=== PATIENT | male | born 1935 | race Caucasian/White ===

== ENCOUNTER → 2018-02-10 11:42 | Outpatient (CLI) | payer OTHER, SELFPAY ==
--- NOTE | 2018-02-10 11:47 | RAD_ITS ---
STUDY: X-RAY CHEST REASON FOR EXAM: Male, 82 years old. 2 week history of cough. TECHNIQUE: PA and lateral views of the chest. COMPARISON: None. FINDINGS: Hyperinflation. Increased interstitial markings bilaterally worse in the right hemithorax suggestive of pulmonary scarring. There is evidence of pleural thickening along the right lateral pleural surface. Normal size heart. Normal mediastinum and gasper. Normal visualized pulmonary arteries. Normal visualized aortic arch and descending thoracic aorta. There are diffuse degenerative changes of the visualized thoracic spine. Normal visualized ribs, clavicles, and shoulders. There is no demonstrated abnormality of the visualized soft tissue structures of the upper abdomen. RAD/Chest PA and Lateral IMPRESSION: Hyperinflation. Bilateral pulmonary scarring. Pleural thickening in the right hemithorax. Electronically Signed: Esa Hall MD at 12:47 EDT Tel [phone], Service support ,
== END ==
PROVIDERS: Family Provider Family Medicine; PCP Family Medicine; Visit Provider Physician Assistant
DX: J98.4 Other disorders of lung (principal); J92.9 Pleural plaque without asbestos
CPT/HCPCS: 71046

== ENCOUNTER → 2018-03-04 08:00 | Outpatient (CLI) | payer OTHER, SELFPAY ==
[2018-03-04 12:20] LABS: Absolute Neutrophil Count 5.4 X10^3/uL (2.0-7.7); Basophil# 0.05 X10^3/uL; Basophil% 0.5 % (0-1); Eosinophil# 0.35 X10^3/uL; Eosinophils% 3.8 % (0-5); Hematocrit 38.1 % (40-54); Lymphocyte % 24.2 % (19-41); Mean Corp Hgb Conc 31.5 g/gl (32-36); Mean Corpuscular Hgb 30.2 pg (27.0-32.0); Mean Platelet Vol. 12.2 fl (6.2-12.0); Monocyte# 1.05 X10^3/uL; Monocyte% 11.5 % (0-10); Neutrophil # 5.42 X10^3/uL (2.7-7.7); Neutrophil % 59.7 % (47-70); Platelet Count 201 K/mm3 (150-450); RBC Distribution Width SD 50.7 fl (35.1-43.9); Red Blood Count 3.97 M/mm3 (4.6-6.2); White Blood Count 9.1 K/mm3 (4.4-11.0)
[2018-03-04 12:31] LABS: POSITIVE COUNT NO; POSITIVE DIFFERENTIAL NO; POSITIVE MORPHOLOGY NO
[2018-03-04 12:36] LABS: BUN 11 mg/dL (7-18); Creatinine, Serum 0.92 mg/dL (0.70-1.30); Glucose 93 mg/dL (74-106)
[2018-03-04 12:37] LABS: ALB/GLOB Ratio 0.8 RATIO (0.9-2.4); AST(SGOT) 18 U/L (15-37); Alanine Aminotransfer ALT/SGPT 19 U/L (16-61); Alkaline Phosphatase 93 U/L (45-117); Anion Gap 6 (5-15); BUN/Creat Ratio 11.9 RATIO (10-20); Calcium,Total 8.8 mg/dL (8.5-10.1); Chloride 103 mmol/L (98-107); Cholesterol 107 mg/dL (200); EST Glomerular Filtration Rate 83 mL/min (>60); Est Glom Filt Rate - Afr Amer 101 mL/min (>60); Globulin 3.8 g/dL (2.2-4.2); High Density Lipoprotein 70 mg/dL; Potassium 4.3 mmol/L (3.5-5.1); Protein, Total 6.8 g/dL (6.4-8.2); Sodium Level 138 mmol/L (136-145); Triglycerides 53 mg/dL; Very Low Density Lipoprotein 11 mg/dL (5-40)
== END ==
PROVIDERS: Family Provider Family Medicine; PCP Family Medicine; Visit Provider Family Medicine
DX: I50.9 Heart failure, unspecified (principal); I25.10 Atherosclerotic heart disease of native coronary artery without angina pectoris; N40.1 Benign prostatic hyperplasia with lower urinary tract symptoms
CPT/HCPCS: 36415; 80053; 80061; 85025

== ENCOUNTER 2018-08-08 08:55 | Emergency (ER) | payer MEDICARE, SELFPAY ==
[2018-08-08 08:56] VITALS: BP 121/46; PULSE 95; RESP 28; TEMP 36.2; O2SAT 95; BMI 26.1
--- NOTE | 2018-08-08 09:11 | EKG12_ITS ---
Test Reason : SOB Blood Pressure : / mmHG Vent. Rate : 076 BPM Atrial Rate : 076 BPM P-R Int : 166 ms QRS Dur : 100 ms QT Int : 394 ms P-R-T Axes : 098 -15 -01 degrees QTc Int : 443 ms Normal sinus rhythm Inferior infarct , age undetermined Abnormal ECG Confirmed by YOSSI VALLEJO, [facility] ([id number]), editor news COOKIE TORRES ([id number]) on 08/10/2018 2:45:11 PM Referred By: CHELA Confirmed By:UMU SY MD
--- NOTE | 2018-08-08 09:13 | ED.VISSUMM ---
- ER Visit Summary Date of Service: 08/08/18 Chief Complaint: Shortness of breath History of Present Illness: The patient is a 82 M past medical history of prior stroke and CHF. States the last 10 falls around this time a year he has episodes of shortness of breath. He says often is diagnosed as a bronchitis or respiratory infection. He denies any chest pain. He denies any hemoptysis. He is never had a DVT or PE. He denies any prior HI. He denies any recent travel, surgery, mobilization. He denies any leg swelling. States the shortness of breath is worse laying down at night or with walking. But he denies any chest pain whatsoever. Physical Examination: Well-appearing older male. Vital signs are stable afebrile. Pulse ox 95% on room air no signs of hypoxia. HEENT exam unremarkable. Neck nontender no JVD no lymphadenopathy. Lungs few scattered expiratory wheezes. No rales or rhonchi. Equal and symmetrical. Good air movement. Heart regular rhythm no murmur. Rate in the 90s. Abdomen soft nontender. He is moving all 4 extremities. They are neurovascularly intact. Calves are nontender without edema or cords. Neurologically is awake and alert with no focal motor deficits. Test Results: EKG shows sinus rhythm rate of 76 with possibly an old inferior HI. Chest x-ray shows a lot of chronic changes with pulmonary scarring bibasilar which is seen on a prior chest x-ray. No acute process. No failure. No pneumonia. Emergency Department Course and Treatment: Patient has expiratory wheezing. Treated with p.o. steroids and aerosol treatments. With this recurring annually for the last 10 or so years around this time this could be secondary to seasonal allergies. On repeat exam at 09 56 patient is doing better. He is received aerosol treatments and prednisone. I feel this patient has underlying lung disease from his prior smoking and has COPD flares this time a year with the change of the weather and seasonal allergens. Treatment Plan: Continue on his current inhalers and these are using at home 1 of which is Combivent. Will be placed on prednisone 40 mg a day for the next week. Will be instructed to follow-up with a local processor grain. Disposition: Discharge Impression: Acute dyspnea secondary to acute exacerbation of COPD Seasonal allergies This note was generated with [employer] software. It may contain incorrect words, spelling, and punctuation that were not noted in review of the chart prior to signing ED Disposition - Plan for ED Patient: Chief Complaint: Shortness of Breath Referrals: Ha Davis DO [Primary Care Provider] -
--- NOTE | 2018-08-08 09:17 | ED.DCSUM_ITS ---
- ER Visit Summary Date of Service: 08/08/18 Chief Complaint: Shortness of breath History of Present Illness: The patient is a 82 M past medical history of prior stroke and CHF. States the last 10 falls around this time a year he has episodes of shortness of breath. He says often is diagnosed as a bronchitis or respiratory infection. He denies any chest pain. He denies any hemoptysis. He is never had a DVT or PE. He denies any prior MO. He denies any recent travel, surgery, mobilization. He denies any leg swelling. States the shortness of breath is worse laying down at night or with walking. But he denies any chest pain whatsoever. Physical Examination: Well-appearing older male. Vital signs are stable afebrile. Pulse ox 95% on room air no signs of hypoxia. HEENT exam unremarkable. Neck nontender no JVD no lymphadenopathy. Lungs few scattered expiratory wheezes. No rales or rhonchi. Equal and symmetrical. Good air movement. Heart regular rhythm no murmur. Rate in the 90s. Abdomen soft nontender. He is moving all 4 extremities. They are neurovascularly intact. Calves are nontender without edema or cords. Neurologically is awake and alert with no focal motor deficits. Test Results: EKG shows sinus rhythm rate of 76 with possibly an old inferior MO. Chest x-ray shows a lot of chronic changes with pulmonary scarring bibasilar which is seen on a prior chest x-ray. No acute process. No failure. No pneumonia. Emergency Department Course and Treatment: Patient has expiratory wheezing. Treated with p.o. steroids and aerosol treatments. With this recurring annually for the last 10 or so years around this time this could be secondary to seasonal allergies. On repeat exam at 09 56 patient is doing better. He is received aerosol treatments and prednisone. I feel this patient has underlying lung disease from his prior smoking and has COPD flares this time a year with the change of the weather and seasonal allergens. Treatment Plan: Continue on his current inhalers and these are using at home 1 of which is Combivent. Will be placed on prednisone 40 mg a day for the next week. Will be instructed to follow-up with a local trailer body assembler. Disposition: Discharge Impression: Acute dyspnea secondary to acute exacerbation of COPD Seasonal allergies This note was generated with [employer] software. It may contain incorrect words, spelling, and punctuation that were not noted in review of the chart prior to signing ED Disposition - Plan for ED Patient: Chief Complaint: Shortness of Breath Referrals: Ha Davis DO [Primary Care Provider] -
--- NOTE | 2018-08-08 09:20 | RAD_ITS ---
STUDY: X-RAY CHEST REASON FOR EXAM: Male, 82 years old. Dyspnea. Shortness of breath. TECHNIQUE: PA and lateral views. COMPARISON: 02/10/2018. FINDINGS: Pulmonary hyperinflation with flattening of the hemidiaphragms. Calcified granuloma in the right upper lobe. No suspicious pulmonary nodules or infiltrates. The interstitial lung markings are prominent. Pleural thickening along the right hemithorax is unchanged. No pleural fluid. Normal size heart. Normal mediastinum and gasper. Normal visualized pulmonary arteries. Normal visualized aortic arch and descending thoracic aorta. Bridging of ossified anterior posterior ligaments at multiple levels of the thoracic spine is diffuse idiopathic skeletal hyperostosis. Normal visualized ribs, clavicles, and shoulders. There is no demonstrated abnormality of the visualized soft tissue structures of the upper abdomen. RAD/Chest PA and Lateral IMPRESSION: 1. No acute cardiopulmonary pathology. 2. COPD with chronic interstitial lung disease. 3. No significant interval change when compared to 02/10/2018. COMMENT: Baseline High resolution CT chest will be more helpful for further evaluation of chronic interstitial lung disease and shortness of breath if desired. Electronically Signed: Eddy Enciso MD at 9:35 EDT , Service support ,
[2018-08-08] MEDS: predniSONE 20 MG Tablet 60 MG PO (09:29)
[2018-08-08] MEDS: Ipratropium/Albuterol Sulfate 3 ML AMPUL.NEB INHALATION (09:39)
[2018-08-08] MEDS: Albuterol 2.5 MG/3 ML VIAL.NEB. INHALATION (09:39)
[2018-08-08 09:41] VITALS: PULSE 96; RESP 18
--- NOTE | 2018-08-08 09:59 | ED.DEP ---
ED Disposition - Plan for ED Patient: Disposition: Home or Assisted Living Chief Complaint: Shortness of Breath Instructions: ED COPD Flare Prescriptions: Prednisone [Deltasone] 40 mg PO DAILY 7 Days tab Referrals: Ha Davis DO [Primary Care Provider] - As Needed Bola Becerril DO [STAFF PHYSICIAN] - As soon as possible Additional Instructions: Inhalers as needed. Prednisone 40 mg a day for the next 7 days starting tomorrow. We gave you your first dose in the ER today. Call and follow-up with a local vehicle and equipment cleaner.
[2018-08-08 10:16] VITALS: PULSE 100; RESP 18; O2SAT 93
--- NOTE | 2018-08-09 14:04 | CM.ED ---
ED CALLBACK: Follow-up call placed to patient. Patient states he is feeling better. He states he is taking his prescription and has scheduled a follow-up appointment with his PCP for this Thursday. Patient denies having made an appt with Bola blount. He denies any needs or questions at this time.
== END 2018-08-08 10:16 | disposition home or self-care (01) ==
PROVIDERS: Emergency Provider Emergency Medicine; Family Provider Family Medicine; PCP Family Medicine
DX: J44.1 Chronic obstructive pulmonary disease with (acute) exacerbation (principal); J30.2 Other seasonal allergic rhinitis; I50.9 Heart failure, unspecified; Z79.899 Other long term (current) drug therapy; Z87.891 Personal history of nicotine dependence; Z86.73 Personal history of transient ischemic attack (TIA), and cerebral infarction without residual deficits
CPT/HCPCS: 71046; 93005; 94640; 99283

== ENCOUNTER → 2018-09-03 06:46 | Outpatient (CLI) | payer MEDICARE, SELFPAY ==
--- NOTE | 2018-09-05 06:39 | PFT ---
INTRODUCTION: The patient is an 82-year-old male that presents for pulmonary function testing secondary to a diagnosis of dyspnea. Respiratory therapy reports good patient effort. Bronchodilators were used during testing. INTERPRETATION: Forced expiration spirometry demonstrates the presence of a very severe large airways obstructive ventilatory defect. There was a significant response to aerosolized bronchodilators noted. Spirograms are of good quality and do not plateau indicating slow emptying of the lungs. The respiratory flow volume loop reveals decreased expiratory flow rates at all lung volumes consistent with airways obstruction. Body plethysmography was performed and reveals an elevated RV to 173% of predicted, indicative of underlying air trapping. Diffusing capacity by single breath CO is moderately reduced at 53% of predicted. 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 There are no previous pulmonary function studies available for comparison.
== END ==
PROVIDERS: Family Provider Family Medicine; PCP Family Medicine; Referring Provider Internal Medicine Critical Care Medicine; Visit Provider Internal Medicine Critical Care Medicine
DX: R06.00 Dyspnea, unspecified (principal)
CPT/HCPCS: 94060; 94726; 94729

== ENCOUNTER → 2018-09-07 12:19 | Outpatient (CLI) | payer MEDICARE, SELFPAY ==
[2018-09-07 13:32] VITALS: PULSE 103; PULSE 105; PULSE 106; PULSE 78; PULSE 93; PULSE 98; O2SAT 87; O2SAT 89; O2SAT 90; O2SAT 93; O2SAT 94; O2SAT 96
--- NOTE | 2018-09-07 14:16 | WT_ITS ---
PSN 6 Minute Walk Test - 6 Minute Walk Test 6 Minute Walk Test: 6 Minute Walk Test PSN:6-Minute Walk Test Start: 09/07/18 13:32 Freq: Status: Active Protocol: RESP.6MINW Document 09/07/18 13:32 [facility] (Rec: 09/07/18 13:37 [facility] [id number]) 6 Minute Walk Test Date Performed 09/07/18 Time Performed 12:30 Height 5 ft 10 in Weight: 82.554 kg Weight in Pounds 182.[address]: Emerson Cabello Assistive device used: None Pre-test Oxygen Delivery Method Room Air Pulse Ox (%) 94 Pulse Rate (60-100 beats/min) 98 Dyspnea Brenda Scale (0-10) 0 Exertion Brenda Scale (6-20) 6 1st minute Oxygen Delivery Method Room Air Pulse Ox (%) 89 Pulse Rate (60-100 beats/min) 106 H 2nd minute Oxygen Delivery Method Room Air Pulse Ox (%) 90 Pulse Rate (60-100 beats/min) 103 H 3rd minute Oxygen Delivery Method Room Air Pulse Ox (%) 87 Pulse Rate (60-100 beats/min) 105 H Dyspnea Brenda Scale (0-10) 3 Exertion Brenda Scale (6-20) 11 4th minute Oxygen Flow Rate (L/min) (L/min) 2 Oxygen Delivery Method Nasal Cannula Pulse Ox (%) 96 Pulse Rate (60-100 beats/min) 103 H 5th minute Oxygen Flow Rate (L/min) (L/min) 2 Oxygen Delivery Method Nasal Cannula Pulse Ox (%) 94 Pulse Rate (60-100 beats/min) 103 H 6th minute Oxygen Flow Rate (L/min) (L/min) 2 Oxygen Delivery Method Nasal Cannula Pulse Ox (%) 93 Pulse Rate (60-100 beats/min) 93 Dyspnea Brenda Scale (0-10) 3 Exertion Brenda Scale (6-20) 11 Post-test Oxygen Flow Rate (L/min) (L/min) 2 Oxygen Delivery Method Nasal Cannula Pulse Ox (%) 96 Pulse Rate (60-100 beats/min) 78 Full Laps Walked 14 Partial Lap, Number of Tiles Walked 0 Total Distance Walked (ft) 826 - Interpretation Interpretation: The patient was noted to be 94% on room air. The patient was unable to ambulate for 3 minutes until desaturated to 87%. The patient was placed on 2 L nasal cannula and saturations were controlled. In total, patient travel 826 feet over the course of 6 minutes with the assistance of a wheelchair for stabilization. There is no significant tachycardia noted during testing. These findings are consistent with a respiratory limitation exercise tolerance. - Recommendations Recommendations: No supplemental oxygen is indicated at rest. However, patient should be using 2 L nasal cannula with any exertion.
== END ==
PROVIDERS: Family Provider Family Medicine; PCP Family Medicine; Referring Provider Internal Medicine Critical Care Medicine; Visit Provider Internal Medicine Critical Care Medicine
DX: R06.00 Dyspnea, unspecified (principal)
CPT/HCPCS: 94618

== ENCOUNTER → 2018-10-05 12:48 | Outpatient (CLI) | payer MEDICARE, SELFPAY ==
[2018-09-15 10:45] VITALS: BMI 26.5
--- NOTE | 2018-10-05 12:49 | ECHOD_ITS ---
Reason For Study: Dyspnea/SOB Procedure This was a 2D Doppler, Color Flow transthoracic echocardiogram. The study was technically difficult. Exam performed in department. Left Ventricle Normal LV size. Sigmoid septum. Mild segmental systolic dysfunction (see wall motion). The estimated ejection fraction is 40 %. Diastolic function is indeterminate. Posterior-Basal: Akinetic. Infero- Basal: Akinetic. Basal inferoseptal: Hypokinetic. Mid-Posterior: Hypokinetic. Mid-Inferior: Akinetic. Mid-inferoseptal : Hypokinetic. Inferior [place] : Hypokinetic. Right Ventricle Normal RV size. Normal systolic function. Atria Normal left atrium. Normal right atrium. No doppler evidence for ASD. Mitral Valve There is no mitral annular calcification. Normal mitral valve. Trivial mitral valve insufficiency. Tricuspid Valve Normal tricuspid valve. Trivial tricuspid valve insufficiency. Unable to estimate RV systolic pressure/pulmonary artery pressure due to technically difficult study. Aortic Valve Trisinus/trileaflet aortic valve. Mild diffuse aortic valve thickening. Moderate focal aortic valve calcification. Mild aortic stenosis. Pulmonic Valve The pulmonic valve is not well visualized. Great Vessels The aortic root is not well visualized. Pericardium/Pleural No pericardial effusion. MMode/2D Measurements & Calculations LVIDd: 4.9 cm IVSd: 1.8 cm LVOT diam: 2.3 cm LVIDs: 4.6 cm LVPWd: 0.78 cm LVOT area: 4.2 cm2 RVDd: 4.3 cm FS: 6.6 % LA dimension: 4.9 cm LAV(MOD-bp): 60.0 ml Aortic Valve Planimetry: 1.3 cm2 LAV(MOD-bp) Indexed: 29.7 ml/m2 LAV(MOD-sp2): 64.0 ml LAV(MOD-sp4): 53.2 ml LA A4 area: 19.2 cm2 RA A4 area: 19.4 cm2 Time Measurements MV dec time: 0.29 sec Doppler Measurements & Calculations MV E max josé miguel: 36.2 cm/sec Lat Peak E' José Miguel: 4.5 cm/sec Med Peak E' José Miguel: 3.2 cm/sec MV A max josé miguel: 95.9 cm/sec E/E' lat: 8.1 E/E' med: 11.2 MV E/A: 0.38 MV V2 max: 106.8 cm/sec MV P1/2t max josé miguel: 47.5 cm/sec Ao V2 max: 222.9 cm/sec MV max P.6 mmHg MV P1/2t: 105.3 msec Ao max P.9 mmHg MV V2 mean: 44.0 cm/sec MV dec slope: 132.0 cm/sec2 Ao V2 mean: 148.7 cm/sec MV mean P.99 mmHg Ao mean P.3 mmHg MV V2 VTI: 24.4 cm MVA(P1/2t): 2.1 cm2 Ao V2 VTI: 44.9 cm MVA(VTI): 2.9 cm2 BILL(I,D): 1.6 cm2 BILL(V,D): 1.5 cm2 LV V1 max: 80.5 cm/sec SV(LVOT): 70.7 ml PA V2 max: 76.1 cm/sec LV V1 max P.6 mmHg LV V1 mean P.1 mmHg LV V1 mean: 47.6 cm/sec LV V1 VTI: 16.7 cm Interpretation Summary The study was technically difficult. Mild segmental systolic dysfunction (see wall motion). The estimated ejection fraction is 40 %. Sigmoid septum. Trivial mitral valve insufficiency. Trivial tricuspid valve insufficiency. Mild aortic stenosis. Unable to estimate RV systolic pressure/pulmonary artery pressure due to technically difficult study. Diastolic function is indeterminate. Ordering Physician: Bethany Stearns Referring Physician: Bethany Stearns Performed By: Stephon Martinez RCS
--- OUTSIDE RECORDS SUMMARY | 2018-11-17 06:00 | XMS RPT_ITS ---
:1935 Author Organization OHIP Support Name Relationship Address Phone PINO MONDRAGON Unavailable [address] + [place] [address] R Unavailable Unavailable Unavailable ALANNA, PINO Unavailable [address] + [place] [address] R Unavailable Unavailable Unavailable ALANNA, PINO Unavailable [address] + [place] [address] R Unavailable Unavailable Unavailable ALANNA, PINO Unavailable [address] + [place] [address] R Unavailable Unavailable Unavailable ALANNA, PINO Unavailable [address] + [place] [address] R Unavailable Unavailable Unavailable ALANNA, PINO Unavailable [address] + [place] [address] R Unavailable Unavailable Unavailable ALANNA, PINO Unavailable [address] + [place] [address] R Unavailable Unavailable Unavailable ALANNA, PINO Unavailable [address] + [place] [address] R Unavailable Unavailable Unavailable ALANNA, PINO Unavailable [address] + [place] [address] R Unavailable Unavailable Unavailable ALANNA, PINO Unavailable [address] + [place] [address] R Unavailable Unavailable Unavailable ALANNA, PINO Unavailable [address] + [place] [address] R Unavailable Unavailable Unavailable ALANNA, BABARA Unavailable [address] + [place] [address] U Unavailable Unavailable Unavailable ALANNA, BABARA Unavailable [address] + [place] [address] U Unavailable Unavailable Unavailable U Unavailable Unavailable Unavailable Care Team Providers Name Role Phone Oral Song Attending Unavailable Stearns, Bethany Referring Unavailable Wes Munson Attending Unavailable Jeimy, Wes Attending Unavailable PatricialesWes Referring Unavailable Susan, Ha Primary Care Unavailable Susan, Ha Attending Unavailable Susan, Ha Primary Care Unavailable Susan, Ha Primary Care Unavailable Dannie Mortensen Attending Unavailable Irineo, Emerson Attending Unavailable Susan, Ha Referring Unavailable Irineo, Emerson Attending Unavailable Irineo, Emerson Referring Unavailable Susan, Ha Primary Care Unavailable Irineo, Emerson Attending Unavailable Irineo, Emerson Referring Unavailable Susan, Ha Primary Care Unavailable Stearns, Bethany Attending Unavailable Susan, Ha Referring Unavailable Bola Becerril D.O. Attending Unavailable Irineo, Emerson Referring Unavailable Irineo, Emerson Attending Unavailable Irineo, Emerson Referring Unavailable Stearns, Bethany Attending Unavailable Stearns, Bethany Referring Unavailable Susan, Ha Primary Care Unavailable Stearns, Bethany Attending Unavailable Susan, Ha Referring Unavailable Stearns, Bethany Attending Unavailable Stearns, Bethany Referring Unavailable Susan, Ha Primary Care Unavailable PROBLEMS PROBLEMS DATE TYPE CONDITION / CODE ATTENDING STATUS SOURCE 10/13/2018 Unknown R06.00 - Dyspnea, Stearns, Active [place] unspecified / [facility] Community R06.00(ICD-10) Hospital Repository 10/25/2018 Unknown R06.09 - Other forms Oral Song Active [place] of dyspnea / Community R06.09(ICD-10) Hospital Repository 03/04/2018 Unknown I50.9 - Heart SusanHa kaur Active [place] failure, unspecified Community / I50.9(ICD-10) Hospital Repository 03/04/2018 Unknown 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 [place] [address] [place] [address] OFFICE VISIT Date of Service: 10/13/18 MR#: [id number] Acct: [id number] Name: HAILEY MONDRAGON Rep #: [id number] : 1935 Provider: Bethany Stearns Age/Sex: 82/M [place] [facility] [place] Status: Signed Assessment AND Plan 1. Chronic respiratory failure with hypoxia J96.11 Plan The patient is using and benefiting from oxygen. Continue to utilize to maintain a saturation of 89-92%. Follow-up as previously scheduled. 2. 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 No need for prednisone or antibiotic. Continue current maintenance medication. No additional testing at this time. Contact the office for any new or worsening symptoms. An acute visit and typically be arranged within 1-2 days. Follow-up as previously scheduled. 3. Dyspnea on exertion R06.09 Plan Still suspicious of pulmonary hypertension despite confirmation on echocardiogram. Patient reports that he always has a significant improvement in his oxygen saturations and his respiratory effort with prednisone. Autoimmune blood work to be done today. Follow-up with Dr. Cabello on October 23, at which time they can discuss test results. May benefit from allergic asthma workup as well, unable to obtain at this time given that he is currently on a prednisone taper. Plan Detail Other Orders Orders: Other Medications New: budesonide-formoterol 160-4.5 mcg/actuation (Symbicort) 2 puffs Inhalation BID 1 ea 3RF administer with spacer, rinse mouth after each use HPI Echo Results: Chief Complaint: Shortness of breath HPI Comments Details: This patient presents to the office today to follow- up after recently completing a test, and to follow-up on his shortness of breath. He is ambulatory, currently on room air and accompanied by his . He reports that since last office visit he was started on Symbicort, which he found to be helpful in relieving some of his shortness of breath. He also admits that he has a standing order for a prednisone taper and refilled it. He is currently on the taper. He states that his shortness of breath significantly improved with the use of the prednisone taper. His shortness of breath is now only present on exertion. He denies any cough, sputum production or hemoptysis. He denies any wheezing, chest tightness, chest pain or palpitations. He denies any lower extremity edema. He has not had any fever, chills or body aches. He is compliant with the Symbicort 2 puffs twice daily. Does report rinsing his mouth out after he chews. Denies any medication side effects such as sore throat or thrush. He has not needed to use his Combivent Respimat rescue inhaler recently. Echocardiogram completed on October 05, 2018 shows an EF of 40%, diastolic dysfunction is indeterminate and unable to estimate RVSP. Intake Vital Signs10/13/18 Height 5 ft 10 in Intake Visit Reasons: Echo Results Chief Complaint: Shortness of breath Is patient in pain?: No Allergies amoxicillin Adverse Reaction (Verified 10/13/18 08:43) Nausea/Vom/Diarrhea Medications atorvastatin 10 mg tablet 1 tab PO DAILY 90 Days #90 02/10/18 [History Confirmed 10/13/18] finasteride 5 mg tablet 1 tab PO DAILY 90 Days #90 02/10/18 [History Confirmed 10/13/18] lisinopril 5 mg tablet 1 tab PO DAILY 90 Days #90 02/10/18 [History Confirmed 10/13/18] potassium chloride ER 10 mEq tablet,extended release 1 tab PO DAILY 90 Days #180 02/10/18 [History Confirmed 10/13/18] ipratropium 20 mcg-albuterol 100 mcg/actuation mist for inhalation 1 puff INHALATION Q6H 09/02/18 [History Confirmed 10/13/18] budesonide-formoterol HFA 160 mcg-4.5 mcg/actuation aerosol inhaler 2 puff INHALATION BID #1 ea 10/13/18 [Rx Confirmed 10/13/18] [facility] Medical History Heart disease (Acute) SOB (shortness of breath) (Acute) Stroke (Acute) HTN (hypertension) (Chronic) Surgical History History of knee replacement (Acute) Social History Smoking Status: Former smoker quit date: 11/09/12 alcohol intake: current Review of Systems Const CONSTITUTIONAL: Negative anorexia, body ache, chills, daytime sleepiness, fever(s), night sweats, oral thrush, stops breathing during sleep, weight loss, sleeping in chair, fatigue, weight loss, weight gain, frequent colds, seasonal allergies, other, headache(s) or orthopnea EETM Ear Nose Throat Mouth: Positive post nasal drip; negative hard of hearing, hearing normal, hoarseness, dry mouth in morning, change in vision, itchy eyes, eye pain, swallowing Difficulty, ear pain, nose bleed, headache(s), mouth pain, nasal congestion, nasal discharge, sinus pain, sinus pressure, sore throat or other Cardio Cardiovascular: Positive murmur; negative chest pain, chest pain at rest, chest pain with activity, irregular heart rhythm, edema, shortness of breath when lying down, palpitations or other Resp Respiratory: Positive shortness of breath shortness of breath: Positive with activity; negative as per HPI, pain with cough, wheezing, chest congestion, cough, chest tightness, pain on inspiration, inhalers, increase use of rescue inhalers, snoring, apnea or other Gastro Gastrointestional: Negative bloody stools, change in appetite, difficulty swallowing, reflux, hematemesis, melena stool, loose stool, constipation or other Genitourinary: Negative blood in urine, nocturia, pain with urination or other Musc Musculoskeletal: Negative body pain, back pain, neck pain or other Skin/Breast Skin/Breast: Negative dry skin, itching, rash, unusual bruising, breast lump or other Neuro Neurological: Negative restless legs, confusion, weakness or other Psych Psychocological: Negative abnormal sleep pattern, anxiety, thoughts of hurting self/others, hopelessness or other Lymph Lymphatic: Negative easy bleeding, easy bruising, swollen lymph nodes or other Exam Const Constitutional: Positive conversant, cooperative, in no acute respiratory distress, well developed, well nourished and good hygiene Head Head: Positive normocephalic and atraumatic; negative cyanosis of lips/distal nose Eyes Eye: Positive clear conjunctiva; negative nystagmus or scleral abnormality Ears Ear: Positive external ears normal; negative hard of hearing or hearing normal Nose Nose: Positive external nose normal and no nasal discharge; negative epistaxis Mouth Mouth: Positive post nasal drip, oral mucosae normal, no lesions and posterior oropharynx is adequate; negative malodorous breath or oral thrush present Mallampati Score: I: Mallampati Score Neck Neck: Positive normal visual inspection, full ROM and trachea midline; negative lymphadenopathy, JVD or tender Chest Wall Chest: Positive normal inspection of the chest and symmetric chest movement; negative increased A/P diameter Resp lung sounds: Positive clear to auscultation, diminished, prolonged expiratory time, normal chronic state of increased work of breathing and increased work of breathing; negative wheezes, rhonchi, rales, dullness to percussion, wheeze present on forced exhalation or use of accessory muscles Cardio Cardiac: Positive murmur murmur: Positive systolic and RUSB, regular rate, regular rhythm, S1 normal and S2 normal GI GI: Positive normal to inspection; negative distended Genitourinary: Positive deferred Musc Musculoskeletal: Positive steady gait and ROM normal; negative kyphosis or scoliosis Skin Pulmonary Skin Exam: Positive intact and dermal atrophy; negative rash, lesion, ulcers or erythema Pulses Pulse: Yes pulses normal x4 extremities Extremities Extremities: Yes capillary refill normal, No clubbing, No cyanosis, No edema Neuro Neurologic: Yes conversant, Yes no focal neuro deficits, Yes normal concentration, Yes understands questions, Yes cooperative, Yes normal cognition, Yes normal coordination, No tremor Lymph Lymphatic: No lymphadenopathy, No tenderness, No cervical adenopathy Psych Appearance: Positive grossly normal, eye contact and well kempt Mental Status: Positive mental status grossly normal Mood: Positive congruent mood Affect: Positive normal affect Coding Level of Care Code Off vis,est,level 4 Diagnoses Chronic respiratory failure with hypoxia J96.11 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 Dyspnea on exertion R06.09 Dyspnea type: dyspnea on exertion 10/13/18 1006 <Electronically signed by Bethany PAYNE> Date Bethany PAYNE Cosigner Signature: Date (if applicable) CC: Ha Susan DO RHEUMATOID FACTOR Collected: 10/13/2018 Status: F Source: [place] 9:17 AM [facility] REPOSITORY TYPE CODE TESTS RESULT OUT OF RANGE REFERENCE UNITS LAB L505.7010 <15 IU/mL Normal RHEUMATOID FAC < 10.0 Performed By: #### L505.7010 #### [facility] [place], [address] ANCA Collected: 10/13/2018 Status: F Source: [place] 9:17 AM [facility] REPOSITORY TYPE CODE TESTS RESULT OUT OF RANGE REFERENCE UNITS LAB L3300.1225 Neg:<1:20 titer CYTOPLASMIC Normal Ab <1:20 LAB L3300.1250 Neg:<1:20 titer PERINUCLEAR Normal Ab <1:20 Result Comment: The presence of positive fluorescence exhibiting P-ANCA or C-ANCA patterns alone is not specific for the diagnosis of Bart's Granulomatosis (WG) or microscopic polyangiitis. Decisions about treatment should not be based solely on ANCA IFA results. The International ANCA Group Consensus recommends follow up testing of positive sera with both WI- 3 and MPO-ANCA enzyme immunoassays. As many as 5% serum samples are positive only by EIA. Ref. AM J Clin Pathol 1999;111:507-513. LAB L3300.1285 Neg:<1:20 titer Normal Atypical pANCA <1:20 Result Comment: The atypical pANCA pattern has been observed in a significant percentage of patients with ulcerative colitis, primary sclerosing cholangitis and autoimmune hepatitis. Performed By: #### L3300.1200, L4600.0100 #### [facility] (refer to report for specific site) refer to report for address and phone number CCP IGG ANTIBODIES Collected: 10/13/2018 Status: F Source: [place] 9:17 AM [facility] REPOSITORY TYPE CODE TESTS RESULT OUT OF RANGE REFERENCE UNITS LAB L4600.0100 0-19 units Normal ANTI-CCP 7 [id number] Result Comment: Negative <20 Weak positive 20 - 39 Moderate positive 40 - 59 Strong positive >59 Performed at: [facility] [id number] [employer] Machine Operator: Liang Lunsford PhD, Phone: [phone] Performed at: - [facility] [id number] [employer] Operator: Nisha Phillips MD, Phone: [phone] Performed By: #### L3300.1200, L4600.0100 #### [facility] (refer to report for specific site) refer to report for address and phone number SABA W/ REFLEX MULT Collected: 10/13/2018 Status: F Source: [place] 9:17 AM [facility] REPOSITORY TYPE CODE TESTS RESULT OUT OF RANGE REFERENCE UNITS LAB L3100.5475 Negative Normal Negative SABA-DIRECT Result Comment: Performed at: - [facility] [id number] [employer] Machine Operator: Liang Lunsford PhD, Phone: [phone] Performed By: #### L3100.5450 #### [facility] (refer to report for specific site) refer to report for address and phone number ECHOCARDIOGRAM COMPLETE Observed: 10/05/2018 Status: F Source: [place] 3:56 PM [facility] REPOSITORY [facility] Cardiovascular Services [address] [place] [id number] Echo Complete 10/05/18 1301 MR#: [id number] Acct: [id number] Name: HAILEY MONDRAGON Rep #: [id number] : 1935 82 From: Oral Song MD Attending Dr: Bethany Stearns MORTGAGE LOAN PROCESSING CLERK Status: [facility] Ordering Dr: Bethany Stearns MORTGAGE LOAN PROCESSING CLERK-C Date: 10/05/18 Location: [facility] Sex: M C Admitted: Reason For Study: Dyspnea/SOB Procedure This was a 2D Doppler, Color Flow transthoracic echocardiogram. The study was technically difficult. Exam performed in department. Left Ventricle Normal LV size. Sigmoid septum. Mild segmental systolic dysfunction (see wall motion). The estimated ejection fraction is 40 %. Diastolic function is indeterminate. Posterior-Basal: Akinetic. Infero- Basal: Akinetic. Basal inferoseptal: Hypokinetic. Mid-Posterior: Hypokinetic. Mid-Inferior: Akinetic. Mid-inferoseptal : Hypokinetic. Inferior Arden : Hypokinetic. Right Ventricle Normal RV size. Normal systolic function. Atria Normal left atrium. Normal right atrium. No doppler evidence for ASD. Mitral Valve There is no mitral annular calcification. Normal mitral valve. Trivial mitral valve insufficiency. Tricuspid Valve Normal tricuspid valve. Trivial tricuspid valve insufficiency. Unable to estimate RV systolic pressure/pulmonary artery pressure due to technically difficult study. Aortic Valve Trisinus/trileaflet aortic valve. Mild diffuse aortic valve thickening. Moderate focal aortic valve calcification. Mild aortic stenosis. Pulmonic Valve The pulmonic valve is not well visualized. Great Vessels The aortic root is not well visualized. Pericardium/Pleural No pericardial effusion. MMode/2D Measurements AND Calculations LVIDd: 4.9 cm IVSd: 1.8 cm LVOT diam: 2.3 cm LVIDs: 4.6 cm LVPWd: 0.78 cm LVOT area: 4.2 cm2 RVDd: 4.3 cm FS: 6.6 % LA dimension: 4.9 cm LAV(MOD-bp): 60.0 ml Aortic Valve Planimetry: 1.3 cm2 LAV(MOD-bp) Indexed: 29.7 ml/m2 LAV(MOD-sp2): 64.0 ml LAV(MOD-sp4): 53.2 ml LA A4 area: 19.2 cm2 RA A4 area: 19.4 cm2 Time Measurements MV dec time: 0.29 sec Doppler Measurements AND Calculations MV E max josé miguel: 36.2 cm/sec Lat Peak E' José Miguel: 4.5 cm/sec Med Peak E' José Miguel: 3.2 cm/sec MV A max josé miguel: 95.9 cm/sec E/E' lat: 8.1 E/E' med: 11.2 MV E/A: 0.38 MV V2 max: 106.8 cm/sec MV P1/2t max josé miguel: 47.5 cm/sec Ao V2 max: 222.9 cm/sec MV max P.6 mmHg MV P1/2t: 105.3 msec Ao max P.9 mmHg MV V2 mean: 44.0 cm/sec MV dec slope: 132.0 cm/sec2 Ao V2 mean: 148.7 cm/sec MV mean P.99 mmHg Ao mean P.3 mmHg MV V2 VTI: 24.4 cm MVA(P1/2t): 2.1 cm2 Ao V2 VTI: 44.9 cm MVA(VTI): 2.9 cm2 BILL(I,D): 1.6 cm2 BILL(V,D): 1.5 cm2 LV V1 max: 80.5 cm/sec SV(LVOT): 70.7 ml PA V2 max: 76.1 cm/sec LV V1 max P.6 mmHg LV V1 mean P.1 mmHg LV V1 mean: 47.6 cm/sec LV V1 VTI: 16.7 cm Interpretation Summary The study was technically difficult. Mild segmental systolic dysfunction (see wall motion). The estimated ejection fraction is 40 %. Sigmoid septum. Trivial mitral valve insufficiency. Trivial tricuspid valve insufficiency. Mild aortic stenosis. Unable to estimate RV systolic pressure/pulmonary artery pressure due to technically difficult study. Diastolic function is indeterminate. Ordering Physician: Bethany Stearns Referring Physician: Bethany Stearns Performed By: Stephon Martinez RCS 10/05/18 1555 Date Oral Song MD CC: Bethany Stearns; Ha Davis DO Date Dictated: 10/05/18 1301 Date Transcribed: 10/05/18 2419 Unemployment Examiner: Signed PULMONARY VISIT REPORT Observed: 09/16/2018 Status: F Source: [place] 3:52 PM [facility] REPOSITORY Pulmonary Medicine of [address] [place] [address] OFFICE VISIT Date of Service: 09/15/18 MR#: [id number] Acct: [id number] Name: HAILEY MONDRAGON Rep #: [id number] : 1935 Provider: Bethany Stearns Age/Sex: 82/M [place] [facility] [place] Status: Signed Assessment AND Plan 1. Chronic respiratory failure with hypoxia J96.11 Plan New. Patient was educated on the deleterious effects of hypoxia, including premature . He conveys understanding and is now willing to wear supplemental oxygen with exertion. He has been encouraged to wear 4 L on exertion, follow-up in the office next week. 2. 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 He was able to take the first dose in the office today follow-up next week to see how he is responded to this new medication. Orders Orders: 3. Dyspnea on exertion R06.09 Plan Echocardiogram to evaluate for essential sources of shortness of breath on exertion, such as pulmonary hypertension. Follow-up in 1 week to discuss test results. Plan Detail Other Orders Orders: Follow Up 1 Week ([facility]) HPI Oxygen discussion: Chief Complaint: Shortness of breath HPI Comments Details: This patient presents the office today to discuss recent test results. He is ambulatory and currently on room air. He is accompanied today by his . The patient admits that recently had a pulmonary stress test which indicated that he should be wearing supplemental oxygen, however he declined set up because he states that when he was hospitalized his supplemental oxygen did not reduce his shortness of breath and it did not change the number, referring to the saturation. He experiences shortness of breath on exertion. He also reports he feels more short of breath when lying on his side. He has occasional wheezing when lying down. He denies any chest pain or palpitations. He denies any cough, sputum production or hemoptysis. He has not experienced any fever, chills or body aches. He is an active person and states that he has recently been able to spend 22 minutes on recumbent bike and did not desaturate. He does report that he has a portable pulse oximeter at home and occasionally notices that his oxygen numbers dropped to the 77% range. With rest his oxygen saturation return to a safe level of around 90%. He does have Combivent, but states that he has not needed the medication in several days. He is not currently on any maintenance inhalers. Walking oximetry completed on September 07, 2018 shows that the patient requires 2 L of nasal cannula oxygen with exertion. He was able to ambulate 826 feet over the course of 6 minutes. Pulmonary function test completed on September 03, 2018 interpreted as showing partially reversible very severe large airway obstructive Plaza defect with air trapping and a reduction in diffusing capacity. FVC 66% of predicted, FEV1 43% of predicted, FEV1/FVC 86% of predicted, TLC 117% predicted, RV 173% predicted and DLCO 53% of predicted. `1 Intake Vital Signs09/15/18 Height 5 ft 10 in 09/15/18 Weight: 185 lb Intake Visit Reasons: Oxygen discussion Fire Support Specialist Required: No Accompanied by: Is patient in pain?: No Allergies amoxicillin Adverse Reaction (Verified 09/15/18 06:49) Nausea/Vom/Diarrhea Medications atorvastatin 10 mg tablet 1 tab PO DAILY 90 Days #90 02/10/18 [History Confirmed 09/15/18] finasteride 5 mg tablet 1 tab PO DAILY 90 Days #90 02/10/18 [History Confirmed 09/15/18] lisinopril 5 mg tablet 1 tab PO DAILY 90 Days #90 02/10/18 [History Confirmed 09/15/18] potassium chloride ER 10 mEq tablet,extended release 1 tab PO DAILY 90 Days #180 02/10/18 [History Confirmed 09/15/18] ipratropium 20 mcg-albuterol 100 mcg/actuation mist for inhalation 1 puff INHALATION Q6H 09/02/18 [History Confirmed 09/15/18] [facility] Medical History Heart disease (Acute) SOB (shortness of breath) (Acute) Stroke (Acute) HTN (hypertension) (Chronic) Surgical History History of knee replacement (Acute) Social History Smoking Status: Former smoker quit date: 11/09/12 alcohol intake: current Review of Systems Const CONSTITUTIONAL: Negative anorexia, body ache, chills, daytime sleepiness, fever(s), night sweats, oral thrush, stops breathing during sleep, weight loss, sleeping in chair, fatigue, weight loss, weight gain, frequent colds, seasonal allergies, other, headache(s) or orthopnea EETM Ear Nose Throat Mouth: Positive hearing normal; negative hard of hearing, hoarseness, dry mouth in morning, change in vision, itchy eyes, eye pain, swallowing Difficulty, ear pain, nose bleed, headache(s), mouth pain, nasal congestion, nasal discharge, post nasal drip, sinus pain, sinus pressure, sore throat or other Cardio Cardiovascular: Positive murmur; negative chest pain, chest pain at rest, chest pain with activity, irregular heart rhythm, edema, shortness of breath when lying down, palpitations or other Resp Respiratory: Positive as per HPI, shortness of breath shortness of breath: Positive with activity and wheezing; negative pain with cough, chest congestion, cough, chest tightness, pain on inspiration, inhalers, increase use of rescue inhalers, snoring, apnea or other Gastro Gastrointestional: Negative bloody stools, change in appetite, difficulty swallowing, reflux, hematemesis, melena stool, loose stool, constipation or other Genitourinary: Negative blood in urine, nocturia, pain with urination or other Musc Musculoskeletal: Negative body pain, back pain, neck pain or other Skin/Breast Skin/Breast: Negative dry skin, itching, rash, unusual bruising, breast lump or other Neuro Neurological: Negative restless legs, confusion, weakness or other Psych Psychocological: Negative abnormal sleep pattern, anxiety, thoughts of hurting self/others, hopelessness or other Lymph Lymphatic: Negative easy bleeding, easy bruising, swollen lymph nodes or other Exam Const Constitutional: Positive conversant, cooperative, in no acute respiratory distress, well developed, well nourished, good hygiene and frail appearing Head Head: Positive normocephalic and atraumatic; negative cyanosis of lips/distal nose Eyes Eye: Positive clear conjunctiva; negative nystagmus or scleral abnormality Ears Ear: Positive hearing normal and external ears normal; negative hard of hearing Nose Nose: Positive external nose normal and no nasal discharge; negative epistaxis Mouth Mouth: Positive oral mucosae normal, no lesions and posterior oropharynx is adequate; negative post nasal drip, malodorous breath or oral thrush present Mallampati Score: II: Mallampati Score Neck Neck: Positive normal visual inspection, full ROM and trachea midline; negative lymphadenopathy, JVD or tender Chest Wall Chest: Positive symmetric chest movement and increased A/P diameter Resp lung sounds: Positive clear to auscultation, diminished, wheezes, normal expiratory time and normal chronic state of increased work of breathing; negative rhonchi, rales or dullness to percussion Cardio Cardiac: Positive murmur murmur: Positive systolic, RUSB and LUSB, regular rate, regular rhythm, S1 normal and S2 normal GI GI: Positive normal to inspection; negative distended Genitourinary: Positive deferred Musc Musculoskeletal: Positive steady gait and ROM normal; negative kyphosis or scoliosis Skin Pulmonary Skin Exam: Positive intact; negative rash Pulses Pulse: No pulses normal x4 extremities Extremities Extremities: Yes capillary refill normal, Yes clubbing, No cyanosis, No edema Neuro Neurologic: Yes conversant, Yes no focal neuro deficits, Yes normal concentration, Yes understands questions, Yes cooperative, Yes normal cognition, Yes normal coordination Lymph Lymphatic: No lymphadenopathy, No tenderness, No cervical adenopathy Psych Appearance: Positive grossly normal, eye contact and well kempt Mental Status: Positive mental status grossly normal Mood: Positive congruent mood and anxious mood Affect: Positive anxious affect Office Procedures Inhaler Training Inhaler Training Procedure performed by: Bethany Stearns Inhaler Training: Yes personally trained on inhaler use, sample provided, first dose given in the office, expresses understanding and continue to monitor Coding Level of Care Code Off vis,est,level 4 Diagnoses Chronic respiratory failure with hypoxia J96.11 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 Pulmonary Services/Neurology [address] [place], [place] [id number] MR#: [id number] Acct: [id number] Name: HAILEY MONDRAGON Rep #: [id number] : 1935 82 From: Emerson Cabello MD Referring Dr: Emerson Cabello MD Date: Ordering Dr: Sex: M C Location: PSN PSN 6 Minute Walk Test - 6 Minute Walk Test 6 Minute Walk Test: 6 Minute Walk Test PSN:6-Minute Walk Test Start: 09/07/18 13:32 Freq: Status: Active Protocol: RESP.6MINW Document 09/07/18 13:32 [facility] (Rec: 09/07/18 13:37 AM[facility] [id number]) 6 Minute Walk Test Date Performed 09/07/18 Time Performed 12:30 Height 5 ft 10 in Weight: 82.554 kg Weight in Pounds 182.[address]: Emerson Cabello Assistive device used: None Pre-test Oxygen Delivery Method Room Air Pulse Ox (%) 94 Pulse Rate (60-100 beats/min) 98 Dyspnea Brenda Scale (0-10) 0 Exertion Brenda Scale (6-20) 6 1st minute Oxygen Delivery Method Room Air Pulse Ox (%) 89 Pulse Rate (60-100 beats/min) 106 H 2nd minute Oxygen Delivery Method Room Air Pulse Ox (%) 90 Pulse Rate (60-100 beats/min) 103 H 3rd minute Oxygen Delivery Method Room Air Pulse Ox (%) 87 Pulse Rate (60-100 beats/min) 105 H Dyspnea Brenda Scale (0-10) 3 Exertion Brenda Scale (6-20) 11 4th minute Oxygen Flow Rate (L/min) (L/min) 2 Oxygen Delivery Method Nasal Cannula Pulse Ox (%) 96 Pulse Rate (60-100 beats/min) 103 H 5th minute Oxygen Flow Rate (L/min) (L/min) 2 Oxygen Delivery Method Nasal Cannula Pulse Ox (%) 94 Pulse Rate (60-100 beats/min) 103 H 6th minute Oxygen Flow Rate (L/min) (L/min) 2 Oxygen Delivery Method Nasal Cannula Pulse Ox (%) 93 Pulse Rate (60-100 beats/min) 93 Dyspnea Brenda Scale (0-10) 3 Exertion Brenda Scale (6-20) 11 Post-test Oxygen Flow Rate (L/min) (L/min) 2 Oxygen Delivery Method Nasal Cannula Pulse Ox (%) 96 Pulse Rate (60-100 beats/min) 78 Full Laps Walked 14 Partial Lap, Number of Tiles Walked 0 Total Distance Walked (ft) 826 - Interpretation Interpretation: The patient was noted to be 94% on room air. The patient was unable to ambulate for 3 minutes until desaturated to 87%. The patient was placed on 2 L nasal cannula and saturations were controlled. In total, patient travel 826 feet over the course of 6 minutes with the assistance of a wheelchair for stabilization. There is no significant tachycardia noted during testing. These findings are consistent with a respiratory limitation exercise tolerance. - Recommendations Recommendations: No supplemental oxygen is indicated at rest. However, patient should be using 2 L nasal cannula with any exertion. 09/07/18 1505 <Electronically signed by Emerson Cabello MD> Date Emerson Cabello MD CC: Date Dictated: 09/07/18 1415 Date Transcribed: 09/07/181414 Unemployment Examiner: Emerson Cabello Signed PULMONARY FUNCTION Observed: 09/05/2018 Status: F Source: [facility] TEST 6:41 AM [facility] REPOSITORY [facility] Pulmonary Services/Neurology [address] [place] [address] MR#: [id number] Acct: [id number] Name: HAILEY MONDRAGON Rep #: [id number] : 1935 82 From: Bola Becerril DO Referring Dr: Emerson Cabello MD Status: REG CLI Ordering Dr: Date: Location: PS Sex: M C INTRODUCTION: The patient is an 82-year-old male that presents for pulmonary function testing secondary to a diagnosis of dyspnea. Respiratory therapy reports good patient effort. Bronchodilators were used during testing. INTERPRETATION: Forced expiration spirometry demonstrates the presence of a very severe large airways obstructive ventilatory defect. There was a significant response to aerosolized bronchodilators noted. Spirograms are of good quality and do not plateau indicating slow emptying of the lungs. The respiratory flow volume loop reveals decreased expiratory flow rates at all lung volumes consistent with airways obstruction. Body plethysmography was performed and reveals an elevated RV to 173% of predicted, indicative of underlying air trapping. Diffusing capacity by single breath CO is moderately reduced at 53% of predicted. 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 There are no previous pulmonary function studies available for comparison. 09/05/18640 <Electronically signed by Bola Becerril DO> Date Bola Becerril DO CC: Emerson Cabello MD; Ha Davis DO Date Dictated: 09/05/18638 Date Transcribed: 09/05/18638 Unemployment Examiner: [place] Signed PULMONARY VISIT REPORT Observed: 09/02/2018 Status: F Source: [facility] 4:01 PM [facility] REPOSITORY [facility] [place] [address] [place] [address] OFFICE VISIT Date of Service: 09/02/18 MR#: [id number] Acct: [id number] Name: HAILEY MONDRAGON Alexander Rep #: [id number] : 1935 Provider: Emerson Cabello MD Age/Sex: 82/M [place] [facility] Status: Signed Assessment AND Plan 1. Dyspnea R06.00 Plan Patient does have a history of just of heart failure in the past, but does not have much information. Will attempt to obtain old records from [place]. Patient does have an extensive smoking history, so we will also obtain a complete PFT for quantification and clarification of lung function. Patient is using Combivent frequently and likely needs to be placed on a maintenance medication. Exercise oximetry will be obtained for evaluation of exertional hypoxemia. If patient desaturates, CT scan of the chest may be needed to evaluate for pulmonary fibrosis. Will hold off on echocardiogram for now until further information from [place] can be obtained. Obtain complete pulmonary function test and walking oximetry. No change in medications for now, but anticipate this will be needed. Orders Orders: Plan Detail Other Medications New: HPI Chronic obstructive pulmonary disease: Chief Complaint: Shortness of breath on exertion Details: Patient is an 82-year-old male, currently under the care of Dr. Davis, who presents for evaluation secondary to shortness of breath on exertion. Patient reports the onset of shortness of breath approximately 5-6 years ago. Patient was diagnosed with congestive heart failure at that time while in [place], but patient is unclear on whether this was systolic or diastolic. Patient does have a [id number] smoking history, but quit in the past. Patient states he had a PFT completed at the [facility] in [place] approximately 3 years ago. Patient subjectively feels worse compared to that time. Patient does report coughing up nickel size guillen sputum intermittently with subjective improvement in overall condition. Patient has been attempting to use Combivent therapy to control shortness of breath. Patient estimates that he has been using a 5-6 times per day. Patient has had multiple ER visits where he is treated with bronchodilators, steroids and antibiotics with some improvement. Patient states as soon as the steroids are discontinued he starts to have worsening shortness of breath. Patient has noted lower blood pressures over the last year or so. Patient is on lisinopril therapy, but is unaware of what his ejection fraction is. Patient is not established with a retort forker in [place] at this time. 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 Patient denies any exposure to asbestos or TB. Patient does not have a history of asthma but he is aware of. Documentation reviewed 24 pages of documentation were reviewed from the ER and patient's primary care physician. Patient is currently on Dulera therapy and uses Combivent as needed. Patient also has a history of congestive heart failure and has been taking Lasix as needed. Patient is also on lisinopril patient has reported to his primary care physician that his breathing has worsened since coming back from [place]. Patient has had a chest x- ray completed on 08/08/2018 while at the ER showing possible chronic interstitial lung disease. At that time, patient was placed on prednisone therapy HPI Comments Details: Intake Vital Signs09/02/18 Height 5 ft 10 in 09/02/18 Weight: 83.461 kg Intake Visit Reasons: COPD Fire Support Specialist Required: No Accompanied by: Is patient in pain?: No Allergies amoxicillin Adverse Reaction (Verified 09/02/18 06:56) Nausea/Vom/Diarrhea Medications atorvastatin 10 mg tablet 1 tab PO DAILY 90 Days #90 02/10/18 [History Confirmed 09/02/18] finasteride 5 mg tablet 1 tab PO DAILY 90 Days #90 02/10/18 [History Confirmed 09/02/18] lisinopril 5 mg tablet 1 tab PO DAILY 90 Days #90 02/10/18 [History Confirmed 09/02/18] potassium chloride ER 10 mEq tablet,extended release 1 tab PO DAILY 90 Days #180 02/10/18 [History Confirmed 09/02/18] ipratropium 20 mcg-albuterol 100 mcg/actuation mist for inhalation 1 puff INHALATION Q6H 09/02/18 [History Confirmed 09/02/18] PFSH Medical History Heart disease (Acute) SOB (shortness of breath) (Acute) Stroke (Acute) HTN (hypertension) (Chronic) Surgical History History of knee replacement (Acute) Social History Smoking Status: Former smoker quit date: 11/09/12 alcohol intake: current Review of Systems Const CONSTITUTIONAL: Negative anorexia, body ache, chills, daytime sleepiness, fever(s), night sweats, oral thrush, stops breathing during sleep, weight loss, sleeping in chair, fatigue, weight loss, weight gain, frequent colds, seasonal allergies, other, headache(s) or orthopnea EETM Ear Nose Throat Mouth: Positive nasal discharge and hearing normal; negative hoarseness, dry mouth in morning, change in vision, itchy eyes, eye pain, swallowing Difficulty, ear pain, headache(s), mouth pain, nasal congestion, sinus pain, sinus pressure, sore throat, other, hard of hearing, nose bleed or post nasal drip Cardio Cardiovascular: Negative chest pain, chest pain at rest, chest pain with activity, irregular heart rhythm, edema, shortness of breath when lying down, palpitations, other or murmur Resp Respiratory: Positive as per HPI, shortness of breath shortness of breath: Positive with activity and cough cough: Positive productive color: Positive other (hunter); negative pain with cough, wheezing, chest congestion, chest tightness, pain on inspiration, inhalers, increase use of rescue inhalers, snoring, apnea or other Gastro Gastrointestional: Negative bloody stools, change in appetite, difficulty swallowing, reflux, hematemesis, melena stool, loose stool, constipation or other Genitourinary: Negative blood in urine, nocturia, pain with urination or other Musc Musculoskeletal: Negative body pain, back pain, neck pain or other Skin/Breast Skin/Breast: Negative dry skin, itching, unusual bruising, breast lump, other or rash Neuro Neurological: Negative restless legs, confusion, weakness or other Psych Psychocological: Negative abnormal sleep pattern, anxiety, thoughts of hurting self/others, hopelessness or other Lymph Lymphatic: Negative easy bleeding, easy bruising, other or swollen lymph nodes Exam Const Constitutional: Positive conversant, cooperative, in no acute respiratory distress, healthy appearing, well developed, well nourished and good hygiene; negative wearing supplemental oxygen or ill appearing Head Head: Positive normocephalic and atraumatic; negative cyanosis of lips/distal nose, frontal sinus tenderness or maxillary sinus tenderness Eyes Eye: Positive clear conjunctiva; negative nystagmus, scleral abnormality or cataract present Ears Ear: Positive hearing normal and external ears normal; negative hard of hearing Nose Nose: Positive external nose normal, septum normal and no nasal discharge; negative epistaxis or nasal polyp Mouth Mouth: Positive oral mucosae normal, no lesions and posterior oropharynx is adequate; negative post nasal drip, malodorous breath or oral thrush present Mallampati Score: II: Mallampati Score Neck Neck: Positive normal visual inspection, full ROM and trachea midline; negative lymphadenopathy or JVD Chest Wall Chest: Positive symmetric chest movement and increased A/P diameter; negative crepitus or tenderness Resp lung sounds: Positive diminished and prolonged expiratory time; negative wheezes, rhonchi, rales, use of accessory muscles, wheeze present on forced exhalation or dullness to percussion Cardio Cardiac: Positive regular rate, regular rhythm, S1 normal and S2 normal; negative murmur, rub or gallop GI GI: Positive normal to inspection and normal bowel sounds; negative distended, ascites or epigastric tenderness Genitourinary: Positive deferred Musc Musculoskeletal: Positive steady gait; negative using an assistive device for ambulation, kyphosis or scoliosis Skin Pulmonary Skin Exam: Positive intact; negative rash, lesion, ulcers, erythema or dermal atrophy Pulses Pulse: Yes radial pulses present Extremities Extremities: Yes capillary refill normal, No clubbing, No cyanosis, No edema, No stasis dermatitis Neuro Neurologic: Yes conversant, Yes no focal neuro deficits, Yes normal coordination, Yes normal concentration, Yes cooperative, Yes normal cognition Lymph Lymphatic: No lymphadenopathy Psych Appearance: Positive grossly normal Mental Status: Positive mental status grossly normal Mood: Positive congruent mood Affect: Positive normal affect Coding Level of Care Code Off vis,new,level 4 Diagnoses Dyspnea R06.00 09/02/18 1601 <Electronically signed by Emerson Cabello MD> Date Emerson Cabello MD Cosigner Signature: Date (if applicable) CC: Ha Davis DO 12 LEAD ELECTROCARDIOGRAM Observed: 08/10/2018 Status: F Source: [facility] 2:45 PM [facility] REPOSITORY [facility] Cardiovascular Services [address] [place] [address] 12 Lead EKG 08/08/18 0935 MR#: [id number] Acct: [id number] Name: HAILEY MONDRAGON Rep #: [id number] : 1935 82 From: Bernard Rodgers MD Attending Dr: Status: DEP ER Ordering Dr: Dannie Mortensen MD Date: 08/08/18 Location: ED Sex: M C Admitted: Test Reason : SOB Blood Pressure : / mmHG Vent. Rate : 076 BPM Atrial Rate : 076 BPM P-R Int : 166 ms QRS Dur : 100 ms QT Int : 394 ms P-R-T Axes : 098 -15 -01 degrees QTc Int : 443 ms Normal sinus rhythm Inferior infarct , age undetermined Abnormal ECG Confirmed by BERNARD RODGERS MD ([id number]), brands editor COOKIE TORRES ([id number]) on 08/10/2018 2:45:11 PM Referred By: CHELA Confirmed By:BERNARD RODGERS MD 08/10/18 1445 Date Bernard Rodgers MD CC: Dannie Mortensen MD; Ha Davis DO Signed EMERGENCY DEPARTMENT Observed: 08/08/2018 Status: F Source: [place] SUMMARY 4:23 PM [facility] REPOSITORY [facility] Medical Records Department [address] [place] [address] Emergency Department Summary 08/08/18 09 MR#: [id number] Acct: [id number] Name: HAILEY MONDRAGON Rep #: [id number] : 1935 82 From: Dannie Mortensen MD PCP: Ha Davis DO Status: DEP ER - ER Visit Summary Date of Service: 08/08/18 Chief Complaint: Shortness of breath History of Present Illness: The patient is a 82 M past medical history of prior stroke and CHF. States the last 10 falls around this time a year he has episodes of shortness of breath. He says often is diagnosed as a bronchitis or respiratory infection. He denies any chest pain. He denies any hemoptysis. He is never had a DVT or PE. He denies any prior [place]. He denies any recent travel, surgery, mobilization. He denies any leg swelling. States the shortness of breath is worse laying down at night or with walking. But he denies any chest pain whatsoever. Physical Examination: Well-appearing older male. Vital signs are stable afebrile. Pulse ox 95% on room air no signs of hypoxia. HEENT exam unremarkable. Neck nontender no JVD no lymphadenopathy. Lungs few scattered expiratory wheezes. No rales or rhonchi. Equal and symmetrical. Good air movement. Heart regular rhythm no murmur. Rate in the 90s. Abdomen soft nontender. He is moving all 4 extremities. They are neurovascularly intact. Calves are nontender without edema or cords. Neurologically is awake and alert with no focal motor deficits. Test Results: EKG shows sinus rhythm rate of 76 with possibly an old inferior [place]. Chest x-ray shows a lot of chronic changes with pulmonary scarring bibasilar which is seen on a prior chest x-ray. No acute process. No failure. No pneumonia. Emergency Department Course and Treatment: Patient has expiratory wheezing. Treated with p.o. steroids and aerosol treatments. With this recurring annually for the last 10 or so years around this time this could be secondary to seasonal allergies. On repeat exam at 09 56 patient is doing better. He is received aerosol treatments and prednisone. I feel this patient has underlying lung disease from his prior smoking and has COPD flares this time a year with the change of the weather and seasonal allergens. Treatment Plan: Continue on his current inhalers and these are using at home 1 of which is Combivent. Will be placed on prednisone 40 mg a day for the next week. Will be instructed to follow-up with a local slate cutter operator. Disposition: Discharge Impression: Acute dyspnea secondary to acute exacerbation of COPD Seasonal allergies This note was generated with Kiio dictation software. It may contain incorrect words, spelling, and punctuation that were not noted in review of the chart prior to signing ED Disposition - Plan for ED Patient: Chief Complaint: Shortness of Breath Referrals: Ha Davis, DO [Primary Care Provider] - What to do if you have Problems For any increased pain, shortness of breath, bleeding, nausea or vomiting, chest pain, or any unexpected problems, contact your Primary Care Provider. Call [facility] ([phone]) or report to the closest Emergency Room. Call 911 if necessary. 08/08/18 1695 <Electronically signed by Dannie Mortensen MD> Date Dannie Mortensen MD Cosigner Signature (If Indicated): Date CC: Ha Davis DO DISCHARGE INSTRUCTION Observed: 08/08/2018 Status: F Source: [facility] 4:23 PM [facility] REPOSITORY [facility] Medical Records Department [address] [place] [address] Discharge Instruction 08/08/18 0959 MR#: [id number] Acct: [id number] Name: HAILEY MONDRAGON Rep #: [id number] : 1935 82 From: Dannie Mortensen MD PCP: Ha Davis DO Status: DEP ER ED Disposition - Plan for ED Patient: Disposition: Home or Assisted Living Chief Complaint: Shortness of Breath Instructions: ED COPD Flare Prescriptions: Prednisone [Deltasone] 40 mg PO DAILY 7 Days tab Referrals: Ha Davis DO [Primary Care Provider] - As Needed Bola Becerril DO [STAFF PHYSICIAN] - As soon as possible Additional Instructions: Inhalers as needed. Prednisone 40 mg a day for the next 7 days starting tomorrow. We gave you your first dose in the ER today. Call and follow-up with a local slate cutter operator. What to do if you have Problems For any increased pain, shortness of breath, bleeding, nausea or vomiting, chest pain, or any unexpected problems, contact your Primary Care Provider. Call [facility] ([phone]) or report to the closest Emergency Room. Call 911 if necessary. 08/08/18 5762 <Electronically signed by Dannie Mortensen MD> Date Dannie Mortensen MD Cosigner Signature (If Indicated): Date CC: Ha Davis CHEST PA AND LATERAL Observed: 08/08/2018 Status: F Source: [facility] 9:13 AM [facility] REPOSITORY [facility] Imaging Services [address] [address] Chest PA and Lateral MR#: [id number] Acct: [id number] Name: HAILEY MONDRAGON Rep #: [id number] : 1935 M 82 From: Eddy Enciso MD PCP: Ha Davis DO Status: PRE ER Study: Chest PA and Lateral Date of Exam: 08/08/18 Exam# [id number] Ordering Dr: Dannie Mortensen MD STUDY: X-RAY CHEST REASON FOR EXAM: Male, 82 years old. Dyspnea. Shortness of breath. TECHNIQUE: PA and lateral views. COMPARISON: 02/10/2018. FINDINGS: Pulmonary hyperinflation with flattening of the hemidiaphragms. Calcified granuloma in the right upper lobe. No suspicious pulmonary nodules or infiltrates. The interstitial lung markings are prominent. Pleural thickening along the right hemithorax is unchanged. No pleural fluid. Normal size heart. Normal mediastinum and gasper. Normal visualized pulmonary arteries. Normal visualized aortic arch and descending thoracic aorta. Bridging of ossified anterior posterior ligaments at multiple levels of the thoracic spine is diffuse idiopathic skeletal hyperostosis. Normal visualized ribs, clavicles, and shoulders. There is no demonstrated abnormality of the visualized soft tissue structures of the upper abdomen. RAD/Chest PA and Lateral IMPRESSION: 1. No acute cardiopulmonary pathology. 2. COPD with chronic interstitial lung disease. 3. No significant interval change when compared to 02/10/2018. COMMENT: Baseline High resolution CT chest will be more helpful for further evaluation of chronic interstitial lung disease and shortness of breath if desired. Electronically Signed: Eddy Enciso MD at 9:35 EDT , Service support , CC: Dannie Mortensen MD; Ha Davis DO Unemployment Examiner: Signed CBC W/DIFF, AUTOMATED Collected: 03/04/2018 Status: F Source: [facility]AIS 8:01 AM [facility] REPOSITORY TYPE CODE TESTS RESULT OUT OF RANGE REFERENCE UNITS LAB L100.1000 4.4-11.0 K/mm3 Normal WBC 9.1 LAB L100.1200 4.6-6.2 M/mm3 Low RBC 3.97 LAB L100.1300 13.0-16.5 g/dl Low HGB 12.0 LAB L100.1400 40-54 % Low HCT 38.1 LAB L100.1500 80-94 fL High MCV 96.0 LAB L100.1600 27.0-32.0 pg Normal MCH 30.2 LAB L100.1700 32-36 g/gl Low MCHC 31.5 LAB L100.1810 11.6-14.6 % High RDW CV 15.0 LAB L100.1820 35.1-43.9 fl High RDW SD 50.7 LAB L100.1900 150-450 K/mm3 Normal PLT 201 LAB L100.2000 6.2-12.0 fl High MPV 12.2 LAB L100.2100 47-70 % Normal NEUT% 59.7 LAB L100.2200 19-41 % Normal LY% 24.2 LAB L100.2300 0-10 % High MONO% 11.5 LAB L100.2400 0-5 % Normal EO% 3.8 LAB L100.2500 0-1 % Normal BASO% 0.5 LAB L100.2550 0.0-0.9 % Normal IM GRAN % 0.300 Result Comment: IG% - Immature Granulocytes (promyelocytes, myelocytes and metamyelocytes) > 1% indicates that a LEFT SHIFT is Present. LAB L100.2620 2.0-7.7 X10 3/uL Normal Absolute Neut 5.4 LAB L100.2720 0.83-4.51 X10 3/ul Normal Absolute Lymph 2.20 Performed By: #### L100.0100 #### [facility]ants[facility] Khal[facility] [place], [place], [id number] COMPREHENSIVE METABOLIC Collected: 03/04/2018 Status: F Source: [facility] 8:01 AM [facility] REPOSITORY TYPE CODE TESTS RESULT OUT OF RANGE REFERENCE UNITS LAB L501.0100 74-106 mg/dL Normal GLU 93 Result Comment: Please note revised GLUCOSE reference range effective 2017. LAB L501.1000 7-18 mg/dL Normal BUN 11 LAB L501.1100 0.70-1.30 mg/dL Normal CREAT,SERUM 0.92 Result Comment: The validity of the calculated GFR AND GFRAA in patients over 70 years has not been determined. Clinical correlation is essential. LAB L501.1110 >60 mL/min Normal EST GFR 83 Result Comment: Non- GFR Calc LAB L501.1115 >60 mL/min Normal EST GFR - AA 101 Result Comment: GFR Calc LAB L501.1300 10-20 RATIO Normal BUN/CRE 11.9 LAB L501.1500 6.4-8.2 g/dL T Normal PROT 6.8 LAB L501.1800 3.2-5.0 g/dL Low ALB 3.0 LAB L501.1950 2.2-4.2 g/dL Normal GLOB 3.8 LAB L501.2000 0.9-2.4 RATIO Low A/G 0.8 LAB L501.2200 8.5-10.1 mg/dL CA Normal 8.8 LAB L501.4100 15-37 U/L Normal AST 18 LAB L501.4305 45-117 U/L Normal ALK P 93 LAB L501.4405 16-61 U/L Normal ALT 19 LAB L501.4600 0.20-1.00 mg/dL T Normal BILI 0.50 LAB L501.5300 136-145 mmol/L NA Normal 138 LAB L501.5600 3.5-5.1 mmol/L K Normal 4.3 LAB L501.5900 98-107 mmol/L CL Normal 103 LAB L501.6100 21.0-32.0 mmol/L Normal CO2 29.0 LAB L501.6200 5-15 Normal GAP 6 Performed By: #### L500.4050, L500.4100 #### [facility] [address] [place], [place], [address] LIPID PROFILE Collected: 03/04/2018 Status: F Source: [facility] 8:01 AM [facility] REPOSITORY TYPE CODE TESTS RESULT OUT OF RANGE REFERENCE UNITS LAB L501.4900 200 mg/dL Normal CHOL 107 Result Comment: <200 mg/dL Desirable 200-240 mg/dL Borderline >240 mg/dL High Risk LAB L501.5000 mg/dL Normal TRIG 53 Result Comment: The drugs N-Acetylcysteine and Metamizole may falsely depress this assay. Serum Triglycerides Reference Interval Normal <150 mg/dL Borderline high 150 - 199 mg/dL High 200 - 499 mg/dL Very High > or = 500 mg/dL LAB L501.6400 mg/dL Normal HDL 70 Result Comment: The drugs N-Acetylcysteine and Metamizole may falsely depress this assay. Reference Range HDL <40 mg/dL Low HDL Cholesterol HDL >or= 60 mg/dL High HDL Cholesterol LAB L501.6500 0-130 mg/dL Normal LDL 26 LAB L501.6600 5-40 mg/dL Normal VLDL 11 Performed By: #### L500.4050, L500.4100 #### [facility] [address] [place], [place], [address] URGENT CARE VISIT Observed: 02/10/2018 Status: F Source: [facility] REPORT 2:15 PM [facility] REPOSITORY [facility] [address] [place] [address] OFFICE VISIT Date of Service: 02/10/18 MR#: [id number] Acct: [id number] Name: HAILEY MONDRAGON Rep #: [id number] : 1935 Provider: Wes RUSSELL Age/Sex: 82/M Location: [facility] Status: Signed Intake Vital Signs02/10/18 Height 5 ft 10 in Intake Visit Reasons: FLU Chief Complaint: Cough, fatigue Is patient in pain?: No Allergies No Known Allergies Allergy (Unverified 02/10/18 11:40) Medications atorvastatin 10 mg tablet PO 90 Days #90 02/10/18 [History Confirmed 02/10/18] azithromycin 250 mg tablet 250 mg PO QDAY #6 tab 02/10/18 [Rx Confirmed 02/10/18] finasteride 5 mg tablet PO 90 Days #90 02/10/18 [History Confirmed 02/10/18] furosemide 20 mg tablet PO 90 Days #90 02/10/18 [History Confirmed 02/10/18] lisinopril 5 mg tablet PO 90 Days #90 02/10/18 [History Confirmed 02/10/18] metoprolol tartrate 50 mg tablet PO 90 Days #180 02/10/18 [History Confirmed 02/10/18] potassium chloride ER 10 mEq tablet,extended release PO 90 Days #180 02/10/18 [History Confirmed 02/10/18] PFSH Medical History Heart disease (Acute) SOB (shortness of breath) (Acute) Stroke (Acute) HTN (hypertension) (Chronic) Surgical History History of knee replacement (Acute) Social History Smoking Status: Former smoker alcohol intake: current HPI HPI Chief Complaint: Cough, fatigue Details: HAILEY MONDRAGON, is a 82 M who presents to the office today for initial evaluation 1 week history of progressively worsening cough and fatigue, with symptoms beginning while he was in [place]. He notes coughing throughout the day and night with fatigue progressively worsened particularly over the last 24-48 hours. Cough is nonproductive. No complaints of fever, chills, sweats, chest pain/shortness of breath. He is a non- smoker. He notes his with similar symptoms. No other associated symptoms, and no alleviating or aggravating factors. ROS Const Constitutional: Positive for fatigue; no excessive sweating, abnormal sleep pattern, chills, fever(s), night sweats or body ache Eyes Eyes: No change in vision ENT ENT: No abnormal hearing, ear pain, ear discharge, ear pressure, hearing loss, post nasal drip or sinus pressure Resp Respiratory: Positive for cough Cough: Yes non-productive; no chest congestion Cardio Cardiology: No excessive sweating, chest pain at rest, chest pain with exertion, shortness of breath, dyspnea on exertion, irregular heart rhythm, generalized swelling or leg pain with exertion Gastro GI: No abdominal pain, change in stool character or change in bowel habits Musc Musculoskeletal: No joint pain, back pain or limited range of motion Skin Skin: No rash Neuro Neurology: No abnormal hearing, abnormal speech or abnormal movements Psych Psychiatric: No abnormal sleep pattern Endo Endocrine: Positive for fatigue; no excessive sweating, change in body appearance, cold intolerance or heat intolerance Aller/Imm Allergy/Immunologic: No food intolerance Garrett/Lymp Hematologic/Lymphatic: No easy bruising Exam Const General: cooperative, no acute distress, ill appearing, comfortable Nutritional Appearance: average body habitus Orientation: alert, awake, oriented x3 HENNJ Head: normal to inspection Ears: hearing grossly normal bilaterally, external ears normal, TM's normal bilaterally, EAC's normal Nose: external nose normal, nares normal, septum normal, no nasal discharge Face and sinus: normal facial exam, sinuses nontender, face symmetric Mouth: lip normal, oropharynx normal, tongue normal, oral mucosae normal Teeth and gingiva: dentition normal, gingiva normal Throat: tonsils normal, posterior oropharynx normal, uvula midline Eyes General: appearance normal, both eyes and all related structures Neck Neck: normal visual inspection, full ROM, no lymphadenopathy, no meningeal signs, supple Neck mass: No Thyroid: thyroid normal Lymphatic: no lymphadenopathy noted Chest Chest palpation AND inspection: normal inspection of the chest Resp Effort AND Inspection: normal respiratory effort, able to speak in complete sentences, symmetric chest movement, cough (Nonproductive) Quality of cough: wet Auscultation: Bilateral: Rales (diffuse throughout, partially clearing w/ cough) Cardio Palpation: normal PMI Rate: regular rate Rhythm: regular rhythm Heart Sounds: S1 normal, S2 normal, no gallops, no murmurs, no rubs Pulses: radial pulses present GI Inspection: normal to inspection Palpation: soft Skin General: no rashes or lesions noted Neuro General: alert, awake, oriented x3, gait normal Cognition: normal cognition Speech: speech normal Gait: normal gait Motor: muscle tone normal throughout Sensory Exam: no sensory deficits noted Extrem General: normal to inspection Psych Appearance: grossly normal Mental Status: mental status grossly normal Mood: congruent mood Affect: normal affect Speech and Movement: speech and movement normal Attitude: cooperative Thought Process: normal Thought Content: normal Judgment: judgment good Assessment AND Plan Problems 1. Bronchitis J40 Plan -Consider chronic COPD/reactive airway Reviewed today's radiographs with patient in office revealing bilateral pulmonary scarring and thickening in the right hemithorax per radiologist. Azithromycin as prescribed today. Clear fluids, rest, Tylenol, avoid tobacco smoke exposure. Follow-up with PCP in the next 3-7 days for further evaluation, ED sooner should symptoms worsen or any other concerns develop. Patient and spouse state acknowledging understanding all the above. This note was generated with [employer] software. It may contain incorrect words, spelling, and punctuation that were not noted in checking the note before signing. Orders Orders: Medications New: Coding Level of Care Code Off vis,new,level 4 Diagnoses Bronchitis J40 02/10/18 1415 <Electronically signed by Wes RUSSELL> Date Wes RUSSELL Cosigner Signature: Date (if applicable) CC: CHEST PA AND LATERAL Observed: 02/10/2018 Status: F Source: [facility] 11:47 AM [facility] REPOSITORY [facility] Imaging Services [address] [place] [address] Chest PA and Lateral MR#: [id number] Acct: [id number] Name: HAILEY MONDRAGON Rep #: [id number] : 1935 M 82 From: Esa Hall MD PCP: Ha Davis DO Status: REG CLI Study: Chest PA and Lateral Date of Exam: 02/10/18 Exam# [id number] Ordering Dr: Wes Munson STUDY: X-RAY CHEST REASON FOR EXAM: Male, 82 years old. 2 week history of cough. TECHNIQUE: PA and lateral views of the chest. COMPARISON: None. FINDINGS: Hyperinflation. Increased interstitial markings bilaterally worse in the right hemithorax suggestive of pulmonary scarring. There is evidence of pleural thickening along the right lateral pleural surface. Normal size heart. Normal mediastinum and gasper. Normal visualized pulmonary arteries. Normal visualized aortic arch and descending thoracic aorta. There are diffuse degenerative changes of the visualized thoracic spine. Normal visualized ribs, clavicles, and shoulders. There is no demonstrated abnormality of the visualized soft tissue structures of the upper abdomen. RAD/Chest PA and Lateral IMPRESSION: Hyperinflation. Bilateral pulmonary scarring. Pleural thickening in the right hemithorax. Electronically Signed: Esa Hall MD at 12:47 EDT Tel [phone], Service support , CC: Ha Davis DO; Wes RUSSELL Unemployment Examiner: Signed ALLERGIES ALLERGIES DATE TYPE / CODE NAME / CODE REACTION SEVERITY SOURCE 10/13/2018 Drug amoxicillin/F Nausea/Vom/Diarr Unknown [facility] All[facility]/4160 243208580(RXN [facility] 08408(SNOMED ORM) Repository CT) 02/10/2018 Drug No Known Unknown [place] [facility] Allergy/4160 Allergies/F00 Hospital 83300(SNOMED 1355652(RXNOR Repository CT) M) ENCOUNTERS ENCOUNTERS ADMIT/DISCHARGE ACCOUNT ADMITTING ENCOUNTER LOCATION SOURCE NUMBER CLASS 10/13/2018 [id number] Ambulatory [place] 3 [facility] ing:PAVLAB Repository 10/13/2018/ [id number] Ambulatory BMSBuilding:B [place] 8 0 [facility] Repository 10/05/2018 [id number] Ambulatory BMSBuilding:W [place] 3 [facility] Repository 10/05/2018 [id number] Ambulatory [place] [facility] ing:[facility] Repository 09/15/2018/ [id number] Ambulatory BMSBuilding:B [place] 8 3 [facility] Repository 09/07/2018 [id number] Ambulatory [place] 5 [facility] ing:PSN Repository 09/07/2018 [id number] Ambulatory BMSBuilding:W [place] 8 [facility] Repository 09/05/2018 [id number] Ambulatory BMSBuilding:W [place] 8 [facility] Repository 09/03/2018 [id number] Ambulatory [place] 1 [facility] ing:PSN Repository 09/02/2018/ [id number] Ambulatory BMSBuilding:B [place] 8 3 [facility] Repository 08/08/2018/ [id number] Emergency [place] 8 3 [facility] ing:ED Repository 03/04/2018 [id number] Ambulatory [place] [facility] ing:LAB.FUTUR Repository E 02/10/2018 [id number] Ambulatory [place] 5 [facility] ing:HPRAD Repository 02/10/2018/ [id number] Ambulatory BMSBuilding:B [place] 8 7 [facility] Repository PAYERS PAYERS ENCOUNTER GUARANTOR PAYER SUBSCRIBER SOURCE 10/13/2018 HAILEY Munoz Primary HAILEY Plascencia [id number] [place] [facility] [id number] [place] Repository [address]Sgi: (330) Number: [phone] () [id number] Date: [place], [place] [address]RH: 10/13/2018 Secondary NOT GIVENUNK [place] Insurance:SELF PAY [facility] Number: Effective Repository Date:2018-10-13 10/13/2018 HAILEY Munoz Primary HAILEY Munoz [place] [id number] Insurance[place]: [facility] [id number] [facility] [place] Repository [address]Vaa: (330) Number: [phone] () [id number] Date: [place], [place] [address]RQ: 10/13/2018 Secondary NOT GIVENUNK [place] Insurance:SELF PAY [facility] Number: Effective Repository Date:2018-10-06 10/05/2018 HAILEY Munoz Primary HAILEY Plascencia [id number] Insurance[place]: [facility] [id number] [facility] [place] Repository 226[address]Mpn: (330) Number: [phone] () [id number] Date: [place], [place] [address]UE: 10/05/2018 Secondary NOT GIVENUNK [place] Insurance:SELF PAY [facility] Number: Effective Repository Date:2018-10-05 10/05/2018 HAILEY Munoz Primary HAILEY Plascencia [id number] Insurance:[place]: [facility] [id number] [facility] [place] Repository [address]Abm: (330) Number: [phone] () [id number] Date: [place], [place] [address]SW: 10/05/2018 Secondary NOT GIVENUNK [place] Insurance:SELF PAY [facility] Hospital Number: Effective Repository Date:2018-09-22 09/15/2018 HAILEY Munoz Primary HAILEY Plascencia [id number] Insurance:[place]: [facility] [id number] [facility] [place] Repository [address]Gnr: (330) Number: [phone] () [id number] Date: [place], [place] [address]DM: 09/15/2018 Secondary NOT GIVENUNK [place] Insurance:SELF PAY [facility] Hospital Number: Effective Repository Date:2018-09-14 09/07/2018 HAILEY Munoz Primary HAILEY Plascencia [id number] Insurance:[place]: [facility] [id number] [facility] [place] Repository [address]Vyx: 330) Number: [phone] () [id number] Date: [place], [place] [address]PW: 09/07/2018 Secondary NOT GIVENUNK [place] Insurance:SELF PAY [facility] Hospital Number: Effective Repository Date:2018-09-02 09/07/2018 HAILEY Munoz Primary HAILEY Plascencia [id number] Insurance:[place]: [facility] [id number] Repository [address]Iww: (330) Number: [phone] () [id number] Date: [place], [place] [address]YX: 09/07/2018 Secondary NOT GIVENUNK [place] Insurance:SELF PAY [facility] Hospital Number: Effective Repository Date:2018-09-07 09/05/2018 HAILEY R Primary HAILEY Plascencia [id number] Insurance:[place]: [facility] [id number] [facility] [place] [facility] Repository [address]Wfo: (330) Number: [phone] () [id number] Date: [place], [place] [address]JZ: 09/05/2018 Secondary NOT GIVENUNK [place] Insurance:SELF PAY [facility] Hospital Number: Effective Repository Date:2018-09-05 09/03/2018 HAILEY Munoz Primary HAILEY Plascencia [id number] Insurance:[place]: [facility] [id number] [facility] [place] Repository [address]Ewp: (330) Number: [phone] () [id number] Date: [place], [place] [address]GT: 09/03/2018 Secondary NOT GIVENUNK [place] Insurance:SELF PAY [facility] Hospital Number: Effective Repository Date:2018-09-02 09/02/2018 HAILEY Munoz Primary HAILEY Munoz [place] [id number] Insurance:[place]: [facility] [id number] [facility] [place] Repository [address]Esu: (330) Number: [phone] () [id number] Date: [place], [place] [address]DX: 09/02/2018 Secondary NOT GIVENUNK [place] Insurance:SELF PAY [facility] Hospital Number: Effective Repository Date:2018-08-30 08/08/2018 HAILEY R Primary HAILEY Plascencia [id number] Insurance:[place]: [facility] [id number] [facility] [place] Repository [address]Dkx: 330) Number: [phone] () [id number] Date: [place], [place] [address]EH: 08/08/2018 Secondary NOT GIVENUNK [place] Insurance:SELF PAY [facility] Hospital Number: Effective Repository Date:2018-08-08 03/04/2018 HAILEY R Primary HAILEY Plascencia [id number] Insurance:HEALTH PLAN [place]OH[place]OB: [address]12[facility] Number: Repository [address]Hja: 828 [id number] [phone] () Date: [place], [place] [address]IX: 03/04/2018 Secondary NOT GIVENUNK [place] Insurance:SELF PAY [facility] Hospital Number: Effective Repository Date:2018-02-26 02/10/2018 HAILEY R Primary HAILEY Plascencia [id number] Insurance:HEALTH PLAN [place]OB: [address] Number: Repository [address]Elg: 828 [id number] [phone] () Date: [place], [place] [address]UI: 02/10/2018 Secondary NOT GIVENUNK [place] Insurance:SELF PAY [facility] Hospital Number: Effective Repository Date:2018-02-10 02/10/2018 HAILEY Primary HAILEY Plascencia [id number] Insurance:HEALTH PLAN [place]OH[place]OB: [address] Number: Repository [id number]: 829) [id number] [phone] () Date: [facility] [address]WG: 02/10/2018 Secondary NOT GIVENUNK [place] Insurance:SELF PAY [facility]: Effective Repository Date:2018-02-10
== END ==
PROVIDERS: Family Provider Family Medicine; PCP Family Medicine; Referring Provider Nurse Practitioner Acute Care; Visit Provider Nurse Practitioner Acute Care
DX: R06.02 Shortness of breath (principal)
CPT/HCPCS: 93306

== ENCOUNTER → 2018-10-13 09:12 | Outpatient (CLI) | payer MEDICARE, SELFPAY ==
[2018-10-13 08:40] VITALS: BMI 26.9
[2018-10-13 09:54] LABS: Rheumatoid Factor < 10.0 IU/mL (<15)
[2018-10-15 03:05] LABS: Cytoplasmic Ab (C-ANCA) <1:20 titer (Neg:<1:20)
[2018-10-15 11:46] LABS: CCP IgG Antibodies 7 units (0-19); Perinuclear Ab (P-ANCA) <1:20 titer (Neg:<1:20)
[2018-10-15 11:57] LABS: ANTINUCLEAR ANTIBODIES DIRECT Negative (Negative)
== END ==
PROVIDERS: Family Provider Family Medicine; PCP Family Medicine; Referring Provider Nurse Practitioner Acute Care; Visit Provider Nurse Practitioner Acute Care
DX: R06.00 Dyspnea, unspecified (principal)
CPT/HCPCS: 36415; 86038; 86200; 86225; 86235; 86256; 86431

== ENCOUNTER → 2018-12-14 09:52 | Outpatient (CLI) | payer MEDICARE, SELFPAY ==
[2018-10-27 07:25] VITALS: BMI 26.9
[2018-12-14 12:17] LABS: Absolute Lymphocyte Count 2.23 X10^3/ul (0.83-4.51); Absolute Neutrophil Count 8.7 X10^3/uL (2.0-7.7); Basophil# 0.05 X10^3/uL; Basophil% 0.4 % (0-1); Differential Indicated SCAN CRITERIA MET; Eosinophils% 4.6 % (0-5); Hematocrit 44.4 % (40-54); Hemoglobin 13.9 g/dl (13.0-16.5); Lymphocyte # 2.23 X10^3/ul (4.0); Lymphocyte % 16.9 % (19-41); Mean Corp Hgb Conc 31.3 g/gl (32-36); Mean Corpuscular Hgb 29.4 pg (27.0-32.0); Mean Corpuscular Volume 93.9 fL (80-94); Mean Platelet Vol. 11.6 fl (6.2-12.0); Monocyte# 1.53 X10^3/uL; Monocyte% 11.6 % (0-10); Neutrophil # 8.67 X10^3/uL (2.7-7.7); Neutrophil % 65.9 % (47-70); POSITIVE COUNT NO; POSITIVE DIFFERENTIAL YES; POSITIVE MORPHOLOGY NO; Platelet Count 215 K/mm3 (150-450); RBC Distribution Width CV 13.8 % (11.6-14.6); RBC Distribution Width SD 47.2 fl (35.1-43.9); Red Blood Count 4.73 M/mm3 (4.6-6.2); White Blood Count 13.2 K/mm3 (4.4-11.0)
[2018-12-14 12:32] LABS: Differential Comment SCANNED
[2018-12-14 13:13] LABS: ALB/GLOB Ratio 0.8 RATIO (0.9-2.4); AST(SGOT) 13 U/L (15-37); Alanine Aminotransfer ALT/SGPT 22 U/L (16-61); Albumin, Serum 3.4 g/dL (3.2-5.0); Alkaline Phosphatase 115 U/L (45-117); Anion Gap 8 (5-15); BUN 22 mg/dL (7-18); BUN/Creat Ratio 21.8 RATIO (10-20); Calcium,Total 9.6 mg/dL (8.5-10.1); Chloride 101 mmol/L (98-107); Cholesterol 129 mg/dL (200); Creatinine, Serum 1.01 mg/dL (0.70-1.30); EST Glomerular Filtration Rate 75 mL/min (>60); Est Glom Filt Rate - Afr Amer 91 mL/min (>60); Globulin 4.2 g/dL (2.2-4.2); Glucose 67 mg/dL (74-106); High Density Lipoprotein 82 mg/dL; Potassium 4.2 mmol/L (3.5-5.1); Protein, Total 7.6 g/dL (6.4-8.2); Sodium Level 138 mmol/L (136-145); Triglycerides 61 mg/dL; Very Low Density Lipoprotein 12 mg/dL (5-40)
[2018-12-14 13:55] LABS: BNP,B-Type NATRIURETIC PEPTIDE 73.9 pg/mL (0-100)
== END ==
PROVIDERS: Family Provider Family Medicine; PCP Family Medicine; Visit Provider Family Medicine
DX: J44.9 Chronic obstructive pulmonary disease, unspecified (principal); I25.10 Atherosclerotic heart disease of native coronary artery without angina pectoris; I50.9 Heart failure, unspecified; N40.1 Benign prostatic hyperplasia with lower urinary tract symptoms; R09.02 Hypoxemia
CPT/HCPCS: 36415; 80053; 80061; 83880; 85025

== ENCOUNTER → 2018-12-20 11:01 | Outpatient (CLI) | payer MEDICARE, SELFPAY ==
[2018-10-27 07:25] VITALS: BMI 26.9
[2018-12-20 13:03] LABS: Absolute Lymphocyte Count 2.01 X10^3/ul (0.83-4.51); Absolute Neutrophil Count 8.9 X10^3/uL (2.0-7.7); Basophil# 0.04 X10^3/uL; Basophil% 0.3 % (0-1); Eosinophils% 3.8 % (0-5); Hematocrit 44.2 % (40-54); Hemoglobin 13.8 g/dl (13.0-16.5); Lymphocyte # 2.01 X10^3/ul (4.0); Lymphocyte % 15.5 % (19-41); Mean Corp Hgb Conc 31.2 g/gl (32-36); Mean Corpuscular Hgb 29.4 pg (27.0-32.0); Mean Platelet Vol. 11.4 fl (6.2-12.0); Monocyte# 1.42 X10^3/uL; Monocyte% 10.9 % (0-10); Neutrophil # 8.94 X10^3/uL (2.7-7.7); Neutrophil % 68.9 % (47-70); Platelet Count 222 K/mm3 (150-450); RBC Distribution Width CV 13.8 % (11.6-14.6); RBC Distribution Width SD 46.9 fl (35.1-43.9)
[2018-12-20 13:09] LABS: POSITIVE COUNT NO; POSITIVE DIFFERENTIAL NO; POSITIVE MORPHOLOGY NO
[2018-12-20 13:12] LABS: Erythrocyte Sedimentation Rate 10 mm/hr (0-20)
== END ==
PROVIDERS: Family Provider Family Medicine; PCP Family Medicine; Visit Provider Family Medicine
DX: J44.9 Chronic obstructive pulmonary disease, unspecified (principal); I50.9 Heart failure, unspecified; I25.10 Atherosclerotic heart disease of native coronary artery without angina pectoris; D72.829 Elevated white blood cell count, unspecified
CPT/HCPCS: 36415; 85025; 85652; 86140

== ENCOUNTER → 2019-01-11 12:36 | Outpatient (CLI) | payer MEDICARE, SELFPAY ==
[2018-10-27 07:25] VITALS: BMI 26.9
--- NOTE | 2019-01-11 12:39 | CT_ITS ---
STUDY: CT CHEST WITH CONTRAST REASON FOR EXAM: Male, 83 years old. Dyspnea. Leukocytosis. Hypertension. RADIATION DOSAGE (If Supplied By Facility): CTDIvol = ( 15.09 ) mGy, DLP = ( 584.04 ) mGycm TECHNIQUE: Transaxial imaging was performed following intravenous administration of Isovue 300 100 IV. Multiplanar coronal and sagittal images were reformatted. Individualized dose optimization techniques were used for this CT. COMPARISON: None. FINDINGS: Hyperinflation. Diffuse emphysematous changes. There is evidence of a scarring in the anterior aspect of both upper lobes with subpleural blebs worse on the left side. Calcified granuloma in the lateral aspect of the right lung apices. There is also evidence of a formation in the anterior aspect of the right middle lobe. This appearance of the scarring at the lung bases with subpleural blebs. There is a 4.9 cm x 3.6 cm spiculated mass in the posterior medial segment of the left lower lobe. Adjacent to this and more posteriorly, there is a 5.3 cm x 2.1 cm mass. A neoplastic process should be ruled out. There are calcifications of the coronary arteries. There are multiple small lymph nodes within the mediastinum, which are normal in size and morphology most compatible with reactive lymph hyperplasia. Normal hilar regions. Normal enhanced pulmonary arteries. There is atherosclerotic calcification of the aortic arch with tortuosity and elongation of the aortic arch and descending thoracic aorta. There are multi-level degenerative changes of the thoracic spine. There is no demonstrated abnormality of the visualized upper abdomen. CT/Chest WITH Contrast IMPRESSION: Diffuse emphysematous changes and scarring as described. There are 2 spiculated masses in the left lower lobe as described. A neoplastic process should be ruled out. Electronically Signed: Esa Hall, at 13:03 EST , Service support ,
== END ==
PROVIDERS: Family Provider Family Medicine; PCP Family Medicine; Referring Provider Family Medicine; Visit Provider Family Medicine
DX: R06.00 Dyspnea, unspecified (principal); D72.829 Elevated white blood cell count, unspecified; R79.82 Elevated C-reactive protein (CRP)
CPT/HCPCS: 71260; Q9967

== ENCOUNTER → 2019-01-18 15:18 | Outpatient (CLI) | payer MEDICARE, SELFPAY ==
[2019-01-18 13:59] VITALS: BMI 26.8
[2019-01-18 15:50] LABS: Absolute Lymphocyte Count 2.34 X10^3/ul (0.83-4.51); Absolute Neutrophil Count 9.5 X10^3/uL (2.0-7.7); Basophil# 0.05 X10^3/uL; Basophil% 0.4 % (0-1); Eosinophil# 0.75 X10^3/uL; Eosinophils% 5.3 % (0-5); Hematocrit 43.6 % (40-54); Hemoglobin 13.5 g/dl (13.0-16.5); Lymphocyte # 2.34 X10^3/ul (4.0); Lymphocyte % 16.5 % (19-41); Mean Corpuscular Volume 93.8 fL (80-94); Mean Platelet Vol. 10.6 fl (6.2-12.0); Monocyte# 1.42 X10^3/uL; Neutrophil # 9.53 X10^3/uL (2.7-7.7); Neutrophil % 67.2 % (47-70); Platelet Count 284 K/mm3 (150-450); RBC Distribution Width CV 13.9 % (11.6-14.6); RBC Distribution Width SD 47.4 fl (35.1-43.9); Red Blood Count 4.65 M/mm3 (4.6-6.2); White Blood Count 14.2 K/mm3 (4.4-11.0)
[2019-01-18 15:58] LABS: Prothrombin Time (Protime)PT. 13.1 SECONDS (11.7-14.9)
[2019-01-18 15:59] LABS: Partial Thromboplast Time 29.8 Seconds (24.1-36.2)
[2019-01-18 16:10] LABS: POSITIVE COUNT NO; POSITIVE DIFFERENTIAL NO; POSITIVE MORPHOLOGY NO
== END ==
PROVIDERS: Family Provider Family Medicine; PCP Family Medicine; Visit Provider Internal Medicine Critical Care Medicine
DX: R91.8 Other nonspecific abnormal finding of lung field (principal); J44.9 Chronic obstructive pulmonary disease, unspecified
CPT/HCPCS: 36415; 85025; 85610; 85730

== ENCOUNTER → 2019-01-26 08:49 | Outpatient (CLI) | payer MEDICARE, SELFPAY ==
[2019-01-18 13:59] VITALS: BMI 26.8
[2019-01-26] VITALS (10 sets, daily range): BP systolic 127–170; BP diastolic 49–88; PULSE 62–86; RESP 12–20; O2SAT 94–99; BMI 25.8
--- NOTE | 2019-01-26 | IMM_PTH ---
PATIENT: HAILEY MONDRAGON LOC: CT U#:[id number] AGE/SX: 89/M ROOM: RE01/26/[address]: Dr. Emerson Cabello MD : 1935 BED: DIS: SPEC #: [id number] RECD: 01/27/19 12:21 STATUS: ADOLFO REQ #: [id number] KULWINDER: 01/26/19 00:[address]: Emerson Cabello DEPT: IMMUNOHISTOCHEMISTRY RECD BY: Pallavi Tubbs ENTERED: 01/27/19 12:25 SP TYPE: IMMUNO OTHR DR: Dr. Ha Davis, DO Tissues: Lung, NOS Procedures: NAPSIN A (add) Shayne Ret (add) CEA (add) CK14 (add) CK20 (add) CK5-6 (add) CK7 (add) CK8 (add) P53 (add) TTF1 (add) Vimentin (add) Pankeratin (initial) P40 (add) PSAP (add) S-100 (add) PHYSICIAN & [address] [address] SPECIMEN INFORMATION: Tissue Source: Left lower lung mass, CT-guided biopsy Clinical Info: Left-sided lung lesion Specimen Number: [id number] CPT code: 00370, 48823 x14 METHODOLOGY: Deparaffinized sections of prefer/formalin-fixed tissue or PAP/DQ stained slides are incubated with monoclonal/polyclonal antibodies/oligonucleotide probes. Localization is made via biotin free immunoperoxidase method. Appropriate controls are performed and reacted as expected. Results on target cell population are indicated in the following table: RESULTS: ANTIBODY / CLONE RESULT AE1-3 (AE1/AE3/PCK26) positive CK7 (OV-TL12/30) positive CK8 (28zeqpH03) positive CK20 (KS20.8) negative Vimentin (V9) positive S-100 (4C4.9) negative TTF-1 (8G7G3/1) negative Napsin A (Rabbit Polyclonal) negative PSAP (PASE/4LJ) negative CALRET (polyclonal) positive, focal CK5-6 (D5 & 1684) positive CK14 (LL002) positive CEA (11-7/TF-3HB-1) negative P53 (DO-7) negative P40 (BC28) positive These tests were developed and their performance characteristics determined by [facility]. They may not have been cleared or approved by the U.S. Food and Drug Administration. The FDA has determined that such clearance or approval is not necessary. INTERPRETATION: Left lower lung mass, CT-guided biopsy: Invasive squamous cell carcinoma. AM:halima 02/01/19
--- NOTE | 2019-01-26 08:51 | CT_ITS ---
PROCEDURE: CT-guided core biopsy of lung mass Individualized dose optimization techniques were used for this CT. INDICATION: Male, 83 years old. Left lung lower lobe mass CT guidance CONSENT: The risks, benefits and alternatives to the procedure were explained to the patient, and the patient agreed to the procedure and signed the consent. SEDATION: Intermittent the intravenous and demonstration of Versed and fentanyl by nursing staff under continuous cardiopulmonary monitoring. Sedation less than approximately 30 minutes STERILE BARRIER TECHNIQUE: The following sterile barrier precautions were used during the procedure: hand hygiene; use of 2% chlorhexidine aseptic; use of a cap, mask, sterile gown, sterile gloves, sterile full body drape, and a large sterile sheet. PROCEDURE/TECHNIQUE: The risks, benefits, and alternatives to the procedure were explained to patient, and the patient agreed to the procedure and signed a consent form for the procedure. A timeout was performed to confirm the patient's identity, the type of procedure, to be performed and the site of entry. Patient was positioned supine on the CT scan table. Under CT guidance using sterile technique and after infiltration of the skin and subcutaneous soft tissues with 40 mL of lidocaine 1% an 18-gauge core biopsy was introduced in the left lung lower lobe mass previously described.Multiple core samples were obtained and were placed with in formalin solution and sent to the lab for evaluation. Touch prep slides were examined by the pathologist at the procedure. FINDINGS: Successful CT-guided core biopsy of left lung lower lobe mass. CT/Biopsy/Inj or Needle Placement IMPRESSION: Successful CT-guided core biopsy of left lung lower lobe mass. Electronically Signed: Kyle Cervantes, at 14:08 EDT Tel , Service support ,
[2019-01-26] MEDS: fentaNYL 100 MCG/2 ML Ampul IV (10:17)
[2019-01-26] MEDS: Midazolam 2 MG/2 ML Syringe IV (10:17)
--- NOTE | 2019-01-26 10:25 | ASPIGT_PTH ---
PATIENT: HAILEY MONDRAGON LOC: CT U#:[id number] AGE/SX: 89/M ROOM: RE01/26/[address]: Dr. Emerson Cabello MD : [id number] BED: DIS: SPEC #: [id number] RECD: 01/26/19 13:38 STATUS: ADOLFO PAVEL #: [id number] KULWINDER: 01/26/19 10:[address]: Emerson Cabello DEPT: SURGICAL PATHOLOGY RECD BY: Yeison Mosquera ENTERED: 01/26/19 13:38 SP TYPE: ASP RAD OTHR DR: Dr. Ha aDvis, DO Tissues: Left lung, NOS Procedures: FNA Specimen Adequacy Special Stain Group II Surgery Specimen Level IV Imprint (control) HEADER OPERATION: CT-guided left lung biopsy PRE-OP DIAGNOSIS: Left-sided lung lesion TISSUE SUBMITTED: Left lower lung mass 20 gauge core x9 MICROSCOPIC DIAGNOSIS Left lower lobe of lung mass, CT-guided needle core biopsy: Consistent with squamous cell carcinoma. AM:halima 01/27/19 COMMENT The specimen is evaluated at the time of biopsy by Dr. Jean. Immediate Evaluation = Malignant cells present derived from non-small cell carcinoma. Immunohistochemistry ([id number]) supports the above diagnosis. Case has been reviewed in consultation with Dr. Jean who concurs with the above diagnosis. IDC:SJ MICROSCOPIC DESCRIPTION Slides are reviewed. GROSS DESCRIPTION Received in fixative is one container labeled with the patient's name and designated left lung. The specimen consists of multiple irregular and elongated fragments of light arias soft tissue that in aggregate measure 1.7 x 0.5 x <0.1 cm. The specimen is totally submitted in one cassette. / AM:halima 01/26/19 TC:0 CPT: 83621
--- NOTE | 2019-01-26 11:40 | RAD_ITS ---
STUDY: X-RAY CHEST REASON FOR EXAM: Male, 83 years old. 1 HOUR POST LUNG BIOPSY TECHNIQUE: Two view, inspiration expiration. COMPARISON: 03/13/2019 FINDINGS: Hyperinflation. Diffuse emphysematous changes. There is evidence of a scarring in the anterior aspect of both upper lobes with subpleural blebs worse on the left side. Calcified granuloma in the lateral aspect of the right lung apices. There is also evidence of a formation in the anterior aspect of the right middle lobe. This appearance of the scarring at the lung bases with subpleural blebs. There is a 4.9 cm x 3.6 cm spiculated mass in the posterior medial segment of the left lower lobe. There is no demonstrated pleural abnormality. Normal size heart. Normal mediastinum and gasper. Normal visualized pulmonary arteries. Normal visualized aortic arch and descending thoracic aorta. Normal visualized thoracic spine. There is degenerative osteoarthritis of the bilateral shoulders. There is no demonstrated abnormality of the visualized soft tissue structures of the upper abdomen. RAD/Chest Insp/Exp 2 View IMPRESSION: There is no evidence of pneumothorax. Electronically Signed: Kyle Cervantes, at 13:42 EDT Tel , Service support ,
== END ==
PROVIDERS: Family Provider Family Medicine; PCP Family Medicine; Referring Provider Internal Medicine Critical Care Medicine; Visit Provider Internal Medicine Critical Care Medicine
DX: C34.32 Malignant neoplasm of lower lobe, left bronchus or lung (principal); J44.9 Chronic obstructive pulmonary disease, unspecified; I11.9 Hypertensive heart disease without heart failure; Z86.73 Personal history of transient ischemic attack (TIA), and cerebral infarction without residual deficits; Z79.899 Other long term (current) drug therapy; Z87.891 Personal history of nicotine dependence
CPT/HCPCS: 32405; 71046; 77012; 88172; 88305; 88313; 88341; 88342; 99156; 99157; J7040

== ENCOUNTER → 2019-02-16 16:05 | Outpatient (CLI) | payer MEDICARE, SELFPAY ==
[2019-02-10 12:55] VITALS: BMI 26.6
[2019-02-14 10:11] VITALS: BMI 26.7
--- NOTE | 2019-02-16 16:10 | MRI_ITS ---
STUDY: MRI BRAIN WITHOUT CONTRAST REASON FOR EXAM: Male, 83 years old. Lung cancer TECHNIQUE: Standardized multiplanar fat and water weighted pulse sequences were obtained. COMPARISON: None. FINDINGS: Moderate atrophy and periventricular white matter ischemic changes without mass effect or restricted diffusion.. Focal lesions within the right cerebellar hemisphere without mass effect most likely representing old ischemic changes Normal bilateral basal ganglia. Normal thalami. There is no extra-axial fluid accumulation. Normal flow voids within the major intracranial circulation suggesting patency by spin echo criteria. Normal sella turcica, pituitary gland, infundibular stalk, optic chiasm and hypothalamus. Normal tectal plate and pineal gland. Normal midbrain, darci and medulla. . Normal basal cisterns. Normal bilateral temporal bones. Normal bilateral internal auditory canals. Postsurgical changes of the right orbit.. Mild mucosal thickening of the ethmoid air cells.. Normal calvarium and skull base. Normal visualized soft tissue structures. Normal visualized upper cervical spine. 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 No definitive evidence for metastatic disease however study is limited without contrast enhancement. Electronically Signed: Dannie Gaffney MD at 17:43 EDT , Service support ,
== END ==
PROVIDERS: Family Provider Family Medicine; PCP Family Medicine; Referring Provider Internal Medicine Hematology & Oncology; Visit Provider Internal Medicine Hematology & Oncology
DX: C34.32 Malignant neoplasm of lower lobe, left bronchus or lung (principal)
CPT/HCPCS: 70551

== ENCOUNTER 2019-02-24 08:18 | Day surgery (SDC) | payer MEDICARE, SELFPAY ==
[2019-02-14 09:15] VITALS: BMI 26.6
--- NOTE | 2019-02-14 09:45 | HP_ITS ---
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 Is patient in pain?: No Allergies Gadolinium-MRI Contrast Medium [DYE] Allergy (Verified 02/14/19 09:14) Nausea/Vom/Diarrhea amoxicillin Adverse Reaction (Severe, Verified 02/14/19 09:14) Nausea/Vom/Diarrhea Medications atorvastatin 10 mg tablet 10 mg PO DAILY 90 Days #90 02/10/18 [History Confirmed 02/14/19] finasteride 5 mg tablet 1 tab PO DAILY 90 Days #90 02/10/18 [History Confirmed 02/14/19] lisinopril 5 mg tablet 10 mg PO DAILY 90 Days #90 02/10/18 [History Confirmed 02/14/19] potassium chloride ER 10 mEq tablet,extended release 10 meq PO DAILY 90 Days #180 02/10/18 [History Confirmed 02/14/19] budesonide-formoterol HFA 160 mcg-4.5 mcg/actuation aerosol inhaler 2 puff INHALATION BID #1 ea 12/06/18 [Rx Confirmed 02/14/19] Aspirin [Lo-Dose Aspirin EC] 81 mg PO DAILY 02/10/19 [History Confirmed 02/14/19] Furosemide [Lasix] 20 mg PO DAILY 02/10/19 [History Confirmed 02/14/19] Prednisone 20 mg PO UD 02/10/19 [History Confirmed 02/14/19] PFSH Medical History HTN (hypertension) (Chronic) SOB (shortness of breath) (Acute) Heart disease (Acute) Stroke (Acute) Emphysema/COPD (Acute) Primary cancer of left lower lobe of lung (Acute) Regional lymph node metastasis present (Acute) Bronchitis (Acute) COPD with asthma (Acute) Dyspnea (Acute) Chronic respiratory failure with hypoxia (Chronic) Stage 4 very severe COPD by GOLD classification (Chronic) Surgical History History of esophagogastroduodenoscopy (EGD) (Acute) Hx of colonoscopy (Acute) History of tonsillectomy and adenoidectomy (Acute) Hx of heart artery stent (Acute) History of knee replacement (Acute) Family History Other No pertinent family history Social History Smoking Status: Former smoker quit date: 11/09/12 second hand exposure: No alcohol intake: current alcohol intake frequency: 0-2 drinks per day substance use type: does not use caffeine: Yes frequency: 3-4 times per week HPI HPI HPI: HAILEY MONDRAGON, is a 83 M who presents to the office today for HPI HPI Surgical H&P: Yes HPI: HAILEY MONDRAGON, is a 83 M who presents to the office today for port placement due to clinically stage IIIb non-small cell, 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 Patient states they are planning to start chemo the week of the . Patient does have severe COPD and is on oxygen but only with exertion. ROS General General: No weight change or fatigue Resp Respiratory: Yes shortness of breath, No sleep apnea, No cough, Yes COPD, Yes asthma, Yes emphysema Gastro Gastrointestinal: No abdominal pain, No nausea or vomiting, No diarrhea, No constipation, No blood in stool, No acid reflux, No hemorrhoids, No ulcers, No gallbladder problem, No black,tarry stools Exam Const General: cooperative, comfortable Neck Neck: supple Chest Chest palpation & inspection: normal inspection of the chest, normal palpation of entire chest wall (upper chest bilaterally) GI Inspection: non-distended Palpation: soft, no guarding, nontender Assessment & Plan Problems 1. Encounter for adjustment or management of vascular access device Z45.2 2. Primary cancer of left lower lobe of lung C34.32 3. Regional lymph node metastasis present C77.9 4. Hypotension due to drugs I95.2 Plan Patient is currently being treated for hypertension however patient admits he is been having lower blood pressures and oncology states the systolic was in the 90s today is also in the 90s. Will contact the primary care office to find out if patient may need to be on less medication. Patient is on Lasix 20 mg p.o. daily as well as lisinopril 10 mg p.o. daily, which he did take this morning. We will also have patient monitor his blood pressure at home. I have discussed above with the patient- Port-a-Cath placement. Right IJ possible left Patient has been counseled as to the risks/benefits of the procedure. I have explained the risks of the surgery, including but not limited to: infection, bleeding, injury to any blood vessels/nerves, injury to lungs (such as pneumothorax or hemothorax and need for chest tube), not having any access, nonfunctioning of port due to thrombosis, infection of port, etc. the patient understands and agrees to proceed. I have answered all the patient's questions to the patient?s satisfaction and the patient has no further questions. Pita Bearden M.D. Pager: [phone] [facility] [address] [place] [address], [address] [place] [address] Office: [phone] Plan Detail Follow Up will schedule port placement for next week Coding Level of Care Code Off vis,new,level 3 Diagnoses Encounter for adjustment or management of vascular access device Z45.2 Primary cancer of left lower lobe of lung C34.32 Regional lymph node metastasis present C77.9 Hypotension due to drugs I95.2 ??Hypotension type: hypotension due to drug ADDENDUM: 02/24/2019 9:25AM Pt seen and examined. No changes noted.
[2019-02-14 10:11] VITALS: BMI 26.7
[2019-02-22 09:20] VITALS: BMI 26.5
[2019-02-24] VITALS (9 sets, daily range): BP systolic 105–142; BP diastolic 54–78; PULSE 72–81; RESP 16; TEMP 36.2–36.6; O2SAT 90–93; BMI 26.3
[2019-02-24] MEDS: Bupivacaine Mpf 0.5% 30 ML VIAL (09:57)
--- NOTE | 2019-02-24 10:22 | PCM.OPRPT ---
Report of Operation Date of Procedure: 02/24/19 Pre-Operative Diagnosis: z45.2, left lung cancer Post-Operative Diagnosis: Same Surgery/Procedure Performed:: 1. Placement of right IJ Port-A-Cath. 2. Use of fluoroscopy. 3. Use of ultrasound Type of Anesthesia:: MAC/Supplemental/Local Anesthesiologist: Flynn Hirsch Special Medications: Clindamycin 900 mg IV x1 Specimen's removed: None Estimated Blood Loss (mL): <5cc Fluids Replaced: 500 cc Description of Procedure: After informed consent was given, the patient was brought to the operating room and placed in the supine position. Appropriate time out protocol was followed. He was then given IV conscious sedation for anesthesia. The patient's bilateral upper chest and neck were then prepped with a surgical skin preparation and sterile surgical drapes were placed. After proper landmarks were ascertained, the skin at the upper right chest area was then infiltrated with 1:1 mixture of 1% lidocaine with epinephrine and 0.5% maricaine. A needle trocar was then inserted into the right internal jugular vein with ultrasound guidance-multiple vessels were viewed with u/s and the right IJ was chosen-- and there was good aspiration of venous blood. A wire was then threaded into the needle trocar and this was visualized under fluoroscopy to ensure that the wire was in the superior vena cava. Once this was done, then the needle trocar was removed. A small skin teofilo was made with an 11 blade knife at the wire entrance site. The dilator with the introducer sheath attached was then placed over the wire into the right internal jugular vein via the Seldinger technique and this was visualized under fluoroscopy. The dilator and sheath were in proper position as visualized by fluoroscopy. A subcutaneous pocket was then created caudad to the catheter insertion site. A transverse skin incision was made after the skin and subcutaneous tissues were infiltrated with local anesthetic. Blunt dissection was then used to create a space large enough for placement of the subcutaneous port. The catheter was then tunneled into the subcutaneous pocket. The wire and dilator were then removed. The catheter was then threaded into the introducer sheath and was positioned with its tip at the junction of the superior vena cava and the right atrium as visualized under fluoroscopy. The excess catheter was transected. The catheter was then attached to the subcutaneous port using manufacturers guidelines. The catheter was flushed with a heparin saline mixture prior to placement. Hemostasis was carefully controlled with electrocautery. The port was sutured to the subcutaneous fascia using 3-0 PDS suture at two sites. The port was then placed in the subcutaneous pocket and the sutures were ligated. The incision were reapproximated with interrupted subdermal 3-0 vicryl sutures. The skin was reapproximated with 3-0 nylon suture in a interrupted fashion. Steristrips were used for reinforcement of the skin closure at IJ insertion site and a sterile opsite dressings were applied. The patient tolerated the procedure well. Implants Used: Bard PowerPort isp M.R.I. 6Fr Lot [id number] Grafts/Implants Used: [employer] PowerPort isp M.R.I. 6Fr Lot [id number] - Admit VTE Documentation VTE Present on Admission: Yes VTE Mechan Device Prophylaxis: SCD's
--- NOTE | 2019-02-24 10:28 | DCINST_ITS ---
Discharge Diet: No Restrictions May shower in (days): 1 - Keep port site clean and dry for 5 days, okay to take a lower shower and sponge about the top or tape off the port site with a Ziploc bag. Okay for the neck incision to get wet after 1 day Lifting Restrictions: No lifting greater than 20 pounds with the right arm times 1 week Call your doctor if your incision/area has: Continuous Slow Oozing, Sudden Increased Bleeding, Increased Pain/ Swelling, Increased Redness, Foul Smelling Discharge, Swelling at the incision site Call your doctor if you observe: Fever of 101 or Higher Remove Dressing in (days):: 3 - Okay to remove the neck OpSite after 1 day Steri-Strips down to the fall off Allergies/Adverse Reactions: Allergies Gadolinium-MRI Contrast Medium [DYE] Allergy (Verified 02/22/19 09:18) Nausea/Vom/Diarrhea amoxicillin Adverse Reaction (Severe, Verified 02/22/19 09:18) Nausea/Vom/Diarrhea Medications to take at Discharge atorvastatin 10 mg tablet 10 mg PO DAILY 90 Days #90 02/10/18 finasteride 5 mg tablet 1 tab PO DAILY 90 Days #90 02/10/18 lisinopril 5 mg tablet 10 mg PO DAILY 90 Days #90 02/10/18 potassium chloride ER 10 mEq tablet,extended release 10 meq PO DAILY 90 Days #180 02/10/18 budesonide-formoterol HFA 160 mcg-4.5 mcg/actuation aerosol inhaler 2 puff INHALATION BID #1 ea 12/06/18 Aspirin [Lo-Dose Aspirin EC] 81 mg PO DAILY 02/10/19 Furosemide [Lasix] 20 mg PO DAILY PRN 02/10/19 Ondansetron [Ondansetron Odt] 8 mg PO Q8H PRN PRN 30 Days #30 tab.rapdis 02/14/19 Ipratropium/Albuterol Respimat [Combivent Respimat Inhal [place]] 1 puff INHALATION PRN PRN 02/17/19 Primary Care Physician: Ha Davis DO [Primary Care Provider] - Test Results: Test results from this visit will be discussed in further detail at your follow- up appointment, if applicable. Please Follow Up With: Pita Bearden MD - Any issues at 5:00/we can call [phone] with any concerns. When: Call the office for a follow-up appointment in 10 days for suture removal. Proposed Discharge Date: 02/24/19
--- NOTE | 2019-02-24 10:45 | RAD_ITS ---
STUDY: X-RAY CHEST REASON FOR EXAM: Male, 83 years old. Port placement. TECHNIQUE: Single AP portable view of the chest. COMPARISON: Comparison is made with prior study dated January 26, 2019. FINDINGS: A right-sided portacatheter has been placed. The tip is at the junction of the superior vena cava and right atrium. Hyperinflation. There is evidence of a 5.3 cm x 5.4 cm mass in the left lower lobe. Stable increased markings within the lungs suggestive of scarring. Normal size heart. Normal mediastinum and gasper. Normal visualized pulmonary arteries. There is atherosclerotic calcification of the aortic arch with tortuosity. Normal visualized thoracic spine. Normal visualized ribs, clavicles, and shoulders. There is no demonstrated abnormality of the visualized soft tissue structures of the upper abdomen. RAD/CXR for Line Placement IMPRESSION: The tip of the right Port-A-Cath is at the junction of the superior vena cava and right atrium. The remainder of the examination is unchanged. Electronically Signed: Esa Hall, at 11:30 EDT , Service support ,
== END 2019-02-24 11:45 | disposition home or self-care (01) ==
LOC: SDC 08:19 → AC 08:20
PROVIDERS: Family Provider Family Medicine; PCP Family Medicine; Referring Provider Surgery; Visit Provider Surgery
PROC: (CPT 36561; principal; 2019-02-24 09:15)
DX: Z45.2 Encounter for adjustment and management of vascular access device (principal); C34.32 Malignant neoplasm of lower lobe, left bronchus or lung; C77.9 Secondary and unspecified malignant neoplasm of lymph node, unspecified; I95.2 Hypotension due to drugs; J43.9 Emphysema, unspecified; J96.11 Chronic respiratory failure with hypoxia; E78.00 Pure hypercholesterolemia, unspecified; I25.10 Atherosclerotic heart disease of native coronary artery without angina pectoris; I10 Essential (primary) hypertension; I25.2 Old myocardial infarction; I69.398 Other sequelae of cerebral infarction; R26.81 Unsteadiness on feet; Z95.5 Presence of coronary angioplasty implant and graft; Z79.82 Long term (current) use of aspirin; Z79.899 Other long term (current) drug therapy; Z87.891 Personal history of nicotine dependence
CPT/HCPCS: 36561; 71045; 77001; J7120; J2405

== ENCOUNTER 2019-08-22 07:32 | Inpatient (IN) | payer MEDICARE, SELFPAY ==
[2019-05-17 10:20] VITALS: BMI 24.0
[2019-08-15 09:19] VITALS: BMI 23.5
[2019-08-22] VITALS (14 sets, daily range): BP systolic 111–164; BP diastolic 53–92; PULSE 70–95; RESP 18–24; TEMP 36.1–36.8; O2SAT 83–97; BMI 23.3; BMI 23.2
--- NOTE | 2019-08-22 07:37 | RAD_ITS ---
STUDY: X-RAY CHEST REASON FOR EXAM: Male, 83 years old. Worsening shortness of breath. COPD. Left lung cancer. Patient is on chemotherapy. TECHNIQUE: PA and lateral views of the chest. COMPARISON: Comparison is made with prior examination dated February 24, 2019. FINDINGS: A right-sided portacatheter is seen with the tip in the midportion of the superior vena cava. EKG electrodes are seen. Hyperinflation. Stable increased interstitial markings in both lungs suggestive of a scarring. The previously seen mass in the left lower lobe has decreased in size. It is ill-defined at this time and measures approximately 3.8 cm x 4 cm. Calcified granuloma in the right upper lobe. Normal size heart. Normal mediastinum and gasper. Normal visualized pulmonary arteries. There is atherosclerotic calcification of the aortic arch with tortuosity. There are diffuse degenerative changes of the visualized thoracic spine. Normal visualized ribs, clavicles, and shoulders. There is no demonstrated abnormality of the visualized soft tissue structures of the upper abdomen. RAD/Chest PA and Lateral IMPRESSION: Hyperinflation. Chronic scarring. Interval decrease in size of the left lower lobe nodule. Electronically Signed: Esa Hall, at 8:43 EDT , Service support ,
--- NOTE | 2019-08-22 07:37 | EKG12_ITS ---
Test Reason : SOB Blood Pressure : / mmHG Vent. Rate : 080 BPM Atrial Rate : 080 BPM P-R Int : 158 ms QRS Dur : 094 ms QT Int : 406 ms P-R-T Axes : 077 -15 038 degrees QTc Int : 468 ms Normal sinus rhythm Voltage criteria for left ventricular hypertrophy Inferior infarct , age undetermined Abnormal ECG Confirmed by DELMAR LOCKHART ([id number]), editorial intern COOKIE TORRES ([id number]) on 08/24/2019 8:31:02 AM Referred By: FERNANDA Confirmed By:DELMAR LOCKHART
--- NOTE | 2019-08-22 07:39 | ED.DCSUM_ITS ---
- ER Visit Summary Date of Service: 08/22/19 Chief Complaint: Shortness of breath History of Present Illness: The patient is a 83 M who presents with shortness of breath. He states that this is been ongoing for 2 weeks. He states is getting worse. Is worse with exertion. Better with rest. He has had a cough productive of yellow sputum. He has no fever or chest pain. He currently does have lung cancer and is currently on immunotherapy's for this. He started chemotherapy in February and at that time he had similar symptoms but he was put on prednisone which resolve the symptoms. When the symptoms started 2 weeks ago he restarted his prednisone thinking that this would help but it did not. He saw his PCP on Thursday for the symptoms who considered a stress test but he did not place him on any new medications. He has oxygen at home but he does not wear it Physical Examination: Vital signs are reviewed. He is 83% on room air. He is 95% on 3 L currently. HEENT exam unremarkable. Heart is regular rate and rhythm without murmurs. Lungs have some slight rhonchorous breath sounds in the right base. Otherwise are clear. Abdomen soft nontender. Extremities have no edema. Neurologic exam is normal. Skin exam has no rashes. Test Results: EKG is normal sinus rhythm with a rate of 80. Nonspecific ST and T wave changes. Hemoglobin 10.8, BUN 25. Troponin normal BNP slightly elevated. Chest x-ray reveals chronic changes with no infiltrates. Emergency Department Course and Treatment: Patient was placed on supplemental oxygen and given albuterol. He developed more crackles after the albuterol t reatment. He was given Solu-Medrol as well. I feel he is likely having a COPD exacerbation with hypoxia. No signs of pneumonia or CHF. Patient was discussed with the hospitalist for admission. Treatment Plan: [] Disposition: Admit Impression: COPD exacerbation, hypoxia This note was generated with [employer] dictation software. It may contain incorrect words, spelling, and punctuation that were not noted in review of the chart prior to signing ED Disposition - Plan for ED Patient: Referrals: Ha Davis DO [Primary Care Provider] -
[2019-08-22 08:00] LABS: Absolute Lymphocyte Count 0.92 X10^3/uL (0.83-4.51); Absolute Neutrophil Count 6.1 X10^3/uL (2.0-7.7); Basophil# 0.04 X10^3/uL; Basophil% 0.5 % (0-1); Eosinophil# 0.42 X10^3/uL; Hematocrit 34.6 % (40-54); Hemoglobin 10.8 g/dL (13.0-16.5); Lymphocyte # 0.92 X10^3/ul (4.0); Lymphocyte % 10.8 % (19-41); Mean Corp Hgb Conc 31.2 g/dL (32-36); Mean Corpuscular Hgb 28.5 pg (27.0-32.0); Mean Corpuscular Volume 91.3 fL (80-94); Mean Platelet Vol. 9.9 fl (6.2-12.0); Monocyte# 0.97 X10^3/uL; Monocyte% 11.4 % (0-10); NRBC Flagged by Analyzer 0 % (0-5); Neutrophil # 6.08 X10^3/uL (2.7-7.7); Neutrophil % 71.7 % (47-70); Platelet Count 135 K/mm3 (150-450); RBC Distribution Width SD 60.5 fl (35.1-43.9); Red Blood Count 3.79 M/mm3 (4.6-6.2); White Blood Count 8.5 K/mm3 (4.4-11.0)
[2019-08-22] MEDS: Albuterol 2.5 MG/3 ML VIAL.NEB. INHALATION (08:01)
[2019-08-22 08:18] LABS: Anion Gap 5 (5-15); BUN 25 mg/dL (7-18); BUN/Creat Ratio 28.6 RATIO (10-20); Calcium,Total 8.9 mg/dL (8.5-10.1); Chloride 105 mmol/L (98-107); Creatinine, Serum 0.87 mg/dL (0.70-1.30); EST Glomerular Filtration Rate 88 mL/min (>60); Est Glom Filt Rate - Afr Amer 107 mL/min (>60); Estimated Creatinine Clearance 66.43 ml/min; Glucose 99 mg/dL (74-106); Potassium 3.8 mmol/L (3.5-5.1); Sodium Level 138 mmol/L (136-145)
[2019-08-22 08:32] LABS: BNP,B-Type NATRIURETIC PEPTIDE 103.9 pg/mL (0-100)
[2019-08-22] MEDS: MethylPREDNISolone 125 MG/2 ML Vial IV (09:10)
--- NOTE | 2019-08-22 09:19 | NURSING ---
MED SURG COPD EXAC, HYPOXIA ASHELFAH
--- NOTE | 2019-08-22 11:02 | PCM.HP.STD ---
Problem List (1) Chemotherapy-induced thrombocytopenia Status: Chronic (2) Anemia Status: Chronic Qualifiers: (3) Primary cancer of left lower lobe of lung Status: Chronic (4) Regional lymph node metastasis present Status: Chronic (5) Chronic respiratory failure with hypoxia Status: Chronic (6) Stage 4 very severe COPD by GOLD classification Status: Chronic Comment: FEV1 41% of predicted History of Present Illness Date of Admission: 08/22/19 Chief Complaint: Shortness of breath. The patient is a 83 year old M with a history as mentioned above presented to the emergency room because of shortness of breath. His symptoms started around 2 weeks ago with slowly progressive shortness of breath, mainly exertional with minimal activity, exaggerated by any type of activity including walking for a few steps, relieved by rest, associated with productive cough with moderate amount of yellow sputum and also associated with wheezing. He denies fever or chills. He denies chest pain, palpitation, dizziness or lightheadedness. He has been using his inhalers at home but his symptoms did not improve. He does have oxygen concentrator at home but he is not using oxygen because he does not need it. In the emergency department, patient was afebrile, dyspneic and tachypneic, blood pressure and heart rate were stable. According to ER physician, pulse ox was 83% on room air which improved to 95% on 3 L. Routine blood work was remarkable for chronic anemia and chronic thrombocytopenia, otherwise normal. EKG revealed normal sinus rhythm without evidence of acute ischemic changes. Troponin was negative. Chest x-ray revealed hyperinflation, chronic COPD changes, no acute infiltrate or consolidation. He is being admitted for acute COPD exacerbation with acute hypoxic respiratory failure. Past Medical History Past Medical History (Chronic Problems): Chronic Problems (Last Updated 08/22/19 @ 10:33 by Debbie Cobos MD) Chemotherapy-induced thrombocytopenia (Chronic) Anemia (Chronic) Immunotherapy (Chronic) Hx of heart artery stent (Chronic) 2013 HTN (hypertension) (Chronic) Stroke (Chronic) Primary cancer of left lower lobe of lung (Chronic) Regional lymph node metastasis present (Chronic) Chronic respiratory failure with hypoxia (Chronic) Stage 4 very severe COPD by GOLD classification (Chronic) FEV1 41% of predicted Medical History: Medical History (Last Updated 08/22/19 @ 10:33 by Debbie Cobos MD) HTN (hypertension) (Chronic) I10 Stroke (Chronic) I63.9 Primary cancer of left lower lobe of lung (Chronic) C34.32 Regional lymph node metastasis present (Chronic) C77.9 Chronic respiratory failure with hypoxia (Chronic) J96.11 Stage 4 very severe COPD by GOLD classification (Chronic) J44.9 FEV1 41% of predicted Allergies amoxicillin Adverse Reaction (Severe, Verified 08/22/19 07:38) Nausea/Vom/Diarrhea Gadolinium-MRI Contrast Medium [DYE] Adverse Reaction (Severe, Verified 08/22/19 07:38) Nausea/Vom/Diarrhea rice Adverse Reaction (Severe, Verified 08/22/19 07:38) Vomiting Home Medications: Ambulatory Orders Medication Instructions Recorded atorvastatin 10 mg tablet 10 mg PO DAILY 90 Days #90 02/10/18 finasteride 5 mg tablet 1 tab PO DAILY 90 Days #90 02/10/18 budesonide-formoterol HFA 160 2 puff INHALATION BID #1 ea 12/06/18 mcg-4.5 mcg/actuation aerosol inhaler Ipratropium/Albuterol Respimat 1 puff INHALATION PRN PRN 02/17/19 [Combivent Respimat Inhal [place]] Furosemide [Lasix] 20 mg PO DAILY 08/22/19 Surgical History: Surgical History (Last Updated 08/22/19 @ 10:33 by Debbie Cobos MD) Hx of heart artery stent (Chronic) Z95.5 2014 Surgical History: tonsillectomy, - - Cardiac stents. Psychiatric History: No pertinent psych hx Lives: Spouse/ Significant Other Smoking Status: Former smoker Alcohol: None Drugs: None - *Family History Maternal Family History: Family History (Last Reviewed 08/15/19 @ 09:17 by Randi Aguayo) Other No pertinent family history History Items: No pertinent history Paternal Family History: Family History (Last Reviewed 08/15/19 @ 09:17 by Randi Aguayo) Other No pertinent family history History Items: No pertinent history Review of Systems Constitutional: Denies: Anorexia, Chills, Fever, Weakness Eyes: Denies: Blurred vision, Double vision, Drainage, Redness HEENT: Denies: Difficulty Hearing, Ear Pain, Eye Pain, Nasal Congestion, Sore Throat Cardiovascular: Denies: Chest Pain, Chest Pressure, Chest Tightness, Heaviness, Light Headedness, Palpitations, Syncope Respiratory: Reports: Cough, Shortness of Breath, Shortness of breath upon exertion, Sputum production, Wheezing. Denies: Hemoptysis, Pleuritic Pain Gastrointestinal: Denies: Abdominal Pain, Constipation, Diarrhea, Nausea, Vomiting Genitourinary: Denies: Dysuria, Frequency, Hematuria Musculoskeletal: Denies: Arm Pain, Back Pain, Foot Pain Skin: Denies: Dryness, Rash Neurological: Denies: Balance problems, Double vision, Change in Speech, Slurred speech, Confusion, Headaches, Incoordination, Numbness Psychiatric: Denies: Anxiety, Depression Endocrine: Denies: Change in Body Habitus, Polydipsia, Polyuria VTE Information - Inpt Only VTE Present on Admission: No VTE Mechan Device Prophylaxis: None VTE Pharm Prophylaxis ordered?: Yes - Physical Exam General: Alert, Oriented x3, Cooperative, - - Dyspneic, tachypneic. HEENT: Atraumatic, PERRLA, EOMI, Normocephalic Oral: Moist Mucosa, No Gingival or Mucosal Lesions/ Ulcerations Neck: Supple, No JVD, Negative Carotid Bruits, Trachea Midline, Thyroid Normal Size and Texture Lungs: No rales, Diminished, Rhonchi, Short of Breath, Wheezes, - - Decreased breath sounds bilateral, bilateral expiratory wheezes, bilateral rhonchi. Cardiovascular: Regular rate, Regular Rhythm, Normal S1, Normal S2, PMI Normal Abdomen: Bowel Sounds Present, Soft, Non Tender, Non-Distended, No Hepato-splenomegaly Extremities: No clubbing, No cyanosis, No edema Skin: No rashes, No breakdown Lymphatic: No Cervical, Supraclavicular, or Inguinal Adenopathy Neurological: Cranial nerves II-XII grossly intact, Motor Exam 5/5 strength throughout Psych/Mental Status: Normal Affect, Appropriate, Alert and oriented to time, place, person, mood and affect Vital Signs Temp Pulse Resp BP Pulse Ox 97.5 F L 84 20 H 140/82 H 97 08/22/19 10:56 08/22/19 10:56 08/22/19 10:56 08/22/19 10:56 08/22/19 10:56 Oxygen Flow Rate (L/min) 3 Oxygen Delivery Method Nasal Cannula Weight: 162 lb 4.163 oz Body Mass Index (BMI) 23.2 Laboratory Tests Past 24 Hrs 08/22/19 08/22/19 08/22/19 07:50 07:50 07:50 WBC 8.5 RBC 3.79 L Hgb 10.8 L Hct 34.6 L MCV 91.3 MCH 28.5 MCHC 31.2 L RDW Std Deviation 60.5 H RDW Coeff of Zamzam 18.0 H Plt Count 135 L MPV 9.9 Immature Gran % (Auto) 0.600 Neut % (Auto) 71.7 H Lymph % (Auto) 10.8 L [place] % (Auto) 11.4 H Eos % (Auto) 5.0 Baso % (Auto) 0.5 Absolute Neuts (auto) 6.1 Absolute Lymphs (auto) 0.92 Nucleated RBC % 0 Sodium 138 Potassium 3.8 Chloride 105 Carbon Dioxide 28.0 Anion Gap 5 BUN 25 H Creatinine 0.87 Estim Creat Clear Calc 66.43 Est GFR (MDRD) Af Amer 107 Est GFR (MDRD) Non-Af 88 BUN/Creatinine Ratio 28.6 H Glucose 99 Calcium 8.9 Troponin I < 0.015 B-Natriuretic Peptide 103.9 H Clinical Impression(s) from Imaging Studies Chest X-Ray 08/22/19 07:37 IMPRESSION: Hyperinflation. Chronic scarring. Interval decrease in size of the left lower lobe nodule. Electronically Signed: Esa Hall, at 8:43 EDT , Service support , Assessment/Plan This is an 83 years old male patient presented to the emergency room because of 2 weeks history of exertional shortness of breath with productive cough and wheezing, found to have acute COPD exacerbation with acute hypoxic respiratory failure and he is being admitted for treatment. #1 acute COPD exacerbation: Chest x-ray reviewed, no acute findings. EKG revealed normal sinus rhythm without evidence of acute ischemic changes. Plan: Admit to MedSurg, start IV steroids, IV Levaquin, sputum culture, DuoNeb every 4 hours, albuterol as needed, chest physiotherapy, incentive spirometer, repeat CBC and BMP tomorrow morning PT OT evaluation and treatment. #2 acute hypoxic respiratory failure: Pulse ox was 82% on room air in the ED. Patient mentioned that he does have a home oxygen concentrator but he has not been using it. He has been stable since February,. Plan as above, IV steroids, IV antibiotics, bronchodilators. #3 CAD status post stents: Stable, no chest pain, no EKG changes, troponin is negative. Continue statins. He is not on any other treatment for CAD. #4 hypertension: Blood pressure stable, he is on Lasix, continue. #5 stage IV severe COPD: Plan as above. #6 non-small cell lung cancer: Status post chemotherapy and radiation, completed back on June,. He is on maintenance durvalumab. Stable at this time, he follows up with Dr. Irving. #7 chronic anemia/chronic thrombocytopenia: Secondary to chemotherapy. Admission hemoglobin is 10.8 g/dL, platelet count is 135,000, stable at baseline. #8 DVT prophylaxis: Subcu Lovenox. This note was generated with [employer] dictation software. It may contain incorrect words, spelling, and punctuation that were not noted in checking the note before signing. Code Visit Inpatient E&M: 97724 Init Hosp L3
[2019-08-22] MEDS: Ipratropium/Albuterol Sulfate 3 ML AMPUL.NEB INHALATION ×3 (11:46→19:14)
[2019-08-22] MEDS: Furosemide 20 MG Tablet PO (13:18)
[2019-08-22] MEDS: Finasteride 5 MG Tablet PO (13:18)
[2019-08-22] MEDS: levoFLOXacin IV 500 MG/100 ML BAG 100 MG IV (13:18)
[2019-08-22] MEDS: 0.9% NaCl IVPB Med Flush (250 mL) 15 ML IV (13:19)
[2019-08-22] MEDS: Atorvastatin Calcium 10 MG Tablet PO (21:05)
[2019-08-22] MEDS: 0.9% NaCl Peripheral Flush Adult/Peds IV (21:07)
[2019-08-23] VITALS (18 sets, daily range): BP systolic 107–149; BP diastolic 57–82; PULSE 72–102; RESP 16–20; TEMP 36.3–36.9; O2SAT 84–99
--- NOTE | 2019-08-23 05:36 | NURSING ---
Port was just a little hesitant to draw so flushed with an extra 10 cc and then it adriana fine.
[2019-08-23 06:19] LABS: Absolute Lymphocyte Count 0.45 X10^3/uL (0.83-4.51); Absolute Neutrophil Count 8.2 X10^3/uL (2.0-7.7); Basophil# 0.01 X10^3/uL; Basophil% 0.1 % (0-1); Hematocrit 33.4 % (40-54); Hemoglobin 10.3 g/dL (13.0-16.5); Lymphocyte # 0.45 X10^3/ul (4.0); Mean Corp Hgb Conc 30.8 g/dL (32-36); Mean Corpuscular Hgb 28.1 pg (27.0-32.0); Mean Corpuscular Volume 91.3 fL (80-94); Mean Platelet Vol. 10.4 fl (6.2-12.0); Monocyte# 0.23 X10^3/uL; Monocyte% 2.6 % (0-10); NRBC Flagged by Analyzer 0 % (0-5); Neutrophil # 8.24 X10^3/uL (2.7-7.7); Neutrophil % 91.9 % (47-70); POSITIVE DIFFERENTIAL YES; Platelet Count 151 K/mm3 (150-450); RBC Distribution Width CV 17.7 % (11.6-14.6); RBC Distribution Width SD 59.5 fl (35.1-43.9); Red Blood Count 3.66 M/mm3 (4.6-6.2)
[2019-08-23 06:24] LABS: Differential Indicated SCAN CRITERIA MET
[2019-08-23] MEDS: Enoxaparin 30 MG/0.3 ML Syringe SC (06:24)
[2019-08-23] MEDS: 0.9% NaCl VAD Flush IV ×2 (06:24→12:48)
[2019-08-23 06:42] LABS: Anion Gap 5 (5-15); BUN 22 mg/dL (7-18); BUN/Creat Ratio 24.1 RATIO (10-20); Calcium,Total 8.8 mg/dL (8.5-10.1); Chloride 106 mmol/L (98-107); Creatinine, Serum 0.91 mg/dL (0.70-1.30); EST Glomerular Filtration Rate 84 mL/min (>60); Est Glom Filt Rate - Afr Amer 102 mL/min (>60); Estimated Creatinine Clearance 63.51 ml/min; Glucose 139 mg/dL (74-106); Magnesium 1.9 mg/dL (1.6-2.6); Sodium Level 138 mmol/L (136-145)
[2019-08-23 07:00] LABS: Differential Comment SCANNED
[2019-08-23] MEDS: Ipratropium/Albuterol Sulfate 3 ML AMPUL.NEB INHALATION ×4 (07:31→19:36)
--- NOTE | 2019-08-23 08:53 | PCM.PROGNOTE ---
Subjective: Chief complaint: Follow-up after admission for acute COPD exacerbation with acute hypoxic respiratory failure. Patient seen and examined. No acute events overnight. He mentioned that his breathing is getting better, still gets short of breath with activity better compared to yesterday. Still having cough with minimal sputum. Denies fever chills. His vital signs are stable, afebrile, pulse ox is 92% on 1 L of oxygen. - Physical Exam General: Alert, Oriented x3, Cooperative, - - Minimally short of breath. HEENT: Atraumatic, PERRLA, EOMI, Normocephalic Oral: Moist Mucosa, No Gingival or Mucosal Lesions/ Ulcerations Neck: Supple, No JVD, Negative Carotid Bruits, Trachea Midline, Thyroid Normal Size and Texture Lungs: No rales, Diminished, Rhonchi, Wheezes, - - Decreased breath sounds bilateral, end expiratory wheezes, scattered rhonchi. Cardiovascular: Regular rate, Regular Rhythm, Normal S1, Normal S2, PMI Normal Abdomen: Bowel Sounds Present, Soft, Non Tender, Non-Distended, No Hepato-splenomegaly Extremities: No clubbing, No cyanosis, No edema Skin: No rashes, No breakdown Lymphatic: No Cervical, Supraclavicular, or Inguinal Adenopathy Neurological: Cranial nerves II-XII grossly intact, Neuro grossly intact Psych/Mental Status: Normal Affect, Appropriate, Alert and oriented to time, place, person, mood and affect Vital Signs Temp Pulse Resp BP Pulse Ox 97.7 F L 86 18 127/77 H 92 08/23/19 06:15 08/23/19 07:43 08/23/19 06:15 08/23/19 06:15 08/23/19 06:15 Oxygen Flow Rate (L/min) 1 Oxygen Delivery Method Nasal Cannula Weight: 162 lb 4.163 oz Body Mass Index (BMI) 23.2 Intake and Output for Last 24 Hours 08/21/19 08/22/19 08/23/19 23:59 23:59 23:59 Intake Total 100 / 100 825.25 / 825.25 Output Total 475 / 475 Balance 100 / 100 350.25 / 350.25 Laboratory Tests Past 24 Hrs 08/23/19 08/23/19 05:36 05:36 WBC 9.0 RBC 3.66 L Hgb 10.3 L Hct 33.4 L MCV 91.3 MCH 28.1 MCHC 30.8 L RDW Std Deviation 59.5 H RDW Coeff of Zamzam 17.7 H Plt Count 151 MPV 10.4 Immature Gran % (Auto) 0.400 Neut % (Auto) 91.9 H Lymph % (Auto) 5.0 L [place] % (Auto) 2.6 Eos % (Auto) 0.0 Baso % (Auto) 0.1 Absolute Neuts (auto) 8.2 H Absolute Lymphs (auto) 0.45 L Nucleated RBC % 0 Differential Comment SCANNED Sodium 138 Potassium 4.0 Chloride 106 Carbon Dioxide 27.0 Anion Gap 5 BUN 22 H Creatinine 0.91 Estim Creat Clear Calc 63.51 Est GFR (MDRD) Af Amer 102 Est GFR (MDRD) Non-Af 84 BUN/Creatinine Ratio 24.1 H Glucose 139 H Calcium 8.8 Magnesium 1.9 Medical Necessity - Tobacco Use Smoking Status: Former smoker Assessment/Plan This is an 83 years old male patient presented to the emergency room because of 2 weeks history of exertional shortness of breath with productive cough and wheezing, found to have acute COPD exacerbation with acute hypoxic respiratory failure and he is being admitted for treatment. #1 acute COPD exacerbation: He is on IV Solu-Medrol, IV Levaquin and bronchodilators. Chest x-ray showed no acute infiltrate or consolidation. He has been afebrile, no leukocytosis. Sputum specimen was not collected. Patient reported mild improvement of his symptoms, still requiring some oxygen. Pulse ox is maintained at 92% on 1 L of oxygen, other vital signs are stable. Plan to continue same treatment, ambulatory pulse oximeter tomorrow morning, anticipate discharge home tomorrow. #2 acute hypoxic respiratory failure: Pulse ox was 82% on room air in the ED and patient was dyspneic and tachypneic. Today, he feels better, oxygen requirement has been decreasing. Plan as above. #3 CAD status post stents: Stable, no chest pain, no EKG changes, troponin is negative. Continue statins. He is not on any other treatment for CAD. #4 hypertension: Blood pressure stable, continue Lasix. #5 stage IV severe COPD: Plan as above. #6 non-small cell lung cancer: Status post chemotherapy and radiation, completed back on June,. He is on maintenance durvalumab. Stable at this time, he follows up with Dr. Irving. #7 chronic anemia/chronic thrombocytopenia: Secondary to chemotherapy. Hemoglobin and platelet count are stable on repeat CBC today. #8 DVT prophylaxis: Subcu Lovenox. This note was generated with [employer] dictation software. It may contain incorrect words, spelling, and punctuation that were not noted in checking the note before signing. Code Visit Inpatient E&M: 79629 Subs Hosp L2
[2019-08-23] MEDS: levoFLOXacin IV 500 MG/100 ML BAG 100 MG IV (10:17)
[2019-08-23] MEDS: Furosemide 20 MG Tablet PO (10:17)
[2019-08-23] MEDS: Finasteride 5 MG Tablet PO (10:18)
[2019-08-23] MEDS: 0.9% NaCl Peripheral Flush Adult/Peds IV ×3 (10:33→22:28)
--- NOTE | 2019-08-23 15:10 | CASEMGMT ---
RN CM Face to Face with patient for initial transition planning/care coordination assessment. RN CM introduced self and role at [facility]. Patient lying in bed, alert and oriented, at bedside. Patient willing to participate in assessment and is able to answer all questions appropriately. Care providers, pharmacy, and demographics verified. Patient wishes to discharge home, denies need for home health at this time. Patient states he has no further needs or concerns at this time. CM to follow for discharge planning needs that may arise. PCP: Susan Specialists: [facility] Preferred Pharmacy: [facility] Insurance: [employer] Prescription Benefit: yes Living Will/HPOA: yes, Asha Bee LNOK: Living Arrangements: Patient lives with in condo with 2 steps and railing to enter the home. Patient is independent at home. Transportation: Self/ DME/HHC: Patient states he has cane, walker, nebulizer, and concentrator at home through [employer] and patient prefers [employer] if he would need portable oxygen. Disposition Plan: Patient to discharge home with family support and follow-up plans in place. Nohelia CROW, RN, CM
[2019-08-24] VITALS (10 sets, daily range): BP systolic 106–144; BP diastolic 55–80; PULSE 72–89; RESP 18–20; TEMP 36.4–36.8; O2SAT 83–99
[2019-08-24] MEDS: Enoxaparin 30 MG/0.3 ML Syringe SC (05:43)
[2019-08-24] MEDS: 0.9% NaCl Peripheral Flush Adult/Peds IV (05:52)
[2019-08-24] MEDS: Ipratropium/Albuterol Sulfate 3 ML AMPUL.NEB INHALATION ×2 (07:05→11:09)
--- NOTE | 2019-08-24 08:29 | NURSING ---
SpO2- 95% on 2lNC SPO2- 94% on rest prior to ambulating SpO2- 83% on room air ambulating SpO2- 87-88% 3l ambulating SpO2- 98% on 3l about 5 minutes rest after ambulating
--- NOTE | 2019-08-24 09:22 | RAD_ITS ---
STUDY: X-RAY CHEST REASON FOR EXAM: Male, 83 years old. Shortness of breath/dyspnea. TECHNIQUE: PA and lateral views of the chest. COMPARISON: Comparison is made with prior study August 22, 2019. FINDINGS: A right sided amy catheter is seen with the tip in the midportion of superior vena cava. EKG electrodes are seen. Hyperinflation. Stable increased markings at the lung bases as well as in the right midlung suggestive of scarring. Stable density in the left lower lobe. Normal size heart. Normal mediastinum and gasper. Normal visualized pulmonary arteries. There is atherosclerotic calcification of the aortic arch with tortuosity. There are diffuse degenerative changes of the visualized thoracic spine. Normal visualized ribs, clavicles, and shoulders. There is no demonstrated abnormality of the visualized soft tissue structures of the upper abdomen. RAD/Chest PA and Lateral IMPRESSION: Hyperinflation. Stable scarring. Electronically Signed: Esa Hall, at 13:34 EDT , Service support ,
--- NOTE | 2019-08-24 09:58 | CASEMGMT ---
JONO HEATON updated that patient qualifies for home portable oxygen. Script received and referral sent to [facility] who patient is established with and prefers. JONO HEATON arranged tank to be delivered prior to patient's discharge to room. JONO HEATON updated the patient regarding portable oxygen setup.
--- NOTE | 2019-08-24 10:57 | PCM.DC ---
You will use the following diet at home:: Regular Your food should be the consistency of: Regular Discharge Activity: Return to Normal Activity Weight Bearing Status: Weight bearing as tolerated Call your doctor if you observe: Fever of 101 or Higher, Shortness of breath, Dizziness, Fainting spells, Chest pain, Increased palpitations (irregular heartbeat), Uncontrolled pain Instructions: COPD: Using Inhalers, Care for COPD, Using Oxygen Safely Allergies/Adverse Reactions: Allergies amoxicillin Adverse Reaction (Severe, Verified 08/22/19 07:38) Nausea/Vom/Diarrhea Gadolinium-MRI Contrast Medium [DYE] Adverse Reaction (Severe, Verified 08/22/19 07:38) Nausea/Vom/Diarrhea rice Adverse Reaction (Severe, Verified 08/22/19 07:38) Vomiting Medications to take at Discharge finasteride 5 mg tablet 1 tab PO DAILY 90 Days #90 02/10/18 budesonide-formoterol HFA 160 mcg-4.5 mcg/actuation aerosol inhaler 2 puff INHALATION BID #1 ea 12/06/18 Ipratropium/Albuterol Respimat [Combivent Respimat Inhal [place]] 1 puff INHALATION PRN PRN 02/17/19 Furosemide [Lasix] 20 mg PO DAILY 08/22/19 Albuterol Inhaler [Ventolin Hfa] 2 puff INHALATION Q6H PRN PRN #2 inhaler 08/24/19 Oxygen, Home [Home Oxygen] 2 lpm NASAL CONT #1 unit 08/24/19 Prednisone 10 mg PO DAILY #30 tab 08/24/19 levoFLOXacin tablet [Levaquin tablet] 500 mg PO DAILY #5 tab 08/24/19 The following prescriptions were given: Oxygen, Home [Home Oxygen] 2 lpm NASAL CONT #1 unit Prescription Printed levoFLOXacin tablet [Levaquin tablet] 500 mg PO DAILY #5 tab Transmission Status: Received by [facility] Prednisone 10 mg PO DAILY #30 tab Transmission Status: Received by [facility] Albuterol Inhaler [Ventolin Hfa] 2 puff INHALATION Q6H PRN PRN #2 inhaler PRN Reason: Shortness of breath, wheezing Transmission Status: Received by [facility] Primary Care Physician: Ha Davis DO [Primary Care Provider] - Please follow up with your Primary Care Physician in: 1-2 weeks. Test Results: Test results from this visit will be discussed in further detail at your follow-up appointment, if applicable.
[2019-08-24] MEDS: Furosemide 20 MG Tablet PO (11:00)
[2019-08-24] MEDS: Finasteride 5 MG Tablet PO (11:00)
[2019-08-24] MEDS: levoFLOXacin IV 500 MG/100 ML BAG 100 MG IV (11:00)
[2019-08-24] MEDS: 0.9% NaCl IVPB Med Flush (250 mL) IV (11:00)
[2019-08-24] MEDS: 0.9% NaCl VAD Flush IV (11:01)
--- NOTE | 2019-08-24 11:42 | DS.PCM_ITS ---
Discharge Date and Diagnosis Date of Admission: 08/22/19 Date of Discharge: 08/24/19 - Primary Discharge Diagnosis #1 acute COPD exacerbation. #2 acute hypoxic respiratory failure. #3 non-small cell lung cancer. - Secondary Discharge Diagnosis Chronic Problems (Last Updated 08/22/19 @ 10:33 by Debbie Cobos MD) Chemotherapy-induced thrombocytopenia (Chronic) Anemia (Chronic) Immunotherapy (Chronic) Hx of heart artery stent (Chronic) 2013 HTN (hypertension) (Chronic) Stroke (Chronic) Primary cancer of left lower lobe of lung (Chronic) Regional lymph node metastasis present (Chronic) Chronic respiratory failure with hypoxia (Chronic) Stage 4 very severe COPD by GOLD classification (Chronic) FEV1 41% of predicted Hospital Course and Treatment Imaging Results: 08/24/19 09:22 CXR [Chest PA and Lateral] [RAD] Urgent Clinical Impression(s) from Imaging Studies Chest X-Ray 08/22/19 07:37 IMPRESSION: Hyperinflation. Chronic scarring. Interval decrease in size of the left lower lobe nodule. Electronically Signed: Esa Hall, at 8:43 EDT , Service support , Operations: None Procedures: None Summary of Care Provided: Patient seen and examined on the day of discharge and appeared to be stable to be discharged home. At rest, his breathing has been fine but when he was taken for walking pulse oximeter this morning, his pulse ox dropped down to 83% on room air with ambulation and he qualified for oxygen. His other vital signs were stable. The patient is a 83 year old M presented to the emergency room because of 2 weeks history of exertional shortness of breath with productive cough and wheezing and he was found to have acute COPD exacerbation which was complicated by acute hypoxic respiratory failure. His chest x-ray revealed extensive scarring and hyperinflation consistent with chronic COPD but there was no acute infiltrate or consolidation. Patient was treated with IV steroids, IV Levaquin and bronchodilators. His routine blood work was unremarkable except for chronic anemia. His EKG revealed normal sinus rhythm without evidence of acute ischemic changes. Troponin was negative. With above-mentioned treatment, patient symptoms improved at rest. Ambulatory walking pulse oximeter was performed and his pulse ox dropped down to 83% on room air with ambulation. He required up to 3 L afterwards to recover. After recovery, he remained on oxygen at 2 L. Patient did have a history of respiratory failure in the past and he was on oxygen until February,. Since February, he has not been on oxygen. This admission, patient did qualify for home oxygen as he is ambulatory at home doing his daily activities and he required oxygen to be able to ambulate around and do his daily activities. Patient discharged home in a stable medical condition, discharged on home oxygen at 2 to 3 L, started on Levaquin for 5 days, prednisone taper as well as Ventolin inhaler as needed, continued on budesonide inhaler as well as Combivent, recommended follow-up with PCP in 1-2 weeks. - Physical Exam General: Alert, Oriented x3, Cooperative, No apparent distress HEENT: Atraumatic, PERRLA, EOMI, Normocephalic Oral: Moist Mucosa, No Gingival or Mucosal Lesions/ Ulcerations Neck: Supple, No JVD, Negative Carotid Bruits, Trachea Midline, Thyroid Normal Size and Texture Lungs: No wheeze, No rales, Diminished, - - Diminished breath sounds bilateral, occasional rhonchi. Cardiovascular: Regular rate, Regular Rhythm, Normal S1, Normal S2, PMI Normal Abdomen: Bowel Sounds Present, Soft, Non Tender, Non-Distended, No Hepato- splenomegaly Extremities: No clubbing, No cyanosis, No edema Skin: No rashes, No breakdown Lymphatic: No Cervical, Supraclavicular, or Inguinal Adenopathy Neurological: Cranial nerves II-XII grossly intact, Neuro grossly intact Psych/Mental Status: Normal Affect, Appropriate, Alert and oriented to time, place, person, mood and affect Vital Signs Temp Pulse Resp BP Pulse Ox 97.8 F 82 18 109/58 L 99 08/24/19 08:23 08/24/19 11:24 08/24/19 11:24 08/24/19 08:23 08/24/19 08:23 Oxygen Flow Rate (L/min) 3 Oxygen Delivery Method Nasal Cannula Weight: 162 lb 4.163 oz Body Mass Index (BMI) 23.2 Intake and Output for Last 24 Hours 08/22/19 08/23/19 08/24/19 23:59 23:59 23:59 Intake Total 100 / 100 1925.25 / 2225.25 400.02 / 400.02 Output Total 900 / 900 Balance 100 / 100 1025.25 / 1325.25 400.02 / 400.02 Discharge Activity: Return to Normal Activity Weight Bearing Status: Weight bearing as tolerated Call your doctor if you observe: Fever of 101 or Higher, Shortness of breath, Dizziness, Fainting spells, Chest pain, Increased palpitations (irregular heartbeat), Uncontrolled pain Home Medications: Medications to take at Discharge finasteride 5 mg tablet 1 tab PO DAILY 90 Days #90 02/10/18 budesonide-formoterol HFA 160 mcg-4.5 mcg/actuation aerosol inhaler 2 puff INHALATION BID #1 ea 12/06/18 Ipratropium/Albuterol Respimat [Combivent Respimat Inhal [place]] 1 puff INHALATION PRN PRN 02/17/19 Furosemide [Lasix] 20 mg PO DAILY 08/22/19 Albuterol Inhaler [Ventolin Hfa] 2 puff INHALATION Q6H PRN PRN #2 inhaler 08/24/19 Oxygen, Home [Home Oxygen] 2 lpm NASAL CONT #1 unit 08/24/19 Prednisone 10 mg PO DAILY #30 tab 08/24/19 levoFLOXacin tablet [Levaquin tablet] 500 mg PO DAILY #5 tab 08/24/19 Following Prescrptions Were Given to Patient: Oxygen, Home [Home Oxygen] 2 lpm NASAL CONT #1 unit Prescription Printed levoFLOXacin tablet [Levaquin tablet] 500 mg PO DAILY #5 tab Transmission Status: Received by [facility] Prednisone 10 mg PO DAILY #30 tab Transmission Status: Received by [facility] Albuterol Inhaler [Ventolin Hfa] 2 puff INHALATION Q6H PRN PRN #2 inhaler PRN Reason: Shortness of breath, wheezing Transmission Status: Received by [facility] Primary Care Physician: Ha Davis DO [Primary Care Provider] - Please follow up with your Primary Care Physician in: 1-2 weeks. Please Follow Up With: Ha Davis DO When: 1-2 weeks Patient Instructions: Using Oxygen Safely, Care for COPD, COPD: Using Inhalers Disposition: Home Minutes spent on discharge:: 28 Patient Condition:: Stable Medical Necessity - Tobacco Use Smoking Status: Former smoker Meaningful Use Info Meaningful Use Diagnoses (Choose all that apply): None applicable Code Visit Inpatient E&M: 33464 Disch Hosp
--- NOTE | 2019-08-26 11:31 | CASEMGMT ---
JONO CM Discharge Follow-up Phone Call: OZ: Pamella Strata: 3 Call Date: 08/26/19 Discharge Date: 08/24/19 Time of Call: 1130 Duration: 3 ? Admitting Diagnosis: COPD exac, Acute hypoxic resp failure, Lung CA. Discharge follow-up call placed to pt. Voicemail received and nonspecific message left requesting a return call. Pt promptly returned the call. Pt states he is still a little more short of breath and states his oxygen levels have been running 89-90% on 3l/min O2. States he can feel the oxygen flowing from the tubing. States he is much more short of breath with activity. Instructed pt to call his PCP Dr. Davis to inform him of his lower PO, which pt was agreeable to do. Pt relayed awareness that his PO was 95-99% on 3l/min prior to discharge. Pt states he did receive his medications and denied any questions regarding them or his discharge instructions. Pt states he is aware of his follow-up appointment with Dr. Davis and denied any transportation issues. No further questions or concerns voiced. Logan Sheldon RN
== END 2019-08-24 14:50 | disposition home or self-care (01) | DRG 190 ==
LOC: ED 07:59 → MS3 10:06
PROVIDERS: Admitting Provider Hospitalist; Emergency Provider Emergency Medicine; Family Provider Family Medicine; PCP Family Medicine; Visit Provider Hospitalist
DX: J44.1 Chronic obstructive pulmonary disease with (acute) exacerbation (principal); J96.21 Acute and chronic respiratory failure with hypoxia; C34.32 Malignant neoplasm of lower lobe, left bronchus or lung; C77.9 Secondary and unspecified malignant neoplasm of lymph node, unspecified; D69.59 Other secondary thrombocytopenia; T45.1X5A Adverse effect of antineoplastic and immunosuppressive drugs, initial encounter; D64.81 Anemia due to antineoplastic chemotherapy; I25.10 Atherosclerotic heart disease of native coronary artery without angina pectoris; I10 Essential (primary) hypertension; Z95.5 Presence of coronary angioplasty implant and graft; Z99.81 Dependence on supplemental oxygen; Z79.899 Other long term (current) drug therapy; Z87.891 Personal history of nicotine dependence; Z86.73 Personal history of transient ischemic attack (TIA), and cerebral infarction without residual deficits
CPT/HCPCS: 71046; 80048; 83735; 83880; 84484; 85025; 93005; 94640; 94667; 94668; 97110; 97162; 97166; 99284; J7050; A4216

== ENCOUNTER 2019-09-10 23:55 | Inpatient (IN) | payer MEDICARE, SELFPAY ==
[2019-05-17 10:20] VITALS: BMI 24.0
[2019-09-06 08:22] VITALS: BMI 23.7
[2019-09-10 23:56] VITALS: BP 125/66; PULSE 136; RESP 24; TEMP 37.2; TEMP 39.6; O2SAT 89; BMI 24.2
[2019-09-11] VITALS (90 sets, daily range): BP systolic 61–133; BP diastolic 38–88; PULSE 66–166; RESP 10–26; TEMP 36.6–39.6; O2SAT 83–98; BMI 24.2
--- NOTE | 2019-09-11 00:10 | EKG12_ITS ---
Test Reason : SOB Blood Pressure : / mmHG Vent. Rate : 136 BPM Atrial Rate : 136 BPM P-R Int : 140 ms QRS Dur : 086 ms QT Int : 284 ms P-R-T Axes : 072 -05 064 degrees QTc Int : 427 ms Sinus tachycardia with Premature atrial complexes Possible Left atrial enlargement Nonspecific ST/T Wave Abnormality Abnormal ECG Inferior leads Confirmed by DALTON VALLEJO, WEN ([id number]), managing editor LOLIS AZEVEDO ([id number]) on 09/12/2019 9:57:52 AM Referred By: Norbert Hernandez Confirmed By:WEN HOFFMAN MD
--- NOTE | 2019-09-11 00:10 | RAD_ITS ---
STUDY: X-RAY CHEST REASON FOR EXAM: Male, 83 years old. Shortness of breath TECHNIQUE: Single AP portable view of the chest. COMPARISON: 08/24/2019 FINDINGS: Stable right internal jugular approach port with looping over the neck soft tissue. There are superimposed monitor leads. There is hyperinflation of the lungs , chronic interstitial lung disease, calcified nodule in the right upper lung, pulmonary fibrosis in the left greater than right base.There is no demonstrated pleural abnormality. Normal size heart. Normal mediastinum and gasper. Normal visualized pulmonary arteries. There is atherosclerotic calcification of the aortic arch with tortuosity. There are diffuse degenerative changes of the visualized thoracic spine. Normal visualized external There is demineralization of osseous structures. Ribs, clavicles, and shoulders. There is no demonstrated abnormality of the visualized soft tissue structures of the upper abdomen. RAD/Chest 1 View (Portable) IMPRESSION: COPD, chronic interstitial lung disease, pulmonary fibrosis in the bases. No pulmonary edema, congestive heart failure or confluent pneumonia. Other nonacute findings as outlined above. Electronically Signed: Shayna Tidwell MD at 0:45 EDT , Service support ,
--- NOTE | 2019-09-11 00:13 | ED.DCSUM_ITS ---
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 He saw his doctor and was put on prednisone several days ago, he was on 40 mg for several days and today started on 30 mg. This evening, he started getting a lot worse. This was about 6 hours ago that he noticed. He is been coughing more but unable to get anything up. He felt hot. No leg swelling or orthopnea, but any movement or exertion wipes me out. He is on IV immunotherapy chemo for lung cancer that is in remission according to the patient. No history of congestive heart failure he does have a stent that was placed remotely. He is currently not on any antibiotics. - Past Medical History (1) Coronary artery disease Status: Chronic (2) Chemotherapy-induced thrombocytopenia Status: Suspected (3) Chronic respiratory failure with hypoxia Status: Chronic (4) HTN (hypertension) Status: Chronic (5) Hx of heart artery stent Status: Chronic Comment: 2013 (6) Immunotherapy Status: Chronic (7) Primary cancer of left lower lobe of lung Status: Chronic (8) Stage 4 very severe COPD by GOLD classification Status: Chronic Comment: FEV1 41% of predicted (9) Stroke Status: Chronic Past Medical History - Allergies and Home Meds Allergies/Adverse Reactions: Allergies amoxicillin Adverse Reaction (Severe, Verified 09/06/19 08:11) Nausea/Vom/Diarrhea Gadolinium-MRI Contrast Medium [DYE] Adverse Reaction (Severe, Verified 09/06/19 08:11) Nausea/Vom/Diarrhea rice Adverse Reaction (Severe, Verified 09/06/19 08:11) Vomiting Primary Care Physician: Ha Davis DO [Primary Care Provider] - Surgical History: tonsillectomy, - - Cardiac stents. Lives: Spouse/ Significant Other Smoking Status: Former smoker - Family History Maternal Family History: Family History (Last Reviewed 09/06/19 @ 08:26 by KERRY Valero) Other No pertinent family history Family History: Reports: No pertinent history Paternal Family History: Family History (Last Reviewed 09/06/19 @ 08:26 by KERRY Valero) Other No pertinent family history Family History: Reports: No pertinent history Review of Systems General: Reports: Chills, Fever, Malaise, Subjective. Denies: Sweats Eyes: Denies: Visual changes - bilaterally, Diplopia ENT: Denies: Rhinorrhea, Sore throat Cardiovascular: Denies: Chest pain, Palpitations Respiratory: Reports: Dyspnea, Cough, Dyspnea on exertion. Denies: Sputum, Orthopnea Gastrointestinal: Denies: Abdominal pain, Nausea, Vomiting, Diarrhea, Melena, Hematochezia Genitourinary: Denies: Dysuria, Hematuria, Frequency Musculoskeletal: Denies: Neck pain, Back pain, Swelling, Extremity Pain Skin: Denies: Rash, Wounds Neurological: Denies: Headache, Weakness, Numbness Physical Exam Vital Signs/Narrative: Vital Signs Temp Pulse Resp BP Pulse Ox 09/11/19 00:07 103.2 F H 136 H 24 H 125/66 H 89 09/10/19 23:56 103.2 F H 136 H 24 H 125/66 H 89 Inital Vital Signs reviewed: Yes General: Well nourished, Well developed, Acute Distress - Mild respiratory; conversive in 7-10 word sentences Head: Normocephalic, Atraumatic Eyes: Perrl, EOMI ENT: Moist mucous membranes, No rhinorrhea Neck: Supple, Nontender, No lymphadenopathy, No JVD Cardiovascular: Regular rate, Regular rhythm, No murmurs, Tachycardia Respiratory: Chest nontender, Rales - Bibasilar, worse on right, Wheezing Abdomen: Soft, Nontender, Nondistended, Normal bowel sounds Back: Nontender, Normal Inspection Extremities: Nontender, No edema. Negative for: Calf Tenderness Skin: Normal color, No rash, No Trauma Neurological: Alert, Oriented x3, Cranial nerves II-XII grossly intact, Normal Strength, Normal Sensation Psychological: Normal affect, Normal Mood Diagnostic/Tx/Re-eval - Rhythm Strip Rhythm Strip: Sinus Tach Rate: 125 Ectopy: None - EKG Initial EKG Interpretation: No Acute Injury Pattern, Sinus Tachycardia, Non-Specific ST Changes Treatment - Dyspnea: Oxygen, Albuterol, Atrovent Repeat Evaluation: No change With Ambulation: Desaturation, Tachypnea - Medical Decision Making BiPAP applied. This is really helping his breathing. However, he started getting anxious even with breathing was improving so we offered him some Ativan which he accepted. His EKG shows no acute injury pattern. There is some artifact in the EKG that is triggering the computer to see acute MS, however clinically that does not fit with the patient and it does not fit with the majority of what I am seeing on the EKG either. There are no consistent ST segment deviations. His chest x-ray did not show any obvious pathology, however he has prerenal azotemia and I suspect after hydration, it may show pneumonia which I am treating him empirically for. He has a leukocytosis but has been on steroids for several days and that could be related to that, blood cultures were obtained prior to starting antibiotics, and the plan is to admit him to the ICU on BiPAP. ABG pending. Lactate 2.7 but patient does not have radiographic evidence of infection. Blood pressure was trending low or so bolusing with fluids, work-up argues against acute congestive heart failure. Rocephin and Zithromax given. No specific risk for MRSA. Critical care time (excluding procedures): 30-74 minutes - 35 minutes, including time spent discussing with patient, family, consultants, arranging admission, and performing direct patient care at the bedside ED Disposition - Plan for ED Patient: Disposition: Acute Care Hospital [facility] Diagnosis: Acute on chronic respiratory failure with hypoxia, COPD exacerbation, SIRS (systemic inflammatory response syndrome) Referrals: Ha Davis DO [Primary Care Provider] -
[2019-09-11] MEDS: Albuterol 2.5 MG/3 ML VIAL.NEB. INHALATION ×2 (00:24)
[2019-09-11] MEDS: Ipratropium/Albuterol Sulfate 3 ML AMPUL.NEB INHALATION ×4 (00:24→19:29)
[2019-09-11 00:27] LABS: Absolute Lymphocyte Count 1.07 X10^3/uL (0.83-4.51); Absolute Neutrophil Count 12.3 X10^3/uL (2.0-7.7); Basophil# 0.02 X10^3/uL; Basophil% 0.1 % (0-1); Eosinophil# 0.01 X10^3/uL; Eosinophils% 0.1 % (0-5); Hematocrit 40.5 % (40-54); Hemoglobin 12.4 g/dL (13.0-16.5); Lymphocyte # 1.07 X10^3/ul (4.0); Lymphocyte % 7.5 % (19-41); Mean Corp Hgb Conc 30.6 g/dL (32-36); Mean Corpuscular Hgb 27.9 pg (27.0-32.0); Monocyte% 4.9 % (0-10); NRBC Flagged by Analyzer 0 % (0-5); Neutrophil # 12.32 X10^3/uL (2.7-7.7); Neutrophil % 86.8 % (47-70); Platelet Count 186 K/mm3 (150-450); RBC Distribution Width CV 18.3 % (11.6-14.6); RBC Distribution Width SD 60.3 fl (35.1-43.9); Red Blood Count 4.45 M/mm3 (4.6-6.2); White Blood Count 14.2 K/mm3 (4.4-11.0)
[2019-09-11] MEDS: Acetaminophen 500 MG Tablet 1000 MG PO (00:30)
[2019-09-11] MEDS: 0.9% Normal Saline 1,000 ML 150 ML IV (00:30)
[2019-09-11 00:52] LABS: ALB/GLOB Ratio 0.8 RATIO (0.9-2.4); AST(SGOT) 23 U/L (15-37); Alanine Aminotransfer ALT/SGPT 47 U/L (16-61); Albumin, Serum 3.2 g/dL (3.2-5.0); Alkaline Phosphatase 88 U/L (45-117); Anion Gap 7 (5-15); BUN 42 mg/dL (7-18); BUN/Creat Ratio 36.2 RATIO (10-20); Calcium,Total 9.1 mg/dL (8.5-10.1); Chloride 101 mmol/L (98-107); Creatinine, Serum 1.16 mg/dL (0.70-1.30); EST Glomerular Filtration Rate 64 mL/min (>60); Est Glom Filt Rate - Afr Amer 77 mL/min (>60); Estimated Creatinine Clearance 51.39 ml/min; Glucose 125 mg/dL (74-106); Potassium 4.1 mmol/L (3.5-5.1); Protein, Total 7.2 g/dL (6.4-8.2); Sodium Level 140 mmol/L (136-145)
[2019-09-11 00:55] LABS: Partial Thromboplast Time 23.2 Seconds (24.1-36.2); Prothrombin Time (Protime)PT. 12.6 SECONDS (11.7-14.9)
[2019-09-11] MEDS: Ondansetron 4 MG/2 ML Vial IV (01:00)
[2019-09-11] MEDS: 0.9% Normal Saline 1,000 ML 999 ML IV (01:01)
--- NOTE | 2019-09-11 01:01 | ED.RN ---
PER DR. DAVILA, INITIATE PT ANTIBIOTICS NOW EVEN THOUGH PT IS UNABLE TO GIVE URINE SPECIMEN AT THIS TIME. PER DR DAVILA, PT IS NOT TO BE STRAIGHT CATHED FOR A URINE SPECIMEN. PT ATTEMPTED URINE SAMPLE AND WAS UNABLE TO PEE AT THIS TIME.
[2019-09-11] MEDS: Ceftriaxone 1 GM/50 ML BAG IV (01:07)
--- NOTE | 2019-09-11 01:09 | CPS ---
BIPAP SETTINGS CHANGED TO 10/5 AND 45% PER DR DAVILA
[2019-09-11 01:23] LABS: BNP,B-Type NATRIURETIC PEPTIDE 178.7 pg/mL (0-100)
--- NOTE | 2019-09-11 01:33 | HP.PCM_ITS ---
Problem List (1) Septic shock Status: Acute (2) COPD exacerbation Status: Acute (3) Coronary artery disease Status: Chronic (4) Acute on chronic respiratory failure with hypoxia Status: Chronic (5) SIRS (systemic inflammatory response syndrome) Status: Acute (6) Chemotherapy-induced thrombocytopenia Status: Inactive (7) Anemia Status: Chronic Qualifiers: (8) Immunotherapy Status: Chronic (9) Hx of heart artery stent Status: Chronic Comment: 2013 (10) HTN (hypertension) Status: Chronic (11) Stroke Status: Chronic (12) Primary cancer of left lower lobe of lung Status: Chronic (13) Regional lymph node metastasis present Status: Chronic (14) Chronic respiratory failure with hypoxia Status: Chronic (15) Stage 4 very severe COPD by GOLD classification Status: Chronic Comment: FEV1 41% of predicted History of Present Illness Date of Admission: 09/11/19 Chief Complaint: shortness of breath The patient is a 83 year old M with a significant history of stage IV COPD with kzzczk-vem-udlws oxygen use of 2 L; lung cancer and hypertension who presented to emergency department with sudden onset of shortness of breath that started few hours before presentation. Associated with symptoms is weakness; rigors and chills. Per family patient was so weak and could npt even walk so his made him sit on the toilet sit. Further he has a dry cough. He was on a steroid taper at home. At the emergency department her systolic blood pressure was below 90; and her white count was 14.2. He had tachycardia and tachypnea. His lactic acid was 2.7. He had a maximum temperature of 103.2.F. Patient was transitioned form non rebreather mask to bipap. Because patient was on a BiPAP and had uncleared speech majority of history was taken from his . Past Medical History Past Medical History (Chronic Problems): Chronic Problems (Last Reviewed 09/11/19 @ 04:59 by Norbert Hernandez MD) Coronary artery disease (Chronic) Acute on chronic respiratory failure with hypoxia (Chronic) Anemia (Chronic) Immunotherapy (Chronic) Hx of heart artery stent (Chronic) 2013 HTN (hypertension) (Chronic) Stroke (Chronic) Primary cancer of left lower lobe of lung (Chronic) Regional lymph node metastasis present (Chronic) Chronic respiratory failure with hypoxia (Chronic) Stage 4 very severe COPD by GOLD classification (Chronic) FEV1 41% of predicted Medical History: Medical History (Last Reviewed 09/11/19 @ 04:59 by Norbert Hernandez MD) COPD exacerbation (Acute) J44.1 Chemotherapy-induced thrombocytopenia (Suspected) D69.59, T45.1X5A Anemia (Chronic) D64.9 Immunotherapy (Chronic) HTN (hypertension) (Chronic) I10 Stroke (Chronic) I63.9 Primary cancer of left lower lobe of lung (Chronic) C34.32 Regional lymph node metastasis present (Chronic) C77.9 Chronic respiratory failure with hypoxia (Chronic) J96.11 Stage 4 very severe COPD by GOLD classification (Chronic) J44.9 FEV1 41% of predicted Allergies amoxicillin Adverse Reaction (Severe, Verified 09/06/19 08:11) Nausea/Vom/Diarrhea Gadolinium-MRI Contrast Medium [DYE] Adverse Reaction (Severe, Verified 09/06/19 08:11) Nausea/Vom/Diarrhea rice Adverse Reaction (Severe, Verified 09/06/19 08:11) Vomiting Home Medications: Ambulatory Orders Medication Instructions Recorded finasteride 5 mg tablet 1 tab PO DAILY 90 Days #90 02/10/18 budesonide-formoterol HFA 160 2 puff INHALATION BID #1 ea 12/06/18 mcg-4.5 mcg/actuation aerosol inhaler Ipratropium/Albuterol Respimat 1 puff INHALATION PRN PRN 02/17/19 [Combivent Respimat Inhal [place]] Furosemide [Lasix] 20 mg PO DAILY 08/22/19 Albuterol Inhaler [Ventolin Hfa] 2 puff INHALATION Q6H PRN PRN #2 08/24/19 inhaler Oxygen, Home [Home Oxygen] 2 lpm NASAL CONT #1 unit 08/24/19 prednisone 10 mg tablet 10 mg PO QDAY #30 tab 09/06/19 tiotropium bromide 2.5 2 puff INHALATION QDAY #1 ea 09/06/19 mcg/actuation mist for inhalation Surgical History: Surgical History (Last Reviewed 09/11/19 @ 04:59 by Norbert Hernandez MD) Hx of heart artery stent (Chronic) Z95.5 2014 Surgical History: tonsillectomy, - - Cardiac stents. Psychiatric History: No pertinent psych hx Lives: Spouse/ Significant Other Smoking Status: Former smoker - *Family History Maternal Family History: Family History (Last Reviewed 09/11/19 @ 04:59 by Norbert Hernandez MD) Other No pertinent family history History Items: - - His mother young so patient does not know his maternal medical history. Paternal Family History: Family History (Last Reviewed 09/11/19 @ 04:59 by Norbert Hernandez MD) Other No pertinent family history History Items: - - His father when patient was young so patient does not know his maternal medical history. Review of Systems Constitutional: Reports: Chills, Malaise, Weakness, Fatigue. Denies: Weight Change HEENT: Denies: Head Aches, Sinus Congestion, Sinus Drainage Cardiovascular: Denies: Chest Pain, Palpitations Respiratory: Reports: Cough, Shortness of breath at rest. Denies: Sputum production Gastrointestinal: Denies: Abdominal Pain, Nausea, Vomiting Genitourinary: Denies: Dysuria Musculoskeletal: Denies: Joint Pain, Joint Tenderness Skin: Denies: Rash, Wounds Neurological: Denies: Numbness, Tingling, Focal weakness Psychiatric: Reports: Anxiety. Denies: Depression, Homicidal Ideations, Suicidal Ideations Hematologic/ Lymphatic: Denies: Easy Bruising, Easy Bleeding VTE Information - Inpt Only VTE Present on Admission: No VTE Mechan Device Prophylaxis: None VTE Pharm Prophylaxis ordered?: Yes Patient Problems: Active and Suspected Problems (Last Reviewed 09/11/19 @ 04:59 by Norbert Hernandez MD) SIRS (systemic inflammatory response syndrome) (Acute) Septic shock (Acute) COPD exacerbation (Acute) - Physical Exam Vitals/I&O's: Vital Signs Temp Pulse Resp BP Pulse Ox 98.3 F 131 H 25 H 90/70 91 09/11/19 01:05 EDT 09/11/19 01:05 EDT 09/11/19 01:05 EDT 09/11/19 01:05 EDT 09/11/19 01:05 EDT Oxygen Flow Rate (L/min) 5 Oxygen Delivery Method Bi-pap Weight: 78.8 kg Body Mass Index (BMI) 24.2 General: Alert, Oriented x3, Cooperative HEENT: Atraumatic, PERRLA, EOMI, Normocephalic Neck: Supple, No Nuchal Rigidity, Trachea Midline Lungs: No rhonchi, No wheeze, Rales - Right base, Tachypneic, - - On BiPAP at the time of examination Cardiovascular: Normal S1, Normal S2, No murmurs, Tachycardic Abdomen: Bowel Sounds Present, Soft, Non Tender Extremities: No edema, Capillary Refill Less than 3 Seconds Skin: No rashes, No breakdown Musculoskeletal: No Tenderness to Palpation of Joints or Extremities Neurological: Cranial nerves II-XII grossly intact Psych/Mental Status: Normal Affect, Appropriate Microbiology Past 72 Hours 09/11/19 00:15 Mucosa - Nasopharyngeal Influenza Types A,B Direct FA (OMAR) - Final Laboratory Results 09/11/19 00:05: Sodium 140, Potassium 4.1, Chloride 101, Carbon Dioxide 32.0, Anion Gap 7, BUN 42 H, Creatinine 1.16, Estim Creat Clear Calc 51.39, Est GFR (MDRD) Af Amer 77, Est GFR (MDRD) Non-Af 64, BUN/Creatinine Ratio 36.2 H, Glucose 125 H, Calcium 9.1, Total Bilirubin 0.60, AST 23, ALT 47, Alkaline Phosphatase 88, Troponin I 0.043, Total Protein 7.2, Albumin 3.2, Globulin 4.0, Albumin/Globulin Ratio 0.8 L 09/11/19 00:05: WBC 14.2 H, RBC 4.45 L, Hgb 12.4 L, Hct 40.5, MCV 91.0, MCH 27.9, MCHC 30.6 L, RDW Std Deviation 60.3 H, RDW Coeff of Zamzam 18.3 H, Plt Count 186, MPV 11.0, Immature Gran % (Auto) 0.600, Neut % (Auto) 86.8 H, Lymph % (Auto) 7.5 L, [place] % (Auto) 4.9, Eos % (Auto) 0.1, Baso % (Auto) 0.1, Absolute Neuts (auto) 12.3 H, Absolute Lymphs (auto) 1.07, Nucleated RBC % 0 09/11/19 00:05: PT 12.6, INR 1.0, APTT 23.2 L 09/11/19 00:05: Lactic Acid Cancelled 09/11/19 00:05: B-Natriuretic Peptide 178.7 H 09/11/19 01:10 EST: Lactic Acid Pending Current Medications Sodium Chloride () 1,000 mls @ 150 mls/hr IV .Q6H40M RACHEAL Last Admin: 09/11/19 00:30 Dose: 150 mls/hr Documented by: Azithromycin 500 mg/ Dextrose 255 mls @ 250 mls/hr IV X1 ONE Stop: 09/11/19 01:55 EST Last Admin: 09/11/19 01:03 EDT Dose: 250 mls/hr Documented by: Sodium Chloride () 1,000 mls @ 999 mls/hr IV .Q1H1M ONE Stop: 09/11/19 02:24 Assessment/Plan All Active Problems (Last Reviewed 09/11/19 @ 04:59 by Norbert Hernandez MD) SIRS (systemic inflammatory response syndrome) (Acute) Septic shock (Acute) COPD exacerbation (Acute) The patient is a 83 year old M with a significant history of stage IV COPD with gryfbi-xht-vcmyw oxygen use of 2 L; lung cancer and hypertension who presented to emergency department with sudden onset of shortness of breath; weakness; rigors; chills; found to have tachycardia; tachypnea; fever of 103.2; leukocytosis; and systolic blood pressure less than 90 even after sepsis protocol IV fluid bolus concerning for septic shock. Probable Septic shock Etiology is unclear. Chest x-ray did not show any opacity. However it could be because patient was dry. We will repeat chest x-ray as patient has received IV fluid boluses. Started on ceftriaxone and azithromycin in the emergency department. No reported history of prior MRSA infection. We will get nasal swab to check MRSA. Meanwhile will escalate antibiotics to vancomycin and Zosyn. Lactic acid:2.7; trend RR as high as 26 on admission Pulse rate as high as 140 on admission Oxygen saturation of 83% on 5 L; 89% on nonrebreather mask and placed on BiPAP. Blood culture ?2 is pending; follow. Urine culture and urinalysis ordered from the ED; follow Chest x-ray: No acute cardiopulmonary process. It showed COPD; chronic interstitial lung disease; and pulmonary fibrosis in the bases. Chest x-ray was independently reviewed. I agree with the interpretation. Rapid influenza screen was unremarkable. Will check respiratory pathogen panel. Respiratory Gram stain and culture ordered IV hydration: Received IV normal saline per septic shock protocol but his systolic blood pressure remained below 90 and his map below 65. Started on Levophed. Legionella antigen screen and Strep antigen ordered. Mucinex ordered. Since patient has a history of COPD and was recently on steroid taper will start patient on Solu-Medrol. Hold home prednisone. Hold home Lasix. On home ICS?LABA and LAMA. Continue ICS. Placed on [id number] DuoNeb. Albuterol as needed Acute on chronic respiratory failure. On presentation patient required BiPAP. Continue BiPAP for now. His ABG showed only mild elevation of CO2. Breathing treatment and steroids as above. Check phosphorus Probable COPD exacerbation Steroids; schedule breathing treatment. Breathing treatment as above. BiPAP as above. N.p.o. except meds on BiPAP. Wean BiPAP as necessary and placed on supplemental oxygen as necessary. When off BiPAP consider incentive spirometer and chest physiotherapy. Elevated BUN On presentation was 42. This is above his baseline. BUN over creatinine was 36.2. His creatinine is within his baseline. Different diagnoses include prerenal azotemia and steroid use. Patient has received IV fluids. Trend BMP. BPH Finasteride continued Lung cancer Reportedly patient is in remission. He gets immunotherapy every other Thursday.. His next immunotherapy is due on 09/12/2019. He follows up with Dr. Irving. Consider notifying Dr. Irving' office Unsustained V. tach Noted on the monitor Trend electrolytes. Check magnesium. DVT Prophylaxis Subcutaneous Lovenox. Code Visit Inpatient E&M: 40830 Init Hosp L3
[2019-09-11] MEDS: LORazepam 2 MG/ML Syringe 0.5 MG IV (01:35)
--- NOTE | 2019-09-11 01:40 | ED.RN ---
BAG 2 OF 2500 TOTAL IV FLUID BOLUS HANGING PRIOR TO GOING TO ICU. REPORT CALLED TO ICU.
[2019-09-11 01:51] LABS: Lactic Acid 2.7 mmol/L (0.4-2.0)
--- NOTE | 2019-09-11 01:58 | ED.RN ---
DR. DAVILA UPDATED ON PTS BLOOD PRESSURE THROUGHOUT STAY. MD DOESN'T WANT TO FLOOD PT WITH FLUIDS D/T HIS CHF/COPD STATUS. 1L WIDE OPEN ORDERED, PLACED ON PRESSURE BAG. BEDSIDE REPORT TO ANNALISE HAYES.
[2019-09-11 02:01] LABS: Base Excess 5 mmol/L (-2 to +2); Bicarbonate 29.6 mmol/L (22-26); Blood Gas Specimen Type ART; EPAP 6; FI02 50; IPAP 12; PO2 93 mmHG (75-100); RR 12; SITE L Radial; SO2 97 % (95-99); Total Carbon Dioxide 31 mmol/L; pCO2 47.4 mmHg (35-45)
[2019-09-11] MEDS: MethylPREDNISolone 125 MG/2 ML Vial IV (02:48)
[2019-09-11] MEDS: 0.9% Saline Lock 10 ML Syringe IV ×3 (02:49→21:13)
[2019-09-11 04:22] LABS: Absolute Neutrophil Count 13.5 X10^3/uL (2.0-7.7); Basophil# 0.03 X10^3/uL; Basophil% 0.2 % (0-1); Eosinophil# 0.15 X10^3/uL; Hematocrit 33.2 % (40-54); Lymphocyte % 3.2 % (19-41); Mean Corp Hgb Conc 30.1 g/dL (32-36); Mean Corpuscular Hgb 28.2 pg (27.0-32.0); Mean Corpuscular Volume 93.8 fL (80-94); Mean Platelet Vol. 10.9 fl (6.2-12.0); Monocyte# 1.49 X10^3/uL; Monocyte% 9.5 % (0-10); NRBC Flagged by Analyzer 0 % (0-5); Neutrophil # 13.51 X10^3/uL (2.7-7.7); Neutrophil % 85.7 % (47-70); POSITIVE DIFFERENTIAL YES; POSITIVE MORPHOLOGY YES; Platelet Count 139 K/mm3 (150-450); RBC Distribution Width CV 18.5 % (11.6-14.6); RBC Distribution Width SD 63.7 fl (35.1-43.9); Red Blood Count 3.54 M/mm3 (4.6-6.2); White Blood Count 15.8 K/mm3 (4.4-11.0)
--- NOTE | 2019-09-11 04:29 | SEPSISNOTE ---
Sepsis Note - Physical Exam/Vitals Subjective: Patient is on BiPAP. He reported he is doing okay. Objective: Chest X-Ray 09/11/19 00:10 IMPRESSION: COPD, chronic interstitial lung disease, pulmonary fibrosis in the bases. No pulmonary edema, congestive heart failure or confluent pneumonia. Other nonacute findings as outlined above. Electronically Signed: Shayna Tidwell MD at 0:45 EDT , Service support , Temp Pulse Resp BP Pulse Ox 98.1 F 98 18 88/55 L 97 09/11/19 02:13 09/11/19 04:15 09/11/19 04:00 09/11/19 04:15 09/11/19 04:00 09/11/19 09/11/19 09/11/19 04:00 04:00 02:45 WBC Pending RBC Pending Hgb Pending Hct Pending MCV Pending MCH Pending MCHC Pending RDW Std Deviation Pending RDW Coeff of Zamzam Pending Plt Count Pending MPV Immature Gran % (Auto) Neut % (Auto) Pending Lymph % (Auto) [place] % (Auto) Eos % (Auto) Baso % (Auto) Absolute Neuts (auto) Pending Absolute Lymphs (auto) Nucleated RBC % PT INR APTT Specimen Type Sample Site pH Bicarbonate Actual POC Total CO2 Base Excess O2 Saturation O2 % ABG pCO2 ABG pO2 Dimitrios Test Respiration Rate O2 Delivery Device EPAP IPAP Blood Gas Notified Whom Sodium Pending Potassium Pending Chloride Pending Carbon Dioxide Pending Anion Gap Pending BUN Pending Creatinine Pending Estim Creat Clear Calc Est GFR (MDRD) Af Amer Pending Est GFR (MDRD) Non-Af Pending BUN/Creatinine Ratio Pending Glucose Pending Lactic Acid Calcium Pending Total Bilirubin AST ALT Alkaline Phosphatase Troponin I B-Natriuretic Peptide Total Protein Albumin Globulin Albumin/Globulin Ratio MRSA (PCR) Pending 09/11/19 09/11/19 09/11/19 02:04 01:10 EST 00:05 WBC RBC Hgb Hct MCV MCH MCHC RDW Std Deviation RDW Coeff of Zamzam Plt Count MPV Immature Gran % (Auto) Neut % (Auto) Lymph % (Auto) [place] % (Auto) Eos % (Auto) Baso % (Auto) Absolute Neuts (auto) Absolute Lymphs (auto) Nucleated RBC % PT INR APTT Specimen Type ART Sample Site L Radial pH 7.40 Bicarbonate Actual 29.6 H POC Total CO2 31 Base Excess 5 H O2 Saturation 97 O2 % 50 ABG pCO2 47.4 H ABG pO2 93 Dimitrios Test NA Respiration Rate 12 O2 Delivery Device Bi / C PAP EPAP 6 IPAP 12 Blood Gas Notified Whom ED MD Sodium Potassium Chloride Carbon Dioxide Anion Gap BUN Creatinine Estim Creat Clear Calc Est GFR (MDRD) Af Amer Est GFR (MDRD) Non-Af BUN/Creatinine Ratio Glucose Lactic Acid 2.7 H Calcium Total Bilirubin AST ALT Alkaline Phosphatase Troponin I B-Natriuretic Peptide 178.7 H Total Protein Albumin Globulin Albumin/Globulin Ratio MRSA (PCR) 09/11/19 09/11/19 09/11/19 00:05 00:05 00:05 WBC 14.2 H RBC 4.45 L Hgb 12.4 L Hct 40.5 MCV 91.0 MCH 27.9 MCHC 30.6 L RDW Std Deviation 60.3 H RDW Coeff of Zamzam 18.3 H Plt Count 186 MPV 11.0 Immature Gran % (Auto) 0.600 Neut % (Auto) 86.8 H Lymph % (Auto) 7.5 L [place] % (Auto) 4.9 Eos % (Auto) 0.1 Baso % (Auto) 0.1 Absolute Neuts (auto) 12.3 H Absolute Lymphs (auto) 1.07 Nucleated RBC % 0 PT 12.6 INR 1.0 APTT 23.2 L Specimen Type Sample Site pH Bicarbonate Actual POC Total CO2 Base Excess O2 Saturation O2 % ABG pCO2 ABG pO2 Dimitrios Test Respiration Rate O2 Delivery Device EPAP IPAP Blood Gas Notified Whom Sodium Potassium Chloride Carbon Dioxide Anion Gap BUN Creatinine Estim Creat Clear Calc Est GFR (MDRD) Af Amer Est GFR (MDRD) Non-Af BUN/Creatinine Ratio Glucose Lactic Acid Cancelled Calcium Total Bilirubin AST ALT Alkaline Phosphatase Troponin I B-Natriuretic Peptide Total Protein Albumin Globulin Albumin/Globulin Ratio MRSA (PCR) 09/11/19 00:05 WBC RBC Hgb Hct MCV MCH MCHC RDW Std Deviation RDW Coeff of Zamzam Plt Count MPV Immature Gran % (Auto) Neut % (Auto) Lymph % (Auto) [place] % (Auto) Eos % (Auto) Baso % (Auto) Absolute Neuts (auto) Absolute Lymphs (auto) Nucleated RBC % PT INR APTT Specimen Type Sample Site pH Bicarbonate Actual POC Total CO2 Base Excess O2 Saturation O2 % ABG pCO2 ABG pO2 Dimitrios Test Respiration Rate O2 Delivery Device EPAP IPAP Blood Gas Notified Whom Sodium 140 Potassium 4.1 Chloride 101 Carbon Dioxide 32.0 Anion Gap 7 BUN 42 H Creatinine 1.16 Estim Creat Clear Calc 51.39 Est GFR (MDRD) Af Amer 77 Est GFR (MDRD) Non-Af 64 BUN/Creatinine Ratio 36.2 H Glucose 125 H Lactic Acid Calcium 9.1 Total Bilirubin 0.60 AST 23 ALT 47 Alkaline Phosphatase 88 Troponin I 0.043 B-Natriuretic Peptide Total Protein 7.2 Albumin 3.2 Globulin 4.0 Albumin/Globulin Ratio 0.8 L MRSA (PCR) General: Alert, Oriented x3, Cooperative Lungs: Clear to auscultation, Normal air movement Cardiovascular: Regular rate, Regular Rhythm, No murmurs Capillary Refill: <3 seconds Peripheral Pulses: Normal Skin Color: [place] - Assessment/Plan Septic shock with unclear etiology. Possible committee acquired pneumonia. Has received normal saline 30 mm's per kilogram bolus. Currently on pressors. Blood cultures were obtained at the emergency department. Patient received ceftriaxone and azithromycin at the emergency department and has been started on vancomycin and Zosyn. Trend lactic acid.
[2019-09-11 04:42] LABS: Differential Indicated SCAN CRITERIA MET
[2019-09-11 04:56] LABS: Magnesium 1.6 mg/dL (1.6-2.6); Phosphorus 2.4 mg/dL (2.5-4.9)
[2019-09-11 05:01] LABS: Anion Gap 7 (5-15); BUN 45 mg/dL (7-18); BUN/Creat Ratio 38.1 RATIO (10-20); Calcium,Total 7.3 mg/dL (8.5-10.1); Chloride 107 mmol/L (98-107); Creatinine, Serum 1.18 mg/dL (0.70-1.30); EST Glomerular Filtration Rate 63 mL/min (>60); Est Glom Filt Rate - Afr Amer 76 mL/min (>60); Estimated Creatinine Clearance 48.98 ml/min; Glucose 98 mg/dL (74-106); Potassium 3.4 mmol/L (3.5-5.1); Sodium Level 143 mmol/L (136-145)
--- NOTE | 2019-09-11 05:09 | NURSING ---
straight cathed at this time for urine specimen. patient tolerated well.
[2019-09-11 05:13] LABS: Reflex Lactate? Y
[2019-09-11 05:16] LABS: Bacteria 0 SEEN /hpf (None Seen); Mucous, Urine 0 SEEN /hpf (<or=2+); Squamous Epithelial Cells - UA 0 SEEN /hpf (0-5)
[2019-09-11 05:18] LABS: Color, Urine Yellow (Yellow); Glucose, Dipstick Normal (Normal); Ketone-Dipstick Negative (Negative); Leukocyte Esterase-Dipstick 25 /ul (Negative); Nitrite-Dipstick Positive (Negative); Occult Blood-Urine 10 /ul (Negative); Protein-Dipstick 15 mg/dl (Negative); Specific Gravity, Urine 1.015 (1.002-1.030); Urine Bilirubin Dipstick Negative (Negative); Urine Clarity Sl. Cloudy (Clear); Urine Urobilinogen Normal (Normal)
--- NOTE | 2019-09-11 05:22 | PCM.RX.CS ---
Consult Pharmacy has been consulted to manage selected antiobiotic: Vancomycin Type of Consult: New start Suspected Infection: Sepsis Prior Doses of Antibiotics Received/Current Regimen: Medications Vancomycin HCl 750 mg/ Sodium (Chloride) 265 mls @ 250 mls/hr IV Q12H RACHEAL Vancomycin HCl 2,000 mg/ (Sodium Chloride) 540 mls @ 250 mls/hr IV X1 ONE Stop: 09/11/19 06:18 Last Admin: 09/11/19 04:45 Dose: 250 mls/hr Labs: Sodium 143 mmol/L (136-145) 09/11/19 04:00 Potassium 3.4 mmol/L (3.5-5.1) L 09/11/19 04:00 Chloride 107 mmol/L (98-107) 09/11/19 04:00 Carbon Dioxide 29.0 mmol/L (21.0-32.0) 09/11/19 04:00 Anion Gap 7 (5-15) 09/11/19 04:00 BUN 45 mg/dL (7-18) H 09/11/19 04:00 Creatinine 1.18 mg/dL (0.70-1.30) 09/11/19 04:00 Est GFR (MDRD) Af Amer 76 mL/min (>60) 09/11/19 04:00 Est GFR (MDRD) Non-Af 63 mL/min (>60) 09/11/19 04:00 BUN/Creatinine Ratio 38.1 RATIO (10-20) H 09/11/19 04:00 Glucose 98 mg/dL (74-106) 09/11/19 04:00 Microbiology: Microbiology 09/11/19 00:15 Mucosa - Nasopharyngeal Influenza Types A,B Direct FA (OMAR) - Final Weight used for dosin.6 kg Estimated Creatinine Clearance: 51 Goal Trough: 15-20 mcg/mL Pharmacy Plan for Drug Dosing: Pharmacy Service will continue to monitor and adjust dosing as required. Follow-Up Labs: Trough Vancomycin Labs to be done on [date and time ordered]: 09/12/19 @1632
[2019-09-11 05:35] LABS: Amorphous Sediment 1+; Red Blood Cells-Urine 0-5 SEEN /hpf (0-5); White Blood Cells 0-5 SEEN /hpf (0-5)
[2019-09-11 06:13] LABS: M R Staph aureus DNA By PCR Negative (Negative); Probe Check PASS; Specimen Processing Control PASS
--- NOTE | 2019-09-11 06:31 | EKG12_ITS ---
Test Reason : CONVERTED TO SR Blood Pressure : / mmHG Vent. Rate : 100 BPM Atrial Rate : 100 BPM P-R Int : 146 ms QRS Dur : 096 ms QT Int : 352 ms P-R-T Axes : 053 -08 075 degrees QTc Int : 454 ms Normal sinus rhythm Inferior infarct , age undetermined Abnormal ECG When compared with ECG of 11-SEP-2019 07:22, MANUAL COMPARISON REQUIRED, DATA IS UNCONFIRMED Confirmed by MOOKIE VALLEJO, LIZ ([id number]), non linear editor COOKIE TORRES ([id number]) on 09/27/2019 1:25:33 PM Referred By: Norbert Hernandez Confirmed By:GAIL DAMICO MD
[2019-09-11 06:50] LABS: Anisocytosis 1+; Crenated RBC RARE; Ovalocyte 1+
[2019-09-11 06:51] LABS: Macrocytosis RARE; Polychromasia RARE; Schistocytes RARE
--- NOTE | 2019-09-11 07:43 | US_ITS ---
STUDY: RENAL ULTRASOUND - COMPLETE REASON FOR EXAM: Male, 83 years old. Abnormal renal function. TECHNIQUE: Ultrasound evaluation of the kidneys was performed with real-time and static hunter-scale imaging. COMPARISON: None. FINDINGS: RIGHT KIDNEY: Normal location of the right kidney, which is normal in size. The right kidney measures 11.1 cm x 6 cm x 4.5 cm. There is a normal cortex of the right kidney. The renal cortex measures 1.5 cm. There is no right renal mass or cyst. There are no right renal calculi. There is no right hydronephrosis. DISTAL RIGHT URETER: There is non-visualization of the distal right ureter. There is no demonstrated right ureterovesical junction calculus. There is a visualized right ureteral jet. LEFT KIDNEY: Normal location of the left kidney, which is normal in size. The left kidney measures 11.2 cm x 5 signed by 4.5 cm. There is a normal cortex of the left kidney. The renal cortex measures 1.5 cm. There is a 3 cm x 2.3 cm x 2.7 cm cyst. There are no left renal calculi. There is no left hydronephrosis. DISTAL LEFT URETER: There is non-visualization of the distal left ureter. There is no demonstrated left ureterovesical junction calculus. There is a visualized left ureteral jet. BLADDER: The distended urinary bladder has a volume of 484 ml. There is a normal wall thickness of the distended urinary bladder. There is no demonstrated mass within the urinary bladder. There are no demonstrated bladder calculi. The prostate measures 5.6 cm x 7.3 cm x 6.8 cm. This causes indentation at the bladder base. Incidental note was made of gallstones. US/Kidney and Bladder IMPRESSION: Left renal cyst. Prostatic enlargement. Multiple gallstones. Electronically Signed: Esa Hall, at 12:37 EST , Service support ,
--- NOTE | 2019-09-11 07:44 | CON.PCM_ITS ---
Problem List (1) Coronary artery disease Status: Chronic Qualifiers: Coronary Disease-Associated Artery/Lesion type: [place] artery [place] vs. transplanted heart: [place] heart Associated angina: without angina Qualified Code(s): I25.10 - Atherosclerotic heart disease of [place] coronary artery without angina pectoris (2) Acute on chronic respiratory failure with hypoxia Status: Chronic (3) Septic shock Status: Acute (4) Chemotherapy-induced thrombocytopenia Status: Inactive (5) Anemia Status: Chronic Qualifiers: (6) Immunotherapy Status: Chronic (7) Hx of heart artery stent Status: Chronic Comment: 2014 (8) HTN (hypertension) Status: Chronic (9) Stroke Status: Chronic (10) Primary cancer of left lower lobe of lung Status: Chronic (11) Regional lymph node metastasis present Status: Chronic (12) Chronic respiratory failure with hypoxia Status: Chronic (13) Stage 4 very severe COPD by GOLD classification Status: Chronic Comment: FEV1 41% of predicted Reason for Consult Date of Consultation: 09/11/19 Reason for Consultation: Septic shock History of Present Illness: The patient is a 83 year old M, with past medical history listed below and well- known to our office, who presented to [facility] on 09/11/2019 secondary to worsening shortness of breath over the previous 24 hours. Patient reportedly had had increased symptoms over the last 2 weeks. Patient was seen in our office by nurse practitioner and was placed on prednisone therapy for possible COPD exacerbation. Patient states that he was doing okay for the first 3 days, but I decreased to 30 mg, patient started to feel worse. Patient states that he felt subjectively warm, but had not had any leg swelling or diaphoresis. Patient reports he has been coughing more, but none of this has been productive. Patient is on immunotherapy for lung cancer at baseline. Patient does have a history of cardiac stent, but does not carry a diagnosis of congesti ve heart failure. Patient was not placed on antibiotics in our office. In the ER, patient was noted to be hypoxic and tachypneic. Patient was placed on BiPAP therapy with subjective improvement in overall condition. Chest x-ray was relatively unremarkable. Patient was noted to have a prerenal azotemia and a leukocytosis. Patient was noted to have a lactate elevated at 2.7. Blood cultures were obtained. Patient was admitted to the intensive care unit for further evaluation. Since being in the intensive care unit, patient has remained on BiPAP therapy. Patient reports subjective improvement in overall condition. Patient did require a straight cath to obtain urine studies. Patient has had some hypotension and required initiation of pressor therapy. At approximately 630 this morning, patient was noted to be an a flutter with variable response and heart rates in the 150s. Patient did not have a significant change in blood pressure, but was initiated on amiodarone therapy. Review of systems otherwise negative from a constitutional, HEENT, respiratory, cardiovascular, GI, genitourinary, musculoskeletal, skin, neurologic, psychiatric and hematologic system unless stated above. Past Medical History Past Medical History (Chronic Problems): Chronic Problems (Last Reviewed 09/11/19 @ 04:59 by Norbert Hernandez MD) Coronary artery disease (Chronic) Acute on chronic respiratory failure with hypoxia (Chronic) Anemia (Chronic) Immunotherapy (Chronic) Hx of heart artery stent (Chronic) 2013 HTN (hypertension) (Chronic) Stroke (Chronic) Primary cancer of left lower lobe of lung (Chronic) Regional lymph node metastasis present (Chronic) Chronic respiratory failure with hypoxia (Chronic) Stage 4 very severe COPD by GOLD classification (Chronic) FEV1 41% of predicted Medical History: Medical History (Last Reviewed 09/11/19 @ 04:59 by Norbert Hernandez MD) COPD exacerbation (Acute) J44.1 Chemotherapy-induced thrombocytopenia (Inactive) D69.59, T45.1X5A Anemia (Chronic) D64.9 Immunotherapy (Chronic) HTN (hypertension) (Chronic) I10 Stroke (Chronic) I63.9 Primary cancer of left lower lobe of lung (Chronic) C34.32 Regional lymph node metastasis present (Chronic) C77.9 Chronic respiratory failure with hypoxia (Chronic) J96.11 Stage 4 very severe COPD by GOLD classification (Chronic) J44.9 FEV1 41% of predicted Allergies amoxicillin Adverse Reaction (Severe, Verified 09/06/19 08:11) Nausea/Vom/Diarrhea Gadolinium-MRI Contrast Medium [DYE] Adverse Reaction (Severe, Verified 09/06/19 08:11) Nausea/Vom/Diarrhea rice Adverse Reaction (Severe, Verified 09/06/19 08:11) Vomiting Home Medications: Ambulatory Orders Medication Instructions Recorded finasteride 5 mg tablet 1 tab PO DAILY 90 Days #90 02/10/18 budesonide-formoterol HFA 160 2 puff INHALATION BID #1 ea 12/06/18 mcg-4.5 mcg/actuation aerosol inhaler Ipratropium/Albuterol Respimat 1 puff INHALATION PRN PRN 02/17/19 [Combivent Respimat Inhal [place]] Furosemide [Lasix] 20 mg PO DAILY 08/22/19 Albuterol Inhaler [Ventolin Hfa] 2 puff INHALATION Q6H PRN PRN #2 08/24/19 inhaler Oxygen, Home [Home Oxygen] 2 lpm NASAL CONT #1 unit 08/24/19 prednisone 10 mg tablet 10 mg PO QDAY #30 tab 09/06/19 tiotropium bromide 2.5 2 puff INHALATION QDAY #1 ea 09/06/19 mcg/actuation mist for inhalation Surgical History: Surgical History (Last Reviewed 09/11/19 @ 04:59 by Norbert Hernandez MD) Hx of heart artery stent (Chronic) Z95.5 2014 Surgical History: tonsillectomy, - - Cardiac stents. Psychiatric History: No pertinent psych hx Lives: Spouse/ Significant Other Smoking Status: Former smoker - *Family History Maternal Family History: Family History (Last Reviewed 09/11/19 @ 04:59 by Norbert Hernandez MD) Other No pertinent family history History Items: - - His mother young so patient does not know his maternal medical history. Paternal Family History: Family History (Last Reviewed 09/11/19 @ 04:59 by Norbert Hernandez MD) Other No pertinent family history History Items: - - His father when patient was young so patient does not know his maternal medical history. Review of Systems Comment: See HPI Patient Problems: Active and Suspected Problems (Last Reviewed 09/11/19 @ 04:59 by Norbert Hernandez MD) SIRS (systemic inflammatory response syndrome) (Acute) Septic shock (Acute) COPD exacerbation (Acute) Objective: Echocardiogram (10/05/2018): Sigmoid septum with an EF of 40%. No evidence of ASD. Diffuse aortic valve thickening with moderate focal aortic valve calcification. Complete PFT (09/03/2018): Partially reversible very severe large airways obstructive ventilatory defect resulting in air trapping with hyperinflation (FVC 66%, FEV1 43%, TLC 117%, RV 173%, DLCO 53%) Chest x-ray completed was relatively unremarkable - Physical Exam Vitals/I&O's: Vital Signs Temp Pulse Resp BP Pulse Ox 36.7 C 164 H 20 H 133/62 H 94 09/11/19 02:13 09/11/19 07:11 09/11/19 05:30 09/11/19 06:30 09/11/19 05:30 Oxygen Flow Rate (L/min) 6 Oxygen Delivery Method Bi-pap Weight: 76.6 kg Body Mass Index (BMI) 24.2 Intake and Output for Last 24 Hours 09/09/19 09/10/19 09/11/19 23:59 23:59 22:59 Intake Total 4478.55 / 4478.55 Output Total 700 / 700 Balance 3778.55 / 3778.55 General: Alert, Oriented x3, Cooperative, - - Mild conversational dyspnea. Good BiPAP synchrony. HEENT: Atraumatic, PERRLA, EOMI, Normocephalic, - - No scleral icterus or injection noted. Oral: Moist Mucosa, No Gingival or Mucosal Lesions/ Ulcerations Neck: Supple, No JVD, No Nodes, Trachea Midline Lungs: No rhonchi, No wheeze, No rales, Diminished Cardiovascular: Normal S1, Normal S2, No murmurs, No rub noted, No Gallop, Tachycardic Abdomen: Bowel Sounds Present, Soft, Non Tender, Non-Distended Extremities: No cyanosis, No edema, Clubbing, Diminished Peripheral Pulses Skin: No rashes, No breakdown Musculoskeletal: No Tenderness to Palpation of Joints or Extremities Lymphatic: No Cervical, Supraclavicular, or Inguinal Adenopathy Neurological: Cranial nerves II-XII grossly intact, Neuro grossly intact, Motor Exam 5/5 strength throughout Psych/Mental Status: Alert and oriented to time, place, person, mood and affect Microbiology Past 72 Hours 09/11/19 00:15 Mucosa - Nasopharyngeal Influenza Types A,B Direct FA (OM[facility]) - Final Laboratory Results 09/11/19 00:05: Sodium 140, Potassium 4.1, Chloride 101, Carbon Dioxide 32.0, Anion Gap 7, BUN 42 H, Creatinine 1.16, Estim Creat Clear Calc 51.39, Est GFR (MDRD) Af Amer 77, Est GFR (MDRD) Non-Af 64, BUN/Creatinine Ratio 36.2 H, Glucose 125 H, Calcium 9.1, Total Bilirubin 0.60, AST 23, ALT 47, Alkaline Phosphatase 88, Troponin I 0.043, Total Protein 7.2, Albumin 3.2, Globulin 4.0, Albumin/Globulin Ratio 0.8 L 09/11/19 00:05: WBC 14.2 H, RBC 4.45 L, Hgb 12.4 L, Hct 40.5, MCV 91.0, MCH 27.9, MCHC 30.6 L, RDW Std Deviation 60.3 H, RDW Coeff of Zamzam 18.3 H, Plt Count 186, MPV 11.0, Immature Gran % (Auto) 0.600, Neut % (Auto) 86.8 H, Lymph % (Auto) 7.5 L, [place] % (Auto) 4.9, Eos % (Auto) 0.1, Baso % (Auto) 0.1, Absolute Neuts (auto) 12.3 H, Absolute Lymphs (auto) 1.07, Nucleated RBC % 0 09/11/19 00:05: PT 12.6, INR 1.0, APTT 23.2 L 09/11/19 00:05: Lactic Acid Cancelled 09/11/19 00:05: B-Natriuretic Peptide 178.7 H 09/11/19 01:10 EST: Lactic Acid 2.7 H 09/11/19 02:04: Specimen Type ART, Sample Site L Radial, pH 7.40, Bicarbonate Actual 29.6 H, POC Total CO2 31, Base Excess 5 H, O2 Saturation 97, O2 % 50, ABG pCO2 47.4 H, ABG pO2 93, Dimitrios Test NA, Respiration Rate 12, O2 Delivery Device Bi / C PAP, EPAP 6, IPAP 12, Blood Gas Notified Whom ED 09/11/19 02:45: MRSA (PCR) Negative 09/11/19 04:00: Sodium 143, Potassium 3.4 L, Chloride 107, Carbon Dioxide 29.0, Anion Gap 7, BUN 45 H, Creatinine 1.18, Estim Creat Clear Calc 48.98, Est GFR (MDRD) Af Amer 76, Est GFR (MDRD) Non-Af 63, BUN/Creatinine Ratio 38.1 H, Glucose 98, Calcium 7.3 L 09/11/19 04:00: WBC 15.8 H, RBC 3.54 L, Hgb 10.0 L, Hct 33.2 L, MCV 93.8, MCH 28.2, MCHC 30.1 L, RDW Std Deviation 63.7 H, RDW Coeff of Zamzam 18.5 H, Plt Count 139 L, MPV 10.9, Immature Gran % (Auto) 0.400, Neut % (Auto) 85.7 H, Lymph % (Auto) 3.2 L, [place] % (Auto) 9.5, Eos % (Auto) 1.0, Baso % (Auto) 0.2, Absolute Neuts (auto) 13.5 H, Absolute Lymphs (auto) 0.50 L, Nucleated RBC % 0, Polyc hromasia RARE, Anisocytosis 1+, Macrocytosis RARE, Ovalocytes 1+, Crenated Cell RARE, Schistocytes RARE 09/11/19 04:00: Phosphorus 2.4 L, Magnesium 1.6 09/11/19 05:00: Urine Color Yellow, Urine Clarity Sl. Cloudy, Urine pH 6.0, Ur Specific [place] 1.015, Urine Protein 15 H, Urine Glucose (UA) Normal, Urine Ketones Negative, Urine Occult Blood 10 H, Urine Nitrite Positive H, Urine Bilirubin Negative, Urine Urobilinogen Normal, Ur Leukocyte Esterase 25 H, Urine RBC 0-5 SEEN, Urine WBC 0-5 SEEN, Ur Squamous Epith Cells 0 SEEN, Amorphous Sediment 1+, Urine Bacteria 0 SEEN, Urine Mucus 0 SEEN 09/11/19 05:20: Lactic Acid 2.0 Clinical Impression(s) from Imaging Studies Chest X-Ray 09/11/19 00:10 IMPRESSION: COPD, chronic interstitial lung disease, pulmonary fibrosis in the bases. No pulmonary edema, congestive heart failure or confluent pneumonia. Other nonacute findings as outlined above. Electronically Signed: Shayna Tidwell MD at 0:45 EDT , Service support , Current Medications Acetaminophen (Tylenol) 650 mg PO Q6H PRN PRN PRN Reason: Pain Score 1-3/Temp > 100.7 F Albuterol Sulfate (Ventolin Aerosols) 2.5 mg INHALATION Q2H PRN PRN PRN Reason: SOB/Wheezing Albuterol/Ipratropium (Duoneb) 3 ml INHALATION Q4HWA.RT [facility] Last Admin: 09/11/19 02:49 Dose: 3 ml Documented by: Dextrose (D50w Syringe) 0 gm IV X1 PRN; Protocol PRN Reason: Hypoglycemia Enoxaparin Sodium (Lovenox) 40 mg SC DAILY@1000 [facility] Finasteride (Proscar) 5 mg PO DAILY [facility] Glucagon () 1 mg IM .X1 PRN PRN Reason: Hypoglycemia Guaifenesin (Mucinex) 1,200 mg PO BID [facility] Heparin Sodium (Beef Lung) () 50 units IV UD PRN PRN Reason: Port-a-Cath (VAD)Heparin Flush Sodium Chloride () 250 mls @ 15 mls/hr IV .[id number] PRN PRN Reason: Saline Flush Last Infusion: 09/11/19 05:24 Dose: 0 mls/hr Documented by: Norepinephrine Bitartrate 8 mg (/ Sodium Chloride) 250 mls @ 9.375 mls/hr CONT INF .[id number] [facility]; Protocol Last Titration: 09/11/19 06:30 Dose: 10 mcg/min, 18.8 mls/hr Documented by: Piperacillin Sod/Tazobactam (Sod 3.375 gm/ Sodium Chloride) 50 mls @ 12.5 mls/hr IV Q8 [facility] Vancomycin IV Pharmacy to Dose (1,250 ea/ Sodium Chloride) 500 mls @ 250 mls/hr IV PRN PRN; Protocol Vancomycin HCl 750 mg/ Sodium (Chloride) 265 mls @ 250 mls/hr IV Q12H [facility] Amiodarone HCl 360 mg/ (Dextrose) 200 mls @ 33.333 mls/hr CONT INF .Q6H [facility] Stop: 09/11/19 12:59 Last Admin: 09/11/19 07:11 Dose: 1 mg/min, 33.3 mls/hr Documented by: Amiodarone HCl 360 mg/ (Dextrose) 200 mls @ 16.667 mls/hr CONT INF .Q12H [facility] Stop: 09/12/19 06:58 Melatonin (Melatonin) 3 mg PO QHS PRN PRN PRN Reason: INSOMNIA Methylprednisolone (Solu-Medrol) 40 mg IV Q8 [facility] Ondansetron HCl (Zofran) 4 mg IV Q8H PRN PRN PRN Reason: NAUSEA/VOMITING Sodium Chloride () 10 - 40 ml IV UD PRN PRN Reason: Port-a-Cath (VAD) Flush Last Admin: 09/11/19 02:49 Dose: 20 ml Documented by: Sodium Chloride (0.9% Nacl (Sterile) Posiflush) 10 - 40 ml IV UD PRN PRN Reason: Port access or dressing change Sodium Chloride () 10 - 40 ml IV UD PRN PRN Reason: SALINE FLUSH Assessment/Plan Active and Suspected Problems (Last Reviewed 09/11/19 @ 04:59 by Norbert Hernandez MD) SIRS (systemic inflammatory response syndrome) (Acute) Septic shock (Acute) COPD exacerbation (Acute) RECOMMENDATIONS: 1. Continue empiric healthcare associated antibiotics 2. BiPAP breaks as tolerated 3. Wean Levophed as tolerated 4. Continue with amiodarone drip for now 5. Agree with IV steroids, bronchodilators and mucolytic. IMPRESSIONS: 1. Septic shock secondary to probable UTI Patient would be at increased risk for drug-resistant organisms. Agree with vancomycin and Zosyn for now. Nasal MRSA swab has been ordered. Initial lactate is slightly elevated, but is improving. Cultures are currently pending. Continue with IV hydration. Patient may require stress dose steroids if pressor requirement increases. Patient does carry a diagnosis of BPH and had to be straight cathed in order to get urine study. May benefit from post void residual trial following acute condition. 2. Acute on chronic combined respiratory failure Chest x-ray is relatively benign. Clinical suspicion patient is in respiratory failure secondary to a failure to compensate for #1. Patient can be continued on IV steroids, antibiotics and bronchodilators. Mucolytic's may be able to be discontinued in the near future if respiratory status improves with stabilization of hemodynamics. Patient can take BiPAP breaks as tolerated. 3. A flutter with rapid ventricular response/CAD with previous stent Patient appears to be tolerating well at this time. Patient will be initiated on amiodarone therapy. Patient is unaware of any previous history of a flutter. Continue to improve hemodynamics and monitor. Patient has had some nonsustained V. tach, but electrolytes are unremarkable. Hold on Lasix therapy given acute condition. 4. History of lung cancer on immunotherapy/advanced age/BPH Complicates care, management, recovery and prognosis. May require Nguyen catheter. We will continue to monitor. TIME: 45 minutes of critical care time spent addressing patient's septic shock, respiratory failure, a flutter with rapid ventricular response, review of all data and collaboration with care team (6 AM to 8 AM) Code Visit 9xxxx: [id number] Critical care first hour
[2019-09-11] MEDS: Magnesium Sulfate 4gm/100mL 4 GM/100 ML IV.SOLN. IV (09:37)
--- NOTE | 2019-09-11 09:37 | PN_ITS ---
Patient Problems: Active and Suspected Problems (Last Reviewed 09/11/19 @ 04:59 by Norbert Hernandez MD) SIRS (systemic inflammatory response syndrome) (Acute) Septic shock (Acute) COPD exacerbation (Acute) Subjective: Tachycardic this morning and went into fib/flutter, otherwise feels much better. On levofed for BP support, can wean for a MAP of 65 Vitals/I&O's: Vital Signs Temp Pulse Resp BP Pulse Ox 98.1 F 164 H 20 H 133/62 H 94 09/11/19 02:13 09/11/19 07:11 09/11/19 05:30 09/11/19 06:30 09/11/19 05:30 Oxygen Flow Rate (L/min) 6 Oxygen Delivery Method Bi-pap Weight: 168 lb 13.985 oz Body Mass Index (BMI) 24.2 Intake and Output for Last 24 Hours 09/09/19 09/10/19 09/11/19 23:59 23:59 22:59 Intake Total 4478.55 / 4478.55 Output Total 700 / 700 Balance 3778.55 / 3778.55 General: Alert, Oriented x3, Cooperative, No apparent distress HEENT: Atraumatic, PERRLA, EOMI, Normocephalic Oral: Moist Mucosa Neck: Supple, No JVD Lungs: Clear to auscultation, Normal air movement, No rhonchi, No wheeze, No rales, Diminished Cardiovascular: Normal S1, Normal S2, No murmurs, Tachycardic, - - irregular rhythm Abdomen: Soft, Non Tender, Non-Distended, No Hepato-splenomegaly Extremities: No edema, Capillary Refill Less than 3 Seconds Skin: No rashes, No breakdown Neurological: Neuro grossly intact, Sensory exam intact to light touch and pain Psych/Mental Status: Normal Affect, Appropriate Microbiology Past 72 Hours 09/11/19 00:15 Mucosa - Nasopharyngeal Influenza Types A,B Direct FA ([facility]) - Final Laboratory Results 09/11/19 00:05: Sodium 140, Potassium 4.1, Chloride 101, Carbon Dioxide 32.0, Anion Gap 7, BUN 42 H, Creatinine 1.16, Estim Creat Clear Calc 51.39, Est GFR (MDRD) Af Amer 77, Est GFR (MDRD) Non-Af 64, BUN/Creatinine Ratio 36.2 H, Glucose 125 H, Calcium 9.1, Total Bilirubin 0.60, AST 23, ALT 47, Alkaline Phosphatase 88, Troponin I 0.043, Total Protein 7.2, Albumin 3.2, Globulin 4.0, Albumin/Globulin Ratio 0.8 L 09/11/19 00:05: WBC 14.2 H, RBC 4.45 L, Hgb 12.4 L, Hct 40.5, MCV 91.0, MCH 27.9, MCHC 30.6 L, RDW Std Deviation 60.3 H, RDW Coeff of Zamzam 18.3 H, Plt Count 186, MPV 11.0, Immature Gran % (Auto) 0.600, Neut % (Auto) 86.8 H, Lymph % (Auto) 7.5 L, [place] % (Auto) 4.9, Eos % (Auto) 0.1, Baso % (Auto) 0.1, Absolute Neuts (auto) 12.3 H, Absolute Lymphs (auto) 1.07, Nucleated RBC % 0 09/11/19 00:05: PT 12.6, INR 1.0, APTT 23.2 L 09/11/19 00:05: Lactic Acid Cancelled 09/11/19 00:05: B-Natriuretic Peptide 178.7 H 09/11/19 01:10 EST: Lactic Acid 2.7 H 09/11/19 02:04: Specimen Type ART, Sample Site L Radial, pH 7.40, Bicarbonate Actual 29.6 H, POC Total CO2 31, Base Excess 5 H, O2 Saturation 97, O2 % 50, ABG pCO2 47.4 H, ABG pO2 93, Dimitrios Test NA, Respiration Rate 12, O2 Delivery Device Bi / C PAP, EPAP 6, IPAP 12, Blood Gas Notified Whom ED 09/11/19 02:45: MRSA (PCR) Negative 09/11/19 04:00: Sodium 143, Potassium 3.4 L, Chloride 107, Carbon Dioxide 29.0, Anion Gap 7, BUN 45 H, Creatinine 1.18, Estim Creat Clear Calc 48.98, Est GFR (MDRD) Af Amer 76, Est GFR (MDRD) Non-Af 63, BUN/Creatinine Ratio 38.1 H, Glucose 98, Calcium 7.3 L 09/11/19 04:00: WBC 15.8 H, RBC 3.54 L, Hgb 10.0 L, Hct 33.2 L, MCV 93.8, MCH 28.2, MCHC 30.1 L, RDW Std Deviation 63.7 H, RDW Coeff of Zamzam 18.5 H, Plt Count 139 L, MPV 10.9, Immature Gran % (Auto) 0.400, Neut % (Auto) 85.7 H, Lymph % (Auto) 3.2 L, [place] % (Auto) 9.5, Eos % (Auto) 1.0, Baso % (Auto) 0.2, Absolute Neuts (auto) 13.5 H, Absolute Lymphs (auto) 0.50 L, Nucleated RBC % 0, Polychromasia RARE, Anisocytosis 1+, Macrocytosis RARE, Ovalocytes 1+, Crenated Cell RARE, Schistocytes RARE 09/11/19 04:00: Phosphorus 2.4 L, Magnesium 1.6 09/11/19 05:00: Urine Color Yellow, Urine Clarity Sl. Cloudy, Urine pH 6.0, Ur Specific [place] 1.015, Urine Protein 15 H, Urine Glucose (UA) Normal, Urine Ketones Negative, Urine Occult Blood 10 H, Urine Nitrite Positive H, Urine Bilirubin Negative, Urine Urobilinogen Normal, Ur Leukocyte Esterase 25 H, Urine RBC 0-5 SEEN, Urine WBC 0-5 SEEN, Ur Squamous Epith Cells 0 SEEN, Amorphous Sediment 1+, Urine Bacteria 0 SEEN, Urine Mucus 0 SEEN 09/11/19 05:20: Lactic Acid 2.0 Current Medications Acetaminophen (Tylenol) 650 mg PO Q6H PRN PRN PRN Reason: Pain Score 1-3/Temp > 100.7 F Albuterol Sulfate (Ventolin Aerosols) 2.5 mg INHALATION Q2H PRN PRN PRN Reason: SOB/Wheezing Albuterol/Ipratropium (Duoneb) 3 ml INHALATION Q4HWA.RT [facility] Last Admin: 09/11/19 02:49 Dose: 3 ml Documented by: Dextrose (D50w Syringe) 0 gm IV X1 PRN; Protocol PRN Reason: Hypoglycemia Enoxaparin Sodium (Lovenox) 40 mg SC DAILY@1000 [facility] Finasteride (Proscar) 5 mg PO DAILY [facility] Glucagon () 1 mg IM .X1 PRN PRN Reason: Hypoglycemia Guaifenesin (Mucinex) 1,200 mg PO BID [facility] Heparin Sodium (Beef Lung) () 50 units IV UD PRN PRN Reason: Port-a-Cath (VAD)Heparin Flush Sodium Chloride () 250 mls @ 15 mls/hr IV .[id number] PRN PRN Reason: Saline Flush Last Infusion: 09/11/19 05:24 Dose: 0 mls/hr Documented by: Norepinephrine Bitartrate 8 mg (/ Sodium Chloride) 250 mls @ 9.375 mls/hr CONT INF .[id number] [facility]; Protocol Last Titration: 09/11/19 06:30 Dose: 10 mcg/min, 18.8 mls/hr Documented by: Piperacillin Sod/Tazobactam (Sod 3.375 gm/ Sodium Chloride) 50 mls @ 12.5 mls/hr IV Q8 [facility] Vancomycin IV Pharmacy to Dose (1,250 ea/ Sodium Chloride) 500 mls @ 250 mls/hr IV PRN PRN; Protocol Vancomycin HCl 750 mg/ Sodium (Chloride) 265 mls @ 250 mls/hr IV Q12H [facility] Amiodarone HCl 360 mg/ (Dextrose) 200 mls @ 33.333 mls/hr CONT INF .Q6H [facility] Stop: 09/11/19 12:59 Last Admin: 09/11/19 07:11 Dose: 1 mg/min, 33.3 mls/hr Documented by: Amiodarone HCl 360 mg/ (Dextrose) 200 mls @ 16.667 mls/hr CONT INF .Q12H [facility] Stop: 09/12/19 06:58 Potassium Phosphate 15 mm/ (Sodium Chloride) 255 mls @ 125 mls/hr IV X1 [facility] Stop: 09/11/19 11:02 Magnesium Sulfate () 4 gm in 100 mls @ 25 mls/hr IV X1 [facility] Stop: 09/11/19 12:59 Melatonin (Melatonin) 3 mg PO QHS PRN PRN PRN Reason: INSOMNIA Methylprednisolone (Solu-Medrol) 40 mg IV Q8 [facility] Ondansetron HCl (Zofran) 4 mg IV Q8H PRN PRN PRN Reason: NAUSEA/VOMITING Sodium Chloride () 10 - 40 ml IV UD PRN PRN Reason: Port-a-Cath (VAD) Flush Last Admin: 09/11/19 02:49 Dose: 20 ml Documented by: Sodium Chloride (0.9% Nacl (Sterile) Posiflush) 10 - 40 ml IV UD PRN PRN Reason: Port access or dressing change Sodium Chloride () 10 - 40 ml IV UD PRN PRN Reason: SALINE FLUSH STROKE Vital Signs/Narrative: Vital Signs Pulse BP 09/11/19 07:11 164 H 09/11/19 06:30 152 H 133/62 H 09/11/19 06:21 157 H 09/11/19 06:00 96 102/44 L 09/11/19 05:45 91 102/46 L Medical Necessity - Tobacco Use Smoking Status: Former smoker Assessment/Plan All Active Problems (Last Reviewed 09/11/19 @ 04:59 by Norbert Hernandez MD) SIRS (systemic inflammatory response syndrome) (Acute) Septic shock (Acute) COPD exacerbation (Acute) 1. Septic shock from probable pneumonia/Acute on chronic resp failure secondary to COPD - c/w vanc/zosyn - UA with no bacteria or WBC, cultures pending - Wean levofed as able - c/w solumedrol - C/w inhalers 2. CAD s/p stent/New onset aflutter - c/w amiodarone, pressures are too soft to tolerate BB - continue to monitor 3. BPH - stable - c/w finasteride DVT: Lovenox
--- NOTE | 2019-09-11 09:51 | EKG12_ITS ---
Test Reason : RHYTHM CHANGE Blood Pressure : / mmHG Vent. Rate : 172 BPM Atrial Rate : 344 BPM P-R Int : 000 ms QRS Dur : 090 ms QT Int : 292 ms P-R-T Axes : 000 -33 236 degrees QTc Int : 493 ms Atrial flutter with variable A-V block Left axis deviation Inferior infarct , age undetermined ST & T wave abnormality, consider lateral ischemia Abnormal ECG When compared with ECG of 10-SEP-2019 23:59, MANUAL COMPARISON REQUIRED, DATA IS UNCONFIRMED Confirmed by MOOKIE VALLEJO, LIZ ([id number]), school photograph editor COOKIE TORRES ([id number]) on 09/27/2019 1:25:44 PM Referred By: Norbert Hernandez Confirmed By:GAIL DAMICO MD
--- NOTE | 2019-09-11 10:55 | RAD_ITS ---
STUDY: X-RAY CHEST REASON FOR EXAM: Male, 83 years old. Shortness of breath TECHNIQUE: AP COMPARISON: Earlier today FINDINGS: Right chest port is stable with redundant catheter the base of the neck. Tip of the catheter terminates in the upper SVC. Reticular opacities predominantly in the lung bases are similar since the prior study with asymmetric consolidation in the retrocardiac left lower lobe, more conspicuous since the prior study. No sizable effusion. There is mild cardiac enlargement. Normal mediastinum and gasper. Normal visualized pulmonary arteries. There is atherosclerotic calcification of the aortic arch with tortuosity. No acute bony process. There is no demonstrated abnormality of the visualized soft tissue structures of the upper abdomen. RAD/Chest 1 View (Portable) IMPRESSION: 1. Worsening consolidation in the retrocardiac left lower lobe may represent atelectasis versus pneumonia. 2. Underlying pulmonary fibrosis. 3. Stable appearance of right chest port. Electronically Signed: Jesus Kapoor MD ([place]) at 14:33 EST , Service support ,
[2019-09-11] MEDS: guaiFENesin 1,200 MG Tablet 1200 MG PO ×2 (13:45→21:13)
[2019-09-11] MEDS: Finasteride 5 MG Tablet PO (13:45)
[2019-09-11] MEDS: Enoxaparin 40 MG/0.4 ML Syringe SC (13:45)
--- NOTE | 2019-09-11 22:10 | CPS ---
switched face mask from medium to large size
[2019-09-12] VITALS (35 sets, daily range): BP systolic 96–125; BP diastolic 47–95; PULSE 64–136; RESP 10–23; TEMP 36.4–37; O2SAT 88–99
[2019-09-12] MEDS: Amiodarone 200 MG Tablet PO ×2 (01:35→09:52)
[2019-09-12] MEDS: 0.9% Saline Lock 10 ML Syringe IV ×2 (05:25→14:32)
[2019-09-12] MEDS: Ipratropium/Albuterol Sulfate 3 ML AMPUL.NEB INHALATION ×4 (07:15→18:53)
--- NOTE | 2019-09-12 07:29 | PN_ITS ---
Subjective: The patient was seen and examined at the bedside this morning. Events from the last 24 hours have been reviewed. The patient is currently afebrile, hemodynamically stable and maintaining appropriate oxygen saturations on BiPAP. The patient's Levophed has been off now for approximately 12 hours. He did have a run of atrial flutter which converted yesterday after receiving amiodarone. Objective: The patient's most recent lab work, culture data and imaging studies have all been personally reviewed. Strep and urine Legionella antigens were both negative. Respiratory viral panel was negative. Blood and urine cultures are pending. General: Alert, Oriented x3, Cooperative, No apparent distress HEENT: Atraumatic, PERRLA, Normocephalic Oral: No Gingival or Mucosal Lesions/ Ulcerations Neck: Supple, No Nodes, Trachea Midline Lungs: No rhonchi, No wheeze, No rales, Diminished Cardiovascular: Regular rate, Regular Rhythm, Normal S1, Normal S2, Murmur Abdomen: Bowel Sounds Present, Soft, Non Tender Extremities: No clubbing, No cyanosis, No edema Skin: No breakdown Musculoskeletal: No Tenderness to Palpation of Joints or Extremities Lymphatic: No Cervical, Supraclavicular, or Inguinal Adenopathy Neurological: Cranial nerves II-XII grossly intact, Neuro grossly intact Psych/Mental Status: Alert and oriented to time, place, person, mood and affect Vital Signs Temp Pulse Resp BP Pulse Ox 98.1 F 66 10 L 117/56 L 95 09/12/19 05:00 09/12/19 07:00 09/12/19 07:00 09/12/19 07:00 09/12/19 07:00 Oxygen Flow Rate (L/min) 2 Oxygen Delivery Method Bi-pap Weight: 174 lb 9.698 oz Body Mass Index (BMI) 24.2 Intake and Output for Last 24 Hours 09/11/19 09/11/19 09/12/19 00:59 23:59 23:59 Intake Total 462.68 / 462.68 Output Total 650 / 650 Balance -187.32 / -187.32 Labs (Last 48 Hours) 09/11/19 09/11/19 09/11/19 00:05 00:05 00:05 WBC 14.2 H RBC 4.45 L Hgb 12.4 L Hct 40.5 MCV 91.0 MCH 27.9 MCHC 30.6 L RDW Std Deviation 60.3 H RDW Coeff of Zamzam 18.3 H Plt Count 186 MPV 11.0 Immature Gran % (Auto) 0.600 Neut % (Auto) 86.8 H Lymph % (Auto) 7.5 L [place] % (Auto) 4.9 Eos % (Auto) 0.1 Baso % (Auto) 0.1 Absolute Neuts (auto) 12.3 H Absolute Lymphs (auto) 1.07 Nucleated RBC % 0 Polychromasia Anisocytosis Macrocytosis Ovalocytes Crenated Cell Schistocytes PT 12.6 INR 1.0 APTT 23.2 L Specimen Type Sample Site pH Bicarbonate Actual POC Total CO2 Base Excess O2 Saturation O2 % ABG pCO2 ABG pO2 Dimitrios Test Respiration Rate O2 Delivery Device EPAP IPAP Blood Gas Notified Whom Sodium 140 Potassium 4.1 Chloride 101 Carbon Dioxide 32.0 Anion Gap 7 BUN 42 H Creatinine 1.16 Estim Creat Clear Calc 51.39 Est GFR (MDRD) Af Amer 77 Est GFR (MDRD) Non-Af 64 BUN/Creatinine Ratio 36.2 H Glucose 125 H Lactic Acid Calcium 9.1 Phosphorus Magnesium Total Bilirubin 0.60 AST 23 ALT 47 Alkaline Phosphatase 88 Troponin I 0.043 B-Natriuretic Peptide Total Protein 7.2 Albumin 3.2 Globulin 4.0 Albumin/Globulin Ratio 0.8 L Urine Color Urine Clarity Urine pH Ur Specific [place] Urine Protein Urine Glucose (UA) Urine Ketones Urine Occult Blood Urine Nitrite Urine Bilirubin Urine Urobilinogen Ur Leukocyte Esterase Urine RBC Urine WBC Ur Squamous Epith Cells Amorphous Sediment Urine Bacteria Urine Mucus MRSA (PCR) 09/11/19 09/11/19 09/11/19 00:05 00:05 01:10 EST WBC RBC Hgb Hct MCV MCH MCHC RDW Std Deviation RDW Coeff of Zamzam Plt Count MPV Immature Gran % (Auto) Neut % (Auto) Lymph % (Auto) [place] % (Auto) Eos % (Auto) Baso % (Auto) Absolute Neuts (auto) Absolute Lymphs (auto) Nucleated RBC % Polychromasia Anisocytosis Macrocytosis Ovalocytes Crenated Cell Schistocytes PT INR APTT Specimen Type Sample Site pH Bicarbonate Actual POC Total CO2 Base Excess O2 Saturation O2 % ABG pCO2 ABG pO2 Dimitrios Test Respiration Rate O2 Delivery Device EPAP IPAP Blood Gas Notified Whom Sodium Potassium Chloride Carbon Dioxide Anion Gap BUN Creatinine Estim Creat Clear Calc Est GFR (MDRD) Af Amer Est GFR (MDRD) Non-Af BUN/Creatinine Ratio Glucose Lactic Acid Cancelled 2.7 H Calcium Phosphorus Magnesium Total Bilirubin AST ALT Alkaline Phosphatase Troponin I B-Natriuretic Peptide 178.7 H Total Protein Albumin Globulin Albumin/Globulin Ratio Urine Color Urine Clarity Urine pH Ur Specific [place] Urine Protein Urine Glucose (UA) Urine Ketones Urine Occult Blood Urine Nitrite Urine Bilirubin Urine Urobilinogen Ur Leukocyte Esterase Urine RBC Urine WBC Ur Squamous Epith Cells Amorphous Sediment Urine Bacteria Urine Mucus MRSA (PCR) 09/11/19 09/11/19 09/11/19 02:04 02:45 04:00 WBC RBC Hgb Hct MCV MCH MCHC RDW Std Deviation RDW Coeff of Zamzam Plt Count MPV Immature Gran % (Auto) Neut % (Auto) Lymph % (Auto) [place] % (Auto) Eos % (Auto) Baso % (Auto) Absolute Neuts (auto) Absolute Lymphs (auto) Nucleated RBC % Polychromasia Anisocytosis Macrocytosis Ovalocytes Crenated Cell Schistocytes PT INR APTT Specimen Type ART Sample Site L Radial pH 7.40 Bicarbonate Actual 29.6 H POC Total CO2 31 Base Excess 5 H O2 Saturation 97 O2 % 50 ABG pCO2 47.4 H ABG pO2 93 Dimitrios Test NA Respiration Rate 12 O2 Delivery Device Bi / C PAP EPAP 6 IPAP 12 Blood Gas Notified Whom ED Sodium 143 Potassium 3.4 L Chloride 107 Carbon Dioxide 29.0 Anion Gap 7 BUN 45 H Creatinine 1.18 Estim Creat Clear Calc 48.98 Est GFR (MDRD) Af Amer 76 Est GFR (MDRD) Non-Af 63 BUN/Creatinine Ratio 38.1 H Glucose 98 Lactic Acid Calcium 7.3 L Phosphorus Magnesium Total Bilirubin AST ALT Alkaline Phosphatase Troponin I B-Natriuretic Peptide Total Protein Albumin Globulin Albumin/Globulin Ratio Urine Color Urine Clarity Urine pH Ur Specific [place] Urine Protein Urine Glucose (UA) Urine Ketones Urine Occult Blood Urine Nitrite Urine Bilirubin Urine Urobilinogen Ur Leukocyte Esterase Urine RBC Urine WBC Ur Squamous Epith Cells Amorphous Sediment Urine Bacteria Urine Mucus MRSA (PCR) Negative 09/11/19 09/11/19 09/11/19 04:00 04:00 05:00 WBC 15.8 H RBC 3.54 L Hgb 10.0 L Hct 33.2 L MCV 93.8 MCH 28.2 MCHC 30.1 L RDW Std Deviation 63.7 H RDW Coeff of Zamzam 18.5 H Plt Count 139 L MPV 10.9 Immature Gran % (Auto) 0.400 Neut % (Auto) 85.7 H Lymph % (Auto) 3.2 L [place] % (Auto) 9.5 Eos % (Auto) 1.0 Baso % (Auto) 0.2 Absolute Neuts (auto) 13.5 H Absolute Lymphs (auto) 0.50 L Nucleated RBC % 0 Polychromasia RARE Anisocytosis 1+ Macrocytosis RARE Ovalocytes 1+ Crenated Cell RARE Schistocytes RARE PT INR APTT Specimen Type Sample Site pH Bicarbonate Actual POC Total CO2 Base Excess O2 Saturation O2 % ABG pCO2 ABG pO2 Dimitrios Test Respiration Rate O2 Delivery Device EPAP IPAP Blood Gas Notified Whom Sodium Potassium Chloride Carbon Dioxide Anion Gap BUN Creatinine Estim Creat Clear Calc Est GFR (MDRD) Af Amer Est GFR (MDRD) Non-Af BUN/Creatinine Ratio Glucose Lactic Acid Calcium Phosphorus 2.4 L Magnesium 1.6 Total Bilirubin AST ALT Alkaline Phosphatase Troponin I B-Natriuretic Peptide Total Protein Albumin Globulin Albumin/Globulin Ratio Urine Color Yellow Urine Clarity Sl. Cloudy Urine pH 6.0 Ur Specific [place] 1.015 Urine Protein 15 H Urine Glucose (UA) Normal Urine Ketones Negative Urine Occult Blood 10 H Urine Nitrite Positive H Urine Bilirubin Negative Urine Urobilinogen Normal Ur Leukocyte Esterase 25 H Urine RBC 0-5 SEEN Urine WBC 0-5 SEEN Ur Squamous Epith Cells 0 SEEN Amorphous Sediment 1+ Urine Bacteria 0 SEEN Urine Mucus 0 SEEN MRSA (PCR) 09/11/19 05:20 WBC RBC Hgb Hct MCV MCH MCHC RDW Std Deviation RDW Coeff of Zamzam Plt Count MPV Immature Gran % (Auto) Neut % (Auto) Lymph % (Auto) [place] % (Auto) Eos % (Auto) Baso % (Auto) Absolute Neuts (auto) Absolute Lymphs (auto) Nucleated RBC % Polychromasia Anisocytosis Macrocytosis Ovalocytes Crenated Cell Schistocytes PT INR APTT Specimen Type Sample Site pH Bicarbonate Actual POC Total CO2 Base Excess O2 Saturation O2 % ABG pCO2 ABG pO2 Dimitrios Test Respiration Rate O2 Delivery Device EPAP IPAP Blood Gas Notified Whom Sodium Potassium Chloride Carbon Dioxide Anion Gap BUN Creatinine Estim Creat Clear Calc Est GFR (MDRD) Af Amer Est GFR (MDRD) Non-Af BUN/Creatinine Ratio Glucose Lactic Acid 2.0 Calcium Phosphorus Magnesium Total Bilirubin AST ALT Alkaline Phosphatase Troponin I B-Natriuretic Peptide Total Protein Albumin Globulin Albumin/Globulin Ratio Urine Color Urine Clarity Urine pH Ur Specific [place] Urine Protein Urine Glucose (UA) Urine Ketones Urine Occult Blood Urine Nitrite Urine Bilirubin Urine Urobilinogen Ur Leukocyte Esterase Urine RBC Urine WBC Ur Squamous Epith Cells Amorphous Sediment Urine Bacteria Urine Mucus MRSA (PCR) Microbiology 09/11/19 05:00 Urine Catheter - Catheter Streptococcus pneumoniae Antigen (M - Final 09/11/19 05:00 Urine Catheter - Catheter Legionella Antigen - Final 09/11/19 02:45 Mucosa - Nose Respiratory Panel (PCR) - Final 09/11/19 00:15 Mucosa - Nasopharyngeal Influenza Types A,B Direct FA (OMAR) - Final Clinical Impression(s) from Imaging Studies Chest X-Ray 09/11/19 00:10 IMPRESSION: COPD, chronic interstitial lung disease, pulmonary fibrosis in the bases. No pulmonary edema, congestive heart failure or confluent pneumonia. Other nonacute findings as outlined above. Electronically Signed: Shayna Tidwell MD at 0:45 EDT , Service support , Chest X-Ray 09/11/19 10:55 IMPRESSION: 1. Worsening consolidation in the retrocardiac left lower lobe may represent atelectasis versus pneumonia. 2. Underlying pulmonary fibrosis. 3. Stable appearance of right chest port. Electronically Signed: Jesus Kapoor MD ([place]) at 14:33 EST , Service support , Medical Necessity - Tobacco Use Smoking Status: Former smoker Assessment/Plan All Active Problems (Last Reviewed 09/11/19 @ 04:59 by Norbert Hernandez MD) SIRS (systemic inflammatory response syndrome) (Acute) Septic shock (Acute) COPD exacerbation (Acute) RECOMMENDATIONS: 1. Continue Zosyn, pending finalized infectious work-up. 2. Continue to wean supplemental oxygen as tolerated. Continue nocturnal BiPAP therapy. 3. Continue scheduled bronchodilators and IV steroids. 4. Continue amiodarone and await echocardiogram results. IMPRESSIONS: 1. Septic shock secondary to probable pneumonia versus cystitis Clinical considerations include pulmonary infectious process versus urinary tract source of infection. The patient has responded favorably to the use of Zosyn, which will be continued pending finalized cultures. The patient remains hemodynamically stable off of vasopressor support. 2. Acute on chronic combined respiratory failure Likely secondary to exacerbation of underlying obstructive lung disease in the setting of #1. The patient has improved clinically with treatment of the above, along with scheduled bronchodilators and IV steroids, which will be continued without change. The patient does have a baseline 2 L/min supplemental oxygen requirement. We will plan to continue to wean supplemental oxygen as tolerated. Continue BiPAP therapy with sleep. 3. A flutter with rapid ventricular response/CAD with previous stent The patient converted to normal sinus rhythm yesterday, in the setting of amiodarone administration. We will continue to monitor for now. Echocardiogram is currently pending. Recheck chemistry profile to ensure adequacy of electrolyte repletion. 4. History of lung cancer on immunotherapy/advanced age/BPH Complicates care, management, recovery and prognosis. Physical therapy to evaluate patient today. This note was generated with [employer] dictation software. It may contain incorrect words, spelling, and punctuation that were not noted in checking the note before signing. Code Visit Inpatient E&M: 42799 Subs Hosp L3
--- NOTE | 2019-09-12 07:51 | ECHOD_ITS ---
Reason For Study: A. fib/flutter Procedure This was a 2D Doppler, Color Flow transthoracic echocardiogram. Exam performed portable in ICU/CCU. Left Ventricle Normal LV size. Moderate eccentric left ventricular hypertrophy. The estimated ejection fraction is 40 %. Stage 2 diastolic dysfunction. Mid-Inferior: Akinetic. Infero-Basal: Akinetic. Basal inferoseptal: Hypokinetic. Mid-Posterior: Hypokinetic. The rest of the wall segments are normal. Right Ventricle Normal RV size. Normal systolic function. Atria The left atrium is moderately enlarged. The right atrium is mildly enlarged. Mitral Valve Mild focal mitral valve calcification of the anterior leaflet. Mild (1+) eccentric mitral valve insufficiency. Tricuspid Valve Normal tricuspid valve. Mild (1+) tricuspid valve insufficiency. Pulmonary artery systolic pressure is 37 mmHg. Aortic Valve Trisinus/trileaflet aortic valve. Moderate focal aortic valve calcification. Pulmonic Valve Normal pulmonic valve. Great Vessels Normal aortic root. The pulmonary artery is normal size. Normal inferior vena cava. Pericardium/Pleural No pericardial effusion. MMode/2D Measurements & Calculations LVIDd: 5.3 cm IVSd: 1.5 cm LVOT diam: 2.3 cm LVIDs: 4.5 cm LVPWd: 0.49 cm LVOT area: 4.1 cm2 RVDd: 3.7 cm FS: 14.3 % Ao root diam: 3.8 cm LAV(MOD-bp): 116.5 ml LA A4 area: 31.5 cm2 LAV(MOD-bp) Indexed: 59.2 ml/m2 LAV(MOD-sp2): 109.4 ml LAV(MOD-sp4): 113.2 ml LA dimension(2D): 4.9 cm RA A4 area: 22.4 cm2 Doppler Measurements & Calculations MV E max josé miguel: 89.8 cm/sec Lat Peak E' José Miguel: 7.7 cm/sec Med Peak E' José Miguel: 4.5 cm/sec MV A max josé miguel: 100.2 cm/sec E/E' lat: 11.7 E/E' med: 20.1 MV E/A: 0.90 Ao V2 max: 268.4 cm/sec LV V1 max: 99.1 cm/sec SV(LVOT): 93.5 ml Ao max P.8 mmHg LV V1 max P.9 mmHg Ao V2 mean: 190.5 cm/sec LV V1 mean P.0 mmHg Ao mean P.2 mmHg LV V1 mean: 66.1 cm/sec Ao V2 VTI: 64.7 cm LV V1 VTI: 22.5 cm BILL(I,D): 1.4 cm2 BILL(V,D): 1.5 cm2 PA V2 max: 121.1 cm/sec TR max josé miguel: 286.5 cm/sec TR max P.9 mmHg Interpretation Summary Normal LV size. Moderate eccentric left ventricular hypertrophy. The estimated ejection fraction is 40 %. Stage 2 diastolic dysfunction. The left atrium is moderately enlarged. The right atrium is mildly enlarged. Mild (1+) eccentric mitral valve insufficiency. Pulmonary artery systolic pressure is 37 mmHg. Compared to previous study, the left ventricular systolic function is the same.. The global longitudinal strain = -15.2% (abnormal). Ordering Physician: Bola Becerril Referring Physician: Ha Davis Performed By: Fara Goins RDCS
--- NOTE | 2019-09-12 09:13 | PN_ITS ---
Patient Problems: Active and Suspected Problems (Last Reviewed 09/11/19 @ 04:59 by Norbert Hernandez MD) SIRS (systemic inflammatory response syndrome) (Acute) Septic shock (Acute) COPD exacerbation (Acute) Subjective: Feeling better today, his heart rate converted to normal sinus rhythm. He denies any significant shortness of breath or abdominal pain. Vitals/I&O's: Vital Signs Temp Pulse Resp BP Pulse Ox 97.6 F L 77 12 105/57 L 90 09/12/19 08:00 09/12/19 08:00 09/12/19 08:00 09/12/19 08:00 09/12/19 08:00 Oxygen Flow Rate (L/min) 3 Oxygen Delivery Method Nasal Cannula Weight: 174 lb 9.698 oz Body Mass Index (BMI) 24.2 Intake and Output for Last 24 Hours 09/11/19 09/11/19 09/12/19 00:59 23:59 23:59 Intake Total 462.68 / 462.68 Output Total 650 / 650 Balance -187.32 / -187.32 General: Alert, Oriented x3, Cooperative, No apparent distress HEENT: Atraumatic, PERRLA, EOMI, Normocephalic Oral: Moist Mucosa Neck: Supple, No JVD Lungs: Clear to auscultation, Normal air movement, No rhonchi, No wheeze, No rales, Diminished Cardiovascular: Regular rate, regular rhythm, normal S1, Normal S2, 2/6 BRITTNEY, Abdomen: Soft, Non Tender, Non-Distended, No Hepato-splenomegaly Extremities: No edema, Capillary Refill Less than 3 Seconds Skin: No rashes, No breakdown Neurological: Neuro grossly intact, Sensory exam intact to light touch and pain Psych/Mental Status: Normal Affect, Appropriate Microbiology Past 72 Hours 09/11/19 05:00 Urine Catheter - Catheter Streptococcus pneumoniae Antigen (M - Final 09/11/19 05:00 Urine Catheter - Catheter Legionella Antigen - Final 09/11/19 02:45 Mucosa - Nose Respiratory Panel (PCR) - Final 09/11/19 00:15 Mucosa - Nasopharyngeal Influenza Types A,B Direct FA (OMAR) - Final Current Medications Acetaminophen (Tylenol) 650 mg PO Q6H PRN PRN PRN Reason: Pain Score 1-3/Temp > 100.7 F Albuterol Sulfate (Ventolin Aerosols) 2.5 mg INHALATION Q2H PRN PRN PRN Reason: SOB/Wheezing Albuterol/Ipratropium (Duoneb) 3 ml INHALATION Q4HWA.RT [facility] Last Admin: 09/12/19 07:15 Dose: 3 ml Documented by: Amiodarone HCl (Cordarone) 200 mg PO BID [facility] Last Admin: 09/12/19 01:35 Dose: 200 mg Documented by: Dextrose (D50w Syringe) 0 gm IV X1 PRN; Protocol PRN Reason: Hypoglycemia Enoxaparin Sodium (Lovenox) 40 mg SC DAILY@1000 [facility] Last Admin: 09/11/19 13:45 Dose: 40 mg Documented by: Finasteride (Proscar) 5 mg PO DAILY [facility] Last Admin: 09/11/19 13:45 Dose: 5 mg Documented by: Glucagon () 1 mg IM .X1 PRN PRN Reason: Hypoglycemia Guaifenesin (Mucinex) 1,200 mg PO BID [facility] Last Admin: 09/11/19 21:13 Dose: 1,200 mg Documented by: Heparin Sodium (Beef Lung) () 50 units IV UD PRN PRN Reason: Port-a-Cath (VAD)Heparin Flush Sodium Chloride () 250 mls @ 15 mls/hr IV .[id number] PRN PRN Reason: Saline Flush Last Infusion: 09/12/19 01:44 Dose: 0 mls/hr Documented by: Norepinephrine Bitartrate 8 mg (/ Sodium Chloride) 250 mls @ 9.375 mls/hr CONT INF .[id number] [facility]; Protocol Last Admin: 09/12/19 05:13 Dose: Not Given Documented by: Piperacillin Sod/Tazobactam (Sod 3.375 gm/ Sodium Chloride) 50 mls @ 12.5 mls/hr IV Q8 [facility] Last Admin: 09/12/19 05:25 Dose: 12.5 mls/hr Documented by: Vancomycin IV Pharmacy to Dose (1,250 ea/ Sodium Chloride) 500 mls @ 250 mls/hr IV PRN PRN; Protocol Vancomycin HCl 750 mg/ Sodium (Chloride) 265 mls @ 250 mls/hr IV Q12H [facility] Last Infusion: 09/12/19 06:28 Dose: Infused Documented by: Melatonin (Melatonin) 3 mg PO QHS PRN PRN PRN Reason: INSOMNIA Methylprednisolone (Solu-Medrol) 40 mg IV Q8 [facility] Last Admin: 09/12/19 05:25 Dose: 40 mg Documented by: Ondansetron HCl (Zofran) 4 mg IV Q8H PRN PRN PRN Reason: NAUSEA/VOMITING Sodium Chloride () 10 - 40 ml IV UD PRN PRN Reason: Port-a-Cath (VAD) Flush Last Admin: 09/12/19 05:25 Dose: 20 ml Documented by: Sodium Chloride (0.9% Nacl (Sterile) Posiflush) 10 - 40 ml IV UD PRN PRN Reason: Port access or dressing change Sodium Chloride () 10 - 40 ml IV UD PRN PRN Reason: SALINE FLUSH STROKE Vital Signs/Narrative: Vital Signs Temp Pulse Resp BP Pulse Ox 09/12/19 08:00 97.6 F L 77 12 105/57 L 90 09/12/19 07:15 77 16 92 09/12/19 07:00 66 10 L 117/56 L 95 09/12/19 06:00 64 16 109/64 99 Medical Necessity - Tobacco Use Smoking Status: Former smoker Assessment/Plan All Active Problems (Last Reviewed 09/11/19 @ 04:59 by Norbert Hernandez MD) SIRS (systemic inflammatory response syndrome) (Acute) Septic shock (Acute) COPD exacerbation (Acute) 1. Septic shock from probable pneumonia/Acute on chronic resp failure secondary to COPD - c/w zosyn, can DC vancomycin as MRSA PCR was negative - UA with no bacteria or WBC, cultures pending, chest x-ray yesterday with worsening consolidation in left lower lobe -Levo fed is off - c/w solumedrol - C/w inhalers 2. CAD s/p stent/New onset aflutter - c/w amiodarone will make p.o., since he is converted to normal sinus rhythm - continue to monitor -We will obtain an echo for his murmur as well as his new onset a flutter 3. BPH - stable - c/w finasteride DVT: Lovenox Code Visit Inpatient E&M: 60039 Subs Hosp L2
[2019-09-12] MEDS: Enoxaparin 40 MG/0.4 ML Syringe SC (09:51)
[2019-09-12] MEDS: guaiFENesin 1,200 MG Tablet 1200 MG PO ×2 (09:52→22:36)
[2019-09-12] MEDS: Finasteride 5 MG Tablet PO (09:52)
--- NOTE | 2019-09-12 10:10 | CASEMGMT ---
JONO CM Readmission Note Previous Admission: COPD Exacerbation Diagnosis: 08/22-08/24 DC Disposition: Home. Home oxygen was set up with [facility] on discharge. F/U appointment was made. Per pt and , they did go to f/u. Current Admission Presentation: Septic Shock. Hypotension, tachycardia, Lactic acid 2.7 Intro role of CM to patient and his . Discussed previous admission. Pt states he was doing very well at home. Independent in ADL's. No concerns until Thursday when he began to have symptoms and came to ER. No concerns re: dc noted. PCP: Dr. Ha Davis DC PLAN: Home [place] CROW RN ACM
[2019-09-12 10:45] LABS: Absolute Neutrophil Count 14.9 X10^3/uL (2.0-7.7); Basophil# 0.02 X10^3/uL; Basophil% 0.1 % (0-1); Hematocrit 32.6 % (40-54); Hemoglobin 9.7 g/dL (13.0-16.5); Lymphocyte % 1.3 % (19-41); Mean Corp Hgb Conc 29.8 g/dL (32-36); Mean Corpuscular Hgb 27.7 pg (27.0-32.0); Mean Corpuscular Volume 93.1 fL (80-94); Mean Platelet Vol. 10.5 fl (6.2-12.0); Monocyte# 0.49 X10^3/uL; Monocyte% 3.1 % (0-10); NRBC Flagged by Analyzer 0 % (0-5); Neutrophil # 14.86 X10^3/uL (2.7-7.7); Neutrophil % 94.4 % (47-70); POSITIVE DIFFERENTIAL YES; POSITIVE MORPHOLOGY YES; Platelet Count 129 K/mm3 (150-450); RBC Distribution Width CV 18.8 % (11.6-14.6); RBC Distribution Width SD 63.9 fl (35.1-43.9); White Blood Count 15.8 K/mm3 (4.4-11.0)
[2019-09-12 10:49] LABS: Differential Indicated SCAN CRITERIA MET
[2019-09-12 10:51] LABS: Anion Gap 6 (5-15); BUN 26 mg/dL (7-18); BUN/Creat Ratio 26.6 RATIO (10-20); Calcium,Total 8.5 mg/dL (8.5-10.1); Chloride 104 mmol/L (98-107); Creatinine, Serum 0.98 mg/dL (0.70-1.30); EST Glomerular Filtration Rate 78 mL/min (>60); Est Glom Filt Rate - Afr Amer 94 mL/min (>60); Estimated Creatinine Clearance 58.97 ml/min; Glucose 154 mg/dL (74-106); Magnesium 2.2 mg/dL (1.6-2.6); Potassium 4.4 mmol/L (3.5-5.1); Sodium Level 138 mmol/L (136-145)
--- NOTE | 2019-09-12 15:36 | NURSING ---
Documentation of SN Laurent reviewed
[2019-09-13] VITALS (35 sets, daily range): BP systolic 94–154; BP diastolic 59–97; PULSE 75–133; RESP 11–20; TEMP 36.3–36.6; O2SAT 91–99
[2019-09-13] MEDS: Albuterol 2.5 MG/3 ML VIAL.NEB. INHALATION (05:25)
[2019-09-13 05:37] LABS: Vancomycin, Trough Level 11.5 ug/mL (5.0-15.0)
--- NOTE | 2019-09-13 06:22 | PCM.PN.INT ---
Subjective: The patient was seen and examined at the bedside this morning. Events from the last 24 hours have been reviewed. The patient is currently afebrile, hemodynamically stable and maintaining appropriate oxygen saturations on 3 L/min via nasal cannula. Last evening, the patient was noted to be back in atrial fibrillation/flutter, for which a continuous IV amiodarone infusion was initiated. The patient tolerated BiPAP utilization overnight. He is currently documented to be overall net +6.1 L for the admission. Objective: The patient's most recent lab work, culture data and imaging studies have all been personally reviewed. Surface echocardiogram revealed moderate concentric LVH with an ejection fraction of 40% and stage II diastolic dysfunction. Pulmonary artery systolic pressure was estimated to be 37 mmHg. Strep and urine Legionella antigens were both negative. Respiratory viral panel was negative. Blood and urine cultures are pending. General: Alert, Cooperative, No apparent distress, - - Sitting in bedside recliner. HEENT: Atraumatic, PERRLA, Normocephalic Oral: No Gingival or Mucosal Lesions/ Ulcerations Neck: Supple, No Nodes, Trachea Midline Lungs: No rhonchi, No wheeze, No rales, Diminished Cardiovascular: Normal S1, Normal S2, Irregular Rate, Murmur, Tachycardic Abdomen: Bowel Sounds Present, Soft, Non Tender Extremities: No clubbing, No cyanosis, No edema Skin: No breakdown Musculoskeletal: No Tenderness to Palpation of Joints or Extremities Lymphatic: No Cervical, Supraclavicular, or Inguinal Adenopathy Neurological: Cranial nerves II-XII grossly intact, Neuro grossly intact Psych/Mental Status: Normal Affect, Appropriate Vital Signs Temp Pulse Resp BP Pulse Ox 97.4 F L 122 H 20 H 94/65 95 09/13/19 00:00 09/13/19 05:00 09/13/19 05:00 09/13/19 05:00 09/13/19 05:00 Oxygen Flow Rate (L/min) 3 Oxygen Delivery Method Nasal Cannula Weight: 175 lb 11.335 oz Body Mass Index (BMI) 24.2 Intake and Output for Last 24 Hours 09/11/19 09/12/19 09/13/19 23:59 23:59 23:59 Intake Total 1752.94 / 1872.94 243.44 / 243.44 Output Total 650 / 1000 350 / 350 Balance 1102.94 / 872.94 -106.56 / -106.56 Labs (Last 48 Hours) 09/11/19 09/12/19 09/12/19 04:00 10:05 10:15 WBC 15.8 H RBC 3.50 L Hgb 9.7 L Hct 32.6 L MCV 93.1 MCH 27.7 MCHC 29.8 L RDW Std Deviation 63.9 H RDW Coeff of Zamzam 18.8 H Plt Count 129 L MPV 10.5 Immature Gran % (Auto) 1.100 H Neut % (Auto) 94.4 H Lymph % (Auto) 1.[address] [place] % (Auto) 3.1 Eos % (Auto) 0.0 Baso % (Auto) 0.1 Absolute Neuts (auto) 14.9 H Absolute Lymphs (auto) 0.20 L Nucleated RBC % 0 Differential Comment COMMENT Polychromasia RARE Anisocytosis 1+ Macrocytosis RARE Ovalocytes 1+ Crenated Cell RARE Schistocytes RARE Sodium 138 Potassium 4.4 Chloride 104 Carbon Dioxide 28.0 Anion Gap 6 BUN 26 H Creatinine 0.98 Estim Creat Clear Calc 58.97 Est GFR (MDRD) Af Amer 94 Est GFR (MDRD) Non-Af 78 BUN/Creatinine Ratio 26.6 H Glucose 154 H Calcium 8.5 Magnesium 2.2 Vancomycin Trough 09/13/19 04:50 WBC RBC Hgb Hct MCV MCH MCHC RDW Std Deviation RDW Coeff of Zamzam Plt Count MPV Immature Gran % (Auto) Neut % (Auto) Lymph % (Auto) [place] % (Auto) Eos % (Auto) Baso % (Auto) Absolute Neuts (auto) Absolute Lymphs (auto) Nucleated RBC % Differential Comment Polychromasia Anisocytosis Macrocytosis Ovalocytes Crenated Cell Schistocytes Sodium Potassium Chloride Carbon Dioxide Anion Gap BUN Creatinine Estim Creat Clear Calc Est GFR (MDRD) Af Amer Est GFR (MDRD) Non-Af BUN/Creatinine Ratio Glucose Calcium Magnesium Vancomycin Trough 11.5 Microbiology 09/11/19 05:00 Urine Catheter - Catheter Streptococcus pneumoniae Antigen (M - Final 09/11/19 05:00 Urine Catheter - Catheter Legionella Antigen - Final 09/11/19 02:45 Mucosa - Nose Respiratory Panel (PCR) - Final Clinical Impression(s) from Imaging Studies Chest X-Ray 09/11/19 00:10 IMPRESSION: COPD, chronic interstitial lung disease, pulmonary fibrosis in the bases. No pulmonary edema, congestive heart failure or confluent pneumonia. Other nonacute findings as outlined above. Electronically Signed: Shayna Tidwell MD at 0:45 EDT , Service support , Renal Ultrasound 09/11/19 07:43 IMPRESSION: Left renal cyst. Prostatic enlargement. Multiple gallstones. Electronically Signed: Esa Hall, at 12:37 EST , Service support , Chest X-Ray 09/11/19 10:55 IMPRESSION: 1. Worsening consolidation in the retrocardiac left lower lobe may represent atelectasis versus pneumonia. 2. Underlying pulmonary fibrosis. 3. Stable appearance of right chest port. Electronically Signed: Jesus Kapoor MD ([place]) at 14:33 EST , Service support , Medical Necessity - Tobacco Use Smoking Status: Former smoker Assessment/Plan All Active Problems (Last Reviewed 09/11/19 @ 04:59 by Norbert Hernandez MD) SIRS (systemic inflammatory response syndrome) (Acute) Septic shock (Acute) Atrial flutter (Acute) COPD exacerbation (Acute) RECOMMENDATIONS: 1. Continue Zosyn, pending finalized infectious work-up. Okay from my perspective to discontinue vancomycin. 2. Given the patient's uncontrolled heart rate, will transition from duo nebs to scheduled Atrovent. 3. Continue to wean supplemental oxygen as tolerated. Continue nocturnal BiPAP therapy. 4. Continue scheduled bronchodilators. IV steroids will be transitioned to prednisone beginning today. 5. Continue amiodarone for now. Consultation will be placed to cardiology. IMPRESSIONS: 1. Septic shock secondary to probable pneumonia versus cystitis Clinical considerations include pulmonary infectious process versus urinary tract source of infection. The patient has responded favorably to the use of Zosyn, which will be continued. The patient remains hemodynamically stable off of vasopressor support. The patient will require a total of 7 days treatment with antibiotics. 2. Acute on chronic combined respiratory failure Likely secondary to exacerbation of underlying obstructive lung disease in the setting of #1. The patient has improved clinically with treatment of the above, along with scheduled bronchodilators and steroids, which will be continued without change. The patient does have a baseline 2 L/min supplemental oxygen requirement. We will plan to continue to wean supplemental oxygen as tolerated. Continue BiPAP therapy with sleep. The patient's IV steroids will be transitioned to prednisone 40 mg daily beginning today. Given the patient's issues with heart rate, his scheduled DuoNeb's have been transition to Atrovent. 3. A flutter/fib with rapid ventricular response/CAD with previous stent Although the patient initially converted to normal sinus rhythm following administration of amiodarone, he again went back into an irregular rhythm last evening. He has since been restarted on his IV amiodarone therapy. Consultation has been placed to cardiology. Echocardiogram has already been completed. 4. History of lung cancer on immunotherapy/advanced age/BPH Complicates care, management, recovery and prognosis. Physical therapy to work with the patient. This note was generated with [employer] dictation software. It may contain incorrect words, spelling, and punctuation that were not noted in checking the note before signing. Code Visit Inpatient E&M: 56028 Subs Hosp L3
--- NOTE | 2019-09-13 06:50 | EKG12_ITS ---
Test Reason : TACHY Blood Pressure : / mmHG Vent. Rate : 121 BPM Atrial Rate : 141 BPM P-R Int : 000 ms QRS Dur : 104 ms QT Int : 340 ms P-R-T Axes : 000 -18 069 degrees QTc Int : 482 ms Atrial flutter with premature ventricular or aberrantly conducted complexes Inferior infarct , age undetermined , cannot be excluded Abnormal ECG Confirmed by DALTON VALLEJO, WEN ([id number]), editor continuity and script COOKIE TORRES ([id number]) on 09/27/2019 2:06:16 PM Referred By: Norbert eHrnandez Confirmed By:WEN HOFFMAN MD
[2019-09-13] MEDS: Ipratropium 0.5 MG/2.5 ML SOLUTION INHALATION ×5 (07:06→22:33)
[2019-09-13] MEDS: predniSONE 20 MG Tablet 40 MG PO (08:08)
--- NOTE | 2019-09-13 09:02 | PCM.PN.HOSP ---
Patient Problems: Active and Suspected Problems (Last Reviewed 09/11/19 @ 04:59 by Norbert Hernandez MD) SIRS (systemic inflammatory response syndrome) (Acute) Septic shock (Acute) COPD exacerbation (Acute) Subjective: Patient seen and examined. He had no complaints this morning. He is on 2L fo oxygen which is his baseline. He went back into Afib with RVR, requiring starting of amiodarone drip again. He also used BiPAP overnight. He denies any palpitations, chest pain or dizziness, diarrhea vomiting. Shortness of breath is improved. Review systems otherwise negative. Cardiology been consulted this morning. Vitals/I&O's: Vital Signs Temp Pulse Resp BP Pulse Ox 97.4 F L 124 H 14 112/83 H 97 09/13/19 00:00 09/13/19 06:00 09/13/19 06:00 09/13/19 06:00 09/13/19 06:00 Oxygen Flow Rate (L/min) 2 Oxygen Delivery Method Nasal Cannula Weight: 175 lb 11.335 oz Body Mass Index (BMI) 24.2 Intake and Output for Last 24 Hours 09/11/19 09/12/19 09/13/19 23:59 23:59 23:59 Intake Total 1752.94 / 1872.94 303.44 / 303.44 Output Total 650 / 1000 650 / 650 Balance 1102.94 / 872.94 -346.56 / -346.56 General: Alert, Oriented x3, Cooperative, No apparent distress HEENT: Atraumatic, PERRLA, EOMI, Normocephalic Oral: Moist Mucosa Neck: Supple, No JVD, Negative Carotid Bruits Lungs: Clear to auscultation, Normal air movement, No rhonchi, No wheeze, No rales Cardiovascular: Normal S1, Normal S2, No murmurs, Irregular Rate, Tachycardic Abdomen: Bowel Sounds Present, Soft, Non Tender, Non-Distended, No Hepato-splenomegaly Extremities: No clubbing, No cyanosis, No edema, Capillary Refill Less than 3 Seconds Skin: No rashes, No breakdown Musculoskeletal: No Tenderness to Palpation of Joints or Extremities Lymphatic: No Cervical, Supraclavicular, or Inguinal Adenopathy Neurological: Cranial nerves II-XII grossly intact, Neuro grossly intact, Motor Exam 5/5 strength throughout Psych/Mental Status: Normal Affect, Appropriate, Alert and oriented to time, place, person, mood and affect Microbiology Past 72 Hours 09/11/19 05:00 Urine, Clean Catch Urine Culture - Final Corynebacterium striatum 09/11/19 05:00 Urine Catheter - Catheter Streptococcus pneumoniae Antigen (M - Final 09/11/19 05:00 Urine Catheter - Catheter Legionella Antigen - Final 09/11/19 02:45 Mucosa - Nose Respiratory Panel (PCR) - Final 09/11/19 00:15 Mucosa - Nasopharyngeal Influenza Types A,B Direct FA (OMAR) - Final Laboratory Results 09/12/19 10:05: WBC 15.8 H, RBC 3.50 L, Hgb 9.7 L, Hct 32.6 L, MCV 93.1, MCH 27.7, MCHC 29.8 L, RDW Std Deviation 63.9 H, RDW Coeff of Zamzam 18.8 H, Plt Count 129 L, MPV 10.5, Immature Gran % (Auto) 1.100 H, Neut % (Auto) 94.4 H, Lymph % (Auto) 1.3 L, [place] % (Auto) 3.1, Eos % (Auto) 0.0, Baso % (Auto) 0.1, Absolute Neuts (auto) 14.9 H, Absolute Lymphs (auto) 0.20 L, Nucleated RBC % 0, Differential Comment COMMENT 09/12/19 10:15: Sodium 138, Potassium 4.4, Chloride 104, Carbon Dioxide 28.0, Anion Gap 6, BUN 26 H, Creatinine 0.98, Estim Creat Clear Calc 58.97, Est GFR (MDRD) Af Amer 94, Est GFR (MDRD) Non-Af 78, BUN/Creatinine Ratio 26.6 H, Glucose 154 H, Calcium 8.5, Magnesium 2.2 09/13/19 04:50: Vancomycin Trough 11.5 Diagnostic Data Renal Ultrasound 09/11/19 07:43 IMPRESSION: Left renal cyst. Prostatic enlargement. Multiple gallstones. Electronically Signed: Esa Hall, at 12:37 EST , Service support , Chest X-Ray 09/11/19 10:55 IMPRESSION: 1. Worsening consolidation in the retrocardiac left lower lobe may represent atelectasis versus pneumonia. 2. Underlying pulmonary fibrosis. 3. Stable appearance of right chest port. Electronically Signed: Jesus Kapoor MD ([place]) at 14:33 EST , Service support , Current Medications Acetaminophen (Tylenol) 650 mg PO Q6H PRN PRN PRN Reason: Pain Score 1-3/Temp > 100.7 F Albuterol Sulfate (Ventolin Aerosols) 2.5 mg INHALATION Q2H PRN PRN PRN Reason: SOB/Wheezing Last Admin: 09/13/19 05:25 Dose: 2.5 mg Documented by: Dextrose (D50w Syringe) 0 gm IV X1 PRN; Protocol PRN Reason: Hypoglycemia Enoxaparin Sodium (Lovenox) 40 mg SC DAILY@1000 [facility] Last Admin: 09/12/19 09:51 Dose: 40 mg Documented by: Finasteride (Proscar) 5 mg PO DAILY [facility] Last Admin: 09/12/19 09:52 Dose: 5 mg Documented by: Glucagon () 1 mg IM .X1 PRN PRN Reason: Hypoglycemia Guaifenesin (Mucinex) 1,200 mg PO BID [facility] Last Admin: 09/12/19 22:36 Dose: 1,200 mg Documented by: Heparin Sodium (Beef Lung) () 50 units IV UD PRN PRN Reason: Port-a-Cath (VAD)Heparin Flush Sodium Chloride () 250 mls @ 15 mls/hr IV .[id number] PRN PRN Reason: Saline Flush Last Infusion: 09/12/19 01:44 Dose: 0 mls/hr Documented by: Piperacillin Sod/Tazobactam (Sod 3.375 gm/ Sodium Chloride) 50 mls @ 12.5 mls/hr IV Q8 [facility] Last Admin: 09/13/19 05:25 Dose: 12.5 mls/hr Documented by: Amiodarone HCl 360 mg/ (Dextrose) 200 mls @ 16.667 mls/hr CONT INF .Q12H [facility] Last Admin: 09/13/19 05:25 Dose: 0.5 mg/min, 16.7 mls/hr Documented by: Ipratropium [place] (Atrovent) 0.5 mg INHALATION Q4H.RT [facility] Last Admin: 09/13/19 07:06 Dose: 0.5 mg Documented by: Melatonin (Melatonin) 3 mg PO QHS PRN PRN PRN Reason: INSOMNIA Ondansetron HCl (Zofran) 4 mg IV Q8H PRN PRN PRN Reason: NAUSEA/VOMITING Prednisone () 40 mg PO DAILY@0800 [facility] Last Admin: 09/13/19 08:08 Dose: 40 mg Documented by: Sodium Chloride () 10 - 40 ml IV UD PRN PRN Reason: Port-a-Cath (VAD) Flush Last Admin: 09/12/19 14:32 Dose: 30 ml Documented by: Sodium Chloride (0.9% Nacl (Sterile) Posiflush) 10 - 40 ml IV UD PRN PRN Reason: Port access or dressing change Sodium Chloride () 10 - 40 ml IV UD PRN PRN Reason: SALINE FLUSH STROKE Vital Signs/Narrative: Vital Signs Pulse Resp BP Pulse Ox 09/13/19 06:00 124 H 14 112/83 H 97 Medical Necessity - Tobacco Use Smoking Status: Former smoker Assessment/Plan All Active Problems (Last Reviewed 09/11/19 @ 04:59 by Norbert Hernandez MD) SIRS (systemic inflammatory response syndrome) (Acute) Septic shock (Acute) COPD exacerbation (Acute) 1. Septic shock due to community acquired pneumonia and UTI resolved. vancomycin dc;d; now on IV zosyn VXR showed worsening consolidation in left lower lobe now off levophed continue IV zosyn blood cultures pending;urine for strep and legionella, as well as Influenza screen were negative urine cultured corynebacdterium striatum 2. Afib with RVR was put on p.o. amiodarone. However he went back into A. fib with RVR overnight necessitating starting of amiodarone drip. Cardiology consulted. Will await recs. 2D echo: EF of 40%, with moderate eccentric left ventricular hypertrophy, and stage 2 diastolic dysfunction; hypokinesia of mid-inderior, inferobasal and basal as well as mid posterior yoon. RVSP is 37mmHg Ashu vas score is at least 4; will need therapeutic anticoagulation will start therapeutic lovenox potassium and Mg are WNL 3. Acute on chronic combined respiratory failure: now on 2L of oxygen, which is his baseline. continue breathing treatments. titrate oxygen to maintain sats>90% continue BIPA with sleep 4. BPH: on finasteride 4. CAD s/p stents: stable 5. History of lung cancer: on immunotherapy. follows with Dr Moreno 6. COPD: on breathing treatments DVT prophylaxis: start therapeutic lovenox Code Visit Inpatient E&M: 40144 Subs Hosp L3
[2019-09-13] MEDS: Enoxaparin 40 MG/0.4 ML Syringe SC (09:51)
[2019-09-13] MEDS: Finasteride 5 MG Tablet PO (09:52)
[2019-09-13] MEDS: guaiFENesin 1,200 MG Tablet 1200 MG PO ×2 (09:52→21:18)
--- NOTE | 2019-09-13 10:21 | CASEMGMT ---
SW let pt and know that LW/POA forms are not on file, and asked them to bring in the forms as able. Both state understanding. TANGELA Mike
--- NOTE | 2019-09-13 10:54 | CASEMGMT ---
SW reviewed information w/pt and about palliative care and gave them a brochure. SW explained if he would like further information he can call or speak w/his PCP about it. Pt and state understanding. SW will also make referral should pt be interested. TANGELA Mike
[2019-09-13] MEDS: Polyethylene Glycol 3350 17 GM PACKET PO (12:52)
[2019-09-13 17:36] LABS: Partial Thromboplast Time 30.6 Seconds (24.1-36.2); Prothrombin Time (Protime)PT. 12.6 SECONDS (11.7-14.9)
[2019-09-13] MEDS: HEPARIN/D5w 25,000 UNITS 25,000 UNITS/250 ML IV.SOLN. 11 UNITS IV (18:17)
[2019-09-13] MEDS: Heparin Injection (Vial) 5,000 UNIT/ML VIAL 5000 UNIT IV (18:18)
--- NOTE | 2019-09-13 18:31 | PCM.CONS.C ---
Problem List (1) Atrial flutter Status: Acute (2) Coronary artery disease Status: Chronic Qualifiers: Coronary Disease-Associated Artery/Lesion type: [place] artery [place] vs. transplanted heart: [place] heart Associated angina: without angina Qualified Code(s): I25.10 - Atherosclerotic heart disease of [place] coronary artery without angina pectoris (3) S/P PTCA (percutaneous transluminal coronary angioplasty) Status: Chronic (4) Cardiomyopathy Status: Chronic Qualifiers: Cardiomyopathy type: ischemic Qualified Code(s): I25.5 - Ischemic cardiomyopathy (5) Septic shock Status: Acute (6) Stage 4 very severe COPD by GOLD classification Status: Chronic Comment: FEV1 41% of predicted (7) Primary cancer of left lower lobe of lung Status: Chronic (8) HTN (hypertension) Status: Chronic Reason for Consult Date of Consultation: 09/13/19 History of Present Illness: The patient is a 83 year [id number]-lro white male who referred for evaluation of atrial flutter superimposed upon a history of CAD, status post PCI, ischemic mediated cardiomyopathy, COPD, lung carcinoma (reportedly in remission per the patient), and sepsis syndrome. The patient states that he had not been feeling well recently. He was noting progressive shortness of breath and dyspnea. He eventually presented to the hospital. Based upon his clinical course, a fever, a lactic acid level, he was placed in the ICU for concerns of an underlying sepsis syndrome. He was treated medically including IV antibiotics. During this time he was noted to go from sinus rhythm to atrial flutter. He was treated with IV amiodarone therapy. He had conversion back to sinus rhythm. However he has now reverted back to atrial flutter. He has continued with medical management. He states his previous cardiovascular diagnosis was made several years ago in the [facility]. He does not recall the details. He does not recall any history of cardiac dysrhythmias. He states his main concern has been his shortness of breath and dyspnea as opposed to chest discomfort. He does not recall any near syncopal or syncopal events. He had troponin I levels which were negative. His ECG demonstrated sinus rhythm with nonspecific ST and T wave abnormality and subsequently atrial flutter with nonspecific ST and T wave abnormality. He is also undergone evaluation with a transthoracic echocardiogram. The results are as noted below. [] Past Medical History Allergies/Adverse Reactions: Allergies amoxicillin Adverse Reaction (Severe, Verified 09/06/19 08:11) Nausea/Vom/Diarrhea Gadolinium-MRI Contrast Medium [DYE] Adverse Reaction (Severe, Verified 09/06/19 08:11) Nausea/Vom/Diarrhea rice Adverse Reaction (Severe, Verified 09/06/19 08:11) Vomiting Home Medications: Ambulatory Orders Medication Instructions Recorded finasteride 5 mg tablet 1 tab PO DAILY 90 Days #90 02/10/18 budesonide-formoterol HFA 160 2 puff INHALATION BID #1 ea 12/06/18 mcg-4.5 mcg/actuation aerosol inhaler Ipratropium/Albuterol Respimat 1 puff INHALATION PRN PRN 02/17/19 [Combivent Respimat Inhal [place]] Furosemide [Lasix] 20 mg PO DAILY 08/22/19 Albuterol Inhaler [Ventolin Hfa] 2 puff INHALATION Q6H PRN PRN #2 08/24/19 inhaler Oxygen, Home [Home Oxygen] 2 lpm NASAL CONT #1 unit 08/24/19 prednisone 10 mg tablet 10 mg PO QDAY #30 tab 09/06/19 tiotropium bromide 2.5 2 puff INHALATION QDAY #1 ea 09/06/19 mcg/actuation mist for inhalation Past Medical History (Chronic Problems): Chronic Problems (Last Reviewed 09/11/19 @ 04:59 by Norbert Hernandez MD) Coronary artery disease (Chronic) Acute on chronic respiratory failure with hypoxia (Chronic) S/P PTCA (percutaneous transluminal coronary angioplasty) (Chronic) Cardiomyopathy (Chronic) Anemia (Chronic) Immunotherapy (Chronic) Hx of heart artery stent (Chronic) 2013 HTN (hypertension) (Chronic) Stroke (Chronic) Primary cancer of left lower lobe of lung (Chronic) Regional lymph node metastasis present (Chronic) Chronic respiratory failure with hypoxia (Chronic) Stage 4 very severe COPD by GOLD classification (Chronic) FEV1 41% of predicted Surgical History: tonsillectomy, - - Cardiac stents. Psychiatric History: No pertinent psych hx - *Family History Maternal Family History: Family History (Last Reviewed 09/11/19 @ 04:59 by Norbert Hernandez MD) Other No pertinent family history History Items: - - His mother young so patient does not know his maternal medical history. Paternal Family History: Family History (Last Reviewed 09/11/19 @ 04:59 by Norbert Hernandez MD) Other No pertinent family history History Items: - - His father when patient was young so patient does not know his maternal medical history. Lives: Spouse/ Significant Other Smoking Status: Former smoker Alcohol: None Drugs: None Review of Systems - Review of Systems General: Reports: Fever. Denies: Fatigue, Night Sweats Cardiovascular: Reports: Shortness of Breath, Shortness of Breath at Rest, Shortness of Breath with Exertion. Denies: Chest Discomfort, Orthopnea, PND, Peripheral Edema, Palpitations, Lightheadedness, Dizziness, Near Syncope, Syncope Respiratory: Reports: Shortness of Breath. Denies: Cough, Sputum Production, Hemoptysis Gastrointestinal: Denies: Hematemesis, Hematochezia, Melena Genitourinary: Denies: Dysuria, Hematuria Skin: Denies: Rash Subjectve: This is an 83-year-old white male who appears to be resting recently comfortably at the moment in no acute distress. Objective: Vital Signs Temp Pulse Resp BP Pulse Ox 97.6 F L 105 H 12 132/69 H 93 09/13/19 16:00 09/13/19 18:00 09/13/19 18:00 09/13/19 18:00 09/13/19 18:00 Oxygen Flow Rate (L/min) 2 Oxygen Delivery Method Nasal Cannula Weight: 175 lb 11.335 oz Body Mass Index (BMI) 24.2 Intake and Output for Last 24 Hours 09/11/19 09/12/19 09/13/19 23:59 23:59 23:59 Intake Total 1752.94 / 1872.94 1988. / 1988. Output Total 650 / 1000 1125 / 1125 Balance 1102.94 / 872.94 864.27 / 864.27 General: Awake, Alert, Oriented x 3, Cooperative, No Acute Distress HEENT: Atraumatic, Normocephalic, PERRL, EOMI, Sclera Non Icteric Oral: Moist Mucosa Neck: Supple, Good ROM, No JVD Lungs: Diminished Saad Bases Cardiovascular: Irregular Rhythm, Normal S1, Normal S2 Vascular: No Carotid Bruits Abdomen: Bowel Sounds Present, Soft, Non Tender Extremities: No edema Neurological: No Focal Motor or Sensory Deficit Psych/Mental Status: Appropriate 09/13/19 17:00: PT 12.6, INR 1.0, APTT 30.6 Rhythm: Atrial flutter EKG: As noted above ECHO: Interpretation Summary Normal LV size. Moderate eccentric left ventricular hypertrophy. The estimated ejection fraction is 40 %. Stage 2 diastolic dysfunction. The left atrium is moderately enlarged. The right atrium is mildly enlarged. Mild (1+) eccentric mitral valve insufficiency. Pulmonary artery systolic pressure is 37 mmHg. Compared to previous study, the left ventricular systolic function is the same.. The global longitudinal strain = -15.2% (abnormal). CXR: Reported as demonstrating a left lower lobe infiltrate; see official report Assessment/Plan 1. Atrial flutter The patient presented in sinus rhythm. He subsequently was noted to have atrial flutter which then spontaneously reverted to sinus rhythm which has returned to atrial flutter. The etiology may be multifactorial. This could be related to a combination of his underlying cardiovascular disease process, his pulmonary disease process, his sepsis syndrome, etc. At the present time he is continuing rate control therapy. This will include agents such as IV diltiazem. He is on IV amiodarone therapy and attempt to regain sinus rhythm. He has been placed on anticoagulant therapy with IV heparin. If he does not regain sinus rhythm then he may be considered, as his atrial flutter occurred during his hospitalization and has been paroxysmal, for an attempt at regaining sinus rhythm with synchronized biphasic DC cardioversion. Pending upon the patient's clinical course he may need continued rate control therapy and antiarrhythmic therapy and anticoagulant therapy. He may eventually need consideration by electrophysiology for an atrial flutter ablation procedure. 2. Nonsustained wide-complex tachycardia The patient did have an episode of nonsustained wide-complex tachycardia. There would be concerns based upon his history that this could be related to nonsustained VT. At the moment he appears without any acute symptoms. He will continue medical therapy and evaluation care as noted above. 3. CAD status post PCI The details of the patient's CAD history is unknown. The patient and spouse state they believe they were were told that he did have a heart attack several years ago in [place]. He does not know the details of his cardiovascular evaluation or care. At the moment he appears to be without symptoms of acute coronary syndrome. He will continue to be monitored. He will continue medical therapy as deemed appropriate. Over time he may need a reassessment of his underlying CAD process. This may include future noninvasive and/or invasive studies. 4. Ischemic mediated cardiomyopathy The patient does appear to have an underlying ischemic mediated cardiomyopathy based upon his history. He has had a previous transthoracic echocardiogram that demonstrated similar diminished LV systolic function/LVEF. He does need to be monitored for any concerns of acute CHF or pulmonary edema. He should continue medical management for his cardia myopathy as deemed appropriate. 5. COPD The patient has significant COPD. He will continue evaluation care per pulmonology. 6. Lung carcinoma The patient has been diagnosed with lung carcinoma. He states he is gone through chemotherapy and radiation therapy. He has had no surgical intervention. He states he has been told that he is in remission at this time. 7. Sepsis syndrome The patient has been evaluated and was diagnosed with a sepsis syndrome. He is continued evaluation care per the ICU staff. 8. Hypertension The patient has a history of hypertension. His blood pressures will need to be followed. His medication can be adjusted as needed. The patient's case has been previously discussed with Dr. Becerril. This note was generated using a voice recognition system and there may be incorrect words, spelling or punctuation that were not noted when reviewing the office note prior to saving.
[2019-09-13] MEDS: 0.9% Saline Lock 10 ML Syringe IV (19:07)
[2019-09-13] MEDS: Furosemide 40 MG/4 ML Vial IV (19:07)
--- NOTE | 2019-09-13 23:20 | NURSING ---
phyliciaw at bedside discussing POC.
[2019-09-14] VITALS (30 sets, daily range): BP systolic 97–145; BP diastolic 59–83; PULSE 55–796; RESP 10–26; TEMP 36.2–36.9; O2SAT 89–99
[2019-09-14 00:34] LABS: Partial Thromboplast Time 63.5 Seconds (24.1-36.2)
[2019-09-14] MEDS: 0.9% Saline Lock 10 ML Syringe IV (05:35)
--- NOTE | 2019-09-14 05:55 | EKG12_ITS ---
Test Reason : POST CARDIOVERSION Blood Pressure : / mmHG Vent. Rate : 060 BPM Atrial Rate : 060 BPM P-R Int : 140 ms QRS Dur : 098 ms QT Int : 458 ms P-R-T Axes : 047 -01 027 degrees QTc Int : 458 ms Sinus rhythm with occasional Premature ventricular complexes Inferior infarct , age undetermined , cannot be excluded Abnormal ECG Confirmed by DALTON VALLEJO, WEN ([id number]), greeting card editor COOKIE TORRES ([id number]) on 09/27/2019 2:02:38 PM Referred By: Norbert Hernandez Confirmed By:WEN HOFFMAN MD
[2019-09-14 06:01] LABS: Absolute Lymphocyte Count 0.38 X10^3/uL (0.83-4.51); Absolute Neutrophil Count 12.7 X10^3/uL (2.0-7.7); Basophil# 0.02 X10^3/uL; Basophil% 0.1 % (0-1); Hematocrit 33.4 % (40-54); Hemoglobin 10.5 g/dL (13.0-16.5); Lymphocyte # 0.38 X10^3/ul (4.0); Lymphocyte % 2.7 % (19-41); Mean Corp Hgb Conc 31.4 g/dL (32-36); Mean Corpuscular Hgb 28.5 pg (27.0-32.0); Mean Corpuscular Volume 90.5 fL (80-94); Mean Platelet Vol. 10.9 fl (6.2-12.0); Monocyte# 0.61 X10^3/uL; Monocyte% 4.4 % (0-10); NRBC Flagged by Analyzer 0 % (0-5); Neutrophil % 91.9 % (47-70); POSITIVE DIFFERENTIAL YES; POSITIVE MORPHOLOGY YES; Platelet Count 157 K/mm3 (150-450); RBC Distribution Width CV 19.2 % (11.6-14.6); RBC Distribution Width SD 63.9 fl (35.1-43.9); Red Blood Count 3.69 M/mm3 (4.6-6.2); White Blood Count 13.8 K/mm3 (4.4-11.0)
[2019-09-14 06:05] LABS: Differential Indicated SCAN CRITERIA MET
[2019-09-14 06:15] LABS: Anion Gap 5 (5-15); BUN 36 mg/dL (7-18); BUN/Creat Ratio 35.3 RATIO (10-20); Chloride 100 mmol/L (98-107); Creatinine, Serum 1.02 mg/dL (0.70-1.30); EST Glomerular Filtration Rate 74 mL/min (>60); Est Glom Filt Rate - Afr Amer 90 mL/min (>60); Estimated Creatinine Clearance 56.66 ml/min; Glucose 127 mg/dL (74-106); Sodium Level 139 mmol/L (136-145)
--- NOTE | 2019-09-14 06:31 | PN_ITS ---
Subjective: The patient was seen and examined at the bedside this morning. Events from the last 24 hours have been reviewed. The patient is currently afebrile, hemodynamically stable and maintaining appropriate oxygen saturations on 2 L/min via nasal cannula. The patient tolerated BiPAP overnight for approximately 4 hours. He remains in rate controlled atrial flutter. Given the patient's overall volume status for the hospital stay, he was administered IV Lasix x1 last evening. The patient is currently on amiodarone, Cardizem and weight-based heparin infusion following evaluation by cardiology. Objective: The patient's most recent lab work, culture data and imaging studies have all been personally reviewed. Surface echocardiogram revealed moderate concentric LVH with an ejection fraction of 40% and stage II diastolic dysfunction. Pulmonary artery systolic pressure was estimated to be 37 mmHg. Strep and urine Legionella antigens were both negative. Respiratory viral panel was negative. General: Alert, Cooperative, No apparent distress HEENT: Atraumatic, PERRLA, Normocephalic Oral: No Gingival or Mucosal Lesions/ Ulcerations Neck: Supple, No Nodes, Trachea Midline Lungs: No rhonchi, No wheeze, No rales, Diminished Cardiovascular: Normal S1, Normal S2, Irregular Rate Abdomen: Bowel Sounds Present, Soft, Non Tender Extremities: No clubbing, No cyanosis, No edema Skin: No breakdown Musculoskeletal: No Tenderness to Palpation of Joints or Extremities, No Muscle Wasting Lymphatic: No Cervical, Supraclavicular, or Inguinal Adenopathy Neurological: Cranial nerves II-XII grossly intact, Neuro grossly intact Psych/Mental Status: Normal Affect, Appropriate Vital Signs Temp Pulse Resp BP Pulse Ox 98.0 F 80 20 H 115/69 94 09/14/19 00:00 09/14/19 06:00 09/14/19 06:00 09/14/19 06:00 09/14/19 06:00 Oxygen Flow Rate (L/min) 2 Oxygen Delivery Method Nasal Cannula Weight: 177 lb 0.499 oz Body Mass Index (BMI) 24.2 Intake and Output for Last 24 Hours 09/12/19 09/13/19 09/14/19 23:59 23:59 23:59 Intake Total 1752.94 / 1872.94 2236.11 / 2444.28 556.81 / 556.81 Output Total 650 / 1000 1125 / 3125 2775 / 2775 Balance 1102.94 / 872.94 1111.11 / -680.72 -2218.19 / -2218.19 Labs (Last 48 Hours) 09/12/19 09/12/19 09/13/19 10:05 10:15 04:50 WBC 15.8 H RBC 3.50 L Hgb 9.7 L Hct 32.6 L MCV 93.1 MCH 27.7 MCHC 29.8 L RDW Std Deviation 63.9 H RDW Coeff of Zamzam 18.8 H Plt Count 129 L MPV 10.5 Immature Gran % (Auto) 1.100 H Neut % (Auto) 94.4 H Lymph % (Auto) 1.3 L Armstrong % (Auto) 3.1 Eos % (Auto) 0.0 Baso % (Auto) 0.1 Absolute Neuts (auto) 14.9 H Absolute Lymphs (auto) 0.20 L Nucleated RBC % 0 Differential Comment COMMENT PT INR APTT Sodium 138 Potassium 4.4 Chloride 104 Carbon Dioxide 28.0 Anion Gap 6 BUN 26 H Creatinine 0.98 Estim Creat Clear Calc 58.97 Est GFR (MDRD) Af Amer 94 Est GFR (MDRD) Non-Af 78 BUN/Creatinine Ratio 26.6 H Glucose 154 H Calcium 8.5 Magnesium 2.2 Vancomycin Trough 11.5 09/13/19 09/14/19 09/14/19 17:00 00:15 05:40 WBC 13.8 H RBC 3.69 L Hgb 10.5 L Hct 33.4 L MCV 90.5 MCH 28.5 MCHC 31.4 L RDW Std Deviation 63.9 H RDW Coeff of Zamzam 19.2 H Plt Count 157 MPV 10.9 Immature Gran % (Auto) 0.900 Neut % (Auto) 91.9 H Lymph % (Auto) 2.7 L Armstrong % (Auto) 4.4 Eos % (Auto) 0.0 Baso % (Auto) 0.1 Absolute Neuts (auto) 12.7 H Absolute Lymphs (auto) 0.38 L Nucleated RBC % 0 Differential Comment PT 12.6 INR 1.0 APTT 30.6 63.5 H Sodium Potassium Chloride Carbon Dioxide Anion Gap BUN Creatinine Estim Creat Clear Calc Est GFR (MDRD) Af Amer Est GFR (MDRD) Non-Af BUN/Creatinine Ratio Glucose Calcium Magnesium Vancomycin Trough 09/14/19 09/14/19 05:40 05:40 WBC RBC Hgb Hct MCV MCH MCHC RDW Std Deviation RDW Coeff of Zamzam Plt Count MPV Immature Gran % (Auto) Neut % (Auto) Lymph % (Auto) Armstrong % (Auto) Eos % (Auto) Baso % (Auto) Absolute Neuts (auto) Absolute Lymphs (auto) Nucleated RBC % Differential Comment PT INR APTT 57.0 H Sodium 139 Potassium 4.0 Chloride 100 Carbon Dioxide 34.0 H Anion Gap 5 BUN 36 H Creatinine 1.02 Estim Creat Clear Calc 56.66 Est GFR (MDRD) Af Amer 90 Est GFR (MDRD) Non-Af 74 BUN/Creatinine Ratio 35.3 H Glucose 127 H Calcium 9.0 Magnesium Vancomycin Trough Microbiology 09/11/19 00:45 Blood Culture (Wb) - Port Blood Culture - Preliminary No growth in 48 hours. 09/11/19 00:05 Blood Culture (Wb) - Anticubital Left Blood Culture - Preliminary No growth in 48 hours. 09/11/19 05:00 Urine, Clean Catch Urine Culture - Final Corynebacterium striatum Clinical Impression(s) from Imaging Studies Chest X-Ray 09/11/19 00:10 IMPRESSION: COPD, chronic interstitial lung disease, pulmonary fibrosis in the bases. No pulmonary edema, congestive heart failure or confluent pneumonia. Other nonacute findings as outlined above. Electronically Signed: Shayna Tidwell MD at 0:45 EDT , Service support , Renal Ultrasound 09/11/19 07:43 IMPRESSION: Left renal cyst. Prostatic enlargement. Multiple gallstones. Electronically Signed: Esa Hall, at 12:37 EST , Service support , Chest X-Ray 09/11/19 10:55 IMPRESSION: 1. Worsening consolidation in the retrocardiac left lower lobe may represent atelectasis versus pneumonia. 2. Underlying pulmonary fibrosis. 3. Stable appearance of right chest port. Electronically Signed: Jesus Kapoor MD ([place]) at 14:33 EST , Service support , Medical Necessity - Tobacco Use Smoking Status: Former smoker Assessment/Plan All Active Problems (Last Reviewed 09/11/19 @ 04:59 by Norbert Hernandez MD) SIRS (systemic inflammatory response syndrome) (Acute) Septic shock (Acute) Atrial flutter (Acute) COPD exacerbation (Acute) RECOMMENDATIONS: 1. Transition from Zosyn to Levaquin to complete 7-day treatment course. 2. Continue scheduled Atrovent and prednisone. 3. Continue to wean supplemental oxygen as tolerated. Continue nocturnal BiPAP therapy. 4. Continue rate/rhythm control strategy per cardiology recommendations. IMPRESSIONS: 1. Septic shock secondary to probable pneumonia versus cystitis Clinical considerations include pulmonary infectious process versus urinary tract source of infection. The patient has responded favorably to the use of Zosyn. The patient remains hemodynamically stable off of vasopressor support. The patient will require a total of 7 days treatment with antibiotics. 2. Acute on chronic combined respiratory failure Likely secondary to exacerbation of underlying obstructive lung disease in the setting of #1. The patient has improved clinically with treatment of the above, along with scheduled bronchodilators and steroids, which will be continued without change. The patient does have a baseline 2 L/min supplemental oxygen requirement. We will plan to continue to wean supplemental oxygen as tolerated. Continue BiPAP therapy with sleep. Continue scheduled bronchodilators and prednisone. The patient will require a taper at discharge. 3. A flutter/fib with rapid ventricular response/CAD with previous stent Although the patient initially converted to normal sinus rhythm following administration of amiodarone, he again went back into an irregular rhythm. Echocardiogram has already been completed. Cardiology is currently following to assist with rate/rhythm controlled management. Consideration is being given to performing a cardioversion. 4. History of lung cancer on immunotherapy/advanced age/BPH Complicates care, management, recovery and prognosis. Physical therapy to work with the patient. This note was generated with [employer] software. It may contain incorrect words, spelling, and punctuation that were not noted in checking the note before signing. Code Visit Inpatient E&M: 78763 Subs Hosp L3
[2019-09-14] MEDS: Ipratropium 0.5 MG/2.5 ML SOLUTION INHALATION ×3 (06:37→19:10)
--- NOTE | 2019-09-14 09:20 | PN_ITS ---
Patient Problems: Active and Suspected Problems (Last Reviewed 09/11/19 @ 04:59 by Norbert Hernandez MD) SIRS (systemic inflammatory response syndrome) (Acute) Septic shock (Acute) Atrial flutter (Acute) COPD exacerbation (Acute) Subjective: Patient seen and examined. He has no complaints this morning and feels well. He denies any palpitations or dizziness, fever or chills, shortness of breath, chest pain, diarrhea vomiting. Heart rate remained poorly controlled and so he had to have Cardizem drip added onto amiodarone drip yesterday. Metal Cutter on board and plan is for DC cardioversion today. Vitals/I&O's: Vital Signs Temp Pulse Resp BP Pulse Ox 98.0 F 77 16 115/69 94 09/14/19 00:00 09/14/19 08:00 09/14/19 06:39 09/14/19 06:00 09/14/19 06:39 Oxygen Flow Rate (L/min) 3 Oxygen Delivery Method Nasal Cannula Weight: 177 lb 0.499 oz Body Mass Index (BMI) 24.2 Intake and Output for Last 24 Hours 09/12/19 09/13/19 09/14/19 23:59 23:59 23:59 Intake Total 1752.94 / 1872.94 2236.11 / 2444.28 556.81 / 556.81 Output Total 650 / 1000 1125 / 3125 2775 / 2775 Balance 1102.94 / 872.94 1111.11 / -680.72 -2218.19 / -2218.19 General: Alert, Oriented x3, Cooperative, No apparent distress HEENT: Atraumatic, PERRLA, EOMI, Normocephalic Oral: Moist Mucosa Neck: Supple, No JVD, Negative Carotid Bruits Lungs: Clear to auscultation, Normal air movement, No rhonchi, No wheeze, No rales; on 3L of oxygen Cardiovascular: Normal S1, Normal S2, No murmurs, Irregular Rate, Tachycardic Abdomen: Bowel Sounds Present, Soft, Non Tender, Non-Distended, No Hepato- splenomegaly Extremities: No clubbing, No cyanosis, No edema, Capillary Refill Less than 3 Seconds Skin: No rashes, No breakdown Musculoskeletal: No Tenderness to Palpation of Joints or Extremities Lymphatic: No Cervical, Supraclavicular, or Inguinal Adenopathy Neurological: Cranial nerves II-XII grossly intact, Neuro grossly intact, Motor Exam 5/5 strength throughout Psych/Mental Status: Normal Affect, Appropriate, Alert and oriented to time, place, person, mood and affect Microbiology Past 72 Hours 09/11/19 00:45 Blood Culture (Wb) - Port Blood Culture - Preliminary No growth in 48 hours. 09/11/19 00:05 Blood Culture (Wb) - Anticubital Left Blood Culture - Preliminary No growth in 48 hours. 09/11/19 05:00 Urine, Clean Catch Urine Culture - Final Corynebacterium striatum 09/11/19 05:00 Urine Catheter - Catheter Streptococcus pneumoniae Antigen (M - Final 09/11/19 05:00 Urine Catheter - Catheter Legionella Antigen - Final 09/11/19 02:45 Mucosa - Nose Respiratory Panel (PCR) - Final Laboratory Results 09/13/19 17:00: PT 12.6, INR 1.0, APTT 30.6 09/14/19 00:15: APTT 63.5 H 09/14/19 05:40: WBC 13.8 H, RBC 3.69 L, Hgb 10.5 L, Hct 33.4 L, MCV 90.5, MCH 28.5, MCHC 31.4 L, RDW Std Deviation 63.9 H, RDW Coeff of Zamzam 19.2 H, Plt Count 157, MPV 10.9, Immature Gran % (Auto) 0.900, Neut % (Auto) 91.9 H, Lymph % (Auto) 2.7 L, [place] % (Auto) 4.4, Eos % (Auto) 0.0, Baso % (Auto) 0.1, Absolute Neuts (auto) 12.7 H, Absolute Lymphs (auto) 0.38 L, Nucleated RBC % 0 09/14/19 05:40: Sodium 139, Potassium 4.0, Chloride 100, Carbon Dioxide 34.0 H, Anion Gap 5, BUN 36 H, Creatinine 1.02, Estim Creat Clear Calc 56.66, Est GFR (MDRD) Af Amer 90, Est GFR (MDRD) Non-Af 74, BUN/Creatinine Ratio 35.3 H, Glucose 127 H, Calcium 9.0 09/14/19 05:40: APTT 57.0 H Diagnostic Data Renal Ultrasound 09/11/19 07:43 IMPRESSION: Left renal cyst. Prostatic enlargement. Multiple gallstones. Electronically Signed: Esa Rafael, at 12:37 EST , Service support , Chest X-Ray 09/11/19 10:55 IMPRESSION: 1. Worsening consolidation in the retrocardiac left lower lobe may represent atelectasis versus pneumonia. 2. Underlying pulmonary fibrosis. 3. Stable appearance of right chest port. Electronically Signed: Jesus Kapoor MD ([place]) at 14:33 EST , Service support , Current Medications Acetaminophen (Tylenol) 650 mg PO Q6H PRN PRN PRN Reason: Pain Score 1-3/Temp > 100.7 F Albuterol Sulfate (Ventolin Aerosols) 2.5 mg INHALATION Q2H PRN PRN PRN Reason: SOB/Wheezing Last Admin: 09/13/19 05:25 Dose: 2.5 mg Documented by: Dextrose (D50w Syringe) 0 gm IV X1 PRN; Protocol PRN Reason: Hypoglycemia Finasteride (Proscar) 5 mg PO DAILY [facility] Last Admin: 09/13/19 09:52 Dose: 5 mg Documented by: Glucagon () 1 mg IM .X1 PRN PRN Reason: Hypoglycemia Guaifenesin (Mucinex) 1,200 mg PO BID [facility] Last Admin: 09/13/19 21:18 Dose: 1,200 mg Documented by: Heparin Sodium (Beef Lung) () 50 units IV UD PRN PRN Reason: Port-a-Cath (VAD)Heparin Flush Heparin Sodium (Porcine) (Heparin Na) 0 unit IV UD PRN; Protocol Sodium Chloride () 250 mls @ 15 mls/hr IV .[id number] PRN PRN Reason: Saline Flush Last Infusion: 09/14/19 02:33 Dose: 0 mls/hr Documented by: Piperacillin Sod/Tazobactam (Sod 3.375 gm/ Sodium Chloride) 50 mls @ 12.5 mls/hr IV Q8 [facility] Last Admin: 09/14/19 05:34 Dose: 12.5 mls/hr Documented by: Amiodarone HCl 360 mg/ (Dextrose) 200 mls @ 16.667 mls/hr CONT INF .Q12H [facility] Last Admin: 09/14/19 05:36 Dose: 0.5 mg/min, 16.7 mls/hr Documented by: Diltiazem HCl 125 mg/ Dextrose 125 mls @ 5 mls/hr IV .Q25H [facility]; Protocol Last Titration: 09/14/19 06:00 Dose: 10 mg/hr, 10 mls/hr Documented by: Heparin Sodium/Dextrose () 25,000 units in 250 mls @ 11 mls/hr IV .[id number] [facility]; Protocol Last Titration: 09/14/19 05:30 Dose: 1,100 units/hr, 11 mls/hr Documented by: Ipratropium [place] (Atrovent) 0.5 mg INHALATION Q4H.RT [facility] Last Admin: 09/14/19 06:37 Dose: 0.5 mg Documented by: Melatonin (Melatonin) 3 mg PO QHS PRN PRN PRN Reason: INSOMNIA Ondansetron HCl (Zofran) 4 mg IV Q8H PRN PRN PRN Reason: NAUSEA/VOMITING Polyethylene Glycol (Miralax) 17 gm PO BID [facility] Last Admin: 09/13/19 21:18 Dose: Not Given Documented by: Prednisone () 40 mg PO DAILY@0800 [facility] Last Admin: 09/13/19 08:08 Dose: 40 mg Documented by: Sodium Chloride () 10 - 40 ml IV UD PRN PRN Reason: Port-a-Cath (VAD) Flush Last Admin: 09/14/19 05:35 Dose: 20 ml Documented by: Sodium Chloride (0.9% Nacl (Sterile) Posiflush) 10 - 40 ml IV UD PRN PRN Reason: Port access or dressing change Sodium Chloride () 10 - 40 ml IV UD PRN PRN Reason: SALINE FLUSH STROKE Vital Signs/Narrative: Vital Signs Pulse Resp BP Pulse Ox 09/14/19 08:00 77 09/14/19 06:39 84 16 94 09/14/19 06:00 80 20 H 115/69 94 Medical Necessity - Tobacco Use Smoking Status: Former smoker Assessment/Plan All Active Problems (Last Reviewed 09/11/19 @ 04:59 by Norbert Hernandez MD) SIRS (systemic inflammatory response syndrome) (Acute) Septic shock (Acute) Atrial flutter (Acute) COPD exacerbation (Acute) 1. Septic shock due to community acquired pneumonia and UTI * resolved. * vancomycin dc;d; now on IV zosyn * continue IV zosyn * blood cultures showed no growth in 48 hours;urine for strep and legionella, as well as Influenza screen were negative * urine cultured corynebacterium striatum * wbc trended down to 13.8 * 2. Afib with RVR * now on IV cardizem and amiodarone drip * 2D echo: EF of 40%, with moderate eccentric left ventricular hypertrophy, and stage 2 diastolic dysfunction; hypokinesia of mid-inderior, inferobasal and basal as well as mid posterior yoon. RVSP is 37mmHg * Ashu vas score is at least 4; on heparin drip * potassium and Mg are WNL 3. Acute on chronic combined respiratory failure: * now on 3l of oxygen, his baseline is 2L of oxygen * continue breathing treatments. * titrate oxygen to maintain sats>90% * continue BIPA with sleep 4. BPH: on finasteride 4. CAD s/p stents: stable 5. History of lung cancer: on immunotherapy. follows with Dr Petersen 6. COPD: on breathing treatments DVT prophylaxis: on heparin drip Code Visit Inpatient E&M: [id number] [facility] L3
--- NOTE | 2019-09-14 10:16 | CASEMGMT ---
RN CM Note: Intro role of CM to patient and his . [employer] card explained. Discussed dc planning. Pt is independent, does not use ambulatory DME, oxygen or cpap. is able to assist pt if needed. No dc needs identified at this time. DC PLan: Home. Fransisco CROW RN ACM
--- NOTE | 2019-09-14 13:25 | NURSING ---
cardioverted x1 50 joules converted to sr hr 64, meds per dr petty 1323 6 mg etomadate
--- NOTE | 2019-09-14 13:31 | CASEMGMT ---
RN CM Note: [email or web address] and delivery has been held as he is in hospital. Kae would like notified when pt is dc'd and they can deliver to home, or if pt remains here with weekend delivery, Kae states she can bring unit to hospital on Thursday. MICAH Pal PHONE: x [phone].
--- NOTE | 2019-09-14 13:33 | PCM.OP.PRO ---
Procedure Report Date of Procedure: 09/14/19 CONSCIOUS SEDATION REPORT DATE OF SERVICE: September 14, 2019 BRIEF HISTORY OF PRESENT ILLNESS: The patient is an 83-year-old male who was initially admitted to the hospital with septic shock and subsequently went on to develop new onset atrial flutter. The patient is currently anticoagulated on weight-based heparin. He is currently receiving amiodarone and continuous Cardizem infusions. His surface echocardiogram revealed an ejection fraction of approximately 40%. The patient does have known COPD along with a baseline supplemental oxygen requirement. He has never had any prior anesthetic complications. PHYSICAL EXAMINATION: VITAL SIGNS: Reviewed and were acceptable. GENERAL: The patient is a male, in no apparent distress, speaking in full sentences. HEENT: Normocephalic, atraumatic. Mucous membranes are moist and pink. Good mouth opening noted. Trachea is midline. Good neck mobility. CHEST: S1, S2 irregularly irregular. No murmurs, rubs or gallops were noted. LUNGS: Diminished bilaterally without appreciable wheezes, rales or rhonchi. ABDOMEN: Soft, nontender, nondistended. Positive bowel sounds. EXTREMITIES: There is no clubbing, cyanosis or edema. ASA Class: II DESCRIPTION OF PROCEDURE: After confirmation of informed consent, the patient's anesthesia plan was reviewed in detail. Etomidate was chosen. Risks and benefits were reviewed and the patient agreed to proceed. At 1323, the patient was given 6 mg of etomidate. The patient achieved an appropriate level of sedation and was given a 50 joule synchronized cardioversion by Dr. Song at the bedside. This was successful in achieving normal sinus rhythm. The patient was monitored until 1334, at which time he reached his baseline mental status and function. The patient tolerated the procedure well. COMPLICATIONS: None ESTIMATED BLOOD LOSS: None RECOMMENDATIONS: Okay to recover in usual fashion. Code Visit [id number]: Other Procedure See Report - [id number]
[2019-09-14] MEDS: levoFLOXacin IV 750 MG/150 ML BAG 100 MG IV (13:40)
--- NOTE | 2019-09-14 13:44 | EKG12_ITS ---
Test Reason : AM EKG Blood Pressure : / mmHG Vent. Rate : 075 BPM Atrial Rate : 357 BPM P-R Int : 000 ms QRS Dur : 118 ms QT Int : 394 ms P-R-T Axes : 000 010 081 degrees QTc Int : 439 ms Atrial fibrillation with premature ventricular or aberrantly conducted complexes Inferior infarct , age undetermined , cannot be excluded Abnormal ECG Confirmed by DALTON VALLEJO, WEN ([id number]), material expeditor COOKIE TORRES ([id number]) on 09/27/2019 2:05:09 PM Referred By: Norbert Hernandez Confirmed By:WEN HOFFMAN MD
--- NOTE | 2019-09-14 13:44 | CARDIOVERS ---
Cardioversion Cardioversion: Date: 09-14-19 Procedure: Synchronized Biphasic DC Cardioversion Indications: Atrial flutter Consent: Per the Patient Anesthesia: per Dr. Becerril of pulmonology and critical care medicine with etomidate 6 mg IV push total Procedure: Synchronized Biphasic DC Cardioversion: 50 J x1: Result: Sinus rhythm Complications: no apparent complications This note was generated with [employer] dictation software. It may contain incorrect words, spelling, and punctuation that were not noted in checking the note before signing.
[2019-09-14] MEDS: HEPARIN/D5w 25,000 UNITS 25,000 UNITS/250 ML IV.SOLN. 11 UNITS IV (15:31)
[2019-09-14] MEDS: guaiFENesin 1,200 MG Tablet 1200 MG PO ×2 (16:58→21:30)
[2019-09-14] MEDS: predniSONE 20 MG Tablet 40 MG PO (16:58)
[2019-09-14] MEDS: Finasteride 5 MG Tablet PO (16:59)
--- NOTE | 2019-09-14 18:19 | PN.CARD_ITS ---
Subjectve: The patient was evaluated earlier this day. He appeared to be resting comfortably. He had no acute complaints. He subsequently underwent synchroniz ed biphasic DC cardioversion with return to sinus rhythm. Objective: Vital Signs Temp Pulse Resp BP Pulse Ox 97.2 F L 55 L 13 145/70 H 99 09/14/19 12:00 09/14/19 14:00 09/14/19 14:00 09/14/19 14:00 09/14/19 14:00 Oxygen Flow Rate (L/min) 3 Oxygen Delivery Method Nasal Cannula Weight: 177 lb 0.499 oz Body Mass Index (BMI) 24.2 Intake and Output for Last 24 Hours 09/12/19 09/13/19 09/14/19 23:59 23:59 23:59 Intake Total 1752.94 / 1872.94 2236.11 / 2444.28 1019.00 / 1019.00 Output Total 650 / 1000 1125 / 3125 3025 / 3025 Balance 1102.94 / 872.94 1111.11 / -680.72 -2005.00 / -2005. General: Awake, Alert, Oriented x 3, Cooperative, No Acute Distress HEENT: Atraumatic, Normocephalic, PERRL, EOMI, Sclera Non Icteric Oral: Moist Mucosa Neck: Supple, Good ROM, No JVD Lungs: - - Scattered rhonchi Cardiovascular: Regular Rhythm, Normal S1, Normal S2 Abdomen: Bowel Sounds Present, Soft, Non Tender Extremities: No edema Neurological: No Focal Motor or Sensory Deficit Psych/Mental Status: Appropriate 09/14/19 00:15: APTT 63.5 H 09/14/19 05:40: WBC 13.8 H, RBC 3.69 L, Hgb 10.5 L, Hct 33.4 L, MCV 90.5, MCH 28.5, MCHC 31.4 L, Plt Count 157, MPV 10.9, Immature Gran % (Auto) 0.900, Neut % (Auto) 91.9 H, Lymph % (Auto) 2.7 L, [place] % (Auto) 4.4, Eos % (Auto) 0.0, Baso % (Auto) 0.1, Absolute Neuts (auto) 12.7 H, Nucleated RBC % 0 09/14/19 05:40: Sodium 139, Potassium 4.0, Chloride 100, Carbon Dioxide 34.0 H, Anion Gap 5, BUN 36 H, Creatinine 1.02, Est GFR (MDRD) Af Amer 90, Est GFR (MDRD) Non-Af 74, BUN/Creatinine Ratio 35.3 H, Glucose 127 H, Calcium 9.0 09/14/19 05:40: APTT 57.0 H Rhythm: Sinus rhythm Medical Necessity - Tobacco Use Smoking Status: Former smoker Assessment/Plan 1. Atrial flutter The patient is now status post synchronized biphasic DC cardioversion. He had return to sinus rhythm. He will continue to be followed. His IV diltiazem will be discontinued. He will eventually be changed from IV amiodarone therapy to oral amiodarone therapy with continued follow-up. He will also eventually be changed from IV heparin to an oral anticoagulant agent. 2. Nonsustained wide-complex tachycardia The patient did have an episode of nonsustained wide-complex tachycardia. There would be concerns based upon his history that this could be related to nonsustained VT. At the moment he appears without any acute symptoms. He will continue medical therapy and evaluation care as noted above. 3. CAD status post PCI The details of the patient's CAD history is unknown. The patient and spouse state they believe they were were told that he did have a heart attack several years ago in [place]. He does not know the details of his cardiovascular evaluation or care. At the moment he appears to be without symptoms of acute coronary syndrome. He will continue to be monitored. He will continue medical therapy as deemed appropriate. Over time he may need a reassessment of his underlying CAD process. This may include future noninvasive and/or invasive studies. 4. Ischemic mediated cardiomyopathy The patient does appear to have an underlying ischemic mediated cardiomyopathy based upon his history. He has had a previous transthoracic echocardiogram that demonstrated similar diminished LV systolic function/LVEF. He does need to be monitored for any concerns of acute CHF or pulmonary edema. He should continue medical management for his cardia myopathy as deemed appropriate. 5. COPD The patient has significant COPD. He will continue evaluation care per pulmonology. 6. Lung carcinoma The patient has been diagnosed with lung carcinoma. He states he is gone through chemotherapy and radiation therapy. He has had no surgical intervention. He states he has been told that he is in remission at this time. 7. Sepsis syndrome The patient has been evaluated and was diagnosed with a sepsis syndrome. He is continued evaluation care per the ICU staff. 8. Hypertension The patient has a history of hypertension. His blood pressures will need to be followed. His medication can be adjusted as needed. The patient's case has been previously discussed with Dr. Becerril. This note was generated using a voice recognition system and there may be incorrect words, spelling or punctuation that were not noted when reviewing the office note prior to saving.
[2019-09-14] MEDS: Albuterol 2.5 MG/3 ML VIAL.NEB. INHALATION (21:50)
[2019-09-14] MEDS: MELATONIN 3 MG TABLET PO (21:53)
[2019-09-15] VITALS (27 sets, daily range): BP systolic 113–151; BP diastolic 60–88; PULSE 60–82; RESP 11–21; TEMP 36.5–36.9; O2SAT 92–98
[2019-09-15 05:27] LABS: Absolute Lymphocyte Count 0.28 X10^3/uL (0.83-4.51); Absolute Neutrophil Count 6.6 X10^3/uL (2.0-7.7); Basophil# 0.02 X10^3/uL; Basophil% 0.3 % (0-1); Differential Indicated SCAN CRITERIA MET; Hematocrit 33.5 % (40-54); Hemoglobin 10.4 g/dL (13.0-16.5); Lymphocyte # 0.28 X10^3/ul (4.0); Lymphocyte % 3.9 % (19-41); Mean Corpuscular Hgb 28.3 pg (27.0-32.0); Mean Platelet Vol. 11.1 fl (6.2-12.0); Monocyte# 0.21 X10^3/uL; Monocyte% 2.9 % (0-10); NRBC Flagged by Analyzer 0 % (0-5); Neutrophil # 6.58 X10^3/uL (2.7-7.7); Neutrophil % 91.6 % (47-70); POSITIVE DIFFERENTIAL YES; POSITIVE MORPHOLOGY YES; Platelet Count 154 K/mm3 (150-450); RBC Distribution Width CV 19.1 % (11.6-14.6); RBC Distribution Width SD 62.9 fl (35.1-43.9); Red Blood Count 3.68 M/mm3 (4.6-6.2); White Blood Count 7.2 K/mm3 (4.4-11.0)
[2019-09-15 05:40] LABS: Anion Gap 5 (5-15); BUN 37 mg/dL (7-18); BUN/Creat Ratio 39.1 RATIO (10-20); Chloride 99 mmol/L (98-107); Creatinine, Serum 0.95 mg/dL (0.70-1.30); EST Glomerular Filtration Rate 81 mL/min (>60); Est Glom Filt Rate - Afr Amer 98 mL/min (>60); Estimated Creatinine Clearance 60.83 ml/min; Glucose 171 mg/dL (74-106); Potassium 4.5 mmol/L (3.5-5.1); Sodium Level 139 mmol/L (136-145)
[2019-09-15] MEDS: Ipratropium 0.5 MG/2.5 ML SOLUTION INHALATION ×5 (06:39→22:47)
--- NOTE | 2019-09-15 06:45 | PCM.PN.INT ---
Subjective: The patient was seen and examined at the bedside this morning. Events from the last 24 hours have been reviewed. The patient is currently afebrile, hemodynamically stable and maintaining appropriate oxygen saturations on 2 L/min via nasal cannula. The patient underwent successful bedside cardioversion yesterday and has remained in normal sinus rhythm since that time. He remains on both amiodarone infusion and weight-based heparin. The patient does report feeling well this morning and denies resting shortness of breath or chest pain. Objective: The patient's most recent lab work, culture data and imaging studies have all been personally reviewed. Surface echocardiogram revealed moderate concentric LVH with an ejection fraction of 40% and stage II diastolic dysfunction. Pulmonary artery systolic pressure was estimated to be 37 mmHg. Strep and urine Legionella antigens were both negative. Respiratory viral panel was negative. General: Alert, Oriented x3, Cooperative, No apparent distress HEENT: Atraumatic, PERRLA, Normocephalic Oral: Moist Mucosa, No Gingival or Mucosal Lesions/ Ulcerations Neck: Supple, No Nodes, Trachea Midline Lungs: No rhonchi, No wheeze, No rales, Diminished Cardiovascular: Regular rate, Regular Rhythm, Normal S1, Normal S2, - - Normal sinus rhythm on telemetry Abdomen: Bowel Sounds Present, Soft, Non Tender Extremities: No clubbing, No cyanosis, No edema Skin: No breakdown Musculoskeletal: No Tenderness to Palpation of Joints or Extremities, No Muscle Wasting Lymphatic: No Cervical, Supraclavicular, or Inguinal Adenopathy Neurological: Cranial nerves II-XII grossly intact, Neuro grossly intact Psych/Mental Status: Alert and oriented to time, place, person, mood and affect Vital Signs Temp Pulse Resp BP Pulse Ox 97.7 F L 60 18 137/72 H 97 09/15/19 00:00 09/15/19 03:36 09/15/19 00:00 09/15/19 00:00 09/15/19 00:00 Oxygen Flow Rate (L/min) 2 Oxygen Delivery Method Nasal Cannula Weight: 178 lb 2.136 oz Body Mass Index (BMI) 24.2 Intake and Output for Last 24 Hours 09/13/19 09/14/19 09/15/19 23:59 23:59 23:59 Intake Total 2236.11 / 2444.28 1927.50 / 2195.20 614.32 / 614.32 Output Total 1125 / 3125 3275 / 3775 725 / 725 Balance 1111.11 / -680.72 -1347.50 / -1579.80 -110.68 / -110.68 Labs (Last 48 Hours) 09/13/19 09/14/19 09/14/19 17:00 00:15 05:40 WBC 13.8 H RBC 3.69 L Hgb 10.5 L Hct 33.4 L MCV 90.5 MCH 28.5 MCHC 31.4 L RDW Std Deviation 63.9 H RDW Coeff of Zamzam 19.2 H Plt Count 157 MPV 10.9 Immature Gran % (Auto) 0.900 Neut % (Auto) 91.9 H Lymph % (Auto) 2.7 L [place] % (Auto) 4.4 Eos % (Auto) 0.0 Baso % (Auto) 0.1 Absolute Neuts (auto) 12.7 H Absolute Lymphs (auto) 0.38 L Nucleated RBC % 0 PT 12.6 INR 1.0 APTT 30.6 63.5 H Sodium Potassium Chloride Carbon Dioxide Anion Gap BUN Creatinine Estim Creat Clear Calc Est GFR (MDRD) Af Amer Est GFR (MDRD) Non-Af BUN/Creatinine Ratio Glucose Calcium 09/14/19 09/14/19 09/15/19 05:40 05:40 05:05 WBC 7.2 RBC 3.68 L Hgb 10.4 L Hct 33.5 L MCV 91.0 MCH 28.3 MCHC 31.0 L RDW Std Deviation 62.9 H RDW Coeff of Zamzam 19.1 H Plt Count 154 MPV 11.1 Immature Gran % (Auto) 1.300 H Neut % (Auto) 91.6 H Lymph % (Auto) 3.9 L [place] % (Auto) 2.9 Eos % (Auto) 0.0 Baso % (Auto) 0.3 Absolute Neuts (auto) 6.6 Absolute Lymphs (auto) 0.28 L Nucleated RBC % 0 PT INR APTT 57.0 H Sodium 139 Potassium 4.0 Chloride 100 Carbon Dioxide 34.0 H Anion Gap 5 BUN 36 H Creatinine 1.02 Estim Creat Clear Calc 56.66 Est GFR (MDRD) Af Amer 90 Est GFR (MDRD) Non-Af 74 BUN/Creatinine Ratio 35.3 H Glucose 127 H Calcium 9.0 11/07/19 11/07/19 05:05 05:05 WBC RBC Hgb Hct MCV MCH MCHC RDW Std Deviation RDW Coeff of Zamzam Plt Count MPV Immature Gran % (Auto) Neut % (Auto) Lymph % (Auto) [place] % (Auto) Eos % (Auto) Baso % (Auto) Absolute Neuts (auto) Absolute Lymphs (auto) Nucleated RBC % PT INR APTT 66.0 H Sodium 139 Potassium 4.5 Chloride 99 Carbon Dioxide 35.0 H Anion Gap 5 BUN 37 H Creatinine 0.95 Estim Creat Clear Calc 60.83 Est GFR (MDRD) Af Amer 98 Est GFR (MDRD) Non-Af 81 BUN/Creatinine Ratio 39.1 H Glucose 171 H Calcium 9.0 Microbiology 09/11/19 00:45 Blood Culture (Wb) - Port Blood Culture - Preliminary No growth in 48 hours. 09/11/19 00:05 Blood Culture (Wb) - Anticubital Left Blood Culture - Preliminary No growth in 48 hours. 09/11/19 05:00 Urine, Clean Catch Urine Culture - Final Corynebacterium striatum Clinical Impression(s) from Imaging Studies Chest X-Ray 09/11/19 00:10 IMPRESSION: COPD, chronic interstitial lung disease, pulmonary fibrosis in the bases. No pulmonary edema, congestive heart failure or confluent pneumonia. Other nonacute findings as outlined above. Electronically Signed: Shayna Tidwell MD at 0:45 EDT , Service support , Renal Ultrasound 09/11/19 07:43 IMPRESSION: Left renal cyst. Prostatic enlargement. Multiple gallstones. Electronically Signed: Esa Hall, at 12:37 EST , Service support , Chest X-Ray 09/11/19 10:55 IMPRESSION: 1. Worsening consolidation in the retrocardiac left lower lobe may represent atelectasis versus pneumonia. 2. Underlying pulmonary fibrosis. 3. Stable appearance of right chest port. Electronically Signed: Jesus Kapoor MD ([place]) at 14:33 EST , Service support , Medical Necessity - Tobacco Use Smoking Status: Former smoker Assessment/Plan All Active Problems (Last Updated 09/15/19 @ 09:11 by Carla Gonzalez) SIRS (systemic inflammatory response syndrome) (Acute) Septic shock (Acute) Atrial flutter (Acute) COPD exacerbation (Acute) RECOMMENDATIONS: 1. Continue antibiotics with plans to complete a total of 7 days treatment course. 2. Continue scheduled Atrovent and prednisone. Recommend taper at discharge. 3. Continue to wean supplemental oxygen as tolerated. Continue nocturnal BiPAP therapy. 4. Continue rate/rhythm control strategy per cardiology recommendations. 5. Perform walking oximetry study prior to consideration for discharge from the hospital. 6. Outpatient pulmonary follow-up within 2 weeks is recommended. IMPRESSIONS: 1. Septic shock secondary to probable pneumonia versus cystitis Clinical considerations include pulmonary infectious process versus urinary tract source of infection. The patient has responded favorably to the use of Zosyn. The patient remains hemodynamically stable off of vasopressor support. The patient will require a total of 7 days treatment with antibiotics. 2. Acute on chronic combined respiratory failure Likely secondary to exacerbation of underlying obstructive lung disease in the setting of #1. The patient has improved clinically with treatment of the above, along with scheduled bronchodilators and steroids, which will be continued without change. The patient does have a baseline 2 L/min supplemental oxygen requirement. We will plan to continue to wean supplemental oxygen as tolerated. Continue BiPAP therapy with sleep. Continue scheduled bronchodilators and prednisone. The patient will require a taper at discharge. 3. A flutter/fib with rapid ventricular response/CAD with previous stent The patient did develop atrial flutter during his hospitalization, which did require medical intervention and subsequent cardioversion. The cardioversion was successful in restoring normal sinus rhythm. Continue current medical management per cardiology recommendations. 4. History of lung cancer on immunotherapy/advanced age/BPH Complicates care, management, recovery and prognosis. Physical therapy to work with the patient. This note was generated with [employer] software. It may contain incorrect words, spelling, and punctuation that were not noted in checking the note before signing. Code Visit Inpatient E&M: 68955 Subs Hosp L2
[2019-09-15] MEDS: predniSONE 20 MG Tablet 40 MG PO (08:21)
[2019-09-15] MEDS: guaiFENesin 1,200 MG Tablet 1200 MG PO ×2 (08:22→21:18)
[2019-09-15] MEDS: Finasteride 5 MG Tablet PO (08:22)
--- NOTE | 2019-09-15 09:08 | PCM.PN.HOSP ---
Patient Problems: Active and Suspected Problems (Last Reviewed 09/11/19 @ 04:59 by Norbert Hernandez MD) SIRS (systemic inflammatory response syndrome) (Acute) Septic shock (Acute) Atrial flutter (Acute) COPD exacerbation (Acute) Subjective: Patient seen and examined.He had no complaints this morning. He had DC cardioversion done yesterday successfully. He was transitioned off amiodarone drip this morning. Review of systems otherwise negative. Labs and vitals reviewed. Vitals/I&O's: Vital Signs Temp Pulse Resp BP Pulse Ox 98.2 F 65 18 144/76 H 95 09/15/19 06:00 09/15/19 06:39 09/15/19 06:39 09/15/19 06:00 09/15/19 06:00 Oxygen Flow Rate (L/min) 2 Oxygen Delivery Method Room Air Weight: 178 lb 2.136 oz Body Mass Index (BMI) 24.2 Intake and Output for Last 24 Hours 09/13/19 09/14/19 09/15/19 23:59 23:59 23:59 Intake Total 2236.11 / 2444.28 1927.50 / 2195.20 614.32 / 614.32 Output Total 1125 / 3125 3275 / 3775 725 / 725 Balance 1111.11 / -680.72 -1347.50 / -1579.80 -110.68 / -110.68 General: Alert, Oriented x3, Cooperative, No apparent distress HEENT: Atraumatic, PERRLA, EOMI, Normocephalic Oral: Moist Mucosa Neck: Supple, No JVD, Negative Carotid Bruits Lungs: Clear to auscultation, Normal air movement, No rhonchi, No wheeze, No rales; on 3L of oxygen, which is his baseline Cardiovascular: Normal S1, Normal S2, No murmurs, regular rate and rhythm Abdomen: Bowel Sounds Present, Soft, Non Tender, Non-Distended, No Hepato-splenomegaly Extremities: No clubbing, No cyanosis, No edema, Capillary Refill Less than 3 Seconds Skin: No rashes, No breakdown Musculoskeletal: No Tenderness to Palpation of Joints or Extremities Lymphatic: No Cervical, Supraclavicular, or Inguinal Adenopathy Neurological: Cranial nerves II-XII grossly intact, Neuro grossly intact, Motor Exam 5/5 strength throughout Psych/Mental Status: Normal Affect, Appropriate, Alert and oriented to time, place, person, mood and affect Microbiology Past 72 Hours 09/11/19 00:45 Blood Culture (Wb) - Port Blood Culture - Preliminary No growth in 48 hours. 09/11/19 00:05 Blood Culture (Wb) - Anticubital Left Blood Culture - Preliminary No growth in 48 hours. 09/11/19 05:00 Urine, Clean Catch Urine Culture - Final Corynebacterium striatum Laboratory Results 09/15/19 05:05: WBC 7.2, RBC 3.68 L, Hgb 10.4 L, Hct 33.5 L, MCV 91.0, MCH 28.3, MCHC 31.0 L, RDW Std Deviation 62.9 H, RDW Coeff of Zamzam 19.1 H, Plt Count 154, MPV 11.1, Immature Gran % (Auto) 1.300 H, Neut % (Auto) 91.6 H, Lymph % (Auto) 3.9 L, [place] % (Auto) 2.9, Eos % (Auto) 0.0, Baso % (Auto) 0.3, Absolute Neuts (auto) 6.6, Absolute Lymphs (auto) 0.28 L, Nucleated RBC % 0 09/15/19 05:05: Sodium 139, Potassium 4.5, Chloride 99, Carbon Dioxide 35.0 H, Anion Gap 5, BUN 37 H, Creatinine 0.95, Estim Creat Clear Calc 60.83, Est GFR (MDRD) Af Amer 98, Est GFR (MDRD) Non-Af 81, BUN/Creatinine Ratio 39.1 H, Glucose 171 H, Calcium 9.0 09/15/19 05:05: APTT 66.0 H Diagnostic Data Renal Ultrasound 09/11/19 07:43 IMPRESSION: Left renal cyst. Prostatic enlargement. Multiple gallstones. Electronically Signed: Esa Hall, at 12:37 EST , Service support , Chest X-Ray 09/11/19 10:55 IMPRESSION: 1. Worsening consolidation in the retrocardiac left lower lobe may represent atelectasis versus pneumonia. 2. Underlying pulmonary fibrosis. 3. Stable appearance of right chest port. Electronically Signed: Jesus Kapoor MD ([place]) at 14:33 EST , Service support , Current Medications Acetaminophen (Tylenol) 650 mg PO Q6H PRN PRN PRN Reason: Pain Score 1-3/Temp > 100.7 F Albuterol Sulfate (Ventolin Aerosols) 2.5 mg INHALATION Q2H PRN PRN PRN Reason: SOB/Wheezing Last Admin: 09/14/19 21:50 Dose: 2.5 mg Documented by: Amiodarone HCl (Cordarone) 200 mg PO DAILY [facility] Dextrose (D50w Syringe) 0 gm IV X1 PRN; Protocol PRN Reason: Hypoglycemia Finasteride (Proscar) 5 mg PO DAILY [facility] Last Admin: 09/15/19 08:22 Dose: 5 mg Documented by: Glucagon () 1 mg IM .X1 PRN PRN Reason: Hypoglycemia Guaifenesin (Mucinex) 1,200 mg PO BID [facility] Last Admin: 09/15/19 08:22 Dose: 1,200 mg Documented by: Heparin Sodium (Beef Lung) () 50 units IV UD PRN PRN Reason: Port-a-Cath (VAD)Heparin Flush Heparin Sodium (Porcine) (Heparin Na) 0 unit IV UD PRN; Protocol Sodium Chloride () 250 mls @ 15 mls/hr IV .[id number] PRN PRN Reason: Saline Flush Last Infusion: 09/14/19 21:56 Dose: Infused Documented by: Levofloxacin (Levaquin Iv) 750 mg in 150 mls @ 100 mls/hr IV Q24 [facility] Stop: 09/17/19 10:00 Last Infusion: 09/14/19 15:10 Dose: Infused Documented by: Ipratropium [place] (Atrovent) 0.5 mg INHALATION Q4H.RT [facility] Last Admin: 09/15/19 06:39 Dose: 0.5 mg Documented by: Melatonin (Melatonin) 3 mg PO QHS PRN PRN PRN Reason: INSOMNIA Last Admin: 09/14/19 21:53 Dose: 3 mg Documented by: Ondansetron HCl (Zofran) 4 mg IV Q8H PRN PRN PRN Reason: NAUSEA/VOMITING Polyethylene Glycol (Miralax) 17 gm PO BID [facility] Last Admin: 09/15/19 08:24 Dose: Not Given Documented by: Prednisone () 40 mg PO DAILY@0800 [facility] Last Admin: 09/15/19 08:21 Dose: 40 mg Documented by: Rivaroxaban (Xarelto) 20 mg PO DAILY@1700 [facility] Sodium Chloride () 10 - 40 ml IV UD PRN PRN Reason: Port-a-Cath (VAD) Flush Last Admin: 09/14/19 05:35 Dose: 20 ml Documented by: Sodium Chloride (0.9% Nacl (Sterile) Posiflush) 10 - 40 ml IV UD PRN PRN Reason: Port access or dressing change Sodium Chloride () 10 - 40 ml IV UD PRN PRN Reason: SALINE FLUSH STROKE Vital Signs/Narrative: Vital Signs Temp Pulse Resp BP Pulse Ox 09/15/19 06:39 65 18 09/15/19 06:00 98.2 F 64 14 144/76 H 95 Medical Necessity - Tobacco Use Smoking Status: Former smoker Assessment/Plan All Active Problems (Last Reviewed 09/11/19 @ 04:59 by Norbert Hernandez MD) SIRS (systemic inflammatory response syndrome) (Acute) Septic shock (Acute) Atrial flutter (Acute) COPD exacerbation (Acute) 1. Septic shock due to community acquired pneumonia and UTI resolved. IV zosyn switched to IV levaquin blood cultures showed no growth in 48 hours;urine for strep and legionella, as well as Influenza screen were negative urine cultured corynebacterium striatum wbc trended down to 11.2 2. Afib with RVR s/p dc cardioversion on 09/14/19 off cardizem drip and amiodarone drip 2D echo: EF of 40%, with moderate eccentric left ventricular hypertrophy, and stage 2 diastolic dysfunction; hypokinesia of mid-inferior, inferobasal and basal as well as mid posterior yoon. RVSP is 37mmHg Ashu vas score is at least 4; on xarelto now on PO amiodarone 200mg daily potassium and Mg are WNL 3. Acute on chronic combined respiratory failure: now on 2l of oxygen, which is his baseline continue breathing treatments. titrate oxygen to maintain sats>90% continue BIPA with sleep 4. BPH: on finasteride 4. CAD s/p stents: stable 5. History of lung cancer: on immunotherapy. follows with Dr Petersen 6. COPD: on breathing treatments DVT prophylaxis: now on xarelto Disposition: transfer out of ICu to PCU today Code Visit Inpatient E&M: 39294 Subs Hosp L2
[2019-09-15] MEDS: Amiodarone 200 MG Tablet PO (10:37)
[2019-09-15] MEDS: levoFLOXacin 750 MG Tablet PO (10:37)
[2019-09-15] MEDS: Rivaroxaban 20 MG Tablet PO (11:58)
--- NOTE | 2019-09-15 13:11 | NURSING ---
THIS RN ASSUMED CARE OF PT AT THIS TIME.
--- NOTE | 2019-09-15 17:59 | PCM.PN.CARD ---
Subjectve: The patient appeared to be awake and alert when evaluated earlier this day. He had no new acute concerns. He denied any ongoing chest discomfort. He has chronic shortness of breath and dyspnea. He had no obvious palpitations or rapid rate sensation. Objective: Vital Signs Temp Pulse Resp BP Pulse Ox 97.8 F 76 18 144/73 H 97 09/15/19 17:09 09/15/19 17:09 09/15/19 17:09 09/15/19 17:09 09/15/19 17:09 Oxygen Flow Rate (L/min) 1 Oxygen Delivery Method Nasal Cannula Weight: 178 lb 2.136 oz Body Mass Index (BMI) 24.2 Intake and Output for Last 24 Hours 09/13/19 09/14/19 09/15/19 23:59 23:59 23:59 Intake Total 2236.11 / 2444.28 1927.50 / 2195.20 691.32 / 691.32 Output Total 1125 / 3125 3275 / 3775 725 / 725 Balance 1111.11 / -680.72 -1347.50 / -1579.80 -33.68 / -33.68 General: Awake, Alert, Oriented x 3, Cooperative, No Acute Distress HEENT: Atraumatic, Normocephalic, PERRL, EOMI, Sclera Non Icteric Oral: Moist Mucosa Neck: Supple, Good ROM, No JVD Lungs: Diminished [place] Bases Cardiovascular: Regular Rhythm, Normal S1, Normal S2 Abdomen: Bowel Sounds Present, Soft, Non Tender Extremities: No edema Psych/Mental Status: Appropriate 09/15/19 05:05: WBC 7.2, RBC 3.68 L, Hgb 10.4 L, Hct 33.5 L, MCV 91.0, MCH 28.3, MCHC 31.0 L, Plt Count 154, MPV 11.1, Immature Gran % (Auto) 1.300 H, Neut % (Auto) 91.6 H, Lymph % (Auto) 3.9 L, [place] % (Auto) 2.9, Eos % (Auto) 0.0, Baso % (Auto) 0.3, Absolute Neuts (auto) 6.6, Nucleated RBC % 0 09/15/19 05:05: Sodium 139, Potassium 4.5, Chloride 99, Carbon Dioxide 35.0 H, Anion Gap 5, BUN 37 H, Creatinine 0.95, Est GFR (MDRD) Af Amer 98, Est GFR (MDRD) Non-Af 81, BUN/Creatinine Ratio 39.1 H, Glucose 171 H, Calcium 9.0 09/15/19 05:05: APTT 66.0 H Rhythm: Sinus rhythm Medical Necessity - Tobacco Use Smoking Status: Former smoker Assessment/Plan 1. Atrial flutter The patient is now status post synchronized biphasic DC cardioversion. He had return to sinus rhythm. He will continue to be followed. He is being changed from IV amiodarone to oral amiodarone. He is being changed from IV heparin to an oral anticoagulant. 2. Nonsustained wide-complex tachycardia The patient did have an episode of nonsustained wide-complex tachycardia. There would be concerns based upon his history that this could be related to nonsustained VT. He does not appear to have had recurrent wide-complex rhythms. He will continue medical therapy and evaluation care as noted above. 3. CAD status post PCI The details of the patient's CAD history is unknown. The patient and spouse state they believe they were were told that he did have a heart attack several years ago in [place]. He does not know the details of his cardiovascular evaluation or care. At the moment he appears to be without symptoms of acute coronary syndrome. He will continue to be monitored. He will continue medical therapy as deemed appropriate. Over time he may need a reassessment of his underlying CAD process. This may include future noninvasive and/or invasive studies. 4. Ischemic mediated cardiomyopathy The patient does appear to have an underlying ischemic mediated cardiomyopathy based upon his history. He has had a previous transthoracic echocardiogram that demonstrated similar diminished LV systolic function/LVEF. He does need to be monitored for any concerns of acute CHF or pulmonary edema. He should continue medical management for his cardia myopathy as deemed appropriate. 5. COPD The patient has significant COPD. He will continue evaluation care per pulmonology. 6. Lung carcinoma The patient has been diagnosed with lung carcinoma. He states he is gone through chemotherapy and radiation therapy. He has had no surgical intervention. He states he has been told that he is in remission at this time. 7. Sepsis syndrome The patient has been evaluated and was diagnosed with a sepsis syndrome. He is continued evaluation care per the ICU staff. 8. Hypertension The patient has a history of hypertension. His blood pressures will need to be followed. His medication can be adjusted as needed. The patient's case was discussed and reviewed with the patient and his spouse. This note was generated using a voice recognition system and there may be incorrect words, spelling or punctuation that were not noted when reviewing the office note prior to saving.
--- NOTE | 2019-09-15 23:09 | NURSING ---
Gave report to Arline DE LA CRUZ at this time.
[2019-09-16 03:00] VITALS: PULSE 67
[2019-09-16 03:32] VITALS: BP 164/81; PULSE 70; RESP 18; TEMP 36.8; O2SAT 95
[2019-09-16] MEDS: Ipratropium 0.5 MG/2.5 ML SOLUTION INHALATION ×2 (03:41→06:57)
[2019-09-16 03:42] VITALS: PULSE 76; RESP 18
[2019-09-16] MEDS: 0.9% Saline Lock 10 ML Syringe IV (05:11)
[2019-09-16 05:20] LABS: Absolute Neutrophil Count 6.2 X10^3/uL (2.0-7.7); Basophil# 0.03 X10^3/uL; Basophil% 0.4 % (0-1); Eosinophil# 0.01 X10^3/uL; Eosinophils% 0.1 % (0-5); Hematocrit 33.7 % (40-54); Hemoglobin 10.4 g/dL (13.0-16.5); Lymphocyte % 6.7 % (19-41); Mean Corp Hgb Conc 30.9 g/dL (32-36); Mean Corpuscular Volume 90.6 fL (80-94); Mean Platelet Vol. 10.1 fl (6.2-12.0); Monocyte# 0.63 X10^3/uL; Monocyte% 8.5 % (0-10); NRBC Flagged by Analyzer 0 % (0-5); Neutrophil # 6.19 X10^3/uL (2.7-7.7); Neutrophil % 83.4 % (47-70); POSITIVE DIFFERENTIAL YES; Platelet Count 143 K/mm3 (150-450); RBC Distribution Width CV 18.8 % (11.6-14.6); RBC Distribution Width SD 62.2 fl (35.1-43.9); Red Blood Count 3.72 M/mm3 (4.6-6.2); White Blood Count 7.4 K/mm3 (4.4-11.0)
[2019-09-16 05:27] LABS: Differential Indicated SCAN CRITERIA MET
[2019-09-16 05:32] LABS: Anion Gap 5 (5-15); BUN 30 mg/dL (7-18); BUN/Creat Ratio 34.8 RATIO (10-20); Calcium,Total 8.7 mg/dL (8.5-10.1); Chloride 99 mmol/L (98-107); Creatinine, Serum 0.86 mg/dL (0.70-1.30); EST Glomerular Filtration Rate 90 mL/min (>60); Est Glom Filt Rate - Afr Amer 109 mL/min (>60); Glucose 105 mg/dL (74-106); Potassium 4.1 mmol/L (3.5-5.1); Sodium Level 141 mmol/L (136-145)
[2019-09-16] MEDS: levoFLOXacin 750 MG Tablet PO (06:02)
--- NOTE | 2019-09-16 06:56 | PN_ITS ---
Subjective: The patient was seen and examined at the bedside this morning. Events from the last 24 hours have been reviewed. The patient is currently afebrile, hemodynamically stable and maintaining appropriate oxygen saturations on 2 L/min via nasal cannula. The patient remains in normal sinus rhythm following cardioversion. Objective: The patient's most recent lab work, culture data and imaging studies have all been personally reviewed. Surface echocardiogram revealed moderate concentric LVH with an ejection fraction of 40% and stage II diastolic dysfunction. Pulmonary artery systolic pressure was estimated to be 37 mmHg. Strep and urine Legionella antigens were both negative. Respiratory viral panel was negative. - Physical Exam Vitals/I&O's: Vital Signs Temp Pulse Resp BP Pulse Ox 98.2 F 76 18 164/81 H 95 09/16/19 03:32 09/16/19 03:42 09/16/19 03:42 09/16/19 03:32 09/16/19 03:32 Oxygen Flow Rate (L/min) 2 Oxygen Delivery Method Nasal Cannula Weight: 177 lb 4.026 oz Body Mass Index (BMI) 24.2 Intake and Output for Last 24 Hours 09/14/19 09/15/19 09/16/19 23:59 23:59 23:59 Intake Total 1927.50 / 2195.20 1051.32 / 1251.32 220 / 220 Output Total 3275 / 3775 725 / 1025 800 / 800 Balance -1347.50 / -1579.80 326.32 / 226.32 -580 / -580 General: Alert, Oriented x3, Cooperative, No apparent distress HEENT: Atraumatic, PERRLA, Normocephalic Oral: No Gingival or Mucosal Lesions/ Ulcerations Neck: Supple, No Nodes, Trachea Midline Lungs: No rhonchi, No wheeze, No rales, Diminished Cardiovascular: Regular rate, Regular Rhythm, Normal S1, Normal S2 Abdomen: Bowel Sounds Present, Soft, Non Tender Extremities: No clubbing, No cyanosis, No edema Skin: No breakdown Musculoskeletal: No Tenderness to Palpation of Joints or Extremities Lymphatic: No Cervical, Supraclavicular, or Inguinal Adenopathy Neurological: Cranial nerves II-XII grossly intact, Neuro grossly intact Psych/Mental Status: Alert and oriented to time, place, person, mood and affect Labs (Last 48 Hours) 09/15/19 09/15/19 09/15/19 05:05 05:05 05:05 WBC 7.2 RBC 3.68 L Hgb 10.4 L Hct 33.5 L MCV 91.0 MCH 28.3 MCHC 31.0 L RDW Std Deviation 62.9 H RDW Coeff of Zamzam 19.1 H Plt Count 154 MPV 11.1 Immature Gran % (Auto) 1.300 H Neut % (Auto) 91.6 H Lymph % (Auto) 3.9 L [place] % (Auto) 2.9 Eos % (Auto) 0.0 Baso % (Auto) 0.3 Absolute Neuts (auto) 6.6 Absolute Lymphs (auto) 0.28 L Nucleated RBC % 0 APTT 66.0 H Sodium 139 Potassium 4.5 Chloride 99 Carbon Dioxide 35.0 H Anion Gap 5 BUN 37 H Creatinine 0.95 Estim Creat Clear Calc 60.83 Est GFR (MDRD) Af Amer 98 Est GFR (MDRD) Non-Af 81 BUN/Creatinine Ratio 39.1 H Glucose 171 H Calcium 9.0 09/16/19 09/16/19 05:08 05:08 WBC 7.4 RBC 3.72 L Hgb 10.4 L Hct 33.7 L MCV 90.6 MCH 28.0 MCHC 30.9 L RDW Std Deviation 62.2 H RDW Coeff of Zamzam 18.8 H Plt Count 143 L MPV 10.1 Immature Gran % (Auto) 0.900 Neut % (Auto) 83.4 H Lymph % (Auto) 6.7 L [place] % (Auto) 8.5 Eos % (Auto) 0.1 Baso % (Auto) 0.4 Absolute Neuts (auto) 6.2 Absolute Lymphs (auto) 0.50 L Nucleated RBC % 0 APTT Sodium 141 Potassium 4.1 Chloride 99 Carbon Dioxide 37.0 H Anion Gap 5 BUN 30 H Creatinine 0.86 Estim Creat Clear Calc 67.20 Est GFR (MDRD) Af Amer 109 Est GFR (MDRD) Non-Af 90 BUN/Creatinine Ratio 34.8 H Glucose 105 Calcium 8.7 Clinical Impression(s) from Imaging Studies Chest X-Ray 09/11/19 00:10 IMPRESSION: COPD, chronic interstitial lung disease, pulmonary fibrosis in the bases. No pulmonary edema, congestive heart failure or confluent pneumonia. Other nonacute findings as outlined above. Electronically Signed: Shayna Tidwell MD at 0:45 EDT , Service support , Renal Ultrasound 09/11/19 07:43 IMPRESSION: Left renal cyst. Prostatic enlargement. Multiple gallstones. Electronically Signed: Esa Rafael, at 12:37 EST , Service support , Chest X-Ray 09/11/19 10:55 IMPRESSION: 1. Worsening consolidation in the retrocardiac left lower lobe may represent atelectasis versus pneumonia. 2. Underlying pulmonary fibrosis. 3. Stable appearance of right chest port. Electronically Signed: Jesus Kapoor MD ([place]) at 14:33 EST , Service support , Current Medications Acetaminophen (Tylenol) 650 mg PO Q6H PRN PRN PRN Reason: Pain Score 1-3/Temp > 100.7 F Albuterol Sulfate (Ventolin Aerosols) 2.5 mg INHALATION Q2H PRN PRN PRN Reason: SOB/Wheezing Last Admin: 09/14/19 21:50 Dose: 2.5 mg Documented by: Amiodarone HCl (Cordarone) 200 mg PO DAILY [facility] Last Admin: 09/15/19 10:37 Dose: 200 mg Documented by: Dextrose (D50w Syringe) 0 gm IV X1 PRN; Protocol PRN Reason: Hypoglycemia Finasteride (Proscar) 5 mg PO DAILY [facility] Last Admin: 09/15/19 08:22 Dose: 5 mg Documented by: Glucagon () 1 mg IM .X1 PRN PRN Reason: Hypoglycemia Guaifenesin (Mucinex) 1,200 mg PO BID [facility] Last Admin: 09/15/19 21:18 Dose: 1,200 mg Documented by: Heparin Sodium (Beef Lung) () 50 units IV UD PRN PRN Reason: Port-a-Cath (VAD)Heparin Flush Heparin Sodium (Porcine) (Heparin Na) 0 unit IV UD PRN; Protocol Sodium Chloride () 250 mls @ 15 mls/hr IV .[id number] PRN PRN Reason: Saline Flush Last Infusion: 09/14/19 21:56 Dose: Infused Documented by: Ipratropium Combs (Atrovent) 0.5 mg INHALATION Q4H.RT [facility] Last Admin: 09/16/19 03:41 Dose: 0.5 mg Documented by: Levofloxacin (Levaquin Tablet) 750 mg PO DAILY@0600 [facility] Stop: 09/17/19 06:01 Last Admin: 09/16/19 06:02 Dose: 750 mg Documented by: Melatonin (Melatonin) 3 mg PO QHS PRN PRN PRN Reason: INSOMNIA Last Admin: 09/14/19 21:53 Dose: 3 mg Documented by: Ondansetron HCl (Zofran) 4 mg IV Q8H PRN PRN PRN Reason: NAUSEA/VOMITING Polyethylene Glycol (Miralax) 17 gm PO BID [facility] Last Admin: 09/15/19 21:17 Dose: Not Given Documented by: Prednisone () 40 mg PO DAILY@0800 [facility] Last Admin: 09/15/19 08:21 Dose: 40 mg Documented by: Rivaroxaban (Xarelto) 20 mg PO DAILY@1700 [facility] Last Admin: 09/15/19 11:58 Dose: 20 mg Documented by: Sodium Chloride () 10 - 40 ml IV UD PRN PRN Reason: Port-a-Cath (VAD) Flush Last Admin: 09/16/19 05:11 Dose: 20 ml Documented by: Sodium Chloride (0.9% Nacl (Sterile) Posiflush) 10 - 40 ml IV UD PRN PRN Reason: Port access or dressing change Sodium Chloride () 10 - 40 ml IV UD PRN PRN Reason: SALINE FLUSH Medical Necessity - Tobacco Use Smoking Status: Former smoker Assessment/Plan All Active Problems (Last Updated 09/15/19 @ 09:11 by Carla Gonzalez) SIRS (systemic inflammatory response syndrome) (Acute) Septic shock (Acute) Atrial flutter (Acute) COPD exacerbation (Acute) RECOMMENDATIONS: 1. Continue antibiotics with plans to complete a total of 7 days treatment course. 2. Continue scheduled Atrovent and prednisone. Recommend taper at discharge. 3. Continue to wean supplemental oxygen as tolerated. Continue nocturnal BiPAP therapy. 4. Continue rate/rhythm control strategy per cardiology recommendations. 5. Perform walking oximetry study prior to consideration for discharge from the hospital. 6. Outpatient pulmonary follow-up within 2 weeks is recommended. IMPRESSIONS: 1. Septic shock secondary to probable pneumonia versus cystitis Clinical considerations include pulmonary infectious process versus urinary tract source of infection. The patient has responded favorably to the use of Zosyn. The patient remains hemodynamically stable off of vasopressor support. The patient will require a total of 7 days treatment with antibiotics. 2. Acute on chronic combined respiratory failure Likely secondary to exacerbation of underlying obstructive lung disease in the setting of #1. The patient has improved clinically with treatment of the above, along with scheduled bronchodilators and steroids, which will be continued without change. The patient does have a baseline 2 L/min supplemental oxygen requirement. We will plan to continue to wean supplemental oxygen as tolerated. Continue BiPAP therapy with sleep. Continue scheduled bronchodilators and prednisone. The patient will require a taper at discharge. 3. A flutter/fib with rapid ventricular response/CAD with previous stent The patient did develop atrial flutter during his hospitalization, which did require medical intervention and subsequent cardioversion. The cardioversion was successful in restoring normal sinus rhythm. Continue current medical management per cardiology recommendations. 4. History of lung cancer on immunotherapy/advanced age/BPH Complicates care, management, recovery and prognosis. Physical therapy to work with the patient. This note was generated with [employer] dictation software. It may contain incorrect words, spelling, and punctuation that were not noted in checking the note before signing. Code Visit Inpatient E&M: 45864 Subs Hosp L2
[2019-09-16 06:57] VITALS: PULSE 72; RESP 16; O2SAT 97
[2019-09-16 07:45] VITALS: PULSE 71
[2019-09-16] MEDS: Amiodarone 200 MG Tablet PO (08:51)
[2019-09-16] MEDS: predniSONE 20 MG Tablet 40 MG PO (08:51)
[2019-09-16 08:55] VITALS: BP 131/59; PULSE 87; RESP 20; TEMP 36.4; O2SAT 95
--- NOTE | 2019-09-16 09:18 | PCM.PN.CARD ---
Subjectve: The patient is awake and alert. He states he is feeling better overall. He denies any ongoing palpitations or rapid rate sensations. Objective: Vital Signs Temp Pulse Resp BP Pulse Ox 97.5 F L 87 20 H 131/59 H 95 09/16/19 08:55 09/16/19 08:55 09/16/19 08:55 09/16/19 08:55 09/16/19 08:55 Oxygen Flow Rate (L/min) 2 Oxygen Delivery Method Nasal Cannula Weight: 177 lb 4.026 oz Body Mass Index (BMI) 24.2 Intake and Output for Last 24 Hours 09/14/19 09/15/19 09/16/19 23:59 23:59 23:59 Intake Total 1927.50 / 2195.20 1051.32 / 1251.32 220 / 220 Output Total 3275 / 3775 725 / 1025 800 / 800 Balance -1347.50 / -1579.80 326.32 / 226.32 -580 / -580 General: Awake, Alert, Oriented x 3, Cooperative, No Acute Distress HEENT: Atraumatic, Normocephalic, PERRL, EOMI, Sclera Non Icteric Oral: Moist Mucosa Neck: Supple, Good ROM, No JVD Lungs: Diminished Saad Bases Cardiovascular: Regular Rhythm, Normal S1, Normal S2 Abdomen: Bowel Sounds Present, Soft, Non Tender Extremities: No edema Neurological: No Focal Motor or Sensory Deficit Psych/Mental Status: Appropriate 09/16/19 05:08: WBC 7.4, RBC 3.72 L, Hgb 10.4 L, Hct 33.7 L, MCV 90.6, MCH 28.0, MCHC 30.9 L, Plt Count 143 L, MPV 10.1, Immature Gran % (Auto) 0.900, Neut % (Auto) 83.4 H, Lymph % (Auto) 6.7 L, [place] % (Auto) 8.5, Eos % (Auto) 0.1, Baso % (Auto) 0.4, Absolute Neuts (auto) 6.2, Nucleated RBC % 0 09/16/19 05:08: Sodium 141, Potassium 4.1, Chloride 99, Carbon Dioxide 37.0 H, Anion Gap 5, BUN 30 H, Creatinine 0.86, Est GFR (MDRD) Af Amer 109, Est GFR (MDRD) Non-Af 90, BUN/Creatinine Ratio 34.8 H, Glucose 105, Calcium 8.7 Rhythm: Sinus rhythm Medical Necessity - Tobacco Use Smoking Status: Former smoker Assessment/Plan 1. Atrial flutter The patient is now status post synchronized biphasic DC cardioversion. He had return to sinus rhythm. He will continue to be followed. He will continue oral amiodarone therapy and oral anticoagulant therapy. 2. Nonsustained wide-complex tachycardia The patient did have an episode of nonsustained wide-complex tachycardia. There would be concerns based upon his history that this could be related to nonsustained VT. He does not appear to have had recurrent wide-complex rhythms. He will continue medical therapy and evaluation care as noted above. 3. CAD status post PCI The details of the patient's CAD history is unknown. The patient and spouse state they believe they were were told that he did have a heart attack several years ago in [place]. He does not know the details of his cardiovascular evaluation or care. At the moment he appears to be without symptoms of acute coronary syndrome. He will continue to be monitored. He will continue medical therapy as deemed appropriate. Over time he may need a reassessment of his underlying CAD process. This may include future noninvasive and/or invasive studies. 4. Ischemic mediated cardiomyopathy The patient does appear to have an underlying ischemic mediated cardiomyopathy based upon his history. He has had a previous transthoracic echocardiogram that demonstrated similar diminished LV systolic function/LVEF. He does need to be monitored for any concerns of acute CHF or pulmonary edema. He should continue medical management for his cardia myopathy as deemed appropriate. 5. COPD The patient has significant COPD. He will continue evaluation care per pulmonology. 6. Lung carcinoma The patient has been diagnosed with lung carcinoma. He states he is gone through chemotherapy and radiation therapy. He has had no surgical intervention. He states he has been told that he is in remission at this time. 7. Sepsis syndrome The patient has been evaluated and was diagnosed with a sepsis syndrome. He is continued evaluation care per the ICU staff. 8. Hypertension The patient has a history of hypertension. His blood pressures will need to be followed. His medication can be adjusted as needed. Overall, the present time, he will continue his medical management. He will be asked to have future outpatient cardiovascular follow-up to monitor his condition. The patient's case was discussed and reviewed with the patient and Dr. Alcaraz. This note was generated using a voice recognition system and there may be incorrect words, spelling or punctuation that were not noted when reviewing the office note prior to saving.
--- NOTE | 2019-09-16 10:00 | DCINST_ITS ---
- Discharge Diagnoses Current Active Problems: Current Active and Chronic Problems (Last Updated 09/15/19 @ 09:11 by Carla Gonzalez) Acute on chronic respiratory failure with hypoxia (Chronic) SIRS (systemic inflammatory response syndrome) (Acute) Septic shock (Acute) Atrial flutter (Acute) S/P PTCA (percutaneous transluminal coronary angioplasty) (Chronic) Cardiomyopathy (Chronic) COPD exacerbation (Acute) You will use the following diet at home:: Cardiac Your food should be the consistency of: Regular Your liquids should be the consistency of: Regular/Thin Discharge Activity: Return to Normal Activity Weight Bearing Status: Weight bearing as tolerated Call your doctor if you observe: Fever of 101 or Higher, Shortness of breath, Chest pain, Increased palpitations (irregular heartbeat) Instructions: What Is Atrial Flutter/Atrial Fibrillation? Allergies/Adverse Reactions: Allergies amoxicillin Adverse Reaction (Severe, Verified 09/06/19 08:11) Nausea/Vom/Diarrhea Gadolinium-MRI Contrast Medium [DYE] Adverse Reaction (Severe, Verified 09/06/19 08:11) Nausea/Vom/Diarrhea rice Adverse Reaction (Severe, Verified 09/06/19 08:11) Vomiting Medications to take at Discharge finasteride 5 mg tablet 1 tab PO DAILY 90 Days #90 02/10/18 budesonide-formoterol HFA 160 mcg-4.5 mcg/actuation aerosol inhaler 2 puff INHALATION BID #1 ea 12/06/18 Ipratropium/Albuterol Respimat [Combivent Respimat Inhal [place]] 1 puff INHALATION PRN PRN 02/17/19 Furosemide [Lasix] 20 mg PO DAILY 08/22/19 Albuterol Inhaler [Ventolin Hfa] 2 puff INHALATION Q6H PRN PRN #2 inhaler 08/24/19 Oxygen, Home [Home Oxygen] 2 lpm NASAL CONT #1 unit 08/24/19 tiotropium bromide 2.5 mcg/actuation mist for inhalation 2 puff INHALATION QDAY #1 ea 09/06/19 Amiodarone HCl [Cordarone] 200 mg PO DAILY #30 tab 09/16/19 Guaifenesin [Mucinex] 1,200 mg PO BID #60 tab 09/16/19 Rivaroxaban [Xarelto] 20 mg PO DAILY@1700 #30 tab 09/16/19 levoFLOXacin tablet [Levaquin tablet] 750 mg PO DAILY@0600 #1 tab 09/16/19 predniSONE tablet 40 mg PO DAILY@0800 #10 tab 09/16/19 The following prescriptions were given: Amiodarone HCl [Cordarone] 200 mg PO DAILY #30 tab Transmission Status: Pending to [id number] levoFLOXacin tablet [Levaquin tablet] 750 mg PO DAILY@0600 #1 tab Transmission Status: Pending to [facility] Guaifenesin [Mucinex] 1,200 mg PO BID #60 tab Transmission Status: Pending to [facility] 181 predniSONE tablet 40 mg PO DAILY@0800 #10 tab Transmission Status: Pending to [facility] [id number] Rivaroxaban [Xarelto] 20 mg PO DAILY@1700 #30 tab Transmission Status: Pending to [facility] Primary Care Physician: Ha Davis DO [Primary Care Provider] - Please follow up with your Primary Care Physician in: one week Test Results: Test results from this visit will be discussed in further detail at your follow- up appointment, if applicable. Please Follow Up With: Oral Song MD When: 1-2 weeks Please Follow Up With: Bola Becerril DO When: 2 weeks Proposed Discharge Date: 09/16/19
--- NOTE | 2019-09-16 10:02 | PCM.DC.SUM ---
Discharge Date and Diagnosis Date of Admission: 09/11/19 Date of Discharge: 09/16/19 - Primary Discharge Diagnosis Active and Suspected Problems (Last Updated 09/15/19 @ 09:11 by Carla Gonzalez) SIRS (systemic inflammatory response syndrome) (Acute) Septic shock (Acute) Atrial flutter (Acute) COPD exacerbation (Acute) community acquired pneumonia UTI acute on chronic combined respiratory failure - Secondary Discharge Diagnosis Chronic Problems (Last Updated 09/15/19 @ 09:11 by Carla Gonzalez) Coronary artery disease (Chronic) Acute on chronic respiratory failure with hypoxia (Chronic) S/P PTCA (percutaneous transluminal coronary angioplasty) (Chronic) Cardiomyopathy (Chronic) Anemia (Chronic) Immunotherapy (Chronic) Hx of heart artery stent (Chronic) 2013 HTN (hypertension) (Chronic) Stroke (Chronic) Primary cancer of left lower lobe of lung (Chronic) Regional lymph node metastasis present (Chronic) Chronic respiratory failure with hypoxia (Chronic) Stage 4 very severe COPD by GOLD classification (Chronic) FEV1 41% of predicted Hospital Course and Treatment cardiology- Dr Song critical care- Dr Becerril Operations: None Procedures: None Summary of Care Provided: The patient is a 83 year old M with an extensive past medical history as listed including stage IV COPD with chronic hypoxic respiratory failure on 2 L of oxygen as well as lung cancer and hypertension. He was admitted with a complaint of sudden shortness of breath which started a few hours prior to presentation on 09/11/2019. He had assisted weakness, rigor and chills. He also had a dry cough. In the ED, BP was below 90 systolic, and he was tachypneic and tachycardic; wbc was 14.2 and lactic acid was 2.7. Temperature peaked at 103.2F. He was admitted and managed for septic shock was thought to be due to community-acquired pneumonia and UTI. Was started on IV vancomycin and Zosyn. Respiratory panel done was negative. Patient also required BiPAP on admission on account of acute on chronic respiratory failure thought also to be due to pneumonia possible COPD exacerbation. He also required initiation of vasopressor therapy due to hypotension. Patient subsequently went into atrial flutter with heart rate going up to the 150s and was initiated on amiodarone therapy. Cardiology was consulted. Patient was initially weaned off of IV amiodarone and put on p.o. amiodarone. However he went back into A. fib with RVR. 2D echo done showed EF of 40% with moderate concentric left ventricular hypertrophy and stage II diastolic dysfunction with segmental hypokinesia. He was started on anticoagulation with heparin drip. Septic shock resolved and patient was weaned off of pressors. Blood cultures were negative and urine culture corynebacterium striated him and so antibiotics were switched to IV Levaquin. He was weaned of BiPAP and was saturating well on his baseline 2 L of oxygen. Patient had DC cardioversion on 09/14/2019 and tolerated procedure well. He was subsequently switched to Xarelto. Patient remained stable and was transferred out of ICU on 09/15/2019. He was discharged home on 09/16/2019 on p.o. amiodarone 200 mg daily and Xarelto as well as given 1 dose of levofloxacin to complete a 5-day course. He is to follow-up with his primary care doctor and cardiology. Patient seen and examined prior to discharge. He felt well and had no complaints. Review of systems is otherwise negative. Labs and vitals reviewed. Home medications reviewed and reconciled. o/e: Vital Signs Height 5 ft 10 in Weight: 177 lb 4.026 oz Weight in Pounds 177.3 lbs BMI 24.0 Pulse Ox 95 Temperature 97.5 F Pulse Rate 87 Respiratory Rate 20 Blood Pressure [BP] 113/77 Blood Pressure 131/59 Blood Pressure Position [BP] Sitting Blood Pressure Position Sitting [] General: Alert, Oriented x3, Cooperative, No apparent distress HEENT: Atraumatic, PERRLA, EOMI, Normocephalic Oral: Dry Mucosa Neck: Supple, No JVD, Negative Carotid Bruits, Negative Hepatojugular Reflux Lungs: - - Decreased breath sounds bibasilarly and in mid lung singleton. No wheezes or crackles. Cardiovascular: Regular rate, Regular Rhythm, Normal S1, Normal S2, No murmurs Abdomen: Bowel Sounds Present, Soft, Non Tender, Non-Distended, No Hepato-splenomegaly Extremities: No clubbing, No cyanosis, No edema, Capillary Refill Less than 3 Seconds Skin: No rashes, No breakdown Musculoskeletal: No Tenderness to Palpation of Joints or Extremities, - - has right sided chemotherapy port in place on chest Lymphatic: No Cervical, Supraclavicular, or Inguinal Adenopathy Neurological: Cranial nerves II-XII grossly intact, Neuro grossly intact, Motor Exam 5/5 strength throughout Plan as above. - Physical Exam Vitals/I&O's: Vital Signs Temp Pulse Resp BP Pulse Ox 97.5 F L 87 20 H 131/59 H 95 09/16/19 08:55 09/16/19 08:55 09/16/19 08:55 09/16/19 08:55 09/16/19 08:55 Oxygen Flow Rate (L/min) 2 Oxygen Delivery Method Nasal Cannula Weight: 177 lb 4.026 oz Body Mass Index (BMI) 24.2 Intake and Output for Last 24 Hours 09/14/19 09/15/19 09/16/19 23:59 23:59 23:59 Intake Total 1927.50 / 2195.20 1051.32 / 1251.32 220 / 220 Output Total 3275 / 3775 725 / 1025 800 / 800 Balance -1347.50 / -1579.80 326.32 / 226.32 -580 / -580 Microbiology Past 72 Hours 09/11/19 00:45 Blood Culture (Wb) - Port Blood Culture - Final No growth in 5 days. 09/11/19 00:05 Blood Culture (Wb) - Anticubital Left Blood Culture - Final No growth in 5 days. 09/11/19 05:00 Urine, Clean Catch Urine Culture - Final Corynebacterium striatum Laboratory Results 09/16/19 05:08: WBC 7.4, RBC 3.72 L, Hgb 10.4 L, Hct 33.7 L, MCV 90.6, MCH 28.0, MCHC 30.9 L, RDW Std Deviation 62.2 H, RDW Coeff of Zamzam 18.8 H, Plt Count 143 L, MPV 10.1, Immature Gran % (Auto) 0.900, Neut % (Auto) 83.4 H, Lymph % (Auto) 6.7 L, Pleasants % (Auto) 8.5, Eos % (Auto) 0.1, Baso % (Auto) 0.4, Absolute Neuts (auto) 6.2, Absolute Lymphs (auto) 0.50 L, Nucleated RBC % 0 09/16/19 05:08: Sodium 141, Potassium 4.1, Chloride 99, Carbon Dioxide 37.0 H, Anion Gap 5, BUN 30 H, Creatinine 0.86, Estim Creat Clear Calc 67.20, Est GFR (MDRD) Af Amer 109, Est GFR (MDRD) Non-Af 90, BUN/Creatinine Ratio 34.8 H, Glucose 105, Calcium 8.7 Current Medications Acetaminophen (Tylenol) 650 mg PO Q6H PRN PRN PRN Reason: Pain Score 1-3/Temp > 100.7 F Albuterol Sulfate (Ventolin Aerosols) 2.5 mg INHALATION Q2H PRN PRN PRN Reason: SOB/Wheezing Last Admin: 09/14/19 21:50 Dose: 2.5 mg Documented by: Amiodarone HCl (Cordarone) 200 mg PO DAILY [facility] Last Admin: 09/16/19 08:51 Dose: 200 mg Documented by: Dextrose (D50w Syringe) 0 gm IV X1 PRN; Protocol PRN Reason: Hypoglycemia Finasteride (Proscar) 5 mg PO DAILY [facility] Last Admin: 09/15/19 08:22 Dose: 5 mg Documented by: Glucagon () 1 mg IM .X1 PRN PRN Reason: Hypoglycemia Guaifenesin (Mucinex) 1,200 mg PO BID [facility] Last Admin: 09/15/19 21:18 Dose: 1,200 mg Documented by: Heparin Sodium (Beef Lung) () 50 units IV UD PRN PRN Reason: Port-a-Cath (VAD)Heparin Flush Heparin Sodium (Porcine) (Heparin Na) 0 unit IV UD PRN; Protocol Sodium Chloride () 250 mls @ 15 mls/hr IV .[id number] PRN PRN Reason: Saline Flush Last Infusion: 09/14/19 21:56 Dose: Infused Documented by: Ipratropium Telford (Atrovent) 0.5 mg INHALATION Q4H.RT [facility] Last Admin: 09/16/19 06:57 Dose: 0.5 mg Documented by: Levofloxacin (Levaquin Tablet) 750 mg PO DAILY@0600 [facility] Stop: 09/17/19 06:01 Last Admin: 09/16/19 06:02 Dose: 750 mg Documented by: Melatonin (Melatonin) 3 mg PO QHS PRN PRN PRN Reason: INSOMNIA Last Admin: 09/14/19 21:53 Dose: 3 mg Documented by: Ondansetron HCl (Zofran) 4 mg IV Q8H PRN PRN PRN Reason: NAUSEA/VOMITING Polyethylene Glycol (Miralax) 17 gm PO BID [facility] Last Admin: 09/16/19 08:44 Dose: Not Given Documented by: Prednisone () 40 mg PO DAILY@0800 [facility] Last Admin: 09/16/19 08:51 Dose: 40 mg Documented by: Rivaroxaban (Xarelto) 20 mg PO DAILY@1700 [facility] Last Admin: 09/15/19 11:58 Dose: 20 mg Documented by: Sodium Chloride () 10 - 40 ml IV UD PRN PRN Reason: Port-a-Cath (VAD) Flush Last Admin: 09/16/19 05:11 Dose: 20 ml Documented by: Sodium Chloride (0.9% Nacl (Sterile) Posiflush) 10 - 40 ml IV UD PRN PRN Reason: Port access or dressing change Sodium Chloride () 10 - 40 ml IV UD PRN PRN Reason: SALINE FLUSH Discharge Diet: Low fat/ Low Cholesterol Discharge Activity: Return to Normal Activity Weight Bearing Status: Weight bearing as tolerated Call your doctor if you observe: Fever of 101 or Higher, Shortness of breath, Chest pain, Increased palpitations (irregular heartbeat) Home Medications: Medications to take at Discharge finasteride 5 mg tablet 1 tab PO DAILY 90 Days #90 02/10/18 budesonide-formoterol HFA 160 mcg-4.5 mcg/actuation aerosol inhaler 2 puff INHALATION BID #1 ea 12/06/18 Ipratropium/Albuterol Respimat [Combivent Respimat Inhal [place]] 1 puff INHALATION PRN PRN 02/17/19 Furosemide [Lasix] 20 mg PO DAILY 08/22/19 Albuterol Inhaler [Ventolin Hfa] 2 puff INHALATION Q6H PRN PRN #2 inhaler 08/24/19 Oxygen, Home [Home Oxygen] 2 lpm NASAL CONT #1 unit 08/24/19 tiotropium bromide 2.5 mcg/actuation mist for inhalation 2 puff INHALATION QDAY #1 ea 09/06/19 Amiodarone HCl [Cordarone] 200 mg PO DAILY #30 tab 09/16/19 Guaifenesin [Mucinex] 1,200 mg PO BID #60 tab 09/16/19 Rivaroxaban [Xarelto] 20 mg PO DAILY@1700 #30 tab 11/08/19 levoFLOXacin tablet [Levaquin tablet] 750 mg PO DAILY@0600 #1 tab 09/16/19 predniSONE tablet 40 mg PO DAILY@0800 #10 tab 09/16/19 Following Prescrptions Were Given to Patient: Amiodarone HCl [Cordarone] 200 mg PO DAILY #30 tab Transmission Status: Received by [facility] 181 levoFLOXacin tablet [Levaquin tablet] 750 mg PO DAILY@0600 #1 tab Transmission Status: Received by [facility] 181 Guaifenesin [Mucinex] 1,200 mg PO BID #60 tab Transmission Status: Received by [facility] 181 predniSONE tablet 40 mg PO DAILY@0800 #10 tab Transmission Status: Received by [facility] 181 Rivaroxaban [Xarelto] 20 mg PO DAILY@1700 #30 tab Transmission Status: Received by [facility] [id number] Primary Care Physician: Ha Davis DO [Primary Care Provider] - Please follow up with your Primary Care Physician in: one week Please Follow Up With: Oral Song MD When: 1-2 weeks Please Follow Up With: Bola Becerril DO When: 2 weeks Patient Instructions: What Is Atrial Flutter/Atrial Fibrillation? Disposition: Home Minutes spent on discharge:: 45 Patient Condition:: Stable Medical Necessity - Tobacco Use Smoking Status: Former smoker Meaningful Use Info Meaningful Use Diagnoses (Choose all that apply): None applicable Code Visit Inpatient E&M: 67747 Disch Hosp
[2019-09-16] MEDS: Finasteride 5 MG Tablet PO (10:10)
[2019-09-16] MEDS: guaiFENesin 1,200 MG Tablet 1200 MG PO (10:10)
--- NOTE | 2019-09-16 10:56 | CASEMGMT ---
Pt to be discharged home today. Call to Kae at [facility] to advise that pt is up for discharge and to clarify pt's home oxygen order. Per Kae, pt has order for 3 liters continuous home oxygen and she states that she can go out to home at 1600, if pt will be home by then. This RN CM to room to discuss discharge plan with pt/ at this time. Pt/ aware of therapy recommendation for addl skilled therapy and pt declines need for any further therapy at this time. Pt/ aware to contact PCP if they feel that pt needs therapy once home, voice understanding. Pt/ aware that [facility] would like to bring trilogy at 1600 today to home and they agree with this at this time. states 'We were kind of hoping he didn't need that now as our home is not very big and we are running out of space.' This RN CM advised pt/ that the trilogy is not very large, voice understanding. This RN CM advised pt/ that Dr. Cabello felt that pt needed the trilogy prior to this admission as it had been in the works and to discuss with him in the future with any concerns, voice understanding. Call back to Kae at [facility] and she is aware that 1600 for trilogy delivery/education at pt's home is acceptable to pt/ at this time. Pt/ voice no further questions/concerns/needs at this time. SStcarlos RN CM
--- NOTE | 2019-09-16 11:05 | PHA.DC.COU ---
Pharmacy Services has performed discharge medication counseling for this patient. The patient was counseled on the following discharge medications and changes in medications for homegoing review. 1. AMIODARONE 2. XARELTO 3. PREDNISONE 4. LEVOFLOXACIN The Reason for Use, instructions for use, and potential side effects were reviewed for all new medications. The patient's questions regarding all of their medications were answered. The patient was able to verbally demonstrate an understanding of their discharge medications.
--- NOTE | 2019-09-19 15:57 | CASEMGMT ---
JONO HEATON Discharge F/U Phone Call LACE: 13 Strata: 4 Discharge date: 09/16/19 Call date: 09/19/19 Call time: [id number] Duration: 4 minutes Admission dx: Severe sepsis Pt's answered phone and preferred to answer questions for pt at this time as he is on his trilogy device at this time. Per , pt has been doing 'pretty well' since discharge. She states no questions regarding discharge instructions or medications at this time. states has most f/u appt's scheduled but she needs to do one more for Dr. Becerril and states will work on that tomorrow. Pt/ state no suggestions for [facility] at this time. Pt/ voice no further questions/concerns/needs at this time. SStaten JONO HEATON
== END 2019-09-16 11:29 | disposition home or self-care (01) | DRG 871 ==
LOC: ED 09-11 01:34 → ICU 09-11 01:53 → PCU 09-15 12:16
PROVIDERS: Internal Medicine Cardiovascular Disease; Internal Medicine Critical Care Medicine; Admitting Provider Hospitalist; Emergency Provider Emergency Medicine; Family Provider Family Medicine; PCP Family Medicine; Referring Provider Hospitalist; Visit Provider Student in an Organized Health Care Education/Training Program
DX: A41.9 Sepsis, unspecified organism (principal); R65.21 Severe sepsis with septic shock; J18.9 Pneumonia, unspecified organism; J96.21 Acute and chronic respiratory failure with hypoxia; N39.0 Urinary tract infection, site not specified; J44.0 Chronic obstructive pulmonary disease with (acute) lower respiratory infection; J44.1 Chronic obstructive pulmonary disease with (acute) exacerbation; I48.92 Unspecified atrial flutter; I25.10 Atherosclerotic heart disease of native coronary artery without angina pectoris; I10 Essential (primary) hypertension; D64.9 Anemia, unspecified; Z95.5 Presence of coronary angioplasty implant and graft; N40.0 Benign prostatic hyperplasia without lower urinary tract symptoms; Z99.81 Dependence on supplemental oxygen; Z87.891 Personal history of nicotine dependence; Z85.118 Personal history of other malignant neoplasm of bronchus and lung; Z86.73 Personal history of transient ischemic attack (TIA), and cerebral infarction without residual deficits
CPT/HCPCS: 36591; 36600; 71045; 76770; 80048; 80053; 80202; 81001; 82803; 83605; 83735; 83880; 84100; 84484; 85025; 85610; 85730; 87040; 87077; 87086; 87088; 87449; 87633; 87641; 87804; 92960; 93005; 93306; 94002; 94003; 94640; 94667; 94668; 97110; 97116; 97127; 97163; 97165; 97530; 97535; 97802; 97803; 99251; 99285; J7030; J7040; J7050; A4216; G0463; G0515; J1940; J2405

== ENCOUNTER → 2019-10-03 08:45 | Outpatient (CLI) | payer MEDICARE, SELFPAY ==
[2019-05-17 10:20] VITALS: BMI 24.0
[2019-09-28 07:37] VITALS: BMI 23.8
[2019-10-03 12:22] LABS: T4 Free Direct 1.25 ng/dL (0.76-1.46); Thyroid Stim Hormone (TSH) 3.32 uIU/mL (0.358-3.74)
[2019-10-03 12:27] LABS: BNP,B-Type NATRIURETIC PEPTIDE 152.2 pg/mL (0-100)
== END ==
PROVIDERS: Family Provider Family Medicine; PCP Family Medicine; Visit Provider Family Medicine
DX: I50.9 Heart failure, unspecified (principal); Z51.81 Encounter for therapeutic drug level monitoring
CPT/HCPCS: 36415; 83880; 84439; 84443

== ENCOUNTER 2019-10-07 10:14 | Inpatient (IN) | payer MEDICARE, SELFPAY ==
[2019-05-17 10:20] VITALS: BMI 24.0
[2019-10-04 14:59] VITALS: BMI 23.8
[2019-10-07] VITALS (20 sets, daily range): BP systolic 109–162; BP diastolic 54–95; PULSE 93–121; RESP 12–26; TEMP 34.4–36.7; O2SAT 40–100; BMI 23.8; BMI 22.9; BMI 23.0
--- NOTE | 2019-10-07 10:27 | EKG12_ITS ---
Test Reason : DYSRHYTHMIA Blood Pressure : / mmHG Vent. Rate : 083 BPM Atrial Rate : 278 BPM P-R Int : 000 ms QRS Dur : 120 ms QT Int : 422 ms P-R-T Axes : -87 009 080 degrees QTc Int : 495 ms Atrial flutter with variable A-V block Left ventricular hypertrophy with QRS widening and repolarization abnormality Inferior infarct , age undetermined Abnormal ECG Confirmed by YOSSI VALLEJO, [facility] ([id number]), editor managing newspaper COOKIE TORRES ([id number]) on 10/10/2019 11:32:45 AM Referred By: Lorena Alcaraz Confirmed By:UMU SY MD
--- NOTE | 2019-10-07 10:39 | ED.VIS.GEN ---
History of Present Illness Chief Complaint: Shortness of Breath Informant: Patient Onset: Days Context: Sudden Onset Timing: Continuous Quality: Increased shortness of breath since Thursday Location: Respiratory Current Severity: Moderate Maximum Severity: Severe Worsened by: Walking 1 or 2 steps Relieved by: Nothing Associated Symptoms: Moist cough Narrative: Patient is an elderly male with 2 recent admissions for respiratory symptoms within the past month. He presents because of increased shortness of breath since Thursday. He states he is not able to walk more than 1 or 2 steps. He is on oxygen at home. He did report chills. His cough is nonproductive. He denied documented fever. He denies orthopnea or PND. Recent echo reveals an EF of 40%. The cardiac echo is unchanged from prior. Patient denies headache, visual, ocular auditory symptoms. He denies rhinorrhea, congestion or postnasal drainage. He denies throat pain or change in voice. He denies chest discomfort. He denies abdominal pain, nausea, vomiting or diarrhea. He denies urinary symptoms. He denies swelling of his ankles. He denies history of PE or DVT. Prior similar symptoms: Yes Recent Illness/Hospitalization: Yes - Past Medical History (1) Atrial flutter Status: Acute Comment: DCCV on 09/14/2019; (2) COPD exacerbation Status: Acute (3) Cardiomyopathy Status: Chronic (4) Chronic respiratory failure with hypoxia Status: Chronic (5) Coronary artery disease Status: Chronic (6) HTN (hypertension) Status: Chronic (7) Immunotherapy Status: Chronic (8) Primary cancer of left lower lobe of lung Status: Chronic (9) Regional lymph node metastasis present Status: Chronic (10) S/P PTCA (percutaneous transluminal coronary angioplasty) Status: Chronic (11) Stage 4 very severe COPD by GOLD classification Status: Chronic Comment: FEV1 41% of predicted (12) Stroke Status: Chronic Past Medical History - Allergies and Home Meds Allergies/Adverse Reactions: Allergies amoxicillin Adverse Reaction (Severe, Verified 10/07/19 10:14) Nausea/Vom/Diarrhea Gadolinium-MRI Contrast Medium [DYE] Adverse Reaction (Severe, Verified 10/07/19 10:14) Nausea/Vom/Diarrhea rice Adverse Reaction (Severe, Verified 10/07/19 10:14) Vomiting Primary Care Physician: Ha Davis DO [Primary Care Provider] - Prior records reviewed: Yes Surgical History: tonsillectomy, - - Cardiac stents. Lives: Spouse/ Significant Other Smoking Status: Never smoker Alcohol: None Drugs: None - Family History Maternal Family History: Family History (Last Reviewed 09/28/19 @ 16:08 by KERRY Valero) Other No pertinent family history Family History: Reports: - - His mother young so patient does not know his maternal medical history. Paternal Family History: Family History (Last Reviewed 09/28/19 @ 16:08 by KERRY Valero) Other No pertinent family history Family History: Reports: - - His father when patient was young so patient does not know his maternal medical history. Review of Systems General: Reports: Malaise. Denies: Chills, Fever, Subjective, Sweats, Weight loss, - Eyes: Denies: Visual changes - bilaterally, Blurred Vision - bilaterally ENT: Denies: Rhinorrhea, Sore throat Cardiovascular: Denies: Chest pain, Palpitations, Heart racing Respiratory: Reports: Dyspnea, Cough, Dyspnea on exertion. Denies: Sputum, Orthopnea, Paroxysmal nocturnal dyspnea Gastrointestinal: Denies: Abdominal pain, Nausea, Vomiting, Diarrhea, Melena, Hematochezia Genitourinary: Denies: Dysuria, Hematuria, Frequency Musculoskeletal: Denies: Myalgias, Arthralgias, Neck pain, Back pain, Swelling, Extremity Pain, -, - Neurological: Denies: Headache, Weakness, Parasthesia, Numbness, -, - Endocrine: Denies: Polyuria, Polydipsia Hematologic: Denies: Easy bruising, Easy bleeding Allergy: Denies: Uticaria, Swelling of the mouth Physical Exam Vital Signs/Narrative: Vital Signs Temp Pulse Resp BP Pulse Ox 10/07/19 10:22 95 19 H 146/95 H 86 10/07/19 10:15 97.0 F L 99 19 H 138/80 H 83 Inital Vital Signs reviewed: Yes - Patient is hypoxic and has respiratory distress General: Well nourished, Well developed, Acute Distress Head: Normocephalic, Atraumatic Eyes: Perrl, EOMI. Negative for: Pale conjunctiva, Scleral icterus ENT: No rhinorrhea, TM's clear Neck: Supple, Nontender. Negative for: No lymphadenopathy Cardiovascular: No murmurs, Irregular Respiratory: Chest nontender, Rales, Rhonchi, Wheezing, Decreased Air Movement, - - There is use of accessory muscles with mild retractions Abdomen: Soft, Nontender, Nondistended, Normal bowel sounds, No masses Rectal: Deferred Back: Nontender, Normal Inspection. Negative for: CVA tenderness Extremities: Nontender, No edema, - - There is no asymmetry, swelling, discoloration, leg vein distention, palpable cords or tenderness along the distribution of the deep venous system. Skin: No rash, Cyanosis, No Trauma. Negative for: Diaphoresis, Jaundice Neurological: Alert, Oriented x3, Cranial nerves II-XII grossly intact, Normal Strength, Normal Sensation Psychological: Normal affect, Normal Mood Diagnostic/Tx/Re-eval Chest X-Ray - ED: 1 View, Read by ED Physician, Normal, Heart, - - Increased markings on the left side. This may represent pneumonia. Impressions Chest X-Ray 10/07/19 10:55 IMPRESSION: Limited infiltrate left lower lobe behind the heart. Electronically Signed: Yuliet Lugeorge, at 11:32 EST Tel , Service support , 10/07/19 10:55 Chest 1 View (Portable) [RAD] Stat Laboratory Results 10/07/19 10/07/19 10/07/19 10:43 10:43 10:43 WBC 5.6 RBC 3.47 L Hgb 9.6 L Hct 32.2 L MCV 92.8 MCH 27.7 MCHC 29.8 L RDW Std Deviation 65.1 H RDW Coeff of Zamzam 19.0 H Plt Count 149 L MPV 9.9 Immature Gran % (Auto) 1.800 H Neut % (Auto) 70.2 H Lymph % (Auto) 11.1 L Sharkey % (Auto) 14.2 H Eos % (Auto) 2.3 Baso % (Auto) 0.4 Absolute Neuts (auto) 3.9 Absolute Lymphs (auto) 0.62 L Nucleated RBC % 0 Differential Comment SCANNED Hypochromasia 1+ Anisocytosis 2+ Microcytosis 1+ Macrocytosis 1+ PT 22.7 H INR 2.0 APTT 53.5 H Specimen Type Sample Site O2 % VBG pH VBG pO2 VBG O2 Sat (Calc) VBG O2 Content VBG Base Excess POC Mix VBG pCO2 Pt Tmp O2 Delivery Device Blood Gas Notified Whom Blood Gas Notified Time Sodium 139 Potassium 3.1 L Chloride 100 Carbon Dioxide 35.0 H Anion Gap 4 L BUN 24 H Creatinine 0.90 Estim Creat Clear Calc 64.21 Est GFR (MDRD) Af Amer 104 Est GFR (MDRD) Non-Af 86 BUN/Creatinine Ratio 26.8 H Glucose 117 H Lactic Acid Calcium 8.8 Total Bilirubin 0.50 AST 14 L ALT 16 Alkaline Phosphatase 80 Troponin I 0.021 Total Protein 6.8 Albumin 2.9 L Globulin 3.9 Albumin/Globulin Ratio 0.7 L 10/07/19 10/07/19 10:43 11:17 WBC RBC Hgb Hct MCV MCH MCHC RDW Std Deviation RDW Coeff of Zamzam Plt Count MPV Immature Gran % (Auto) Neut % (Auto) Lymph % (Auto) Sharkey % (Auto) Eos % (Auto) Baso % (Auto) Absolute Neuts (auto) Absolute Lymphs (auto) Nucleated RBC % Differential Comment Hypochromasia Anisocytosis Microcytosis Macrocytosis PT INR APTT Specimen Type KRISHNA Sample Site OTHER O2 % 50 VBG pH 7.41 VBG pO2 43 H VBG O2 Sat (Calc) 77 H VBG O2 Content 38 H VBG Base Excess 11 H POC Mix VBG pCO2 Pt Tmp 57.2 H O2 Delivery Device Vent Mask Blood Gas Notified Whom ED MD Blood Gas Notified Time 1100 Sodium Potassium Chloride Carbon Dioxide Anion Gap BUN Creatinine Estim Creat Clear Calc Est GFR (MDRD) Af Amer Est GFR (MDRD) Non-Af BUN/Creatinine Ratio Glucose Lactic Acid 1.4 Calcium Total Bilirubin AST ALT Alkaline Phosphatase Troponin I Total Protein Albumin Globulin Albumin/Globulin Ratio Area of concern on my interpretation was interpreted by radiologist as pneumonia/small infiltrate. CBC reveals mild anemia. Lactate is normal. Venous blood gas would indicate patient has chronic CO2 retention. He is presently on 50% Venturi mask. Since he was recently admitted for severe sepsis had an 8-day stay he was treated with Zosyn and vancomycin for his left lower lobe pneumonia. He received DuoNeb and 3 albuterol treatments. There is still significant wheezing noted on the left compared to the right. - EKG Initial EKG Interpretation: Atrial Fibrillation - Circular rate is 83. There is evidence of left ventricular hypertrophy with repolarization abnormality. QRS duration 120 ms. QT duration 422 ms. There is motion artifact noted as well. This is unchanged from prior. - Medical Decision Making Differential diagnosis includes pneumonia, exacerbate COPD, congestive heart failure, cardiac ischemia, atrial fibrillation with RVR causing cardiac dysfunction. Pulmonary embolus is a consideration especially if no other cause. Work-up included EKG, chest x-ray and appropriate blood work. Because patient is still wheezing after treatments will administer 125 mg Solu-Medrol. Since chest x-ray does reveal infiltrate he was treated with Zosyn and vancomycin. Plan is full admission to PCU - Critical Care Time Critical care time (excluding procedures): 30-74 minutes, Discussing w/Patient &/or Family/Digital Marketing Apprentice, Discussing w/Consultants, Arranging Admission or Transfer ED Disposition - Plan for ED Patient: Disposition: Acute Care Hospital [facility] Diagnosis: Respiratory failure with hypoxia and hypercapnia, Left lower lobe pneumonia, Asthma exacerbation in COPD, Atrial fibrillation by electrocardiogram Referrals: Ha Davis DO [Primary Care Provider] -
[2019-10-07] MEDS: Ipratropium/Albuterol Sulfate 3 ML AMPUL.NEB INHALATION ×2 (10:51→19:02)
--- NOTE | 2019-10-07 10:55 | RAD_ITS ---
STUDY: X-RAY CHEST REASON FOR EXAM: Male, 83 years old. TECHNIQUE: 2 views COMPARISON: September 11, 2019 FINDINGS: The lung singleton are hyperinflated. Small calcified granuloma right upper lobe superimposing the fourth rib. The cardiac silhouette is mildly prominent. There is still noted infiltrate behind the heart in the left lower lobe. The upper lung singleton are clear. There is a Port-A-Cath which is coiled in the base of the neck and the tip is in the superior vena cava. There is no pleural effusion or pneumothorax. RAD/Chest 1 View (Portable) IMPRESSION: Limited infiltrate left lower lobe behind the heart. Electronically Signed: Yuliet Garcia, at 11:32 EST Tel , Service support ,
[2019-10-07 10:56] LABS: Absolute Lymphocyte Count 0.62 X10^3/uL (0.83-4.51); Absolute Neutrophil Count 3.9 X10^3/uL (2.0-7.7); Basophil# 0.02 X10^3/uL; Basophil% 0.4 % (0-1); Eosinophil# 0.13 X10^3/uL; Eosinophils% 2.3 % (0-5); Hematocrit 32.2 % (40-54); Hemoglobin 9.6 g/dL (13.0-16.5); Lymphocyte # 0.62 X10^3/ul (4.0); Lymphocyte % 11.1 % (19-41); Mean Corp Hgb Conc 29.8 g/dL (32-36); Mean Corpuscular Hgb 27.7 pg (27.0-32.0); Mean Corpuscular Volume 92.8 fL (80-94); Mean Platelet Vol. 9.9 fl (6.2-12.0); Monocyte# 0.79 X10^3/uL; Monocyte% 14.2 % (0-10); NRBC Flagged by Analyzer 0 % (0-5); Neutrophil # 3.91 X10^3/uL (2.7-7.7); Neutrophil % 70.2 % (47-70); POSITIVE MORPHOLOGY YES; Platelet Count 149 K/mm3 (150-450); RBC Distribution Width SD 65.1 fl (35.1-43.9); Red Blood Count 3.47 M/mm3 (4.6-6.2); White Blood Count 5.6 K/mm3 (4.4-11.0)
[2019-10-07 11:00] LABS: Differential Indicated SCAN CRITERIA MET
[2019-10-07] MEDS: Albuterol 2.5 MG/3 ML VIAL.NEB. INHALATION ×3 (11:05)
[2019-10-07 11:06] LABS: Prothrombin Time (Protime)PT. 22.7 SECONDS (11.7-14.9)
[2019-10-07 11:07] LABS: Partial Thromboplast Time 53.5 Seconds (24.1-36.2)
[2019-10-07 11:14] LABS: ALB/GLOB Ratio 0.7 RATIO (0.9-2.4); AST(SGOT) 14 U/L (15-37); Alanine Aminotransfer ALT/SGPT 16 U/L (16-61); Albumin, Serum 2.9 g/dL (3.2-5.0); Alkaline Phosphatase 80 U/L (45-117); Anion Gap 4 (5-15); BUN 24 mg/dL (7-18); BUN/Creat Ratio 26.8 RATIO (10-20); Calcium,Total 8.8 mg/dL (8.5-10.1); Chloride 100 mmol/L (98-107); EST Glomerular Filtration Rate 86 mL/min (>60); Est Glom Filt Rate - Afr Amer 104 mL/min (>60); Estimated Creatinine Clearance 64.21 ml/min; Globulin 3.9 g/dL (2.2-4.2); Glucose 117 mg/dL (74-106); Potassium 3.1 mmol/L (3.5-5.1); Protein, Total 6.8 g/dL (6.4-8.2); Sodium Level 139 mmol/L (136-145)
[2019-10-07 11:20] LABS: Blood Gas Specimen Type VEN; FI02 50; SITE OTHER; Time Given 1100; VBG BASE EXCESS 11 mmol/L (-1.0-3.5); VBG Bicarbonate 36 mmol/L (22-26); VBG Oxygen Content 38 mmol/L (23-33); VBG PO2 43 mmHg (25-40); VBG SO2 77 % (50-70); VBG pCO2 57.2 mmHg (41-51); VBG pH 7.41 (7.32-7.42)
[2019-10-07 11:21] LABS: Lactic Acid 1.4 mmol/L (0.4-2.0)
[2019-10-07 11:42] LABS: Anisocytosis 2+; Differential Comment SCANNED; Hypochromasia 1+; Macrocytosis 1+; Microcytosis 1+
--- NOTE | 2019-10-07 12:13 | CT_ITS ---
STUDY: CTA CHEST REASON FOR EXAM: Male, 83 years old. RADIATION DOSAGE (If Supplied By Facility): CTDIvol = ( 9.07 ) mGy, DLP = ( 450.95 ) mGycm TECHNIQUE: The examination was performed with the intravenous administration of IV Isovue 370 100. Post-processing of the angiographic images was performed, with multiplanar reformation and 3D reconstruction. Individualized dose optimization techniques were used for this CT. COMPARISON: January 11, 2019. FINDINGS: There has been interval increase in the previously described mass involving the left lower lobe. There is now noted associated pleural effusion on the left. The findings are highly suspicious for a malignancy and this lesion is amenable for biopsy under CT guidance. There is a honeycomb pattern seen in the posterior aspect of the right lung some. Patchy changes noted in the upper aspect of the left lung with honeycomb pattern as well. The thoracic aorta and both pulmonary arteries are within normal limits no evidence of pulmonary embolism. No retrosternal, paratracheal or hilar adenopathy seen. The upper abdomen reveals multiple calcified granuloma in the spleen. The visualized portion of the liver is unremarkable. Significant hypertrophic changes noted involving the spine. CT/CTA Chest W/WO Contrast IMPRESSION: Interval increase in the size of previously described mass/masses involving the left lower lobe with development of left-sided pleural effusion. Again this lesion is amenable for CT-guided biopsy. Bilateral pulmonary changes which are probably chronic. Electronically Signed: Yuliet Garcia, at 14:55 EST Tel , Service support ,
[2019-10-07] MEDS: MethylPREDNISolone 125 MG/2 ML Vial IV (12:32)
--- NOTE | 2019-10-07 13:31 | HP.PCM_ITS ---
History of Present Illness Date of Admission: 10/07/19 Chief Complaint: shortness of breath The patient is a 83 year old M with an extensive past medical history as listed. Patient had been previously admitted and recently discharged after presenting with worsening shortness of breath. He was discharged home on 09/16/2019 and after being admitted and managed for septic shock due to community-acquired pneumonia and UTI and acute on chronic respiratory failure due to pneumonia and COPD exacerbation as well as atrial flutter which did not respond to p.o. amiodarone and required DC cardioversion. He was discharged home on Xarelto and amiodarone and completed a 5-day course of levofloxacin at that point. Patient presents today 10/07/2019 through the [facility] ED with a complaint of shortness of breath which have been worsening. Patient states that since he went to him about 3 weeks ago, he has been gradually deteriorating and shortness of breath has gradually worsened. He said his pulse ox checked at home was in the 80s and shortness of breath acutely worsened today so he decided to come into the ED. He had an assisted cough which was not initially productive but had become productive by the time he came to the ED. He denied any palpitations or dizziness and denies any chest pain, abdominal pain, diarrhea or vomiting. He did admit to wheezing. Review of systems is otherwise negative. On admission in the ED, he was requiring up to 8 L of oxygen to maintain saturation at 95%. Vitals were significant for tachycardia with heart rate going up into the 110s-120s. Chemistry showed potassium of 3.1 with creatinine of 0.9. Lactic acid was 1.4. Initial troponin was 0.021 and BNP was still pending. CBC showed white cell count of 5.6 with hemoglobin of 9.6 and platelets of 149. Chest x-ray showed limited infiltrate of the left lower lobe behind the heart. CT angiogram of the chest was requested and this was pending. He has been admitted to be managed for acute on chronic hypoxic respiratory failure. [] Past Medical History Past Medical History (Chronic Problems): Chronic Problems (Last Reviewed 09/28/19 @ 16:08 by Bethany Stearns NP-C) Asthma exacerbation in COPD (Chronic) Coronary artery disease (Chronic) Acute on chronic respiratory failure with hypoxia (Chronic) S/P PTCA (percutaneous transluminal coronary angioplasty) (Chronic) Cardiomyopathy (Chronic) Anemia (Chronic) Immunotherapy (Chronic) Hx of heart artery stent (Chronic) 2014 HTN (hypertension) (Chronic) Stroke (Chronic) Primary cancer of left lower lobe of lung (Chronic) Regional lymph node metastasis present (Chronic) Chronic respiratory failure with hypoxia (Chronic) Stage 4 very severe COPD by GOLD classification (Chronic) FEV1 41% of predicted Medical History: Medical History (Last Reviewed 09/28/19 @ 16:08 by Bethany Stearns NP-C) COPD exacerbation (Acute) J44.1 Chemotherapy-induced thrombocytopenia (Inactive) D69.59, T45.1X5A Anemia (Chronic) D64.9 Immunotherapy (Chronic) HTN (hypertension) (Chronic) I10 Stroke (Chronic) I63.9 Primary cancer of left lower lobe of lung (Chronic) C34.32 Regional lymph node metastasis present (Chronic) C77.9 Chronic respiratory failure with hypoxia (Chronic) J96.11 Stage 4 very severe COPD by GOLD classification (Chronic) J44.9 FEV1 41% of predicted History of cardioversion Onset Date: ~09/14/19 Z98.890 Allergies amoxicillin Adverse Reaction (Severe, Verified 10/07/19 10:14) Nausea/Vom/Diarrhea Gadolinium-MRI Contrast Medium [DYE] Adverse Reaction (Severe, Verified 10/07/19 10:14) Nausea/Vom/Diarrhea rice Adverse Reaction (Severe, Verified 10/07/19 10:14) Vomiting Home Medications: Ambulatory Orders Medication Instructions Recorded finasteride 5 mg tablet 1 tab PO DAILY 90 Days #90 02/10/18 budesonide-formoterol HFA 160 2 puff INHALATION BID #1 ea 12/06/18 mcg-4.5 mcg/actuation aerosol inhaler Ipratropium/Albuterol Respimat 1 puff INHALATION PRN PRN 02/17/19 [Combivent Respimat Inhal [place]] Albuterol Inhaler [Ventolin Hfa] 2 puff INHALATION Q6H PRN PRN #2 08/24/19 inhaler Oxygen, Home [Home Oxygen] 2 lpm NASAL CONT #1 unit 08/24/19 Amiodarone HCl [Cordarone] 200 mg PO DAILY #30 tab 09/16/19 Rivaroxaban [Xarelto] 20 mg PO DAILY@1700 #30 tab 09/16/19 predniSONE tablet 40 mg PO DAILY@0800 #10 tab 09/16/19 tiotropium bromide 2.5 2 puff INHALATION QDAY #1 ea 09/28/19 mcg/actuation mist for inhalation atorvastatin 10 mg tablet 10 mg PO DAILY 10/04/19 diltiazem CD 120 mg 120 mg PO DAILY #30 cap 10/04/19 capsule,extended release 24 hr furosemide 20 mg tablet 40 mg PO DAILY tab 10/04/19 Surgical History: Surgical History (Last Reviewed 09/28/19 @ 16:08 by KERRY Valero) Hx of heart artery stent (Chronic) Z95.5 2014 Surgical History: tonsillectomy, - - Cardiac stents. Psychiatric History: No pertinent psych hx Lives: Spouse/ Significant Other Smoking Status: Never smoker Alcohol: None Drugs: None - *Family History Maternal Family History: Family History (Last Reviewed 09/28/19 @ 16:08 by KERRY Valero) Other No pertinent family history History Items: - - His mother young so patient does not know his maternal medical history. Paternal Family History: Family History (Last Reviewed 09/28/19 @ 16:08 by KERRY Valero) Other No pertinent family history History Items: - - His father when patient was young so patient does not know his maternal medical history. Review of Systems Constitutional: Reports: Malaise, Weakness, Fatigue. Denies: Chills, Fever, Weight Change Eyes: Denies: Blurred vision HEENT: Denies: Head Aches, Sinus Congestion, Sinus Drainage Cardiovascular: Denies: Chest Pain, Chest Pressure, Palpitations Respiratory: Reports: Cough, Shortness of Breath, Shortness of breath at rest, Shortness of breath upon exertion, Sputum production. Denies: Hemoptysis, Pleuritic Pain Gastrointestinal: Denies: Abdominal Pain, Nausea, Vomiting Genitourinary: Denies: Dysuria Musculoskeletal: Denies: Joint Pain, Joint Tenderness Skin: Denies: Rash, Wounds Neurological: Denies: Numbness, Tingling, Focal weakness Psychiatric: Denies: Anxiety, Depression, Homicidal Ideations, Suicidal Ideations Hematologic/ Lymphatic: Denies: Easy Bruising, Easy Bleeding VTE Information - Inpt Only VTE Present on Admission: No VTE Pharm Prophylaxis ordered?: Yes Patient Problems: Active and Suspected Problems (Last Reviewed 09/28/19 @ 16:08 by KERRY Valero) Respiratory failure with hypoxia and hypercapnia (Acute) Left lower lobe pneumonia (Acute) Atrial fibrillation by electrocardiogram (Acute) - Physical Exam Vitals/I&O's: Vital Signs Temp Pulse Resp BP Pulse Ox 98.0 F 107 H 14 162/67 H 95 10/07/19 12:57 10/07/19 12:57 10/07/19 12:57 10/07/19 12:57 10/07/19 12:57 Oxygen Flow Rate (L/min) 8 Oxygen Delivery Method Venturi Mask Weight: 160 lb 7.944 oz Body Mass Index (BMI) 22.9 General: Alert, Oriented x3, Cooperative, No apparent distress HEENT: Atraumatic, PERRLA, EOMI, Normocephalic Oral: Dry Mucosa Neck: Supple, No JVD, Negative Carotid Bruits Lungs: - - very short of breath, using accessory muscles or respiration. on 8L of oxygen by nasal canula. has coarse crackles in all lung singleton posteriorly Cardiovascular: Normal S1, Normal S2, No murmurs, Irregular Rate, Tachycardic Abdomen: Bowel Sounds Present, Soft, Non Tender, Non-Distended, No Hepato- splenomegaly Extremities: No clubbing, No cyanosis, No edema, Capillary Refill Less than 3 Seconds Skin: No rashes, No breakdown Musculoskeletal: No Tenderness to Palpation of Joints or Extremities Lymphatic: No Cervical, Supraclavicular, or Inguinal Adenopathy Neurological: Cranial nerves II-XII grossly intact, Neuro grossly intact, Motor Exam 5/5 strength throughout Psych/Mental Status: Normal Affect, Appropriate, Alert and oriented to time, place, person, mood and affect Laboratory Results 10/07/19 10:43: WBC 5.6, RBC 3.47 L, Hgb 9.6 L, Hct 32.2 L, MCV 92.8, MCH 27.7, MCHC 29.8 L, RDW Std Deviation 65.1 H, RDW Coeff of Zamzam 19.0 H, Plt Count 149 L, MPV 9.9, Immature Gran % (Auto) 1.800 H, Neut % (Auto) 70.2 H, Lymph % (Auto) 11.1 L, Collier % (Auto) 14.2 H, Eos % (Auto) 2.3, Baso % (Auto) 0.4, Absolute Neuts (auto) 3.9, Absolute Lymphs (auto) 0.62 L, Nucleated RBC % 0, Differential Comment SCANNED, Hypochromasia 1+, Anisocytosis 2+, Microcytosis 1+, Macrocytosis 1+ 10/07/19 10:43: PT 22.7 H, INR 2.0, APTT 53.5 H 10/07/19 10:43: Sodium 139, Potassium 3.1 L, Chloride 100, Carbon Dioxide 35.0 H , Anion Gap 4 L, BUN 24 H, Creatinine 0.90, Estim Creat Clear Calc 64.21, Est GFR (MDRD) Af Amer 104, Est GFR (MDRD) Non-Af 86, BUN/Creatinine Ratio 26.8 H, Glucose 117 H, Calcium 8.8, Total Bilirubin 0.50, AST 14 L, ALT 16, Alkaline Phosphatase 80, Troponin I 0.021, Total Protein 6.8, Albumin 2.9 L, Globulin 3.9, Albumin/Globulin Ratio 0.7 L 10/07/19 10:43: Lactic Acid 1.4 10/07/19 10:43: B-Natriuretic Peptide Pending 10/07/19 11:17: Specimen Type KRISHNA, Sample Site OTHER, O2 % 50, VBG pH 7.41, VBG pO2 43 H, VBG O2 Sat (Calc) 77 H, VBG O2 Content 38 H, VBG Base Excess 11 H, POC Mix VBG pCO2 Pt Tmp 57.2 H, O2 Delivery Device Vent Mask, Blood Gas Notified Whom ED MD, Blood Gas Notified Time 1100 Diagnostic Data Chest X-Ray 10/07/19 10:55 IMPRESSION: Limited infiltrate left lower lobe behind the heart. Electronically Signed: Yuliet Garcia, at 11:32 EST Tel , Service support , Current Medications Heparin Sodium (Beef Lung) () 50 units IV UD PRN PRN Reason: Port-a-Cath (VAD)Heparin Flush Sodium Chloride () 10 - 40 ml IV UD PRN PRN Reason: Port-a-Cath (VAD) Flush Sodium Chloride (0.9% Nacl (Sterile) Posiflush) 10 - 40 ml IV UD PRN PRN Reason: Port access or dressing change Assessment/Plan All Active Problems (Last Reviewed 09/28/19 @ 16:08 by Bethany Stearns NP-C) Respiratory failure with hypoxia and hypercapnia (Acute) Left lower lobe pneumonia (Acute) Atrial fibrillation by electrocardiogram (Acute) SIRS (systemic inflammatory response syndrome) (Acute) Septic shock (Acute) Atrial flutter (Acute) COPD exacerbation (Acute) 83 y/o admitted with a complaint of worsening shortness of breath. 1. Acute on chronic hypoxic respiratory failure due to COPD exacerbation * Baseline oxygen requirement is 2 L but he is now requiring up to 8 L of oxygen. * Chest x-ray showed limited infiltrates in the left lower lobe behind the heart. However patient was treated extensively for pneumonia during his recent admission so I really doubt that patient has pneumonia again as the cause of his worsening shortness of breath. * admit to PCU with telemetry * get chest CTA to rule out PE and any other lung pathology * VBG showed pH of 7.41 with pO2 of 38 * was started on IV vancomycin and zosyn in ED o/a of CXR findings and history of recent admissions.. WIll continue with IV levofloxacin for now until sputum culture is negative. * consult pulmonology; get respiratory panel * give BIPAP qhs and prn * IV solumedrol 40mg q8 * breathing treatments with duonebs. * get ABGs * BNP pending * 2. Afib with RVR * HR is up in the 110s-120s, and is in afib * hasnt taken meds today. resume cardizem and amiodarone. * if HR doesnt improve, will consult cardiology * INR is 2. 3. BPH: on finasteride. 4. CAD s/p stents: stable 5.history of lung cancer: on immunotherapy. Follows with Dr Urias. DVT prophylaxis: on xarelto. Code status:full code * Patient and counseled extensively about different types of CODE STATUS including full code, DNR CCA and DNR CCA. Patient elects to be full code. states that patient has papers signed today effective DNR but they wish to override this now and wish for him to be full code. * Total [id number] time 17 minutes. Code Visit Inpatient E&M: 14027 Init Hosp L3 Procedures: 99969 Advncd Care Plan 30 Min
--- NOTE | 2019-10-07 13:35 | EKG12_ITS ---
Test Reason : Blood Pressure : / mmHG Vent. Rate : 113 BPM Atrial Rate : 278 BPM P-R Int : 000 ms QRS Dur : 122 ms QT Int : 276 ms P-R-T Axes : -83 -01 195 degrees QTc Int : 378 ms Atrial flutter with variable A-V block Left ventricular hypertrophy with QRS widening and repolarization abnormality Inferior infarct (cited on or before 11-SEP-2019) Abnormal ECG When compared with ECG of 14-SEP-2019 13:36, Confirmed by YOSSI VALLEJO, [facility] ([id number]), offline editor SHERICE CHILDS ([id number]) on 10/11/2019 3:01:04 PM Referred By: Lorena Alcaraz Confirmed By:UMU SY MD
[2019-10-07 14:15] LABS: BNP,B-Type NATRIURETIC PEPTIDE 98.6 pg/mL (0-100)
[2019-10-07] MEDS: levoFLOXacin IV 750 MG/150 ML BAG 100 MG IV (15:29)
[2019-10-07] MEDS: 0.9% Saline Lock 10 ML Syringe IV ×2 (15:29→21:53)
[2019-10-07] MEDS: Furosemide 40 MG/4 ML Vial IV (15:29)
[2019-10-07 15:46] LABS: Allen Test POS; Base Excess 9 mmol/L (-2 to +2); Bicarbonate 34.2 mmol/L (22-26); Blood Gas Specimen Type ART; FI02 40; PO2 77 mmHG (75-100); SITE L Radial; SO2 95 % (95-99); Time Given 1530; Total Carbon Dioxide 36 mmol/L; pCO2 54.9 mmHg (35-45)
[2019-10-07] MEDS: Rivaroxaban 20 MG Tablet PO (17:22)
[2019-10-07] MEDS: dilTIAZem CD 120 MG Capsule PO (18:08)
[2019-10-07] MEDS: Amiodarone 200 MG Tablet PO (18:08)
--- NOTE | 2019-10-07 23:14 | CPS ---
decreased fio2 to 35%-nurse aware
[2019-10-08] VITALS (22 sets, daily range): BP systolic 100–142; BP diastolic 62–98; PULSE 69–133; RESP 12–21; TEMP 36.3–36.8; O2SAT 91–98
--- NOTE | 2019-10-08 00:41 | CPS ---
pt wanted bipap off-did not like-was 99% no sob-pt placed on 2 l/m as at home-nurse aware
[2019-10-08] MEDS: 0.9% Saline Lock 10 ML Syringe IV ×5 (05:35→22:47)
[2019-10-08 05:36] LABS: Absolute Lymphocyte Count 0.33 X10^3/uL (0.83-4.51); Absolute Neutrophil Count 4.6 X10^3/uL (2.0-7.7); Basophil# 0.01 X10^3/uL; Basophil% 0.2 % (0-1); Hematocrit 30.2 % (40-54); Hemoglobin 9.2 g/dL (13.0-16.5); Lymphocyte # 0.33 X10^3/ul (4.0); Lymphocyte % 6.5 % (19-41); Mean Corp Hgb Conc 30.5 g/dL (32-36); Mean Corpuscular Hgb 28.2 pg (27.0-32.0); Mean Corpuscular Volume 92.6 fL (80-94); Mean Platelet Vol. 10.3 fl (6.2-12.0); Monocyte# 0.11 X10^3/uL; Monocyte% 2.2 % (0-10); NRBC Flagged by Analyzer 0 % (0-5); Neutrophil # 4.59 X10^3/uL (2.7-7.7); Neutrophil % 89.9 % (47-70); POSITIVE DIFFERENTIAL YES; POSITIVE MORPHOLOGY YES; Platelet Count 157 K/mm3 (150-450); RBC Distribution Width SD 65.4 fl (35.1-43.9); Red Blood Count 3.26 M/mm3 (4.6-6.2); White Blood Count 5.1 K/mm3 (4.4-11.0)
[2019-10-08 05:37] LABS: Differential Indicated SCAN CRITERIA MET
[2019-10-08 05:48] LABS: Anion Gap 6 (5-15); BUN 26 mg/dL (7-18); BUN/Creat Ratio 26.9 RATIO (10-20); Calcium,Total 8.9 mg/dL (8.5-10.1); Chloride 99 mmol/L (98-107); Creatinine, Serum 0.97 mg/dL (0.70-1.30); EST Glomerular Filtration Rate 79 mL/min (>60); Est Glom Filt Rate - Afr Amer 95 mL/min (>60); Estimated Creatinine Clearance 59.42 ml/min; Glucose 148 mg/dL (74-106); Potassium 4.2 mmol/L (3.5-5.1); Sodium Level 139 mmol/L (136-145)
[2019-10-08 05:52] LABS: Anisocytosis 1+; Hypochromasia 2+; Platelet Estimate ADEQUATE (ADEQ)
[2019-10-08] MEDS: Ipratropium/Albuterol Sulfate 3 ML AMPUL.NEB INHALATION ×3 (07:03→19:30)
[2019-10-08] MEDS: dilTIAZem CD 120 MG Capsule PO (08:19)
[2019-10-08] MEDS: levoFLOXacin IV 750 MG/150 ML BAG 100 MG IV (08:20)
[2019-10-08] MEDS: Amiodarone 200 MG Tablet PO (08:20)
[2019-10-08] MEDS: Finasteride 5 MG Tablet PO (08:20)
--- NOTE | 2019-10-08 08:47 | CON.PCM_ITS ---
Problem List (1) Respiratory failure with hypoxia and hypercapnia Status: Acute Qualifiers: Chronicity: acute on chronic Qualified Code(s): J96.21 - Acute and chronic respiratory failure with hypoxia; J96.22 - Acute and chronic respiratory failure with hypercapnia (2) Left lower lobe pneumonia Status: Acute Qualifiers: Pneumonia type: due to unspecified organism Qualified Code(s): J18.9 - Pneumonia, unspecified organism (3) Atrial fibrillation by electrocardiogram Status: Acute (4) Coronary artery disease Status: Chronic Qualifiers: Coronary Disease-Associated Artery/Lesion type: [place] artery [place] vs. transplanted heart: [place] heart Associated angina: without angina Qualified Code(s): I25.10 - Atherosclerotic heart disease of [place] coronary artery without angina pectoris (5) Acute on chronic respiratory failure with hypoxia Status: Chronic (6) Cardiomyopathy Status: Chronic Qualifiers: Cardiomyopathy type: ischemic Qualified Code(s): I25.5 - Ischemic cardiomyopathy (7) COPD exacerbation Status: Acute (8) Immunotherapy Status: Chronic (9) Hx of heart artery stent Status: Chronic Comment: 2014 (10) HTN (hypertension) Status: Chronic (11) Stroke Status: Chronic (12) Stage 4 very severe COPD by GOLD classification Status: Chronic Comment: FEV1 41% of predicted Reason for Consult Date of Consultation: 10/08/19 Reason for Consultation: Acute on chronic hypoxic respiratory failure History of Present Illness: The patient is a 83 year old M, with past medical history listed below and well- known to me from the outpatient office, who presented to [facility] on 10/07/2019 secondary to progressive shortness of breath. Patient has had 2 recent admissions secondary to respiratory problems in the last month. Patient states that at home he was unable to walk more than 1 or 2 steps, so c di to the ER for evaluation. Patient states he has had a nonproductive cough and chills. Patient does not check his temperature routinely, but denies any subjective fever. Patient has not had any URI type symptoms. No urinary symptoms have been reported and he denies any swelling of his ankles. In the ER, patient was noted to be hypoxic at 86%. Chest x-ray showed increased left-sided markings consistent with a left lower lobe infiltrate. No significant leukocytosis was noted. Patient did have a therapeutic INR at 2. Chemistries showed a slightly decreased potassium, but normal renal function, negative troponins and transaminases were within normal limits. VBG was unremarkable. EKG shows A. fib, so patient was admitted to the PCU for further evaluation. Patient does have a history of advanced lung disease at baseline. Patient has been treated with chemotherapy in the past. Patient did have a negative PET scan in July 2019 as routine surveillance. Patient states that approximately 1 month ago he started to notice decreased saturations and has not been right since. Patient has been treated with vancomycin and Zosyn in the past. Patient denies any current chest pain, but does state that his cough has persisted. Review of systems otherwise negative from a constitutional, HEENT, respiratory, cardiovascular, GI, genitourinary, musculoskeletal, skin, neurologic, psychiatric and hematologic system unless stated above. Past Medical History Past Medical History (Chronic Problems): Chronic Problems (Last Reviewed 09/28/19 @ 16:08 by Bethany Stearns, MANAGER ACQUISITION-C) Asthma exacerbation in COPD (Chronic) Coronary artery disease (Chronic) Acute on chronic respiratory failure with hypoxia (Chronic) S/P PTCA (percutaneous transluminal coronary angioplasty) (Chronic) Cardiomyopathy (Chronic) Anemia (Chronic) Immunotherapy (Chronic) Hx of heart artery stent (Chronic) 2013 HTN (hypertension) (Chronic) Stroke (Chronic) Primary cancer of left lower lobe of lung (Chronic) Regional lymph node metastasis present (Chronic) Chronic respiratory failure with hypoxia (Chronic) Stage 4 very severe COPD by GOLD classification (Chronic) FEV1 41% of predicted Medical History: Medical History (Last Reviewed 09/28/19 @ 16:08 by Bethany Stearns MANAGER ACQUISITION-C) COPD exacerbation (Acute) J44.1 Chemotherapy-induced thrombocytopenia (Inactive) D69.59, T45.1X5A Anemia (Chronic) D64.9 Immunotherapy (Chronic) HTN (hypertension) (Chronic) I10 Stroke (Chronic) I63.9 Primary cancer of left lower lobe of lung (Chronic) C34.32 Regional lymph node metastasis present (Chronic) C77.9 Chronic respiratory failure with hypoxia (Chronic) J96.11 Stage 4 very severe COPD by GOLD classification (Chronic) J44.9 FEV1 41% of predicted History of cardioversion Onset Date: ~09/14/19 Z98.890 Allergies amoxicillin Adverse Reaction (Severe, Verified 10/07/19 10:14) Nausea/Vom/Diarrhea Gadolinium-MRI Contrast Medium [DYE] Adverse Reaction (Severe, Verified 10/07/19 10:14) Nausea/Vom/Diarrhea rice Adverse Reaction (Severe, Verified 10/07/19 10:14) Vomiting Home Medications: Ambulatory Orders Medication Instructions Recorded finasteride 5 mg tablet 1 tab PO DAILY 90 Days #90 02/10/18 budesonide-formoterol HFA 160 2 puff INHALATION BID #1 ea 12/06/18 mcg-4.5 mcg/actuation aerosol inhaler Ipratropium/Albuterol Respimat 1 puff INHALATION PRN PRN 02/17/19 [Combivent Respimat Inhal [place]] Albuterol Inhaler [Ventolin Hfa] 2 puff INHALATION Q6H PRN PRN #2 08/24/19 inhaler Oxygen, Home [Home Oxygen] 2 lpm NASAL CONT #1 unit 08/24/19 Amiodarone HCl [Cordarone] 200 mg PO DAILY #30 tab 09/16/19 Rivaroxaban [Xarelto] 20 mg PO DAILY@1700 #30 tab 09/16/19 predniSONE tablet 40 mg PO DAILY@0800 #10 tab 09/16/19 tiotropium bromide 2.5 2 puff INHALATION QDAY #1 ea 09/28/19 mcg/actuation mist for inhalation atorvastatin 10 mg tablet 10 mg PO DAILY 10/04/19 diltiazem CD 120 mg 120 mg PO DAILY #30 cap 10/04/19 capsule,extended release 24 hr furosemide 20 mg tablet 40 mg PO DAILY tab 10/04/19 Surgical History: Surgical History (Last Reviewed 09/28/19 @ 16:08 by KERRY Valero) Hx of heart artery stent (Chronic) Z95.5 2014 Surgical History: tonsillectomy, - - Cardiac stents. Psychiatric History: No pertinent psych hx Lives: Spouse/ Significant Other Smoking Status: Never smoker Alcohol: None Drugs: None - *Family History Maternal Family History: Family History (Last Reviewed 09/28/19 @ 16:08 by KERRY Valero) Other No pertinent family history History Items: - - His mother young so patient does not know his maternal medical history. Paternal Family History: Family History (Last Reviewed 09/28/19 @ 16:08 by KERRY Valero) Other No pertinent family history History Items: - - His father when patient was young so patient does not know his maternal medical history. Review of Systems Comment: See HPI Patient Problems: Active and Suspected Problems (Last Reviewed 09/28/19 @ 16:08 by KERRY Valero) Respiratory failure with hypoxia and hypercapnia (Acute) Left lower lobe pneumonia (Acute) Atrial fibrillation by electrocardiogram (Acute) Objective: All imaging was personally reviewed. CT scan of the chest does show some infiltrate in the left base along with a mild to moderate pleural effusion. PET scan from July 2019 showed no significant hypermetabolic areas. Last pulmonary function test completed in August 2018 showed a partially reversible very severe large airways obstructive ventilatory defect with associated air trapping with hyperinflation (FVC 66%, FEV1 43%, TLC 117%, RV 173%, DLCO 53%) Echocardiogram (09/12/2019): EF 40% with stage II diastolic dysfunction and several akinetic and hypokinetic areas. Left atrium is moderately enlarged with elevated pulmonary artery pressures of 37 mmHg. - Physical Exam Vitals/I&O's: Vital Signs Temp Pulse Resp BP Pulse Ox 36.8 C 121 H 16 118/98 H 92 10/08/19 07:00 10/08/19 07:03 10/08/19 07:03 10/08/19 07:00 10/08/19 07:42 Oxygen Flow Rate (L/min) 3 Oxygen Delivery Method Nasal Cannula Weight: 72.8 kg Body Mass Index (BMI) 22.9 Intake and Output for Last 24 Hours 10/06/19 10/07/19 10/08/19 23:59 23:59 23:59 Intake Total 765 / 985 320 / 320 Output Total 200 / 525 325 / 325 Balance 565 / 460 -5 / -5 General: Alert, Oriented x3, Cooperative, - - Mild to moderate conversational dyspnea. Appears stated age. Thin build. HEENT: Atraumatic, PERRLA, EOMI, Normocephalic, - - No scleral icterus or injection noted Oral: Moist Mucosa, No Gingival or Mucosal Lesions/ Ulcerations Neck: Supple, No Nodes, Trachea Midline, JVD, Right Lungs: No wheeze, Diminished, Rales - Left greater than right base, - - Symmetric expansion. Slight dullness to percussion at the left base Cardiovascular: Normal S1, Normal S2, No murmurs, Irregular Rate, No rub noted, No Gallop, Tachycardic, - - A. fib with RVR noted on telemetry Abdomen: Bowel Sounds Present, Soft, Non Tender, Non-Distended Extremities: No cyanosis, No edema, Clubbing Skin: No rashes, No breakdown Musculoskeletal: No Tenderness to Palpation of Joints or Extremities Lymphatic: No Cervical, Supraclavicular, or Inguinal Adenopathy Neurological: Cranial nerves II-XII grossly intact, Neuro grossly intact, Motor Exam 5/5 strength throughout Psych/Mental Status: Alert and oriented to time, place, person, mood and affect Laboratory Results 10/07/19 10:43: WBC 5.6, RBC 3.47 L, Hgb 9.6 L, Hct 32.2 L, MCV 92.8, MCH 27.7, MCHC 29.8 L, RDW Std Deviation 65.1 H, RDW Coeff of Zamzam 19.0 H, Plt Count 149 L, MPV 9.9, Immature Gran % (Auto) 1.800 H, Neut % (Auto) 70.2 H, Lymph % (Auto) 11.1 L, Carroll % (Auto) 14.2 H, Eos % (Auto) 2.3, Baso % (Auto) 0.4, Absolute Neuts (auto) 3.9, Absolute Lymphs (auto) 0.62 L, Nucleated RBC % 0, Differential Comment SCANNED, Hypochromasia 1+, Anisocytosis 2+, Microcytosis 1+, Macrocytosis 1+ 10/07/19 10:43: PT 22.7 H, INR 2.0, APTT 53.5 H 10/07/19 10:43: Sodium 139, Potassium 3.1 L, Chloride 100, Carbon Dioxide 35.0 H , Anion Gap 4 L, BUN 24 H, Creatinine 0.90, Estim Creat Clear Calc 64.21, Est GFR (MDRD) Af Amer 104, Est GFR (MDRD) Non-Af 86, BUN/Creatinine Ratio 26.8 H, Glucose 117 H, Calcium 8.8, Total Bilirubin 0.50, AST 14 L, ALT 16, Alkaline Phosphatase 80, Troponin I 0.021, Total Protein 6.8, Albumin 2.9 L, Globulin 3.9, Albumin/Globulin Ratio 0.7 L 10/07/19 10:43: Lactic Acid 1.4 10/07/19 10:43: B-Natriuretic Peptide 98.6 10/07/19 11:17: Specimen Type KRISHNA, Sample Site OTHER, O2 % 50, VBG pH 7.41, VBG pO2 43 H, VBG O2 Sat (Calc) 77 H, VBG O2 Content 38 H, VBG Base Excess 11 H, POC Mix VBG pCO2 Pt Tmp 57.2 H, O2 Delivery Device Vent Mask, Blood Gas Notified Whom ED , Blood Gas Notified Time 1100 10/07/19 15:42: Specimen Type ART, Sample Site L Radial, pH 7.40, Bicarbonate Actual 34.2 H, POC Total CO2 36, Base Excess 9 H, O2 Saturation 95, O2 % 40, ABG pCO2 54.9 H, ABG pO2 77, Dimitrios Test POS, O2 Delivery Device Vent Mask, Blood Gas Notified Whom HOSP , Blood Gas Notified Time 1530 10/08/19 05:11: WBC 5.1, RBC 3.26 L, Hgb 9.2 L, Hct 30.2 L, MCV 92.6, MCH 28.2, MCHC 30.5 L, RDW Std Deviation 65.4 H, RDW Coeff of Zamzam 19.0 H, Plt Count 157, MPV 10.3, Immature Gran % (Auto) 1.200 H, Neut % (Auto) 89.9 H, Lymph % (Auto) 6.5 L, Carroll % (Auto) 2.2, Eos % (Auto) 0.0, Baso % (Auto) 0.2, Absolute Neuts (auto) 4.6, Absolute Lymphs (auto) 0.33 L, Nucleated RBC % 0, Differential Comment , Platelet Estimate ADEQUATE, Hypochromasia 2+, Anisocytosis 1+ 10/08/19 05:11: Sodium 139, Potassium 4.2, Chloride 99, Carbon Dioxide 34.0 H, Anion Gap 6, BUN 26 H, Creatinine 0.97, Estim Creat Clear Calc 59.42, Est GFR (MDRD) Af Amer 95, Est GFR (MDRD) Non-Af 79, BUN/Creatinine Ratio 26.9 H, Glucose 148 H, Calcium 8.9 Clinical Impression(s) from Imaging Studies Chest X-Ray 10/07/19 10:55 IMPRESSION: Limited infiltrate left lower lobe behind the heart. Electronically Signed: Yuliet Garcia, at 11:32 EST Tel , Service support , Chest CTA 10/07/19 12:13 IMPRESSION: Interval increase in the size of previously described mass/masses involving the left lower lobe with development of left-sided pleural effusion. Again this lesion is amenable for CT-guided biopsy. Bilateral pulmonary changes which are probably chronic. Electronically Signed: Yuliet Garcia, at 14:55 EST Tel , Service support , Current Medications Albuterol/Ipratropium (Duoneb) 3 ml INHALATION PRN PRN PRN Reason: SOB &/OR WHEEZING Albuterol/Ipratropium (Duoneb) 3 ml INHALATION Q6HWA.RT [facility] Last Admin: 10/08/19 07:03 Dose: 3 ml Documented by: Amiodarone HCl (Cordarone) 200 mg PO DAILYCM [facility] Last Admin: 10/08/19 08:20 Dose: 200 mg Documented by: Atorvastatin Calcium (Lipitor) 10 mg PO DAILY@2200 [facility] Last Admin: 10/07/19 21:51 Dose: Not Given Documented by: Dextrose (D50w Syringe) 0 gm IV X1 PRN; Protocol PRN Reason: Hypoglycemia Diltiazem HCl (Cardizem Cd) 120 mg PO DAILY [facility] Last Admin: 10/08/19 08:19 Dose: 120 mg Documented by: Finasteride (Proscar) 5 mg PO DAILY [facility] Last Admin: 10/08/19 08:20 Dose: 5 mg Documented by: Glucagon () 1 mg IM .X1 PRN PRN Reason: Hypoglycemia Heparin Sodium (Beef Lung) () 50 units IV UD PRN PRN Reason: Port-a-Cath (VAD)Heparin Flush Levofloxacin (Levaquin Iv) 750 mg in 150 mls @ 100 mls/hr IV Q24 [facility] Last Admin: 10/08/19 08:20 Dose: 100 mls/hr Documented by: Methylprednisolone (Solu-Medrol) 40 mg IV Q8 [facility] Last Admin: 10/08/19 05:28 Dose: 40 mg Documented by: Nitroglycerin (Nitrostat) 0.4 mg SUBLINGUAL Q5M PRN PRN Reason: CARDIAC/CHEST PAIN Ondansetron HCl (Zofran) 4 mg IV Q8H PRN PRN PRN Reason: NAUSEA/VOMITING Rivaroxaban (Xarelto) 20 mg PO DAILY@1700 [facility] Last Admin: 10/07/19 17:22 Dose: 20 mg Documented by: Sodium Chloride () 10 - 40 ml IV UD PRN PRN Reason: Port-a-Cath (VAD) Flush Last Admin: 10/08/19 05:35 Dose: 40 ml Documented by: Sodium Chloride (0.9% Nacl (Sterile) Posiflush) 10 - 40 ml IV UD PRN PRN Reason: Port access or dressing change Assessment/Plan All Active Problems (Last Reviewed 09/28/19 @ 16:08 by Bethany Stearns NP-C) Respiratory failure with hypoxia and hypercapnia (Acute) Left lower lobe pneumonia (Acute) Atrial fibrillation by electrocardiogram (Acute) SIRS (systemic inflammatory response syndrome) (Acute) Septic shock (Acute) Atrial flutter (Acute) COPD exacerbation (Acute) RECOMMENDATIONS: 1. Consider improved rate control 2. Possible thoracentesis in the future 3. Consider gentle diuresis 4. BiPAP rescue as necessary. Continue to wean oxygen as tolerated 5. Await sputum culture IMPRESSIONS: 1. Acute on chronic hypoxic respiratory failure Unclear etiology at this time. Patient has a therapeutic INR, so PE is unlikely in the setting of a negative CTA. Patient does have some left lower lobe infiltrate, and was recently treated with vancomycin and Zosyn for pneumonia versus cystitis. Patient does have a sputum culture pending. Patient does have relatively advanced lung disease at baseline, complicating his overall condition. Patient also has diastolic dysfunction and is currently in A. fib with RVR. Patient would benefit from improved rate control. Reasonable to continue with Solu-Medrol, bronchodilators and anticoagulation. Unclear if Levaquin is adding much. 2. A. fib with RVR/CAD/probable acute on chronic diastolic CHF Patient's BNP is not impressive, but does have significant diastolic dysfunction on recent echocardiogram. Patient would benefit from better rate control. Patient has received a cardioversion in the past with improvement in symptoms. BNP is improved from that hospitalization, but it was not significantly elevated at that time either. 3. History of lung cancer with immunotherapy/advanced age/BPH/recurrent admission/debility Complicates care, management, recovery and prognosis. Doubt left lower lobe lesion is malignant given previous negative PET scan in July. Increase in size may be secondary to associated edema. Would hold off on any biopsies at this time. 4. CODE STATUS Long discussion with patient about the options. Patient is electing for full CODE STATUS at this time. If cancer has recurred, patient may reevaluate the situation. Code Visit Inpatient E&M: 26249 Init Hosp L3
--- NOTE | 2019-10-08 10:50 | PN_ITS ---
Patient Problems: Active and Suspected Problems (Last Reviewed 09/28/19 @ 16:08 by KERRY Valero) Respiratory failure with hypoxia and hypercapnia (Acute) Left lower lobe pneumonia (Acute) Atrial fibrillation by electrocardiogram (Acute) Subjective: Patient seen and examined. He had an uneventful night. He did not want to wear BiPAP during the night. Oxygen was weaned down to 3 L this morning but after getting out of bed to get into a chair, shortness of breath acutely, necessitating increase of oxygen by nasal cannula to 8L. He denies any chest pain, palpitations, dizziness, diarrhea or vomiting. Review of systems otherwise negative. Vitals/I&O's: Vital Signs Temp Pulse Resp BP Pulse Ox 98.3 F 121 H 16 118/98 H 92 10/08/19 07:00 10/08/19 07:03 10/08/19 07:03 10/08/19 07:00 10/08/19 07:42 Oxygen Flow Rate (L/min) 3.5 Oxygen Delivery Method Nasal Cannula Weight: 160 lb 7.944 oz Body Mass Index (BMI) 22.9 Intake and Output for Last 24 Hours 10/06/19 10/07/19 10/08/19 23:59 23:59 23:59 Intake Total 765 / 985 470 / 470 Output Total 200 / 525 325 / 325 Balance 565 / 460 145 / 145 General: Alert, Oriented x3, Cooperative, No apparent distress HEENT: Atraumatic, PERRLA, EOMI, Normocephalic Oral: Dry Mucosa Neck: Supple, No JVD, Negative Carotid Bruits Lungs: - - on 8L of oxygen at time of review, decreased breath sounds bibasally. few crackles bibasally Cardiovascular: Normal S1, Normal S2, No murmurs, Irregular Rate, Tachycardic Abdomen: Bowel Sounds Present, Soft, Non Tender, Non-Distended, No Hepato- splenomegaly Extremities: No clubbing, No cyanosis, No edema, Capillary Refill Less than 3 Seconds Skin: No rashes, No breakdown Musculoskeletal: No Tenderness to Palpation of Joints or Extremities Lymphatic: No Cervical, Supraclavicular, or Inguinal Adenopathy Neurological: Cranial nerves II-XII grossly intact, Neuro grossly intact, Motor Exam 5/5 strength throughout Psych/Mental Status: Normal Affect, Appropriate, Alert and oriented to time, place, person, mood and affect Microbiology Past 72 Hours 10/07/19 17:40 Sputum, Expectorated/Coughed Gram Stain - Final Laboratory Results 10/07/19 10:43: WBC 5.6, RBC 3.47 L, Hgb 9.6 L, Hct 32.2 L, MCV 92.8, MCH 27.7, MCHC 29.8 L, RDW Std Deviation 65.1 H, RDW Coeff of Zamzam 19.0 H, Plt Count 149 L, MPV 9.9, Immature Gran % (Auto) 1.800 H, Neut % (Auto) 70.2 H, Lymph % (Auto) 11.1 L, [place] % (Auto) 14.2 H, Eos % (Auto) 2.3, Baso % (Auto) 0.4, Absolute Neuts (auto) 3.9, Absolute Lymphs (auto) 0.62 L, Nucleated RBC % 0, Differential Comment SCANNED, Hypochromasia 1+, Anisocytosis 2+, Microcytosis 1+, Macrocytosis 1+ 10/07/19 10:43: PT 22.7 H, INR 2.0, APTT 53.5 H 10/07/19 10:43: Sodium 139, Potassium 3.1 L, Chloride 100, Carbon Dioxide 35.0 H , Anion Gap 4 L, BUN 24 H, Creatinine 0.90, Estim Creat Clear Calc 64.21, Est GFR (MDRD) Af Amer 104, Est GFR (MDRD) Non-Af 86, BUN/Creatinine Ratio 26.8 H, Glucose 117 H, Calcium 8.8, Total Bilirubin 0.50, AST 14 L, ALT 16, Alkaline Phosphatase 80, Troponin I 0.021, Total Protein 6.8, Albumin 2.9 L, Globulin 3.9, Albumin/Globulin Ratio 0.7 L 10/07/19 10:43: Lactic Acid 1.4 10/07/19 10:43: B-Natriuretic Peptide 98.6 10/07/19 11:17: Specimen Type KRISHNA, Sample Site OTHER, O2 % 50, VBG pH 7.41, VBG pO2 43 H, VBG O2 Sat (Calc) 77 H, VBG O2 Content 38 H, VBG Base Excess 11 H, POC Mix VBG pCO2 Pt Tmp 57.2 H, O2 Delivery Device Vent Mask, Blood Gas Notified Whom ED , Blood Gas Notified Time 1100 10/07/19 15:42: Specimen Type ART, Sample Site L Radial, pH 7.40, Bicarbonate Actual 34.2 H, POC Total CO2 36, Base Excess 9 H, O2 Saturation 95, O2 % 40, ABG pCO2 54.9 H, ABG pO2 77, Dimitrios Test POS, O2 Delivery Device Vent Mask, Blood Gas Notified Whom HOSP , Blood Gas Notified Time 1530 10/08/19 05:11: WBC 5.1, RBC 3.26 L, Hgb 9.2 L, Hct 30.2 L, MCV 92.6, MCH 28.2, MCHC 30.5 L, RDW Std Deviation 65.4 H, RDW Coeff of Zamzam 19.0 H, Plt Count 157, MPV 10.3, Immature Gran % (Auto) 1.200 H, Neut % (Auto) 89.9 H, Lymph % (Auto) 6.5 L, [place] % (Auto) 2.2, Eos % (Auto) 0.0, Baso % (Auto) 0.2, Absolute Neuts (auto) 4.6, Absolute Lymphs (auto) 0.33 L, Nucleated RBC % 0, Differential Comment , Platelet Estimate ADEQUATE, Hypochromasia 2+, Anisocytosis 1+ 10/08/19 05:11: Sodium 139, Potassium 4.2, Chloride 99, Carbon Dioxide 34.0 H, Anion Gap 6, BUN 26 H, Creatinine 0.97, Estim Creat Clear Calc 59.42, Est GFR (MDRD) Af Amer 95, Est GFR (MDRD) Non-Af 79, BUN/Creatinine Ratio 26.9 H, Glucose 148 H, Calcium 8.9 Diagnostic Data Chest X-Ray 10/07/19 10:55 IMPRESSION: Limited infiltrate left lower lobe behind the heart. Electronically Signed: Yuliet Lugeorge, at 11:32 EST Tel , Service support , Chest CTA 10/07/19 12:13 IMPRESSION: Interval increase in the size of previously described mass/masses involving the left lower lobe with development of left-sided pleural effusion. Again this lesion is amenable for CT-guided biopsy. Bilateral pulmonary changes which are probably chronic. Electronically Signed: Yuliet Garcia, at 14:55 EST Tel , Service support , Current Medications Albuterol/Ipratropium (Duoneb) 3 ml INHALATION PRN PRN PRN Reason: SOB &/OR WHEEZING Albuterol/Ipratropium (Duoneb) 3 ml INHALATION Q6HWA.RT [facility] Last Admin: 10/08/19 07:03 Dose: 3 ml Documented by: Amiodarone HCl (Cordarone) 200 mg PO DAILYCM [facility] Last Admin: 10/08/19 08:20 Dose: 200 mg Documented by: Atorvastatin Calcium (Lipitor) 10 mg PO DAILY@2200 [facility] Last Admin: 10/07/19 21:51 Dose: Not Given Documented by: Dextrose (D50w Syringe) 0 gm IV X1 PRN; Protocol PRN Reason: Hypoglycemia Diltiazem HCl (Cardizem Cd) 120 mg PO DAILY [facility] Last Admin: 10/08/19 08:19 Dose: 120 mg Documented by: Finasteride (Proscar) 5 mg PO DAILY [facility] Last Admin: 10/08/19 08:20 Dose: 5 mg Documented by: Glucagon () 1 mg IM .X1 PRN PRN Reason: Hypoglycemia Heparin Sodium (Beef Lung) () 50 units IV UD PRN PRN Reason: Port-a-Cath (VAD)Heparin Flush Levofloxacin (Levaquin Iv) 750 mg in 150 mls @ 100 mls/hr IV Q24 [facility] Last Infusion: 10/08/19 10:40 Dose: Infused Documented by: Methylprednisolone (Solu-Medrol) 40 mg IV Q8 [facility] Last Admin: 10/08/19 05:28 Dose: 40 mg Documented by: Nitroglycerin (Nitrostat) 0.4 mg SUBLINGUAL Q5M PRN PRN Reason: CARDIAC/CHEST PAIN Ondansetron HCl (Zofran) 4 mg IV Q8H PRN PRN PRN Reason: NAUSEA/VOMITING Rivaroxaban (Xarelto) 20 mg PO DAILY@1700 [facility] Last Admin: 10/07/19 17:22 Dose: 20 mg Documented by: Sodium Chloride () 10 - 40 ml IV UD PRN PRN Reason: Port-a-Cath (VAD) Flush Last Admin: 10/08/19 10:40 Dose: 10 ml Documented by: Sodium Chloride (0.9% Nacl (Sterile) Posiflush) 10 - 40 ml IV UD PRN PRN Reason: Port access or dressing change STROKE Vital Signs/Narrative: Vital Signs Temp Pulse Resp BP Pulse Ox 10/08/19 07:42 92 10/08/19 07:03 121 H 16 91 10/08/19 07:00 98.3 F 123 H 18 118/98 H 93 Medical Necessity - Tobacco Use Smoking Status: Never smoker Assessment/Plan All Active Problems (Last Reviewed 09/28/19 @ 16:08 by Bethany Steanrs, LELE-C) Respiratory failure with hypoxia and hypercapnia (Acute) Left lower lobe pneumonia (Acute) Atrial fibrillation by electrocardiogram (Acute) SIRS (systemic inflammatory response syndrome) (Acute) Septic shock (Acute) Atrial flutter (Acute) COPD exacerbation (Acute) 83 y/o admitted with a complaint of worsening shortness of breath. 1. Acute on chronic hypoxic respiratory failure due to COPD exacerbation * refused BIPAP overnight * was weaned down to 2L of oxygen this morning, but oxygen requirements increased to 8L after he moved out of bed into a chair * CTA: negative for PE, interval increased in previously described mass involving left lower lobe with development of left pleural effusion * pulmonology on board * on IV solumedrol and breathing treatments. * per pulmonology, to continue with solumedrol, bronchodilators and anticoagulat ion * had a negative PET scan a few months ago, though CT scan now shows interval increase in left lower lobe mass. * BNP was only 98.6 * 2. Afib with RVR * HR up to 120s this morning * on cardizem and amiodarone. * 2D echo(09/11/19); stage 2 diastolic dysfunction, with moderate eccentric LV hypertrophy, and EF of 40% and segmental hypokinesia. RVSP was 37mmhg. * will give one dose of IV cardizem bolus. If HR remains poorly controlled despite cardizem bolus, will get cardiology consult * on xarelto. * continue diuresing with lasix. * 3. BPH: on finasteride. 4. CAD s/p stents: stable 5.history of lung cancer: on immunotherapy. CT scan findings as under 1. Follows with Dr Urias. DVT prophylaxis: on xarelto. Code status:full code * Code Visit Inpatient E&M: 29062 Subs Hosp L3
[2019-10-08] MEDS: dilTIAZem 25 MG/5 ML Vial 20 MG IV BOLUS (11:55)
--- NOTE | 2019-10-08 14:04 | CM.UR ---
JONO HEATON Face to Face with patient and for initial transition planning/care coordination assessment. RN CM introduced self and role at [facility]. Patient lying in chair. alert and oriented, at bedside. Patient willing to participate in assessment and is able to answer all questions appropriately. Care providers, pharmacy, and demographics verified. Patient wishes to discharge home, denies need for home health at this time. Patient states he has no further needs or concerns at this time. CM to follow for discharge planning needs that may arise. PCP: Susan Specialists: [facility] Preferred Pharmacy: [facility] Insurance: [facility] Prescription Benefit: yes Living Will/HPOA: yes, Asha Bee LNOK: Living Arrangements: Patient lives with in condo with 2 steps and railing to enter the home. Patient is independent at home. Transportation: Self/ DME: Patient states he has cane, walker, nebulizer, concentrator and trilogy. [employer]. HHC: never before but agreeable with HHC upon discharge this time. No preference for agency. Disposition Plan: Patient to discharge home with family and HHC. He previously declined skilled therapy but willing to do it at home, this time. States he has been lying around a lot and has gotten weaker. Beena Dobbs RN, CCM
[2019-10-08] MEDS: Rivaroxaban 20 MG Tablet PO (17:52)
[2019-10-09] VITALS (17 sets, daily range): BP systolic 103–149; BP diastolic 60–80; PULSE 64–99; RESP 12–20; TEMP 36.4–36.7; O2SAT 92–97
[2019-10-09] MEDS: Ipratropium/Albuterol Sulfate 3 ML AMPUL.NEB INHALATION ×4 (01:13→19:13)
--- NOTE | 2019-10-09 01:15 | NURSING ---
Called to pt. room by [employer] for pt. being very SOB after trying to sit up in bed to urinate. Increase oxygen to 3 L. Pox 92%. RT paged to give pt. breathing tx. Pt. felt better for a few minutes, then SOB again. Encouraged pt. to cough hard and try to expectorate mucous. Unable to cough out anything. Annika RT called back to room and placed pt. on bipap at 35%. Pox 97% on bipap. Will monitor.
[2019-10-09] MEDS: 0.9% Saline Lock 10 ML Syringe IV ×4 (05:10→21:49)
[2019-10-09 05:31] LABS: Absolute Lymphocyte Count 0.27 X10^3/uL (0.83-4.51); Absolute Neutrophil Count 8.4 X10^3/uL (2.0-7.7); Basophil# 0.01 X10^3/uL; Basophil% 0.1 % (0-1); Hemoglobin 8.9 g/dL (13.0-16.5); Lymphocyte # 0.27 X10^3/ul (4.0); Mean Corp Hgb Conc 30.7 g/dL (32-36); Mean Corpuscular Hgb 28.1 pg (27.0-32.0); Mean Corpuscular Volume 91.5 fL (80-94); Mean Platelet Vol. 10.1 fl (6.2-12.0); Monocyte# 0.36 X10^3/uL; Monocyte% 3.9 % (0-10); NRBC Flagged by Analyzer 0.2 % (0-5); Neutrophil # 8.41 X10^3/uL (2.7-7.7); Neutrophil % 91.9 % (47-70); POSITIVE DIFFERENTIAL YES; POSITIVE MORPHOLOGY YES; Platelet Count 163 K/mm3 (150-450); RBC Distribution Width CV 19.6 % (11.6-14.6); RBC Distribution Width SD 66.7 fl (35.1-43.9); Red Blood Count 3.17 M/mm3 (4.6-6.2); White Blood Count 9.2 K/mm3 (4.4-11.0)
[2019-10-09 05:53] LABS: Anion Gap 6 (5-15); BUN 32 mg/dL (7-18); BUN/Creat Ratio 29.1 RATIO (10-20); Calcium,Total 9.3 mg/dL (8.5-10.1); Chloride 97 mmol/L (98-107); EST Glomerular Filtration Rate 68 mL/min (>60); Est Glom Filt Rate - Afr Amer 82 mL/min (>60); Estimated Creatinine Clearance 52.39 ml/min; Glucose 175 mg/dL (74-106); Potassium 4.4 mmol/L (3.5-5.1); Sodium Level 136 mmol/L (136-145)
[2019-10-09 06:24] LABS: Differential Indicated SCAN CRITERIA MET
[2019-10-09 06:53] LABS: Anisocytosis 3+; Differential Comment SCANNED; Hypochromasia 3+
[2019-10-09 06:54] LABS: Acanthocytes 1+; Target Cells 1+
[2019-10-09] MEDS: levoFLOXacin IV 750 MG/150 ML BAG 100 MG IV (08:23)
[2019-10-09] MEDS: Furosemide 40 MG Tablet PO (08:23)
[2019-10-09] MEDS: dilTIAZem CD 120 MG Capsule PO (08:23)
[2019-10-09] MEDS: Finasteride 5 MG Tablet PO (08:23)
[2019-10-09] MEDS: Amiodarone 200 MG Tablet PO (08:23)
--- NOTE | 2019-10-09 08:46 | PN_ITS ---
Patient Problems: Active and Suspected Problems (Last Reviewed 09/28/19 @ 16:08 by KERRY Valero) Respiratory failure with hypoxia and hypercapnia (Acute) Left lower lobe pneumonia (Acute) Atrial fibrillation by electrocardiogram (Acute) Subjective: Patient reports significant improvement in shortness of breath compared to yesterday. Patient still has significant dyspnea on exertion. No chest pain is been reported. Patient heart rate is better controlled, but remains in A. fib/flutter. Patient is denying any palpitations. - Physical Exam Vitals/I&O's: Vital Signs Temp Pulse Resp BP Pulse Ox 36.4 C L 99 20 H 116/75 95 10/09/19 04:50 10/09/19 06:50 10/09/19 06:42 10/09/19 04:50 10/09/19 06:42 Oxygen Flow Rate (L/min) 2 Oxygen Delivery Method Nasal Cannula Weight: 72.8 kg Body Mass Index (BMI) 22.9 Intake and Output for Last 24 Hours 10/07/19 10/08/19 10/09/19 23:59 23:59 23:59 Intake Total 765 / 985 1220 / 1220 100 / 100 Output Total 200 / 525 750 / 750 275 / 275 Balance 565 / 460 470 / 470 -175 / -175 General: Alert, Oriented x3, Cooperative, - - Mild to moderate conversational dyspnea. Cachectic. HEENT: Atraumatic, PERRLA, EOMI, Normocephalic, - - No scleral icterus or injection noted Oral: Moist Mucosa, No Gingival or Mucosal Lesions/ Ulcerations Neck: Supple, No JVD, No Nodes, Trachea Midline Lungs: No rhonchi, No wheeze, No rales, Diminished, - - Symmetric expansion. Cardiovascular: Normal S1, Normal S2, No murmurs, Irregular Rate, No rub noted, No Gallop Abdomen: Bowel Sounds Present, Soft, Non Tender, Non-Distended Extremities: No cyanosis, No edema, Capillary Refill Less than 3 Seconds, Clubbing Skin: No rashes, No breakdown Musculoskeletal: No Tenderness to Palpation of Joints or Extremities Lymphatic: No Cervical, Supraclavicular, or Inguinal Adenopathy Neurological: Cranial nerves II-XII grossly intact, Neuro grossly intact, Motor Exam 5/5 strength throughout Psych/Mental Status: Alert and oriented to time, place, person, mood and affect Microbiology Past 72 Hours 10/07/19 17:40 Sputum, Expectorated/Coughed Gram Stain - Final Laboratory Results 10/09/19 04:55: WBC 9.2, RBC 3.17 L, Hgb 8.9 L, Hct 29.0 L, MCV 91.5, MCH 28.1, MCHC 30.7 L, RDW Std Deviation 66.7 H, RDW Coeff of Zamzam 19.6 H, Plt Count 163, MPV 10.1, Immature Gran % (Auto) 1.100 H, Neut % (Auto) 91.9 H, Lymph % (Auto) 3.0 L, [place] % (Auto) 3.9, Eos % (Auto) 0.0, Baso % (Auto) 0.1, Absolute Neuts (auto) 8.4 H, Absolute Lymphs (auto) 0.27 L, Nucleated RBC % 0.2, Differential Comment SCANNED, Hypochromasia 3+, Anisocytosis 3+, Target Cells 1+, Acanth ocytes (Spur) 1+ 10/09/19 04:55: Sodium 136, Potassium 4.4, Chloride 97 L, Carbon Dioxide 33.0 H, Anion Gap 6, BUN 32 H, Creatinine 1.10, Estim Creat Clear Calc 52.39, Est GFR (MDRD) Af Amer 82, Est GFR (MDRD) Non-Af 68, BUN/Creatinine Ratio 29.1 H, Glucose 175 H, Calcium 9.3 Current Medications Albuterol/Ipratropium (Duoneb) 3 ml INHALATION PRN PRN PRN Reason: SOB &/OR WHEEZING Albuterol/Ipratropium (Duoneb) 3 ml INHALATION Q6HWA.RT [facility] Last Admin: 10/09/19 06:42 Dose: 3 ml Documented by: Amiodarone HCl (Cordarone) 200 mg PO DAILYCM [facility] Last Admin: 10/09/19 08:23 Dose: 200 mg Documented by: Atorvastatin Calcium (Lipitor) 10 mg PO DAILY@2200 [facility] Last Admin: 10/08/19 22:47 Dose: Not Given Documented by: Dextrose (D50w Syringe) 0 gm IV X1 PRN; Protocol PRN Reason: Hypoglycemia Diltiazem HCl (Cardizem Cd) 120 mg PO DAILY [facility] Last Admin: 10/09/19 08:23 Dose: 120 mg Documented by: Finasteride (Proscar) 5 mg PO DAILY [facility] Last Admin: 10/09/19 08:23 Dose: 5 mg Documented by: Furosemide (Lasix) 40 mg PO DAILY [facility] Last Admin: 10/09/19 08:23 Dose: 40 mg Documented by: Glucagon () 1 mg IM .X1 PRN PRN Reason: Hypoglycemia Heparin Sodium (Beef Lung) () 50 units IV UD PRN PRN Reason: Port-a-Cath (VAD)Heparin Flush Levofloxacin (Levaquin Iv) 750 mg in 150 mls @ 100 mls/hr IV Q24 [facility] Last Admin: 10/09/19 08:23 Dose: 100 mls/hr Documented by: Methylprednisolone (Solu-Medrol) 40 mg IV Q8 [facility] Last Admin: 10/09/19 05:10 Dose: 40 mg Documented by: Nitroglycerin (Nitrostat) 0.4 mg SUBLINGUAL Q5M PRN PRN Reason: CARDIAC/CHEST PAIN Ondansetron HCl (Zofran) 4 mg IV Q8H PRN PRN PRN Reason: NAUSEA/VOMITING Rivaroxaban (Xarelto) 20 mg PO DAILY@1700 [facility] Last Admin: 10/08/19 17:52 Dose: 20 mg Documented by: Sodium Chloride () 10 - 40 ml IV UD PRN PRN Reason: Port-a-Cath (VAD) Flush Last Admin: 10/09/19 08:23 Dose: 10 ml Documented by: Sodium Chloride (0.9% Nacl (Sterile) Posiflush) 10 - 40 ml IV UD PRN PRN Reason: Port access or dressing change Medical Necessity - Tobacco Use Smoking Status: Never smoker Assessment/Plan All Active Problems (Last Reviewed 09/28/19 @ 16:08 by Bethany Stearns NP-C) Respiratory failure with hypoxia and hypercapnia (Acute) Left lower lobe pneumonia (Acute) Atrial fibrillation by electrocardiogram (Acute) SIRS (systemic inflammatory response syndrome) (Acute) Septic shock (Acute) Atrial flutter (Acute) COPD exacerbation (Acute) RECOMMENDATIONS: 1. Consider cardiology consultation 2. Repeat chest x-ray tomorrow to evaluate effusion 3. Consider gentle diuresis 4. BiPAP rescue as necessary. Continue to wean oxygen as tolerated 5. Await sputum culture 6. Okay to continue antibiotics and steroids for now. Likely discontinue antibiotics if culture negative at 48 hours IMPRESSIONS: 1. Acute on chronic hypoxic respiratory failure Unclear etiology at this time. Patient has a therapeutic INR, so PE is unlikely in the setting of a negative CTA. Patient does have some left lower lobe infiltrate, and was recently treated with vancomycin and Zosyn for pneumonia versus cystitis. Patient does have a sputum culture pending. Patient does have relatively advanced lung disease at baseline, complicating his overall condition. Patient also has diastolic dysfunction and is currently in A. fib. Patient reportedly benefited from cardioversion in the past. Reasonable to continue with Solu-Medrol, bronchodilators and anticoagulation. Patient has improved to rapidly to be secondary to steroids and antibiotic therapy. Clinical suspicion for CHF in the setting of advanced lung disease. Likely discontinue steroids and antibiotics if continues to improve and negative cultures at 48 hours 2. A. fib with RVR/CAD/probable acute on chronic diastolic CHF Patient's BNP is not impressive, but does have significant diastolic dysfunction on recent echocardiogram. Patient benefiting from better rate control. Patient has received a cardioversion in the past with improvement in symptoms. BNP is improved from that hospitalization, but it was not significantly elevated at that time either. 3. History of lung cancer with immunotherapy/advanced age/BPH/recurrent admission/debility Complicates care, management, recovery and prognosis. Doubt left lower lobe lesion is malignant given previous negative PET scan in July. Increase in size may be secondary to associated edema. Would hold off on any biopsies at this time. 4. CODE STATUS Long discussion with patient about the options. Patient is electing for full CODE STATUS at this time. If cancer has recurred, patient may reevaluate the situation. Code Visit Inpatient E&M: 52503 Subs Hosp L3
--- NOTE | 2019-10-09 10:02 | PN_ITS ---
Patient Problems: Active and Suspected Problems (Last Reviewed 09/28/19 @ 16:08 by KERRY Valero) Respiratory failure with hypoxia and hypercapnia (Acute) Left lower lobe pneumonia (Acute) Atrial fibrillation by electrocardiogram (Acute) Subjective: Patient seen and examined. He was lying in bed comfortably this morning on 2 L of oxygen. However he says during the night he try to get out of bed to use the urinal and became acutely short of breath with movement. He denies any palpitations or dizziness, chest pain, abdominal pain, diarrhea vomiting. Review of systems otherwise negative. Labs and vitals reviewed. Vitals/I&O's: Vital Signs Temp Pulse Resp BP Pulse Ox 97.6 F L 99 20 H 116/75 95 10/09/19 04:50 10/09/19 06:50 10/09/19 06:42 10/09/19 04:50 10/09/19 06:42 Oxygen Flow Rate (L/min) 2 Oxygen Delivery Method Nasal Cannula Weight: 160 lb 7.944 oz Body Mass Index (BMI) 22.9 Intake and Output for Last 24 Hours 10/07/19 10/08/19 10/09/19 23:59 23:59 23:59 Intake Total 765 / 985 1220 / 1220 100 / 100 Output Total 200 / 525 750 / 750 275 / 275 Balance 565 / 460 470 / 470 -175 / -175 General: Alert, Oriented x3, Cooperative, No apparent distress HEENT: Atraumatic, PERRLA, EOMI, Normocephalic Oral: Dry Mucosa Neck: Supple, No JVD, Negative Carotid Bruits Lungs: - - on 2L of oxygen by nasal canula. Decreased breath sounds in all lung singleton. few crackles bibasally. Cardiovascular: Normal S1, Normal S2, No murmurs, Irregular Rate, Afib-rate controlled Abdomen: Bowel Sounds Present, Soft, Non Tender, Non-Distended, No Hepato- splenomegaly Extremities: No clubbing, No cyanosis, No edema, Capillary Refill Less than 3 Seconds Skin: No rashes, No breakdown Musculoskeletal: No Tenderness to Palpation of Joints or Extremities Lymphatic: No Cervical, Supraclavicular, or Inguinal Adenopathy Neurological: Cranial nerves II-XII grossly intact, Neuro grossly intact, Motor Exam 5/5 strength throughout Psych/Mental Status: Normal Affect, Appropriate, Alert and oriented to time, place, person, mood and affect Microbiology Past 72 Hours 10/07/19 17:40 Sputum, Expectorated/Coughed Gram Stain - Final Laboratory Results 10/09/19 04:55: WBC 9.2, RBC 3.17 L, Hgb 8.9 L, Hct 29.0 L, MCV 91.5, MCH 28.1, MCHC 30.7 L, RDW Std Deviation 66.7 H, RDW Coeff of Zamzam 19.6 H, Plt Count 163, MPV 10.1, Immature Gran % (Auto) 1.100 H, Neut % (Auto) 91.9 H, Lymph % (Auto) 3.0 L, [place] % (Auto) 3.9, Eos % (Auto) 0.0, Baso % (Auto) 0.1, Absolute Neuts (auto) 8.4 H, Absolute Lymphs (auto) 0.27 L, Nucleated RBC % 0.2, Differential Comment SCANNED, Hypochromasia 3+, Anisocytosis 3+, Target Cells 1+, Acanthocytes (Spur) 1+ 10/09/19 04:55: Sodium 136, Potassium 4.4, Chloride 97 L, Carbon Dioxide 33.0 H, Anion Gap 6, BUN 32 H, Creatinine 1.10, Estim Creat Clear Calc 52.39, Est GFR (MDRD) Af Amer 82, Est GFR (MDRD) Non-Af 68, BUN/Creatinine Ratio 29.1 H, Glucose 175 H, Calcium 9.3 Diagnostic Data Chest X-Ray 10/07/19 10:55 IMPRESSION: Limited infiltrate left lower lobe behind the heart. Electronically Signed: Yuliet Garcia, at 11:32 EST Tel , Service support , Chest CTA 10/07/19 12:13 IMPRESSION: Interval increase in the size of previously described mass/masses involving the left lower lobe with development of left-sided pleural effusion. Again this lesion is amenable for CT-guided biopsy. Bilateral pulmonary changes which are probably chronic. Electronically Signed: Yuliet Garcia, at 14:55 EST Tel , Service support , Current Medications Albuterol/Ipratropium (Duoneb) 3 ml INHALATION PRN PRN PRN Reason: SOB &/OR WHEEZING Albuterol/Ipratropium (Duoneb) 3 ml INHALATION Q6HWA.RT [facility] Last Admin: 10/09/19 06:42 Dose: 3 ml Documented by: Amiodarone HCl (Cordarone) 200 mg PO DAILYCM [facility] Last Admin: 10/09/19 08:23 Dose: 200 mg Documented by: Atorvastatin Calcium (Lipitor) 10 mg PO DAILY@2200 [facility] Last Admin: 10/08/19 22:47 Dose: Not Given Documented by: Dextrose (D50w Syringe) 0 gm IV X1 PRN; Protocol PRN Reason: Hypoglycemia Diltiazem HCl (Cardizem Cd) 120 mg PO DAILY [facility] Last Admin: 10/09/19 08:23 Dose: 120 mg Documented by: Finasteride (Proscar) 5 mg PO DAILY [facility] Last Admin: 10/09/19 08:23 Dose: 5 mg Documented by: Furosemide (Lasix) 40 mg PO DAILY [facility] Last Admin: 10/09/19 08:23 Dose: 40 mg Documented by: Glucagon () 1 mg IM .X1 PRN PRN Reason: Hypoglycemia Heparin Sodium (Beef Lung) () 50 units IV UD PRN PRN Reason: Port-a-Cath (VAD)Heparin Flush Levofloxacin (Levaquin Iv) 750 mg in 150 mls @ 100 mls/hr IV Q24 [facility] Last Admin: 10/09/19 08:23 Dose: 100 mls/hr Documented by: Methylprednisolone (Solu-Medrol) 40 mg IV Q8 [facility] Last Admin: 10/09/19 05:10 Dose: 40 mg Documented by: Nitroglycerin (Nitrostat) 0.4 mg SUBLINGUAL Q5M PRN PRN Reason: CARDIAC/CHEST PAIN Ondansetron HCl (Zofran) 4 mg IV Q8H PRN PRN PRN Reason: NAUSEA/VOMITING Rivaroxaban (Xarelto) 20 mg PO DAILY@1700 [facility] Last Admin: 10/08/19 17:52 Dose: 20 mg Documented by: Sodium Chloride () 10 - 40 ml IV UD PRN PRN Reason: Port-a-Cath (VAD) Flush Last Admin: 10/09/19 08:23 Dose: 10 ml Documented by: Sodium Chloride (0.9% Nacl (Sterile) Posiflush) 10 - 40 ml IV UD PRN PRN Reason: Port access or dressing change STROKE Vital Signs/Narrative: Vital Signs Pulse Resp Pulse Ox 10/09/19 06:50 99 10/09/19 06:42 83 20 H 95 Medical Necessity - Tobacco Use Smoking Status: Never smoker Assessment/Plan All Active Problems (Last Reviewed 09/28/19 @ 16:08 by Bethany Stearns, LELE-C) Respiratory failure with hypoxia and hypercapnia (Acute) Left lower lobe pneumonia (Acute) Atrial fibrillation by electrocardiogram (Acute) SIRS (systemic inflammatory response syndrome) (Acute) Septic shock (Acute) Atrial flutter (Acute) COPD exacerbation (Acute) 83 y/o admitted with a complaint of worsening shortness of breath. 1. Acute on chronic hypoxic respiratory failure due to COPD exacerbation * now on 2L of oxygen, though he admits he was acutely short of breath overnight when he got up to use the urinal * CTA: negative for PE, interval increased in previously described mass involving left lower lobe with development of left pleural effusion * pulmonology on board * on IV solumedrol and breathing treatments. * per pulmonology, to continue with solumedrol, bronchodilators and anticoagulation * had a negative PET scan a few months ago, though CT scan now shows interval increase in left lower lobe mass. Per pulmonology, it is doubtful if left lower lobe lesion per CT scan is malignant given negative PET scan in July,- to therefore hold off on biopsy for now. * BNP was only 98.6 * BIPAP prn * goal is to wean off oxygen slowly, for saturation >90% * 2. Afib with RVR * now rate controlled. * remains on cardizem and amiodarone. * 2D echo(09/11/19); stage 2 diastolic dysfunction, with moderate eccentric LV hypertrophy, and EF of 40% and segmental hypokinesia. RVSP was 37mmhg. * on xarelto. * continue diuresing with lasix. * 3. Chronic combined heart failure * EF is 40%, with stage 2 diastolic dysfunction. He wasnt in exacerbation on admission, with BNP of only 98.6. * on PO lasix 40mg daily * 4. BPH: on finasteride. 5. CAD s/p stents: stable 6.history of lung cancer: on immunotherapy. CT scan findings as under 1. Follows with Dr Urias. DVT prophylaxis: on xarelto. Code status:full code * Code Visit Inpatient E&M: 24224 Subs Hosp L3
[2019-10-09] MEDS: Rivaroxaban 20 MG Tablet PO (17:03)
[2019-10-09] MEDS: Atorvastatin Calcium 10 MG Tablet PO (21:50)
[2019-10-10] VITALS (12 sets, daily range): BP systolic 107–119; BP diastolic 49–84; PULSE 79–97; RESP 15–20; TEMP 36.4–36.6; O2SAT 87–96
[2019-10-10 04:37] LABS: Absolute Lymphocyte Count 0.31 X10^3/uL (0.83-4.51); Absolute Neutrophil Count 8.8 X10^3/uL (2.0-7.7); Basophil# 0.01 X10^3/uL; Basophil% 0.1 % (0-1); Hematocrit 29.5 % (40-54); Hemoglobin 9.2 g/dL (13.0-16.5); Lymphocyte # 0.31 X10^3/ul (4.0); Lymphocyte % 3.2 % (19-41); Mean Corp Hgb Conc 31.2 g/dL (32-36); Mean Corpuscular Hgb 28.7 pg (27.0-32.0); Mean Corpuscular Volume 91.9 fL (80-94); Mean Platelet Vol. 10.4 fl (6.2-12.0); Monocyte# 0.39 X10^3/uL; NRBC Flagged by Analyzer 0 % (0-5); Neutrophil # 8.83 X10^3/uL (2.7-7.7); Neutrophil % 91.2 % (47-70); POSITIVE DIFFERENTIAL YES; POSITIVE MORPHOLOGY YES; Platelet Count 174 K/mm3 (150-450); RBC Distribution Width CV 19.9 % (11.6-14.6); RBC Distribution Width SD 67.6 fl (35.1-43.9); Red Blood Count 3.21 M/mm3 (4.6-6.2); White Blood Count 9.7 K/mm3 (4.4-11.0)
[2019-10-10 04:47] LABS: Anion Gap 4 (5-15); BUN 35 mg/dL (7-18); BUN/Creat Ratio 30.4 RATIO (10-20); Calcium,Total 9.1 mg/dL (8.5-10.1); Chloride 96 mmol/L (98-107); Creatinine, Serum 1.15 mg/dL (0.70-1.30); EST Glomerular Filtration Rate 64 mL/min (>60); Est Glom Filt Rate - Afr Amer 78 mL/min (>60); Estimated Creatinine Clearance 50.12 ml/min; Glucose 155 mg/dL (74-106); Potassium 4.5 mmol/L (3.5-5.1); Sodium Level 136 mmol/L (136-145)
[2019-10-10 04:51] LABS: Differential Indicated SCAN CRITERIA MET
[2019-10-10] MEDS: 0.9% Saline Lock 10 ML Syringe IV ×2 (06:00→09:09)
[2019-10-10 06:10] LABS: Anisocytosis 2+; Differential Comment SCANNED; Hypochromasia 2+; Ovalocyte 1+
[2019-10-10] MEDS: Ipratropium/Albuterol Sulfate 3 ML AMPUL.NEB INHALATION ×2 (06:43→13:29)
--- NOTE | 2019-10-10 08:00 | PCM.PN.HOSP ---
Patient Problems: Active and Suspected Problems (Last Reviewed 09/28/19 @ 16:08 by KERRY Valero) Respiratory failure with hypoxia and hypercapnia (Acute) Left lower lobe pneumonia (Acute) Atrial fibrillation by electrocardiogram (Acute) Subjective: Patient with no acute events overnight per self and per nursing report. Patient notes that he is feeling well, improved respiratory status, less than coughing. Discussed recent results of sputum culture with stenotrophomonas continue Levaquin therapy for a total of 10 days per pulmonary recommendation as well as prednisone therapy. Patient is amenable as well as spouse who is present. Patient currently on chronic oxygen supplementation with plan for oxygenation assessment prior to discharge to home. Discussed physical and Occupational Therapy recommendations at length and patient is amenable to outpatient therapies. He does admit that he feels very weak especially in his lower extremities. Patient denies fevers, chills, nausea, emesis, abdominal pain, chest pain or worsened dyspnea. Objective: Physical Examination: General: awake, alert, oriented x 3 and cooperative, seated upright in no acute distress. Skin: normal color, turgor, no icterus, cyanosis. HEENT: AT/NC, EOMI, PERRLA, MMM, no carotid bruits or JVD noted. Lungs: Diminished breath sounds throughout, greater bilateral bases, minimal rales, left greater than right, improved effort. Heart: Currently regular rate, irregular, improved; no gallop, rub audible. Abdomen: soft, NTTP, ND, normal BS. Extremities: no cyanosis, clubbing, or edema. Neurological: patient awake, alert, oriented x 3; cognitive function intact; pupils equally reactive to light and accomodation; cranial nerves II-XII grossly normal, moving all 4 extremities, no focal deficits, strength improving, moderately global decreased. Psychiatric: affect appears improved, mildly fatigued but normal otherwise, no acute evidence of depressive or anxiety feelings. Vitals/I&O's: Vital Signs Temp Pulse Resp BP Pulse Ox 97.7 F L 86 20 H 113/79 93 10/10/19 03:33 10/10/19 06:44 10/10/19 06:44 10/10/19 03:33 10/10/19 06:44 Oxygen Flow Rate (L/min) 92 Oxygen Delivery Method Room Air Weight: 160 lb 7.944 oz Body Mass Index (BMI) 22.9 Intake and Output for Last 24 Hours 10/08/19 10/09/19 10/10/19 23:59 23:59 23:59 Intake Total 1220 / 1220 710 / 710 100 / 100 Output Total 750 / 750 1275 / 1750 675 / 675 Balance 470 / 470 -565 / -1040 -575 / -575 Microbiology Past 72 Hours 10/07/19 17:40 Sputum, Expectorated/Coughed Gram Stain - Final 10/07/19 17:40 Sputum, Expectorated/Coughed Respiratory Culture - Preliminary Gram negative brendan Laboratory Results 10/10/19 04:25: WBC 9.7, RBC 3.21 L, Hgb 9.2 L, Hct 29.5 L, MCV 91.9, MCH 28.7, MCHC 31.2 L, RDW Std Deviation 67.6 H, RDW Coeff of Zamzam 19.9 H, Plt Count 174, MPV 10.4, Immature Gran % (Auto) 1.500 H, Neut % (Auto) 91.2 H, Lymph % (Auto) 3.2 L, [place] % (Auto) 4.0, Eos % (Auto) 0.0, Baso % (Auto) 0.1, Absolute Neuts (auto) 8.8 H, Absolute Lymphs (auto) 0.31 L, Nucleated RBC % 0, Differential Comment SCANNED, Hypochromasia 2+, Anisocytosis 2+, Ovalocytes 1+ 10/10/19 04:25: Sodium 136, Potassium 4.5, Chloride 96 L, Carbon Dioxide 36.0 H, Anion Gap 4 L, BUN 35 H, Creatinine 1.15, Estim Creat Clear Calc 50.12, Est GFR (MDRD) Af Amer 78, Est GFR (MDRD) Non-Af 64, BUN/Creatinine Ratio 30.4 H, Glucose 155 H, Calcium 9.1 Current Medications Albuterol/Ipratropium (Duoneb) 3 ml INHALATION PRN PRN PRN Reason: SOB &/OR WHEEZING Albuterol/Ipratropium (Duoneb) 3 ml INHALATION Q6HWA.RT [facility] Last Admin: 10/10/19 06:43 Dose: 3 ml Documented by: Amiodarone HCl (Cordarone) 200 mg PO DAILYCM [facility] Last Admin: 10/09/19 08:23 Dose: 200 mg Documented by: Atorvastatin Calcium (Lipitor) 10 mg PO DAILY@2200 [facility] Last Admin: 10/09/19 21:50 Dose: 10 mg Documented by: Dextrose (D50w Syringe) 0 gm IV X1 PRN; Protocol PRN Reason: Hypoglycemia Diltiazem HCl (Cardizem Cd) 120 mg PO DAILY [facility] Last Admin: 10/09/19 08:23 Dose: 120 mg Documented by: Finasteride (Proscar) 5 mg PO DAILY [facility] Last Admin: 10/09/19 08:23 Dose: 5 mg Documented by: Furosemide (Lasix) 40 mg PO DAILY [facility] Last Admin: 10/09/19 08:23 Dose: 40 mg Documented by: Glucagon () 1 mg IM .X1 PRN PRN Reason: Hypoglycemia Heparin Sodium (Beef Lung) () 50 units IV UD PRN PRN Reason: Port-a-Cath (VAD)Heparin Flush Levofloxacin (Levaquin Iv) 750 mg in 150 mls @ 100 mls/hr IV Q24 [facility] Last Infusion: 10/09/19 11:10 Dose: Infused Documented by: Methylprednisolone (Solu-Medrol) 40 mg IV Q8 [facility] Last Admin: 10/10/19 06:00 Dose: 40 mg Documented by: Nitroglycerin (Nitrostat) 0.4 mg SUBLINGUAL Q5M PRN PRN Reason: CARDIAC/CHEST PAIN Ondansetron HCl (Zofran) 4 mg IV Q8H PRN PRN PRN Reason: NAUSEA/VOMITING Rivaroxaban (Xarelto) 20 mg PO DAILY@1700 [facility] Last Admin: 10/09/19 17:03 Dose: 20 mg Documented by: Sodium Chloride () 10 - 40 ml IV UD PRN PRN Reason: Port-a-Cath (VAD) Flush Last Admin: 10/10/19 06:00 Dose: 10 ml Documented by: Sodium Chloride (0.9% Nacl (Sterile) Posiflush) 10 - 40 ml IV UD PRN PRN Reason: Port access or dressing change STROKE Vital Signs/Narrative: Vital Signs Pulse Resp Pulse Ox 10/10/19 06:44 86 20 H 93 10/10/19 06:43 91 Medical Necessity - Tobacco Use Smoking Status: Never smoker Assessment/Plan All Active Problems (Last Reviewed 09/28/19 @ 16:08 by Bethany Stearns, [employer]-C) Respiratory failure with hypoxia and hypercapnia (Acute) Left lower lobe pneumonia (Acute) Atrial fibrillation by electrocardiogram (Acute) SIRS (systemic inflammatory response syndrome) (Acute) Septic shock (Acute) Atrial flutter (Acute) COPD exacerbation (Acute) The patient is an 83 y/o M w/ PMHx: Chronic Diastolic CHF w/ Chronic Hypoxic Respiratory Failure, PAF, CAD, Hx Lung CA on Immunotherapy, BPH, HTN, HLD who presents to the [facility] ED on 10/07/19 with history of recent admission and discharge following dyspnea, septic shock secondary to CAP and UTI with acute on chronic respiratory failure as well as COPD exacerbation and atrial flutter with RVR with required DC cardioversion at that time with completion of Levaquin x5-day course and initiation of amiodarone who now represents with dyspnea, worsening with gradual deterioration over the last 3 weeks with hypoxia into the 80s. 1. Acute on Chronic Hypoxic and Hypercapnic Respiratory Failure secondary to Acute on Chronic Diastolic CHF and LLL CAP (stenotrophomonas, presumptive Maritza albicans): Chest x-ray with limited infiltrate left lower lobe, CTPA with interval increase in size of previously described mass involving left lower lobe with development of left-sided pleural effusion with bilateral pulmonary changes likely chronic, BC with no market WBC elevation nor left shift evident, remains afebrile, sputum culture with preliminary gram-negative brendan with pending final, 09/12/19 ECHO w/ normal LV size, moderate LVH, EF 40%, stage II diastolic dysfunction, moderately enlarged LA, mildly enlarged RA, PASP 37 mmHg, IV lasix x 1 administered and continued on home oral lasix regimen, maintained on xarelto, not on BB as on cardizem, not on ACEI/ARB, continue statin, maintained on IV Levaquin, Solumedrol transition to oral prednisone taper, sputum culture with stenotrophomonas, presumptive Maritza albicans with sensitivity to Levaquin and Bactrim, given recent PET scan in July suspect left lower lobe lesion not malignant and possibly increased in size secondary to concurrent edema, no plan on biopsies at this time. Patient was recently treated for pneumonia of the left lower lobe with vancomycin and Zosyn therefore likely imaging from prior, continue aerosols, PRN albuterol, repeat a.m. chest x-ray left lung base. Given clinical improvement, per discussion with pulmonary medicine cleared for discharge to home with continue oxygen supplementation, Levaquin for planned total 10-day duration, prednisone taper with continued aerosols. 2. Acute atrial fibrillation/flutter w/ RVR: Patient upon presentation with atrial fibrillation and flutter with RVR, maintained currently on Cardizem, increased to 180 mg p.o. daily to improve rate is currently 80s to 90s, recent echo as noted 09/12/19 ECHO w/ normal LV size, moderate LVH, EF 40%, stage II diastolic dysfunction, moderately enlarged LA, mildly enlarged RA, PASP 37 mmHg, continue on home regimen as well as Xarelto regimen. Given patient improvement plan for discharge to home with discussion and encouragement for follow-up with Dr. Song in the office. 3. Hypokalemia: Admission K+ 3.1, supplementation given, repeat levels appropriate. 4. Chronic normocytic anemia: Admission hemoglobin 9.6, repeat similar, trend. 5. Hypertension: Continue home regimen including Cardizem (increased as noted), Lasix, PRN hydralazine. 6. Hyperlipidemia: Continue home statin regimen. 7. BPH: Continue home Proscar regimen. 8. DVT prophylaxis: SCDs, xarelto. 9. CODE STATUS: Full code.
--- NOTE | 2019-10-10 08:06 | PCM.PN.PUL ---
Patient Problems: Active and Suspected Problems (Last Reviewed 09/28/19 @ 16:08 by KERRY Valero) Respiratory failure with hypoxia and hypercapnia (Acute) Left lower lobe pneumonia (Acute) Atrial fibrillation by electrocardiogram (Acute) Subjective: Patient feels subjectively improved compared to previous. No chest pain has been reported. Patient's oxygenation continues to improve. Patient does have some dyspnea on exertion, but feels this is much improved compared to previous. - Physical Exam Vitals/I&O's: Vital Signs Temp Pulse Resp BP Pulse Ox 36.5 C L 86 20 H 113/79 93 10/10/19 03:33 10/10/19 06:44 10/10/19 06:44 10/10/19 03:33 10/10/19 06:44 Oxygen Flow Rate (L/min) 92 Oxygen Delivery Method Room Air Weight: 72.8 kg Body Mass Index (BMI) 22.9 Intake and Output for Last 24 Hours 10/08/19 10/09/19 10/10/19 23:59 23:59 23:59 Intake Total 1220 / 1220 710 / 710 100 / 100 Output Total 750 / 750 1275 / 1750 675 / 675 Balance 470 / 470 -565 / -1040 -575 / -575 General: Alert, Oriented x3, Cooperative, No apparent distress, - - No conversational dyspnea. HEENT: Atraumatic, PERRLA, EOMI, Normocephalic, - Oral: Moist Mucosa, No Gingival or Mucosal Lesions/ Ulcerations Neck: Supple, No JVD, No Nodes, Trachea Midline Lungs: No rhonchi, No wheeze, Diminished, Rales - Left greater than right Cardiovascular: Normal S1, Normal S2, Irregular Rate, Murmur, No rub noted, No Gallop, - - A flutter noted on telemetry Abdomen: Bowel Sounds Present, Soft, Non Tender, Non-Distended Extremities: No cyanosis, No edema, Capillary Refill Less than 3 Seconds, Clubbing Musculoskeletal: No Tenderness to Palpation of Joints or Extremities, Muscle Wasting Lymphatic: No Cervical, Supraclavicular, or Inguinal Adenopathy Neurological: Cranial nerves II-XII grossly intact, Neuro grossly intact, Motor Exam 5/5 strength throughout Psych/Mental Status: Alert and oriented to time, place, person, mood and affect Microbiology Past 72 Hours 10/07/19 17:40 Sputum, Expectorated/Coughed Gram Stain - Final 10/07/19 17:40 Sputum, Expectorated/Coughed Respiratory Culture - Preliminary Gram negative brendan Laboratory Results 10/10/19 04:25: WBC 9.7, RBC 3.21 L, Hgb 9.2 L, Hct 29.5 L, MCV 91.9, MCH 28.7, MCHC 31.2 L, RDW Std Deviation 67.6 H, RDW Coeff of Zamzam 19.9 H, Plt Count 174, MPV 10.4, Immature Gran % (Auto) 1.500 H, Neut % (Auto) 91.2 H, Lymph % (Auto) 3.2 L, Terrell % (Auto) 4.0, Eos % (Auto) 0.0, Baso % (Auto) 0.1, Absolute Neuts (auto) 8.8 H, Absolute Lymphs (auto) 0.31 L, Nucleated RBC % 0, Differential Comment SCANNED, Hypochromasia 2+, Anisocytosis 2+, Ovalocytes 1+ 10/10/19 04:25: Sodium 136, Potassium 4.5, Chloride 96 L, Carbon Dioxide 36.0 H, Anion Gap 4 L, BUN 35 H, Creatinine 1.15, Estim Creat Clear Calc 50.12, Est GFR (MDRD) Af Amer 78, Est GFR (MDRD) Non-Af 64, BUN/Creatinine Ratio 30.4 H, Glucose 155 H, Calcium 9.1 Current Medications Albuterol/Ipratropium (Duoneb) 3 ml INHALATION PRN PRN PRN Reason: SOB &/OR WHEEZING Albuterol/Ipratropium (Duoneb) 3 ml INHALATION Q6HWA.RT [facility] Last Admin: 10/10/19 06:43 Dose: 3 ml Documented by: Amiodarone HCl (Cordarone) 200 mg PO DAILYCM [facility] Last Admin: 10/09/19 08:23 Dose: 200 mg Documented by: Atorvastatin Calcium (Lipitor) 10 mg PO DAILY@2200 [facility] Last Admin: 10/09/19 21:50 Dose: 10 mg Documented by: Dextrose (D50w Syringe) 0 gm IV X1 PRN; Protocol PRN Reason: Hypoglycemia Diltiazem HCl (Cardizem Cd) 120 mg PO DAILY [facility] Last Admin: 10/09/19 08:23 Dose: 120 mg Documented by: Finasteride (Proscar) 5 mg PO DAILY [facility] Last Admin: 10/09/19 08:23 Dose: 5 mg Documented by: Furosemide (Lasix) 40 mg PO DAILY [facility] Last Admin: 10/09/19 08:23 Dose: 40 mg Documented by: Glucagon () 1 mg IM .X1 PRN PRN Reason: Hypoglycemia Heparin Sodium (Beef Lung) () 50 units IV UD PRN PRN Reason: Port-a-Cath (VAD)Heparin Flush Levofloxacin (Levaquin Iv) 750 mg in 150 mls @ 100 mls/hr IV Q24 [facility] Last Infusion: 10/09/19 11:10 Dose: Infused Documented by: Methylprednisolone (Solu-Medrol) 40 mg IV Q8 [facility] Last Admin: 10/10/19 06:00 Dose: 40 mg Documented by: Nitroglycerin (Nitrostat) 0.4 mg SUBLINGUAL Q5M PRN PRN Reason: CARDIAC/CHEST PAIN Ondansetron HCl (Zofran) 4 mg IV Q8H PRN PRN PRN Reason: NAUSEA/VOMITING Rivaroxaban (Xarelto) 20 mg PO DAILY@1700 [facility] Last Admin: 10/09/19 17:03 Dose: 20 mg Documented by: Sodium Chloride () 10 - 40 ml IV UD PRN PRN Reason: Port-a-Cath (VAD) Flush Last Admin: 10/10/19 06:00 Dose: 10 ml Documented by: Sodium Chloride (0.9% Nacl (Sterile) Posiflush) 10 - 40 ml IV UD PRN PRN Reason: Port access or dressing change Medical Necessity - Tobacco Use Smoking Status: Never smoker Assessment/Plan All Active Problems (Last Reviewed 09/28/19 @ 16:08 by Bethany Stearns NP-C) Respiratory failure with hypoxia and hypercapnia (Acute) Left lower lobe pneumonia (Acute) Atrial fibrillation by electrocardiogram (Acute) SIRS (systemic inflammatory response syndrome) (Acute) Septic shock (Acute) Atrial flutter (Acute) COPD exacerbation (Acute) RECOMMENDATIONS: 1. Consider cardiology consultation 2. Await sensitivities of gram-negative 3. Consider gentle diuresis 4. BiPAP rescue as necessary. Continue to wean oxygen as tolerated 5. Wean prednisone over the next 12 to 14 days. Antibiotics per sputum results 6. If discharged, patient should follow-up with nurse practitioner in 2 weeks in our office IMPRESSIONS: 1. Acute on chronic hypoxic respiratory failure Unclear etiology at this time. Patient has a therapeutic INR, so PE is unlikely in the setting of a negative CTA. Patient does have some left lower lobe infiltrate, and was recently treated with vancomycin and Zosyn for pneumonia versus cystitis. Patient does have a gram-negative growing on sputum culture. Patient does have relatively advanced lung disease at baseline, complicating his overall condition. Patient also has diastolic dysfunction and is currently in A. fib/flutter. Patient reportedly benefited from cardioversion in the past. Reasonable to continue with bronchodilators and anticoagulation. We will transition to prednisone therapy and wean over the next 12 to 14 days. Patient has improved to rapidly to be secondary to steroids and antibiotic therapy. Clinical suspicion for component of CHF in the setting of advanced lung disease. 2. A. fib with RVR/CAD/probable acute on chronic diastolic CHF Patient's BNP is not impressive, but does have significant diastolic dysfunction on recent echocardiogram. Patient benefiting from better rate control. Patient has received a cardioversion in the past with improvement in symptoms. BNP is improved from that hospitalization, but it was not significantly elevated at that time either. 3. History of lung cancer with immunotherapy/advanced age/BPH/recurrent admission/debility Complicates care, management, recovery and prognosis. Doubt left lower lobe lesion is malignant given previous negative PET scan in July. Increase in size may be secondary to associated edema. Would hold off on any biopsies at this time. 4. CODE STATUS Long discussion with patient about the options. Patient is electing for full CODE STATUS at this time. If cancer has recurred, patient may reevaluate the situation. Code Visit Inpatient E&M: 78549 Subs Hosp L2
[2019-10-10] MEDS: Amiodarone 200 MG Tablet PO (08:16)
[2019-10-10] MEDS: Furosemide 40 MG/4 ML Vial IV (08:20)
[2019-10-10] MEDS: levoFLOXacin IV 750 MG/150 ML BAG 100 MG IV (09:09)
[2019-10-10] MEDS: Finasteride 5 MG Tablet PO (09:14)
[2019-10-10] MEDS: dilTIAZem CD 180 MG Capsule PO (09:17)
--- NOTE | 2019-10-10 09:45 | RAD_ITS ---
STUDY: X-RAY CHEST REASON FOR EXAM: Male, 83 years old. Dyspnea. TECHNIQUE: PA and lateral views of the chest. COMPARISON: Comparison is made with prior examination dated October 07, 2019. FINDINGS: EKG electrodes are seen. A right-sided portacatheter is seen with the tip in the midportion of the superior vena cava. Hyperinflation. Persistent infiltrate in the posterior medial segment of the left lower lobe with blunting of the left costophrenic angle. This has improved as compared to prior study. Stable scarring in the lung bases as well as in the right upper lobe. Normal size heart. Normal mediastinum and gasper. Normal visualized pulmonary arteries. There is atherosclerotic calcification of the aortic arch with tortuosity. There are diffuse degenerative changes of the visualized thoracic spine. There is degenerative osteoarthritis of the bilateral shoulders. There is no demonstrated abnormality of the visualized soft tissue structures of the upper abdomen. RAD/Chest PA and Lateral IMPRESSION: Improving aeration at the left lung base. Electronically Signed: Esa Hall, at 13:13 EST , Service support ,
--- NOTE | 2019-10-10 11:07 | CASEMGMT ---
Pt and his confirm that he has a living will and health care POA. SW informed them that [facility] does not have documents on file and requests pt bring them in if possible. agreeable. CINDI Khan
--- NOTE | 2019-10-10 11:08 | CASEMGMT ---
Social Work Palliative Care Screening Tool completed with pt score of 7. SW met with pt and and discussed palliative care option. Pt and agreeable to referral. Phone call to Arline at [facility] Palliative and referral made. Clinical information faxed. [facility] made aware pt requesting pt be contacted to set up appointment. CINDI Khan
[2019-10-10] MEDS: predniSONE 20 MG Tablet 40 MG PO (11:12)
--- NOTE | 2019-10-10 12:21 | CASEMGMT ---
Addendum entered by Nohelia Niño 10/10/19 14:59: Pt does need 4liters of oxygen with ambulation so new order faxed to [facility] at this time. Call to Soledad and Cyndi aware of new order at this time, voices understanding. Pt/ voice no further questions/concerns/needs at this time. Toshia RN CM Addendum entered by Nohelia Niño 10/10/19 13:39: This RN CM back to room as pt placed up for discharge at this time. Pt/ are agreeable to OP therapy at [facility] at this time and order faxed to [facility] at this time. Original to pt with d/c instructions. This RN CM is also waiting on amb pulse ox to make sure pt does not need more than his 3liters continous at discharge. Pt is currently on 3 liters ra at rest at this time. states to this RN CM that 'if he gets really sob with walking, I am not taking him home like that.' Dr. Solano and Zehra RN aware, voice understanding. Toshia RN CM Addendum entered by Nohelia Niño 10/10/19 12:23: Pt to be ambulated for increased oxygen need. Pt is currently on 3liters continuous oxygen at home thru [employer] and NIV trilogy at bedtime. Toshia RN FLORINA Original Note: Per previous RN CM note, pt is agreeable to HHC at this time. This RN CM to room with list of in-network HHC agencies at this time and pt/ are now unsure if HHC is needed at this time. This RN CM did explain HHC/OP therapy to pt/ at this time and advised that this RN CM would be back later for decision, voice understanding. Pt did agree to palliative care this visit. Pt/ voice no further questions/concerns/needs at this time. Toshia DE LA CRUZ CM
--- NOTE | 2019-10-10 12:22 | PCM.DC ---
- Discharge Diagnoses Current Active Problems: Current Active and Chronic Problems (Last Reviewed 09/28/19 @ 16:08 by KERRY Valero) 1. Acute on Chronic Hypoxic and Hypercapnic Respiratory Failure secondary to Acute on Chronic Diastolic CHF (felt secondary to #2) and LLL Stenotrophomonas CAP 2. Acute atrial fibrillation/flutter w/ RVR 3. Hypokalemia 4. Chronic normocytic anemia 5. Hypertension 6. Hyperlipidemia 7. BPH You will use the following diet at home:: Cardiac Your food should be the consistency of: Regular Your liquids should be the consistency of: Regular/Thin Discharge Activity: - - Strongly encourage outpatient therapies including physical and occupational therapy. Strongly encouraged supplementary device including walker for activity if appropriate. Encouraged only mild to moderate activity until complete resolution of current acute presentation and completion of steroid therapy as well as evaluation per pulmonary medicine outpatient. Weight Bearing Status: Weight bearing as tolerated Call your doctor if you observe: Fever of 101 or Higher, Inability to urinate, Inability to have a bowel movement, Shortness of breath, Dizziness, Fainting spells, Chest pain, Uncontrolled pain Instructions: What Is Pneumonia?, Using Oxygen Safely, Using Oxygen at Home, Preventing Pneumonia, Treating Pneumonia, Heart Failure: Warning Signs of a Flare-Up, Taking Medication to Control Heart Failure, What Is Heart Failure?, What Is Atrial Flutter/Atrial Fibrillation? Additional Instructions: During the admission you were treated for an acute on chronic respiratory failure felt secondary to pneumonia as well as heart failure which improved with minimal IV Lasix administration and transition back to oral regimen as well as antibiotic therapy with sputum culture notable for stenotrophomonas. Please continue the Levaquin oral antibiotic therapy to complete 10-day course as well as oral prednisone taper in addition to aerosols with plan follow-up with pulmonary medicine in 2 weeks. During the admission likely secondary to your acute presentation you had acute atrial fibrillation with increased rate with improvement with increase in home oral Cardizem regimen as well as continuation of Xarelto. We encourage you to follow-up with Dr. Song outpatient to review this admission and medication adjustments. Allergies/Adverse Reactions: Allergies amoxicillin Adverse Reaction (Severe, Verified 10/07/19 10:14) Nausea/Vom/Diarrhea Gadolinium-MRI Contrast Medium [DYE] Adverse Reaction (Severe, Verified 10/07/19 10:14) Nausea/Vom/Diarrhea rice Adverse Reaction (Severe, Verified 10/07/19 10:14) Vomiting Medications to take at Discharge finasteride 5 mg tablet 1 tab PO DAILY 90 Days #90 02/10/18 budesonide-formoterol HFA 160 mcg-4.5 mcg/actuation aerosol inhaler 2 puff INHALATION BID #1 ea 12/06/18 Albuterol Inhaler [Ventolin Hfa] 2 puff INHALATION Q6H PRN PRN #2 inhaler 08/24/19 Amiodarone HCl [Cordarone] 200 mg PO DAILY #30 tab 09/16/19 Rivaroxaban [Xarelto] 20 mg PO DAILY@1700 #30 tab 09/16/19 tiotropium bromide 2.5 mcg/actuation mist for inhalation 2 puff INHALATION QDAY #1 ea 09/28/19 atorvastatin 10 mg tablet 10 mg PO DAILY 10/04/19 furosemide 20 mg tablet 40 mg PO DAILY tab 10/04/19 Albuterol Aerosols [Ventolin Aerosols] 2.5 mg INHALATION Q2H PRN PRN #1 box 10/10/19 Diltiazem CD [Cardizem CD] 180 mg PO DAILY #30 cap 10/10/19 Ipratropium/Albuterol Respimat [Combivent Respimat Inhal Niantic] 1 puff INHALATION BID #1 inhaler 10/10/19 Ipratropium/Albuterol Sulfate [Duoneb] 3 ml INHALATION Q6HWA.RT #1 box 10/10/19 Nebulizer [Lc Star] 1 ea UD #1 kit 10/10/19 Oxygen, Home [Home Oxygen] 3 l NASAL CONT #1 unit 10/10/19 Prednisone 10 mg PO UD 12 Days #30 tab 10/10/19 levoFLOXacin tablet [Levaquin tablet] 750 mg PO DAILY #7 tab 10/10/19 The following prescriptions were given: Diltiazem CD [Cardizem CD] 180 mg PO DAILY #30 cap Transmission Status: [facility] Ipratropium/Albuterol Respimat [Combivent Respimat Inhal Niantic] 1 puff INHALATION BID #1 inhaler Transmission Status: [facility] Ipratropium/Albuterol Sulfate [Duoneb] 3 ml INHALATION Q6HWA.RT #1 box Transmission Status: Pending to [facility] Nebulizer [Lc Star] 1 ea MC UD #1 kit Transmission Status: Pending to [facility] levoFLOXacin tablet [Levaquin tablet] 750 mg PO DAILY #7 tab Transmission Status: Pending to [facility] Prednisone 10 mg PO UD 12 Days #30 tab Transmission Status: Pending to [facility] Albuterol Aerosols [Ventolin Aerosols] 2.5 mg INHALATION Q2H PRN PRN #1 box PRN Reason: Dyspnea, wheezing Transmission Status: Pending to [facility] Primary Care Physician: Ha Davis DO [Primary Care Provider] - Please follow up with your Primary Care Physician in: Follow-up within 2 to 4 days. Test Results: Test results from this visit will be discussed in further detail at your follow-up appointment, if applicable. Please Follow Up With: Oral Song MD When: May see office HIDE [facility]OR for hospital follow-up within 2-4 weeks. Please Follow Up With: Bethany Stearns NP-C When: Follow-up in 2 weeks, call for earlier evaluation if concerns. Proposed Discharge Date: 10/10/19
--- NOTE | 2019-10-10 12:30 | PCM.DC.SUM ---
Discharge Date and Diagnosis - Problem List Patient Problems: Active and Suspected Problems (Last Reviewed 09/28/19 @ 16:08 by Bethany Stearns NP-Michelle) Respiratory failure with hypoxia and hypercapnia (Acute) Left lower lobe pneumonia (Acute) Atrial fibrillation by electrocardiogram (Acute) Date of Admission: 10/07/19 Date of Discharge: 10/10/19 - Primary Discharge Diagnosis Active and Suspected Problems (Last Reviewed 09/28/19 @ 16:08 by Bethany Stearns NP-C) 1. Acute on Chronic Hypoxic and Hypercapnic Respiratory Failure secondary to Acute on Chronic Diastolic CHF (felt secondary to #2) and LLL Stenotrophomonas CAP 2. Acute atrial fibrillation/flutter w/ RVR 3. Hypokalemia 4. Chronic normocytic anemia 5. Hypertension 6. Hyperlipidemia 7. BPH - Secondary Discharge Diagnosis Chronic Problems (Last Reviewed 09/28/19 @ 16:08 by Bethany Stearns NP-C) Asthma exacerbation in COPD (Chronic) Coronary artery disease (Chronic) Acute on chronic respiratory failure with hypoxia (Chronic) S/P PTCA (percutaneous transluminal coronary angioplasty) (Chronic) Cardiomyopathy (Chronic) Anemia (Chronic) Immunotherapy (Chronic) Hx of heart artery stent (Chronic) 2013 HTN (hypertension) (Chronic) Stroke (Chronic) Primary cancer of left lower lobe of lung (Chronic) Regional lymph node metastasis present (Chronic) Chronic respiratory failure with hypoxia (Chronic) Stage 4 very severe COPD by GOLD classification (Chronic) FEV1 41% of predicted Hospital Course and Treatment Imaging Results: 10/10/19 09:45 CXR [Chest PA and Lateral] [RAD] Stat Dr. Cabello, Pulmonary medicine Operations: None Procedures: EKG Summary of Care Provided: The patient is an 83 y/o M w/ PMHx: Chronic Diastolic CHF w/ Chronic Hypoxic Respiratory Failure, PAF, CAD, Hx Lung CA on Immunotherapy, BPH, HTN, HLD who presented to the [facility] ED on 10/07/19 with history of recent admission and discharge following dyspnea, septic shock secondary to CAP and UTI with acute on chronic respiratory failure as well as COPD exacerbation and atrial flutter with RVR with required DC cardioversion at that time with completion of Levaquin x5-day course and initiation of amiodarone who now represents with dyspnea, worsening with gradual deterioration over the last 3 weeks with hypoxia into the 80s. Evaluation included Chest x-ray with limited infiltrate left lower lobe, CTPA with interval increase in size of previously described mass involving left lower lobe with development of left-sided pleural effusion with bilateral pulmonary changes likely chronic, WBC with no market WBC elevation nor left shift evident, remained afebrile, sputum culture resulted with stenotrophomonas, presumptive Maritza albicans with sensitivity to Levaquin and Bactrim transitioned and maintained on Levaquin therapy, recent 09/12/19 ECHO w/ normal LV size, moderate LVH, EF 40%, stage II diastolic dysfunction, moderately enlarged LA, mildly enlarged RA, PASP 37 mmHg, IV lasix x 1 administered and continued on home oral lasix regimen, maintained on xarelto, not on BB as on cardizem, not on ACEI/ARB, continued statin, maintained on Solumedrol w/ transition to oral prednisone taper. Pulmonary, Dr. Cabello consulted and given recent PET scan in July suspect left lower lobe lesion not malignant and possibly increased in size secondary to concurrent edema w/ no planned biopsies. Patient was recently treated for pneumonia of the left lower lobe with vancomycin and Zosyn therefore likely imaging from prior, continue aerosols, PRN albuterol, repeat a.m. chest x-ray left lung base. Given clinical improvement, per discussion with pulmonary medicine cleared for discharge to home with continue oxygen supplementation, Levaquin for planned total 10-day duration, prednisone taper with continued aerosols. During admission patient w/ Acute atrial fibrillation/flutter w/ RVR with rate improvement w/ acute clinical improvement, remained 80-90s, patient cardizem increased to 180 mg p.o. daily, recent echo as noted 09/12/19 ECHO. Given patient improvement planned for discharge to home with discussion and encouragement for follow-up with Dr. Song in the office. Patient encouraged to continue with outpatient physical and occupational therapy which was discussed with case management and set up prior to patient discharge. Patient oxygenation testing also performed prior to discharge to home to assure no increase needs above chronic supplementation. Patient Problems: Active and Suspected Problems (Last Reviewed 09/28/19 @ 16:08 by Bethany Stearns NP-C) Respiratory failure with hypoxia and hypercapnia (Acute) Left lower lobe pneumonia (Acute) Atrial fibrillation by electrocardiogram (Acute) - Physical Exam Vitals/I&O's: Vital Signs Temp Pulse Resp BP Pulse Ox 97.9 F 86 18 119/84 H 96 12/02/19 09:08 10/10/19 10:58 10/10/19 09:08 10/10/19 09:08 10/10/19 09:08 Oxygen Flow Rate (L/min) 3 Oxygen Delivery Method Nasal Cannula Weight: 160 lb 7.944 oz Body Mass Index (BMI) 22.9 Intake and Output for Last 24 Hours 10/08/19 10/09/19 10/10/19 23:59 23:59 23:59 Intake Total 1220 / 1220 710 / 710 450 / 450 Output Total 750 / 750 1275 / 1750 975 / 975 Balance 470 / 470 -565 / -1040 -525 / -525 Microbiology Past 72 Hours 10/07/19 17:40 Sputum, Expectorated/Coughed Gram Stain - Final 10/07/19 17:40 Sputum, Expectorated/Coughed Respiratory Culture - Final Stenotrophomonas maltophilia Presumptive C albicans Mixed Cherri Laboratory Results 10/10/19 04:25: WBC 9.7, RBC 3.21 L, Hgb 9.2 L, Hct 29.5 L, MCV 91.9, MCH 28.7, MCHC 31.2 L, RDW Std Deviation 67.6 H, RDW Coeff of Zamzam 19.9 H, Plt Count 174, MPV 10.4, Immature Gran % (Auto) 1.500 H, Neut % (Auto) 91.2 H, Lymph % (Auto) 3.2 L, [place] % (Auto) 4.0, Eos % (Auto) 0.0, Baso % (Auto) 0.1, Absolute Neuts (auto) 8.8 H, Absolute Lymphs (auto) 0.31 L, Nucleated RBC % 0, Differential Comment SCANNED, Hypochromasia 2+, Anisocytosis 2+, Ovalocytes 1+ 10/10/19 04:25: Sodium 136, Potassium 4.5, Chloride 96 L, Carbon Dioxide 36.0 H, Anion Gap 4 L, BUN 35 H, Creatinine 1.15, Estim Creat Clear Calc 50.12, Est GFR (MDRD) Af Amer 78, Est GFR (MDRD) Non-Af 64, BUN/Creatinine Ratio 30.4 H, Glucose 155 H, Calcium 9.1 10/10/19 04:25: Magnesium 2.0 Current Medications Albuterol/Ipratropium (Duoneb) 3 ml INHALATION PRN PRN PRN Reason: SOB &/OR WHEEZING Albuterol/Ipratropium (Duoneb) 3 ml INHALATION Q6HWA.RT [facility] Last Admin: 10/10/19 06:43 Dose: 3 ml Documented by: Amiodarone HCl (Cordarone) 200 mg PO DAILYCM [facility] Last Admin: 10/10/19 08:16 Dose: 200 mg Documented by: Atorvastatin Calcium (Lipitor) 10 mg PO DAILY@2200 [facility] Last Admin: 10/09/19 21:50 Dose: 10 mg Documented by: Dextrose (D50w Syringe) 0 gm IV X1 PRN; Protocol PRN Reason: Hypoglycemia Diltiazem HCl (Cardizem Cd) 180 mg PO DAILY [facility] Last Admin: 10/10/19 09:17 Dose: 180 mg Documented by: Finasteride (Proscar) 5 mg PO DAILY [facility] Last Admin: 10/10/19 09:14 Dose: 5 mg Documented by: Furosemide (Lasix) 40 mg PO DAILY [facility] Glucagon () 1 mg IM .X1 PRN PRN Reason: Hypoglycemia Heparin Sodium (Beef Lung) () 50 units IV UD PRN PRN Reason: Port-a-Cath (VAD)Heparin Flush Levofloxacin (Levaquin Iv) 750 mg in 150 mls @ 100 mls/hr IV Q24 [facility] Last Infusion: 10/10/19 10:42 Dose: Infused Documented by: Nitroglycerin (Nitrostat) 0.4 mg SUBLINGUAL Q5M PRN PRN Reason: CARDIAC/CHEST PAIN Ondansetron HCl (Zofran) 4 mg IV Q8H PRN PRN PRN Reason: NAUSEA/VOMITING Prednisone () 40 mg PO DAILY@0800 [facility] Last Admin: 10/10/19 11:12 Dose: 40 mg Documented by: Rivaroxaban (Xarelto) 20 mg PO DAILY@1700 [facility] Last Admin: 10/09/19 17:03 Dose: 20 mg Documented by: Sodium Chloride () 10 - 40 ml IV UD PRN PRN Reason: Port-a-Cath (VAD) Flush Last Admin: 10/10/19 09:09 Dose: 10 ml Documented by: Sodium Chloride (0.9% Nacl (Sterile) Posiflush) 10 - 40 ml IV UD PRN PRN Reason: Port access or dressing change Discharge Activity: - - Strongly encourage outpatient therapies including physical and occupational therapy. Strongly encouraged supplementary device including walker for activity if appropriate. Encouraged only mild to moderate activity until complete resolution of current acute presentation and completion of steroid therapy as well as evaluation per pulmonary medicine outpatient. Weight Bearing Status: Weight bearing as tolerated Call your doctor if you observe: Fever of 101 or Higher, Inability to urinate, Inability to have a bowel movement, Shortness of breath, Dizziness, Fainting spells, Chest pain, Uncontrolled pain Home Medications: Medications to take at Discharge finasteride 5 mg tablet 1 tab PO DAILY 90 Days #90 02/10/18 budesonide-formoterol HFA 160 mcg-4.5 mcg/actuation aerosol inhaler 2 puff INHALATION BID #1 ea 12/06/18 Albuterol Inhaler [Ventolin Hfa] 2 puff INHALATION Q6H PRN PRN #2 inhaler 08/24/19 Amiodarone HCl [Cordarone] 200 mg PO DAILY #30 tab 09/16/19 Rivaroxaban [Xarelto] 20 mg PO DAILY@1700 #30 tab 09/16/19 tiotropium bromide 2.5 mcg/actuation mist for inhalation 2 puff INHALATION QDAY #1 ea 09/28/19 atorvastatin 10 mg tablet 10 mg PO DAILY 10/04/19 furosemide 20 mg tablet 40 mg PO DAILY tab 10/04/19 Albuterol Aerosols [Ventolin Aerosols] 2.5 mg INHALATION Q2H PRN PRN #1 box 10/10/19 Diltiazem CD [Cardizem CD] 180 mg PO DAILY #30 cap 10/10/19 Ipratropium/Albuterol Respimat [Combivent Respimat Inhal [place]] 1 puff INHALATION BID #1 inhaler 10/10/19 Ipratropium/Albuterol Sulfate [Duoneb] 3 ml INHALATION Q6HWA.RT #1 box 10/10/19 Nebulizer [Lc Star] 1 ea UD #1 kit 10/10/19 Oxygen, Home [Home Oxygen] 3 l NASAL CONT #1 unit 10/10/19 Prednisone 10 mg PO UD 12 Days #30 tab 10/10/19 levoFLOXacin tablet [Levaquin tablet] 750 mg PO DAILY #7 tab 10/10/19 Following Prescrptions Were Given to Patient: Diltiazem CD [Cardizem CD] 180 mg PO DAILY #30 cap Transmission Status: Received by [id number] Ipratropium/Albuterol Respimat [Combivent Respimat Inhal [place]] 1 puff INHALATION BID #1 inhaler Transmission Status: Received by [id number] Ipratropium/Albuterol Sulfate [Duoneb] 3 ml INHALATION Q6HWA.RT #1 box Transmission Status: Received by [id number] Nebulizer [[place] Star] 1 ea MC UD #1 kit Transmission Status: Received by [id number] levoFLOXacin tablet [Levaquin tablet] 750 mg PO DAILY #7 tab Transmission Status: Received by [id number] Prednisone 10 mg PO UD 12 Days #30 tab Transmission Status: Received by [id number] Albuterol Aerosols [Ventolin Aerosols] 2.5 mg INHALATION Q2H PRN PRN #1 box PRN Reason: Dyspnea, wheezing Transmission Status: Received by [id number] Primary Care Physician: Ha Davis DO [Primary Care Provider] - Please follow up with your Primary Care Physician in: Follow-up within 2 to 4 days. Please Follow Up With: Oral Song MD When: May see office ERP PROGRAMMER for hospital follow-up within 2-4 weeks. Please Follow Up With: Bethany Stearns NP-C When: Follow-up in 2 weeks, call for earlier evaluation if concerns. Patient Instructions: Taking Medication to Control Heart Failure, What Is Heart Failure?, What Is Atrial Flutter/Atrial Fibrillation?, Heart Failure: Warning Signs of a Flare-Up, Using Oxygen Safely, What Is Pneumonia?, Using Oxygen at Home, Preventing Pneumonia, Treating Pneumonia Disposition: Home with Home Health Minutes spent on discharge:: 35 Patient Condition:: Fair Medical Necessity - Tobacco Use Smoking Status: Never smoker Meaningful Use Info Meaningful Use Diagnoses (Choose all that apply): CHF - CHF EMERY/ARB ordered at discharge?: No Reason EMERY/ARB not ordered?: Hypotension Documented LVEF (%): 40 Code Visit Inpatient E&M: [id number] Disch Hosp
--- NOTE | 2019-10-11 13:18 | CASEMGMT ---
JONO CM DC PHONE CALL DC DATE: 10.10.19 DC Disposition: Home with outpt therapy Diagnosis on Discharge: CHF LACE/STRATA: 19/02 Attempted call to phone. No answer. Fransisco CROW RN ACM
== END 2019-10-10 15:53 | disposition home or self-care (01) | DRG 177 ==
LOC: ED 12:04 → PCU 10-09 22:56
PROVIDERS: Admitting Provider Student in an Organized Health Care Education/Training Program; Emergency Provider Emergency Medicine; Family Provider Family Medicine; PCP Family Medicine; Referring Provider Student in an Organized Health Care Education/Training Program; Visit Provider Family Medicine
DX: J15.6 Pneumonia due to other Gram-negative bacteria (principal); J96.21 Acute and chronic respiratory failure with hypoxia; I50.33 Acute on chronic diastolic (congestive) heart failure; J96.22 Acute and chronic respiratory failure with hypercapnia; J44.1 Chronic obstructive pulmonary disease with (acute) exacerbation; I48.92 Unspecified atrial flutter; J44.0 Chronic obstructive pulmonary disease with (acute) lower respiratory infection; Z99.81 Dependence on supplemental oxygen; I11.0 Hypertensive heart disease with heart failure; I25.10 Atherosclerotic heart disease of native coronary artery without angina pectoris; D64.9 Anemia, unspecified; E78.5 Hyperlipidemia, unspecified; N40.0 Benign prostatic hyperplasia without lower urinary tract symptoms; Z85.118 Personal history of other malignant neoplasm of bronchus and lung; Z95.5 Presence of coronary angioplasty implant and graft; E87.6 Hypokalemia; I48.91 Unspecified atrial fibrillation
CPT/HCPCS: 36591; 36600; 71045; 71046; 71275; 80048; 80053; 82803; 83605; 83735; 83880; 84484; 85025; 85610; 85730; 87070; 87077; 87186; 87205; 93005; 94002; 94003; 94640; 94667; 94668; 97110; 97116; 97162; 97166; 97530; 97535; 97802; 99251; 99285; J7040; Q9967; A4216; G0463; J1940

== ENCOUNTER 2019-10-24 19:39 | Inpatient (IN) | payer MEDICARE, SELFPAY ==
[2019-05-17 10:20] VITALS: BMI 24.0
[2019-10-24 19:39] VITALS: BMI 24.7
[2019-10-24 19:41] VITALS: BP 111/60; PULSE 60; PULSE 68; RESP 17; RESP 20; TEMP 36.8; O2SAT 86; O2SAT 94; BMI 23.8
--- NOTE | 2019-10-24 20:17 | CT_ITS ---
STUDY: CT BRAIN WITHOUT CONTRAST REASON FOR EXAM: Male, 84 years old. Lung cancer, sudden onset right leg weakness RADIATION DOSAGE (If Supplied By Facility): CTDIvol = ( 44.99 ) mGy, DLP = ( 812.98 ) mGycm TECHNIQUE: Transaxial CT imaging of the brain was performed without administration of intravenous contrast material. Individualized dose optimization techniques were used for this CT. COMPARISON: Brain MRI of 02/16/2019 FINDINGS: Normal soft tissue structures. Normal calvarium. There is mild cerebral atrophy with widening of the extra-axial spaces and ventricular dilatation. There is a moderate to large area of vasogenic edema involving the left frontal/parietal lobes best seen on image 33 of series 2 and image 57 of series 601, new since prior MRI. Normal basal ganglia and thalami. Normal brainstem. Old infarctions of the right cerebellar hemisphere again demonstrated. There is no intracranial hemorrhage. There are no findings of an acute ischemic infarction. Normal visualized paranasal sinuses. CT/Brain/Head without Contrast IMPRESSION: Moderate to large area of vasogenic edema in the left frontal/parietal lobe worrisome for neoplasm/metastasis. New since prior MRI. Additional evaluation with MRI (without and with IV contrast) recommended. Electronically Signed: Jesus Kapoor MD ([place]) at 20:41 EST , Service support ,
--- NOTE | 2019-10-24 20:18 | EKG12_ITS ---
Test Reason : Blood Pressure : / mmHG Vent. Rate : 107 BPM Atrial Rate : 271 BPM P-R Int : 000 ms QRS Dur : 108 ms QT Int : 460 ms P-R-T Axes : 000 -12 073 degrees QTc Int : 614 ms Atrial flutter with variable A-V block Inferior infarct , age undetermined Prolonged QT Abnormal ECG Confirmed by DALTON VALLEJO, WEN ([id number]), market editor LOLIS AZEVEDO ([id number]) on 10/26/2019 12:55:30 PM Referred By: MEE Confirmed By:WEN HOFFMAN MD
--- NOTE | 2019-10-24 20:20 | ED.VIS.GEN ---
History of Present Illness Chief Complaint: Lower Extremity Injury Informant: Patient, Family Onset: Today Narrative: Presents with significant other for sudden onset of right leg weakness 1 PM over 7 hours ago. States was try to get up felt weak. There is no paresthesias. Noticed swelling in his right ankle. Denies pain in the leg. History of CHF. Diagnosed with new onset atrial fibrillation little over a week ago on Xarelto daily last dose this morning. Reports has planned cardioversion tomorrow by Dr. Song. No headache, visual changes, chest pains. History of COPD on 2 L oxygen chronically. Reports chronic exertional dyspnea. No chest pains. Noted triage same to have his oxygen in the 80s, he is turned up on his oxygen, into the room. Denies nausea or vomiting. He denies any back pain. Prior similar symptoms: No Past Medical History - Allergies and Home Meds Allergies/Adverse Reactions: Allergies amoxicillin Adverse Reaction (Severe, Verified 10/24/19 19:40) Nausea/Vom/Diarrhea Gadolinium-MRI Contrast Medium [DYE] Adverse Reaction (Severe, Verified 10/24/19 19:40) Nausea/Vom/Diarrhea rice Adverse Reaction (Severe, Verified 10/24/19 19:40) Vomiting Primary Care Physician: Ha Davis DO [Primary Care Provider] - Surgical History: tonsillectomy, - - Cardiac stents. Smoking Status: Never smoker - Family History Maternal Family History: Family History (Last Reviewed 10/18/19 @ 08:23 by KERRY Valero) Other No pertinent family history Family History: Reports: - - His mother young so patient does not know his maternal medical history. Paternal Family History: Family History (Last Reviewed 10/18/19 @ 08:23 by KERRY Valero) Other No pertinent family history Family History: Reports: - - His father when patient was young so patient does not know his maternal medical history. Review of Systems General: Denies: Chills, Fever, Sweats Eyes: Denies: Visual changes - bilaterally, Diplopia ENT: Denies: Rhinorrhea, Sore throat Cardiovascular: Denies: Chest pain, Palpitations Respiratory: Reports: Dyspnea, - - Chronic dyspnea. Denies: Cough, Dyspnea on exertion Gastrointestinal: Denies: Abdominal pain, Nausea, Vomiting, Diarrhea, Melena, Hematochezia Genitourinary: Denies: Dysuria, Hematuria, Frequency Musculoskeletal: Denies: Back pain, Extremity Pain Skin: Denies: Rash, Wounds Neurological: Reports: Weakness. Denies: Headache, Parasthesia, Numbness Physical Exam Vital Signs/Narrative: Vital Signs Temp Pulse Resp BP Pulse Ox 10/24/19 19:41 98.3 F 68 17 111/60 94 Inital Vital Signs reviewed: Yes General: Well nourished, Well developed, No Acute Distress, - - On oxygen Head: Normocephalic, Atraumatic Eyes: Perrl, EOMI ENT: Moist mucous membranes, No rhinorrhea Neck: Supple, Nontender Cardiovascular: Regular rate, Regular rhythm, No murmurs Respiratory: No distress, CTA bilaterally, Chest nontender Abdomen: Soft, Nontender, Nondistended, Normal bowel sounds Back: Nontender, Normal Inspection Extremities: Nontender, - - Right lower extremity: No medial thigh or calf tenderness. There is swelling at the ankle compared to the left side. DP and PT pulses were intact bilaterally. Skin: Normal color, No rash Neurological: Alert, Oriented x3, Cranial nerves II-XII grossly intact, Normal Sensation, - - NIH of 1 for slight leg drift on the right. There is 3 out of 5 weakness to hip flexion on right compared to left. Psychological: Normal affect, Normal Mood Diagnostic/Tx/Re-eval Clinical Impression(s) from Imaging Studies Brain CT 10/24/19 20:17 IMPRESSION: Moderate to large area of vasogenic edema in the left frontal/parietal lobe worrisome for neoplasm/metastasis. New since prior MRI. Additional evaluation with MRI (without and with IV contrast) recommended. Electronically Signed: Jesus Kapoor MD ([place]) at 20:41 EST , Service support , Chest X-Ray 10/24/19 20:35 IMPRESSION: 1. Stable exam. 2. Persistent parenchymal opacity in the left lung base may correlate to patient''s known history of neoplasm. Electronically Signed: Jesus Kapoor MD ([place]) at 20:50 EST , Service support , Abnormal Lab Results 10/24/19 10/24/19 10/24/19 20:09 20:09 20:09 WBC 16.1 H RBC 3.95 L Hgb 10.9 L Hct 35.9 L MCV 90.9 MCH 27.6 MCHC 30.4 L RDW Std Deviation 67.3 H RDW Coeff of Zamzam 20.2 H Plt Count 143 L MPV 10.7 Immature Gran % (Auto) 0.900 Neut % (Auto) 89.1 H Lymph % (Auto) 3.1 L [place] % (Auto) 6.8 Eos % (Auto) 0.0 Baso % (Auto) 0.1 Absolute Neuts (auto) 14.3 H Absolute Lymphs (auto) 0.50 L Nucleated RBC % 0 Differential Comment SCANNED Platelet Estimate SLT DEC Anisocytosis 3+ Macrocytosis RARE Ovalocytes RARE [place] Cells RARE Acanthocytes (Spur) RARE PT 29.5 H INR 2.8 APTT 54.1 H D-Dimer Quant (PE/DVT) 0.54 H* Sodium 135 L Potassium 3.8 Chloride 91 L Carbon Dioxide 36.0 H Anion Gap 8 BUN 45 H Creatinine 1.27 Estim Creat Clear Calc 44.71 Est GFR (MDRD) Af Amer 70 Est GFR (MDRD) Non-Af 57 L BUN/Creatinine Ratio 35.4 H Glucose 160 H Calcium 9.7 Troponin I 0.041 - EKG Initial EKG Interpretation: Atrial Fibrillation - Atrial fibrillation 107, T wave inversion lateral leads. - Medical Decision Making Patient with 3 out of 5 weakness right lower extremity with leg drift given him NIH of 1. He is on Xarelto therefore would not of been a TPA candidate. I did not initiate a stroke protocol. He has pulses at the distal lower extremity. EKG with atrial fibrillation rate of 107 this is known he is on medications and followed by cardiology. CT scan of the brain resulted concerning for metastatic cancer left parietal frontal with vasogenic edema. This likely explaining his leg weakness. This is new. He is given Decadron. Review of records he has non-small cell lung cancer from family diagnosed in February, he just finished chemotherapy a month ago followed by Dr. Irving. He just seen them today. I spoke with him, he states to continue Decadron 4 times a day, MRI with and without contrast tomorrow of the brain. He will have his colleague and radiology oncologist Dr. Peterson see the patient in the hospital. Family states they have seen him previously. Initially discussed to have neurology monitor in for their input, however after discussing with oncology they state that is not required at this time, neurology can be consulted on as-needed basis. This was canceled. Discussed with hospitalist Dr. Cornejo for admission. ED Disposition - Plan for ED Patient: Disposition: Acute Care Hospital [facility] Diagnosis: Metastatic cancer to brain, Atrial fibrillation by electrocardiogram Referrals: Ha Davis DO [Primary Care Provider] -
[2019-10-24 20:33] LABS: Absolute Neutrophil Count 14.3 X10^3/uL (2.0-7.7); Basophil# 0.02 X10^3/uL; Basophil% 0.1 % (0-1); Hematocrit 35.9 % (40-54); Hemoglobin 10.9 g/dL (13.0-16.5); Lymphocyte % 3.1 % (19-41); Mean Corp Hgb Conc 30.4 g/dL (32-36); Mean Corpuscular Hgb 27.6 pg (27.0-32.0); Mean Corpuscular Volume 90.9 fL (80-94); Mean Platelet Vol. 10.7 fl (6.2-12.0); Monocyte# 1.09 X10^3/uL; Monocyte% 6.8 % (0-10); NRBC Flagged by Analyzer 0 % (0-5); Neutrophil # 14.34 X10^3/uL (2.7-7.7); Neutrophil % 89.1 % (47-70); POSITIVE DIFFERENTIAL YES; POSITIVE MORPHOLOGY YES; Platelet Count 143 K/mm3 (150-450); RBC Distribution Width CV 20.2 % (11.6-14.6); RBC Distribution Width SD 67.3 fl (35.1-43.9); Red Blood Count 3.95 M/mm3 (4.6-6.2); White Blood Count 16.1 K/mm3 (4.4-11.0)
--- NOTE | 2019-10-24 20:35 | RAD_ITS ---
STUDY: X-RAY CHEST REASON FOR EXAM: Male, 84 years old. Weakness TECHNIQUE: AP COMPARISON: 10/10/2019 FINDINGS: Right chest port is stable including catheter apex angulation/redundancy. There are interstitial fibrotic changes of the lungs. Residual opacity in the left lung base is stable. There is no demonstrated pleural abnormality. Normal size heart. Normal mediastinum and gasper. Normal visualized pulmonary arteries. There is atherosclerotic calcification of the aortic arch with tortuosity. There are diffuse degenerative changes of the visualized thoracic spine. There is degenerative osteoarthritis of the bilateral shoulders. There is no demonstrated abnormality of the visualized soft tissue structures of the upper abdomen. RAD/Chest 1 View (Portable) IMPRESSION: 1. Stable exam. 2. Persistent parenchymal opacity in the left lung base may correlate to patient''s known history of neoplasm. Electronically Signed: Jesus Kapoor MD ([place]) at 20:50 EST , Service support ,
[2019-10-24 20:47] LABS: International Normalized Ratio 2.8; Prothrombin Time (Protime)PT. 29.5 SECONDS (11.7-14.9)
[2019-10-24 20:48] LABS: Partial Thromboplast Time 54.1 Seconds (24.1-36.2)
[2019-10-24 20:52] LABS: D-Dimer Quantitative (DVT/PE) 0.54 FEU/ug/m (0.27-0.49)
[2019-10-24 20:53] LABS: Differential Indicated SCAN CRITERIA MET
[2019-10-24 21:04] LABS: Anion Gap 8 (5-15); BUN 45 mg/dL (7-18); BUN/Creat Ratio 35.4 RATIO (10-20); Calcium,Total 9.7 mg/dL (8.5-10.1); Chloride 91 mmol/L (98-107); Creatinine, Serum 1.27 mg/dL (0.70-1.30); EST Glomerular Filtration Rate 57 mL/min (>60); Est Glom Filt Rate - Afr Amer 70 mL/min (>60); Estimated Creatinine Clearance 44.71 ml/min; Glucose 160 mg/dL (74-106); Potassium 3.8 mmol/L (3.5-5.1); Sodium Level 135 mmol/L (136-145)
[2019-10-24 21:06] LABS: Burr Cells RARE; Differential Comment SCANNED; Platelet Estimate SLT DEC (ADEQ)
[2019-10-24 21:07] LABS: Acanthocytes RARE; Anisocytosis 3+; Macrocytosis RARE; Ovalocyte RARE
[2019-10-24] MEDS: dexAMETHasone 10 MG/ML Vial IV (21:14)
--- NOTE | 2019-10-24 21:18 | ED.RN ---
neuro telemedicine consult placed
--- NOTE | 2019-10-24 21:32 | PCM.HP.STD ---
History of Present Illness Date of Admission: 10/24/19 Chief Complaint: right leg weakness The patient is a 84 year old male patient with a significant past medical history of non-small cell lung cancer presents to the emergency room onset of right leg weakness beginning at 1:00 this afternoon. Per consultation with Dr. Vargas the patient can be admitted for further work-up and management by patient oncology here in our hospital. CT scan of the brain was abnormal showing edema in the frontal parietal lobes and MRI with and without contrast was recommended for further work-up of possible neoplastic process. The patient denies chest pain, nausea, vomiting, diarrhea or other focal neural deficits at this time. Per oncology Decadron was recommended patient will be admitted to progressive care unit for ongoing neurologic assessment and have radiation oncology evaluate the patient in the morning after an MRI is done. The patient does have atrial fibrillation and was to have a cardioversion scheduled for tomorrow, however, that will now need to be postponed. Past Medical History Past Medical History (Chronic Problems): Chronic Problems (Last Reviewed 10/24/19 @ 11:26 by Randi Aguayo) Asthma exacerbation in COPD (Chronic) Coronary artery disease (Chronic) Acute on chronic respiratory failure with hypoxia (Chronic) Atrial flutter (Chronic) DCCV on 09/14/2019; S/P PTCA (percutaneous transluminal coronary angioplasty) (Chronic) Cardiomyopathy (Chronic) Anemia (Chronic) Immunotherapy (Chronic) HTN (hypertension) (Chronic) Stroke (Chronic) Primary cancer of left lower lobe of lung (Chronic) Regional lymph node metastasis present (Chronic) Chronic respiratory failure with hypoxia (Chronic) Stage 4 very severe COPD by GOLD classification (Chronic) FEV1 41% of predicted Medical History: Medical History (Last Reviewed 10/24/19 @ 11:26 by Randi Aguayo) History of cardioversion (Resolved) Onset Date: ~09/14/19 Z98.890 Coronary artery disease (Chronic) I25.10 Atrial flutter (Chronic) I48.92 DCCV on 09/14/2019; COPD exacerbation (Acute) J44.1 Chemotherapy-induced thrombocytopenia (Inactive) D69.59, T45.1X5A Anemia (Chronic) D64.9 Immunotherapy (Chronic) HTN (hypertension) (Chronic) I10 Stroke (Chronic) I63.9 Primary cancer of left lower lobe of lung (Chronic) C34.32 Regional lymph node metastasis present (Chronic) C77.9 Chronic respiratory failure with hypoxia (Chronic) J96.11 Stage 4 very severe COPD by GOLD classification (Chronic) J44.9 FEV1 41% of predicted Allergies amoxicillin Adverse Reaction (Severe, Verified 10/24/19 19:40) Nausea/Vom/Diarrhea Gadolinium-MRI Contrast Medium [DYE] Adverse Reaction (Severe, Verified 10/24/19 19:40) Nausea/Vom/Diarrhea rice Adverse Reaction (Severe, Verified 10/24/19 19:40) Vomiting Home Medications: Ambulatory Orders Medication Instructions Recorded finasteride 5 mg tablet 1 tab PO DAILY 90 Days #90 02/10/18 budesonide-formoterol HFA 160 2 puff INHALATION BID #1 ea 12/06/18 mcg-4.5 mcg/actuation aerosol inhaler Albuterol Inhaler [Ventolin Hfa] 2 puff INHALATION Q6H PRN PRN #2 08/24/19 inhaler atorvastatin 10 mg tablet 10 mg PO DAILY 10/04/19 furosemide 20 mg tablet 20 mg PO DAILY tab 10/04/19 Albuterol Aerosols [Ventolin 2.5 mg INHALATION Q2H PRN PRN #1 10/10/19 Aerosols] box Ipratropium/Albuterol Respimat 1 puff INHALATION BID #1 inhaler 10/10/19 [Combivent Respimat Inhal [place]] Oxygen, Home [Home Oxygen] 3 l NASAL CONT #1 unit 10/10/19 amiodarone 200 mg tablet 200 mg PO DAILY #30 tab 10/19/19 rivaroxaban 20 mg tablet 20 mg PO DAILY@1700 #30 tab 10/19/19 Prednisone 40 mg PO PRN PRN 10/24/19 levofloxacin 750 mg tablet 750 mg PO Q24H 7 Days #7 tab 10/24/19 Surgical History: Surgical History (Last Reviewed 10/24/19 @ 11:26 by Randi Aguayo) Hx of heart artery stent (Resolved) Z95.5 2014 Surgical History: tonsillectomy, - - Cardiac stents. Psychiatric History: No pertinent psych hx Smoking Status: Former smoker - *Family History Maternal Family History: Family History (Last Reviewed 10/18/19 @ 08:23 by KERRY Valero) Other No pertinent family history History Items: - - His mother young so patient does not know his maternal medical history. Paternal Family History: Family History (Last Reviewed 10/18/19 @ 08:23 by KERRY Valero) Other No pertinent family history History Items: - - His father when patient was young so patient does not know his maternal medical history. Review of Systems Constitutional: Reports: Weakness. Denies: Chills, Fever, Weight Change HEENT: Denies: Head Aches, Sinus Congestion, Sinus Drainage Cardiovascular: Denies: Chest Pain, Palpitations Respiratory: Denies: Cough, Shortness of breath at rest, Sputum production Gastrointestinal: Denies: Abdominal Pain, Nausea, Vomiting Genitourinary: Denies: Dysuria Musculoskeletal: Denies: Joint Pain, Joint Tenderness Skin: Denies: Rash, Wounds Neurological: Reports: Focal weakness - right leg. Denies: Numbness, Tingling Psychiatric: Denies: Anxiety, Depression, Homicidal Ideations, Suicidal Ideations Hematologic/ Lymphatic: Denies: Easy Bruising, Easy Bleeding VTE Information - Inpt Only VTE Present on Admission: No VTE Mechan Device Prophylaxis: None VTE Pharm Prophylaxis ordered?: Yes - Physical Exam Vitals/I&O's: Vital Signs Temp Pulse Resp BP Pulse Ox 98.3 F 68 20 H 111/60 94 10/24/19 19:41 10/24/19 19:41 10/24/19 19:41 10/24/19 19:41 10/24/19 19:41 Oxygen Flow Rate (L/min) 5 Oxygen Delivery Method Nasal Cannula Weight: 166 lb Body Mass Index (BMI) 23.8 General: Alert, Oriented x3, Cooperative HEENT: Atraumatic, PERRLA, EOMI, Normocephalic Neck: Supple, Negative Carotid Bruits Lungs: Clear to auscultation, Normal air movement Cardiovascular: Regular rate, Murmur - 2/6 arvind Abdomen: Bowel Sounds Present, Soft, Non Tender Extremities: No edema, Capillary Refill Less than 3 Seconds Skin: No rashes, No breakdown Neurological: - - right lower ext 3/5 motor strength, other extremities are 5/5 Psych/Mental Status: Normal Affect, Appropriate Laboratory Results 10/24/19 20:09: WBC 16.1 H, RBC 3.95 L, Hgb 10.9 L, Hct 35.9 L, MCV 90.9, MCH 27.6, MCHC 30.4 L, RDW Std Deviation 67.3 H, RDW Coeff of Zamzam 20.2 H, Plt Count 143 L, MPV 10.7, Immature Gran % (Auto) 0.900, Neut % (Auto) 89.1 H, Lymph % (Auto) 3.1 L, [place] % (Auto) 6.8, Eos % (Auto) 0.0, Baso % (Auto) 0.1, Absolute Neuts (auto) 14.3 H, Absolute Lymphs (auto) 0.50 L, Nucleated RBC % 0, Differential Comment SCANNED, Platelet Estimate SLT DEC, Anisocytosis 3+, Macrocytosis RARE, Ovalocytes RARE, [place] Cells RARE, Acanthocytes (Spur) RARE 10/24/19 20:09: PT 29.5 H, INR 2.8, APTT 54.1 H, D-Dimer Quant (PE/DVT) 0.54 H* 10/24/19 20:09: Sodium 135 L, Potassium 3.8, Chloride 91 L, Carbon Dioxide 36.0 H, Anion Gap 8, BUN 45 H, Creatinine 1.27, Estim Creat Clear Calc 44.71, Est GFR (MDRD) Af Amer 70, Est GFR (MDRD) Non-Af 57 L, BUN/Creatinine Ratio 35.4 H, Glucose 160 H, Calcium 9.7, Troponin I 0.041 10/24/19 20:09: B-Natriuretic Peptide Pending Assessment/Plan All Active Problems (Last Reviewed 10/24/19 @ 11:26 by Randi Aguayo) History of cardioversion (Resolved ~09/14/19) Respiratory failure with hypoxia and hypercapnia (Acute) Left lower lobe pneumonia (Acute) Atrial fibrillation by electrocardiogram (Acute) SIRS (systemic inflammatory response syndrome) (Acute) Septic shock (Acute) COPD exacerbation (Acute) Hx of heart artery stent (Resolved) Chronic Problems (Last Reviewed 10/24/19 @ 11:26 by Randi Aguayo) Asthma exacerbation in COPD (Chronic) Coronary artery disease (Chronic) Acute on chronic respiratory failure with hypoxia (Chronic) Atrial flutter (Chronic) DCCV on 09/14/2019; S/P PTCA (percutaneous transluminal coronary angioplasty) (Chronic) Cardiomyopathy (Chronic) Anemia (Chronic) Immunotherapy (Chronic) HTN (hypertension) (Chronic) Stroke (Chronic) Primary cancer of left lower lobe of lung (Chronic) Regional lymph node metastasis present (Chronic) Chronic respiratory failure with hypoxia (Chronic) Stage 4 very severe COPD by GOLD classification (Chronic) FEV1 41% of predicted Plan 1. Right leg paresthesia?abnormal CT scan indicating possible metastatic brain tumor?admit to progressive care unit, neuro checks every 4 hours, MRI with and without contrast of head to be done in the morning, repeat CBC BMP in the morning, consult Dr. Peterson radiation oncology to assist with further plan, continue Decadron 2. Atrial fibrillation?paced patient on low molecular weight heparin 1 mg/kg subcu every 12 hours monitor for rate control 3. Hypertension?continue home medications 4. COPD continue medications 5. DVT prophylaxis?patient is on heparin already Code Visit Inpatient E&M: 35087 Init Hosp L3
[2019-10-24 21:34] VITALS: BP 108/75; PULSE 101; RESP 17; O2SAT 92
[2019-10-24 21:55] LABS: BNP,B-Type NATRIURETIC PEPTIDE 117.6 pg/mL (0-100)
[2019-10-24 22:05] VITALS: BMI 23.3
[2019-10-24 22:30] VITALS: BMI 23.3
[2019-10-24 22:35] VITALS: BP 112/61; PULSE 66; RESP 18; TEMP 37.2; O2SAT 93
[2019-10-24 22:50] VITALS: PULSE 100
[2019-10-24 23:10] VITALS: PULSE 85; RESP 12; RESP 24; O2SAT 94
[2019-10-25] VITALS (9 sets, daily range): BP systolic 98–105; BP diastolic 51–61; PULSE 66–82; RESP 12–18; TEMP 36.4–37.1; O2SAT 93–98; BMI 23.3
[2019-10-25] MEDS: dexAMETHasone 4 MG/ML Vial IV (05:49)
[2019-10-25 06:06] LABS: Absolute Lymphocyte Count 0.45 X10^3/uL (0.83-4.51); Absolute Neutrophil Count 11.2 X10^3/uL (2.0-7.7); Basophil# 0.01 X10^3/uL; Basophil% 0.1 % (0-1); Hematocrit 31.1 % (40-54); Hemoglobin 9.6 g/dL (13.0-16.5); Lymphocyte # 0.45 X10^3/ul (4.0); Lymphocyte % 3.6 % (19-41); Mean Corp Hgb Conc 30.9 g/dL (32-36); Mean Corpuscular Hgb 27.7 pg (27.0-32.0); Mean Corpuscular Volume 89.6 fL (80-94); Mean Platelet Vol. 10.9 fl (6.2-12.0); Monocyte# 0.58 X10^3/uL; Monocyte% 4.7 % (0-10); NRBC Flagged by Analyzer 0 % (0-5); Neutrophil # 11.22 X10^3/uL (2.7-7.7); POSITIVE DIFFERENTIAL YES; POSITIVE MORPHOLOGY YES; Platelet Count 118 K/mm3 (150-450); RBC Distribution Width CV 20.2 % (11.6-14.6); RBC Distribution Width SD 66.8 fl (35.1-43.9); Red Blood Count 3.47 M/mm3 (4.6-6.2); White Blood Count 12.3 K/mm3 (4.4-11.0)
[2019-10-25 06:20] LABS: Anion Gap 4 (5-15); BUN 41 mg/dL (7-18); BUN/Creat Ratio 40.6 RATIO (10-20); Calcium,Total 8.8 mg/dL (8.5-10.1); Chloride 93 mmol/L (98-107); Creatinine, Serum 1.01 mg/dL (0.70-1.30); EST Glomerular Filtration Rate 75 mL/min (>60); Est Glom Filt Rate - Afr Amer 91 mL/min (>60); Estimated Creatinine Clearance 56.22 ml/min; Glucose 162 mg/dL (74-106); Potassium 3.8 mmol/L (3.5-5.1); Sodium Level 133 mmol/L (136-145)
[2019-10-25 06:33] LABS: Differential Indicated SCAN CRITERIA MET
[2019-10-25] MEDS: Ipratropium/Albuterol Sulfate 3 ML AMPUL.NEB INHALATION (06:53)
[2019-10-25 07:04] LABS: Anisocytosis 1+; Differential Comment SCANNED
--- NOTE | 2019-10-25 08:26 | MRI_ITS ---
STUDY: MRI BRAIN WITH AND WITHOUT CONTRAST REASON FOR EXAM: Male, 84 years old. Abnormal vasogenic edema in the left brain of recent CT head. Right leg weakness. History of lung carcinoma. TECHNIQUE: Standardized multiplanar fat and water weighted pulse sequences were obtained. 15 mL of IV DOTAREM was administered for the contrast portion of the examination. COMPARISON: CT head without contrast 10/24/2019. FINDINGS: No restricted diffusion to suspect acute or subacute ischemic infarct. Irregular rim-enhancing mass with cystic necrosis in the left paracentral lobule with extensive surrounding vasogenic edema. This mass measures approximately 1.1 x 0.9 cm. 0.6 cm solid enhancing mass in the right hippocampus near the amygdala with surrounding vasogenic edema. Normal size of the ventricles and extra-axial spaces for the patient''s age. Subcortical white matter and posterior periventricular white matter T2 FLAIR hyperintensity foci in both cerebral hemispheres are chronic white matter ischemic changes. Normal bilateral basal ganglia. Normal thalami. There is no extra-axial fluid accumulation. Normal flow voids within the major intracranial circulation suggesting patency by spin echo criteria. Normal venous enhancement. There is no enhancing intra-axial or extra-axial abnormality. Normal sella turcica, pituitary gland, infundibular stalk, optic chiasm and hypothalamus. Normal tectal plate and pineal gland. Normal midbrain, darci and medulla. Normal cerebellum. Normal basal cisterns. Normal bilateral temporal bones. Normal bilateral internal auditory canals. No demonstrated orbital abnormality, within the constraints of a routine brain study. Normal visualized paranasal sinuses. Normal calvarium and skull base. Normal visualized soft tissue structures. Normal visualized upper cervical spine. MRI/Brain W/WO Contrast IMPRESSION: 1. Small enhancing brain metastatic mass lesions with surrounding vasogenic edema in the left paracentral lobule and right hippocampus near the amygdala. They measure 1.1 x 0.9 cm and 0.6 cm respectively. 2. Chronic white matter ischemic changes in both cerebral hemispheres. Electronically Signed: Eddy Enciso MD at 10:02 EST , Service support ,
[2019-10-25] MEDS: Amiodarone 200 MG Tablet PO (10:27)
[2019-10-25] MEDS: Finasteride 5 MG Tablet PO (10:27)
[2019-10-25] MEDS: Furosemide 20 MG Tablet PO (10:27)
--- NOTE | 2019-10-25 11:30 | CASEMGMT ---
Readmission chart review: Pt initially admitted 10/07-10/10/19 for resp failure w/ hypercapnia/hypoxia. Pt was discharge home on oxygen 3liters at rest and 4 liters with ambulation and with OP therapy at [facility]. Pt then returned 10/24/19 w/ c/o right leg weakness and abn head CT and after MRI is being dx'd with metastatic brain cancer. Pt placed on decadron and discharged home with referral to [facility] for stereotactic radiation, OP PET or CT scans also. Pt/ voice no further questions/concerns/needs at this time. Pt would like to continue with OP therapy at [facility]. Toshia DE LA CRUZ CM
--- NOTE | 2019-10-25 11:49 | PN_ITS ---
Patient Problems: Active and Suspected Problems (Last Reviewed 10/24/19 @ 11:26 by Randi Aguayo) Metastatic cancer to brain (Acute) Atrial fibrillation by electrocardiogram (Acute) Reason for Visit: RLE weakness. Subjective: RLE weakness has resolved. Otherwise feels well. No SABILLON, double vision, blurry vision, numbness or tingling, focal weakness. thinks his speech may be slightly slurred, will have speech therapy see him. Informed patient and family of MRI findings, awaiting Oncology ibput. No recent illness / infection. No increased SOB, at baseline O2 2-3 lpm. Pt to this point states his cancer has been in remission. Vitals/I&O's: Vital Signs Temp Pulse Resp BP Pulse Ox 97.8 F 68 16 105/61 98 10/25/19 10:25 10/25/19 10:25 10/25/19 10:25 10/25/19 10:25 10/25/19 10:25 Oxygen Flow Rate (L/min) 6 Oxygen Delivery Method Nasal Cannula Weight: 162 lb 7.691 oz Body Mass Index (BMI) 23.3 Intake and Output for Last 24 Hours 10/23/19 10/24/19 10/25/19 23:59 23:59 23:59 Intake Total 0 / 0 100 / 100 Output Total 0 / 0 Balance 0 / 0 100 / 100 General: Alert, Oriented x3, Cooperative, - - frail HEENT: Atraumatic, PERRLA, EOMI, Normocephalic Neck: Supple, No JVD, Negative Carotid Bruits Lungs: Clear to auscultation, Normal air movement Cardiovascular: Regular rate, No murmurs Abdomen: Bowel Sounds Present, Soft, Non Tender Extremities: No edema, Capillary Refill Less than 3 Seconds Skin: No rashes, No breakdown Musculoskeletal: No Tenderness to Palpation of Joints or Extremities Neurological: Cranial nerves II-XII grossly intact Psych/Mental Status: Normal Affect, Appropriate, Alert and oriented to time, place, person, mood and affect Laboratory Results 10/24/19 20:09: WBC 16.1 H, RBC 3.95 L, Hgb 10.9 L, Hct 35.9 L, MCV 90.9, MCH 27.6, MCHC 30.4 L, RDW Std Deviation 67.3 H, RDW Coeff of Zamzam 20.2 H, Plt Count 143 L, MPV 10.7, Immature Gran % (Auto) 0.900, Neut % (Auto) 89.1 H, Lymph % (Auto) 3.1 L, [place] % (Auto) 6.8, Eos % (Auto) 0.0, Baso % (Auto) 0.1, Absolute Neuts (auto) 14.3 H, Absolute Lymphs (auto) 0.50 L, Nucleated RBC % 0, Differential Comment SCANNED, Platelet Estimate SLT DEC, Anisocytosis 3+, Macrocytosis RARE, Ovalocytes RARE, [place] Cells RARE, Acanthocytes (Spur) RARE 10/24/19 20:09: PT 29.5 H, INR 2.8, APTT 54.1 H, D-Dimer Quant (PE/DVT) 0.54 H* 10/24/19 20:09: Sodium 135 L, Potassium 3.8, Chloride 91 L, Carbon Dioxide 36.0 H, Anion Gap 8, BUN 45 H, Creatinine 1.27, Estim Creat Clear Calc 44.71, Est GFR (MDRD) Af Amer 70, Est GFR (MDRD) Non-Af 57 L, BUN/Creatinine Ratio 35.4 H, Glucose 160 H, Calcium 9.7, Troponin I 0.041 10/24/19 20:09: B-Natriuretic Peptide 117.6 H 10/25/19 05:20: WBC 12.3 H, RBC 3.47 L, Hgb 9.6 L, Hct 31.1 L, MCV 89.6, MCH 27.7, MCHC 30.9 L, RDW Std Deviation 66.8 H, RDW Coeff of Zamzam 20.2 H, Plt Count 118 L, MPV 10.9, Immature Gran % (Auto) 0.600, Neut % (Auto) 91.0 H, Lymph % (Auto) 3.6 L, [place] % (Auto) 4.7, Eos % (Auto) 0.0, Baso % (Auto) 0.1, Absolute Neuts (auto) 11.2 H, Absolute Lymphs (auto) 0.45 L, Nucleated RBC % 0, Differential Comment SCANNED, Anisocytosis 1+ 10/25/19 05:20: Sodium 133 L, Potassium 3.8, Chloride 93 L, Carbon Dioxide 36.0 H, Anion Gap 4 L, BUN 41 H, Creatinine 1.01, Estim Creat Clear Calc 56.22, Est GFR (MDRD) Af Amer 91, Est GFR (MDRD) Non-Af 75, BUN/Creatinine Ratio 40.6 H, Glucose 162 H, Calcium 8.8 Current Medications Albuterol Sulfate (Ventolin Aerosols) 2.5 mg INHALATION Q2H PRN PRN PRN Reason: Dyspnea, wheezing Albuterol/Ipratropium (Duoneb) 3 ml INHALATION BID@0600,1800 [facility] Last Admin: 10/25/19 06:53 Dose: 3 ml Documented by: Amiodarone HCl (Cordarone) 200 mg PO DAILY [facility] Last Admin: 10/25/19 10:27 Dose: 200 mg Documented by: Atorvastatin Calcium (Lipitor) 10 mg PO DAILY@2200 [facility] Dexamethasone Sodium Phosphate (Decadron) 4 mg IV Q8 [facility] Last Admin: 10/25/19 05:49 Dose: 4 mg Documented by: Finasteride (Proscar) 5 mg PO DAILY [facility] Last Admin: 10/25/19 10:27 Dose: 5 mg Documented by: Furosemide (Lasix) 20 mg PO DAILY [facility] Last Admin: 10/25/19 10:27 Dose: 20 mg Documented by: Sodium Chloride () 250 mls @ 15 mls/hr IV .[id number] PRN PRN Reason: Saline Flush Levofloxacin (Levaquin Tablet) 750 mg PO Q48 [facility] Rivaroxaban (Xarelto) 20 mg PO DAILY@1700 [facility] Sodium Chloride () 10 - 40 ml IV UD PRN PRN Reason: SALINE FLUSH STROKE Vital Signs/Narrative: Vital Signs Temp Pulse Resp BP Pulse Ox 10/25/19 10:25 97.8 F 68 16 105/61 98 Medical Necessity - Tobacco Use Smoking Status: Former smoker Assessment/Plan All Active Problems (Last Reviewed 10/24/19 @ 11:26 by Randi Aguayo) Metastatic cancer to brain (Acute) History of cardioversion (Resolved ~09/14/19) Respiratory failure with hypoxia and hypercapnia (Acute) Left lower lobe pneumonia (Acute) Atrial fibrillation by electrocardiogram (Acute) SIRS (systemic inflammatory response syndrome) (Acute) Septic shock (Acute) COPD exacerbation (Acute) Hx of heart artery stent (Resolved) 1. RLE weakness - 2/2 new brain lesions likely mets. Continue decadron. See CT/MRI. Oncology consult. 2. NSCLC - has been undergoing immunotherapy, mass present on CXR c/w known cancer. No increased SOB. Pt currently too debilitated to undergo further immunotherapy 3. Chronic hypoxic and hypercapnic respiratory failure 2/2 #2,#4 - at baseline 2-3 lpm o2. 4. COPD - no exacerbation, continue aerosols 5. CAD with ischemic CM, prior stents 6. Hx Aflutter - xarelto, amiodarone, lasix, 7. Anemia, Thrombocytopenia - 2/2 #2 - mild decrease, trend. DVT ppx: xarelto This patient was seen by Amari Louie PA-C under the supervision of Dr. Blake.
--- NOTE | 2019-10-25 12:42 | CON.PCM_ITS ---
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 From 03/07/2019 - 04/18/2019 he received 6000 cGy in 30 fractions to the left lower lobe and mediastinal disease with concurrent carbo/taxol. He then completed consolidative chemotherapy x 2 cycles and initiated consolidative durvalumab in July 2019. History of Present Illness: February 2018: Patient presented for evaluation to urgent care with worsening cough. Chest x-ray was performed which demonstrated hyperinflation in pulmonary scarring bilaterally with pleural thickening in the right hemithorax but no other visualized abnormality. 08/08/2018: Patient presented to the emergency room due to increased shortness of breath secondary to acute exacerbation of COPD. Chest x-ray was performed and this demonstrated no significant interval change when compared to the chest x- ray from February 2018. COPD with chronic interstitial lung disease was noted. 09/05/2018: PFTs were performed and this demonstrated partially reversible very severe large airway obstructive ventilatory defect with associated air trapping and reduced diffusion capacity. DLCO is 53% predicted and FEV1 is 31% predicted. 01/11/2019: Due to persistent dyspnea CT chest with contrast was performed. This demonstrated diffuse emphysematous changes as well as scarring in the anterior aspect of both upper lobes with sublobar blebs worse on the left. There is also evidence of scarring at the lung bases with subpleural blebs. There is a 4.9 x 3.6 cm spiculated mass in the posterior medial segment of the left lower lobe, adjacent to this and reports exteriorly there is a 5.3 x 2.1 cm mass. There are multiple small lymph nodes within the mediastinum which are normal size and morphology most compatible with reactive lymph node hyperplasia. No other evidence of disease is noted. 01/26/2019: CT guided biopsy of the lung mass was performed and pathology dem onstrated squamous cell carcinoma 02/07/2019: PET scan was performed which demonstrated increased glucose metabolism identified in the left lower posterior hemithorax pulmonary parenchyma left lower lobe generating a calculated maximum SUV of 7.6 with a maximum axial diameter of the corresponding parenchymal density being 4.1 cm transverse by 5.5 cm AP. There is identified a subcarinal midline mediastinum mass measuring 2.7 cm with an SUV of 6.5. No other evidence of metastatic disease is identified. There is enhanced FDG distribution noted in the lower pelvis continuous to the posterior aspect of the markedly prominent size prostate gland which may be further investigated with MRI if indicated. 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 From 03/07/2019 - 04/18/2019: received 6000 cGy in 30 fractions to the left lower lobe and mediastinal disease with a VMAT technique consisting of 4 arcs. He was treated with concurrent carbo/taxol. 03/07/2019 - 04/18/2019: received two cycles of consolidative carbo/taxol 07/18/2019: Initiated consolidation druvalumab 07/14/2019: PET scan was performed which demonstrated subtle increased FDG concentration redefined in the left lower posterior lung field left lower lobe generating a calculated SUV of 1.8 compared to 7.6 previously, quantitative criteria for neoplasm are not filled. There has been interim metabolic resolution of the prior defined subcarinal mediastinal hypermetabolic abnormality and overall there is no current evidence of disease. 09/11/2019 - 09/16/2019: Patient was admitted to the hospital for sepsis and left lower lobe pneumonia. 10/07/2019 - 10/10/2019: Patient was admitted to the hospital for acute on chronic hypoxic and hypercapnic respiratory failure secondary to acute on chronic diastolic CHF as well as acute atrial fibrillation/flutter with RVR. 10/24/2019: Patient presented to the emergency room with sudden onset of right lower extremity weakness without paresthesias. Patient is on Xarelto for atrial fibrillation and has a planned cardioversion on 10/25/2019. 10/24/2019: CT brain showed moderate to large area of vasogenic edema in the left frontal/parietal lobe worrisome for neoplams/metastasis. This is new since the prior MRI. 10/24/2019: Chest Xray showed evidence of persistent parenchymal opacity in the left lung base which may correlate to the patient's known history of neoplasm. 10/25/2019: MRI brain with and without contrast was performed which demonstrated an irregular rim-enhancing mass with cystic necrosis in the left paracentral lobule with extensive surrounding vasogenic edema this measures 1.1 x 0.9 cm. There is also a 0.6 cm solid enhancing mass in the right hippocampus near the amygdala with surrounding vasogenic edema. These lesions are consistent with metastatic disease. There is also evidence for chronic white matter ischemic changes in both cerebral hemispheres. Radiation Treatment History: 1) From 03/07/2019 - 04/18/2019: received 6000 cGy in 30 fractions to the left lower lobe and mediastinal disease with a VMAT technique consisting of 4 arcs. He was treated with concurrent carbo/taxol. Interval History: Patient was evaluated in the hospital with his present. He reports that for approximately 1 week he has noted some difficulty with coordination of the right hand, he believes he has been dropping things more and has had a little bit more difficult time using his utensils when eating. Yesterday he developed weakness in the right leg where he could not lift his leg to walk and when sitting flat could not lift his leg off the bed. He denied having any tingling or numbness, incontinence, back pain, headache, vision changes, nausea/vomiting. He believes he has had some short-term memory loss over the last couple of months which has been minor but denies any other changes in cognitive ability. He was admitted to the hospital for pneumonia in early September and then again in late September for CHF and atrial fibrillation with RVR, he has been weakened some from this and is still recovering, he was doing physical therapy for strengthening. He does report a chronic cough which is occasionally productive for the last few months. He reports eating and drinking well and has a normal appetite. He denies dysphasia/odynophagia or chest wall pain. He believes his weight has gradually been increasing for the last couple of months after losing weight during treatment. He was started on steroids yesterday evening and right leg weakness has greatly improved and strength is near normal. He does report continued mild weakness in the right hand and some coordination decrease but this is also improved. He denies having other problems or concerns at this time. I have reviewed the medical, surgical, and other pertinent history in details and have updated medication and allergy information in the electronic medical record. Review of Systems: A 12-point review of systems was completed and was negative except for what is noted in the HPI/Interval History and by the nurse. Height/Weight/BMI: Height: 5 ft 10 in Weight: 162.5 lbs Vital Signs Temperature 97.8 F 10/25/19 10:25 Temperature Source Oral 10/25/19 10:25 Pulse Rate 68 10/25/19 10:25 Pulse Strength Normal (2+) 10/25/19 10:19 Respiratory Rate 16 10/25/19 10:25 Respiratory Effort Non-Labored 10/25/19 10:15 Respiratory Depth Normal 10/25/19 10:15 Respiratory Pattern Normal 10/25/19 10:15 Blood Pressure 105/61 10/25/19 10:25 Blood Pressure Mean 75 10/25/19 10:25 Blood Pressure Source Monitor 10/25/19 10:25 Blood Pressure Position Semi-Fowlers 10/25/19 10:25 Blood Pressure Location Left Arm 10/25/19 10:25 Pulse Ox 98 10/25/19 10:25 Oxygen Delivery Method Nasal Cannula 10/25/19 10:25 Oxygen Flow Rate (L/min) 6 10/25/19 10:25 Fraction of Inspired Oxygen (FIO2) 30 10/25/19 03:30 Physical Exam: ECO KARNOFSKY SCORE: 60% CONSTITUTIONAL: Well-developed, well-nourished, and in no apparent distress. NECK: Supple,with no thyromegaly, and non-tender. Trachea midline. No cervical or supraclavicular adenopathy noted. CARDIAC: Regular rate and rhythm. Normal S1, S2. No murmurs, rubs, or gallops. PULMONARY/CHEST: Lungs are clear to auscultation and percussion bilaterally. Bilateral wheezing present, no rhonchi or crackles noted. Mild increased work of breathing. Occasional cough. ABDOMINAL: Abdomen soft, non-tender, non-distended. No hepatomegaly. Normoactive bowel sounds in all four quadrants. No guarding, rebound. BACK: Straight and aligned. No CVA tenderness. Axial skeleton non-tender to percussion. EXTREMITIES: Full range of motion in all four extremities, with normal strength equally and symmetrically. No evidence of edema. No clubbing. NEUROLOGICAL EXAM: Alert and oriented x 3. Cranial nerves II through XII are grossly intact. Speech is fluent. 4/5 right hip flexion, foot dorsiflexion and plantarflexion. Muscle strength is 5/5 in remaining extremities. Gait not tested. Finger to nose slowness and mild dysmetria on the right, no dysmetria on the left. PSYCHIATRIC: Appropriate mood and affect for the clinical situation. 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 From 03/07/2019 - 04/18/2019 he received 6000 cGy in 30 fractions to the left lower lobe and mediastinal disease with concurrent carbo/taxol. He then completed consolidative chemotherapy x 2 cycles and initiated consolidative durvalumab in July 2019. I had a detailed discussion with the patient and his regarding the imaging findings with the MRI with contrast showing 2 solitary enhancing lesions with surrounding vasogenic edema consistent with metastatic disease and given his history of non-small cell lung cancer recently treated this is very likely to be metastatic disease from that primary disease. The right leg weakness and right hand clumsiness has palliated with Decadron. I reviewed the need to complete restaging likely with a PET scan as an outpatient to determine if there is any extracranial progression. I reviewed the potential treatment options for brain metastases including whole brain radiation or stereotactic radiation. These options were compared and contrasted. Given that there are only 2 relatively small lesions I would recommend pursuing stereotactic radiation therapy which will provide very high rates of local control of the treated lesions and reduced risk of neurocognitive toxicity. I explained that following radiation close observation with MRI will be needed to ensure no new lesions arise. Given that we do not do stereotactic brain radiation at our facility he will be referred out likely to [facility] for this treatment and I have reached out to the [facility] radiation oncology team to review his imaging and determine if he is a good candidate. In the event that stereotactic radiation cannot be done that I would recommend w hole brain radiation therapy with memantine, due to the location of the inferior right temporal lobe hippocampal avoidance would likely not be an option. Following our discussion the patient was in agreement with pursuing stereotactic radiation. Given that his symptoms have essentially resolved with Decadron he is stable for discharge and likely will be discharged today on Decadron which can be tapered following radiation treatment. I reviewed the logistics of stereotactic radiation as well as whole brain radiation. The risks, benefits, and alternatives to radiation therapy were reviewed in detail and all questions were addressed. I reviewed the potential acute and chronic treatment related toxicities from whole brain radiation therapy and contrasted that with stereotactic brain radiation. He would like to pursue stereotactic radiation therapy at [facility] and referral will be placed. He was instructed to call with any further questions or concerns in the interim. Plan: 1) Will be discharged home with decadron at least 4 mg bid 2) Referral for stereotactic radiation at [facility] 3) Outpatient PET scan or CT scans to evaluate for extracranial disease progression. Thank you for allowing me to participate in the management and care of your patient. If I may answer any questions in the interim, please do not hesitate to contact me at any time. Daren Peterson DO, MS Poll Clerk, Department of Radiation Oncology [facility] Code Visit Inpatient E&M: [id number] Init Hosp L3
--- NOTE | 2019-10-25 13:00 | PCM.DC ---
- Discharge Diagnoses Current Active Problems: Current Active and Chronic Problems (Last Reviewed 10/24/19 @ 11:26 by Randi Aguayo) Metastatic cancer to brain (Acute) Atrial fibrillation by electrocardiogram (Acute) You will use the following diet at home:: Cardiac Your food should be the consistency of: Regular Your liquids should be the consistency of: Regular/Thin Discharge Activity: Return to Normal Activity Allergies/Adverse Reactions: Allergies amoxicillin Adverse Reaction (Severe, Verified 10/24/19 19:40) Nausea/Vom/Diarrhea Gadolinium-MRI Contrast Medium [DYE] Adverse Reaction (Severe, Verified 10/24/19 19:40) Nausea/Vom/Diarrhea rice Adverse Reaction (Severe, Verified 10/24/19 19:40) Vomiting Medications to take at Discharge finasteride 5 mg tablet 1 tab PO DAILY 90 Days #90 02/10/18 budesonide-formoterol HFA 160 mcg-4.5 mcg/actuation aerosol inhaler 2 puff INHALATION BID #1 ea 12/06/18 Albuterol Inhaler [Ventolin Hfa] 2 puff INHALATION Q6H PRN PRN #2 inhaler 08/24/19 furosemide 20 mg tablet 20 mg PO DAILY tab 10/04/19 Albuterol Aerosols [Ventolin Aerosols] 2.5 mg INHALATION Q2H PRN PRN #1 box 10/10/19 Ipratropium/Albuterol Respimat [Combivent Respimat Inhal [place]] 1 puff INHALATION BID #1 inhaler 10/10/19 Oxygen, Home [Home Oxygen] 3 l NASAL CONT #1 unit 10/10/19 amiodarone 200 mg tablet 200 mg PO DAILY #30 tab 10/19/19 rivaroxaban 20 mg tablet 20 mg PO DAILY@1700 #30 tab 10/19/19 levofloxacin 750 mg tablet 750 mg PO Q24H 7 Days #7 tab 10/24/19 Dexamethasone [Decadron] 4 mg PO BIDCM #60 tab 10/25/19 The following prescriptions were given: Dexamethasone [Decadron] 4 mg PO BIDCM #60 tab Transmission Status: Pending to [id number] Primary Care Physician: Ha Davis DO [Primary Care Provider] - Please follow up with your Primary Care Physician in: 1-2 weeks Test Results: Test results from this visit will be discussed in further detail at your follow-up appointment, if applicable. Please Follow Up With: Josselyn Irving MD When: 1 week Proposed Discharge Date: 10/25/19
--- NOTE | 2019-10-25 13:11 | DS.PCM_ITS ---
<Amari Louie - Last Filed: 10/25/19 13:11> Discharge Date and Diagnosis - Problem List Patient Problems: Active and Suspected Problems (Last Reviewed 10/24/19 @ 11:26 by Randi Aguayo) Metastatic cancer to brain (Acute) Atrial fibrillation by electrocardiogram (Acute) Date of Admission: 10/24/19 Date of Discharge: 10/25/19 - Primary Discharge Diagnosis Active and Suspected Problems (Last Reviewed 10/24/19 @ 11:26 by Randi Agauyo) Metastatic cancer to brain (Acute) RLE numbness/weakness 2/2 above NSCLC, squamous cell Chronic afib, aflutter CAD, prior stent, ischemic CM Anemia, thrombocytopenia COPD Chronic hypoxic/hypercapnic respiratory failure - Secondary Discharge Diagnosis Chronic Problems (Last Reviewed 10/24/19 @ 11:26 by Randi Aguayo) Asthma exacerbation in COPD (Chronic) Coronary artery disease (Chronic) Acute on chronic respiratory failure with hypoxia (Chronic) Atrial flutter (Chronic) DCCV on 09/14/2019; S/P PTCA (percutaneous transluminal coronary angioplasty) (Chronic) Cardiomyopathy (Chronic) Anemia (Chronic) Immunotherapy (Chronic) HTN (hypertension) (Chronic) Stroke (Chronic) Primary cancer of left lower lobe of lung (Chronic) Regional lymph node metastasis present (Chronic) Chronic respiratory failure with hypoxia (Chronic) Stage 4 very severe COPD by GOLD classification (Chronic) FEV1 41% of predicted Hospital Course and Treatment Imaging Results: IMAGIN10/25/19 08:26 Brain W/WO Contrast [MRI] Stat MRI/Brain W/WO Contrast IMPRESSION: 1. Small enhancing brain metastatic mass lesions with surrounding vasogenic edema in the left paracentral lobule and right hippocampus near the amygdala. They measure 1.1 x 0.9 cm and 0.6 cm respectively. 2. Chronic white matter ischemic changes in both cerebral hemispheres. CT/Brain/Head without Contrast IMPRESSION: Moderate to large area of vasogenic edema in the left frontal/parietal lobe worrisome for neoplasm/metastasis. New since prior MRI. Additional evaluation with MRI (without and with IV contrast) recommended. RAD/Chest 1 View (Portable) IMPRESSION: 1. Stable exam. 2. Persistent parenchymal opacity in the left lung base may correlate to patient''s known history of neoplasm. Consultation: [facility] - Radiation Oncology Operations: None Procedures: None Summary of Care Provided: Hospital Course: The patient is a 84 year old M with past medical history as above most notable for stage III non-small cell lung carcinoma, squamous cell carcinoma, who presented to the emergency room with new onset right lower extremity weakness. He had a sudden onset of complete numbness and inability use his right leg. In the emergency room a CT of the brain demonstrated edema. He was placed on IV Decadron with concerns for metastatic disease and admitted to the PCU. On IV Decadron he significant improvement in his symptoms with mild residual decreased coordination of the right lower extremity and some mild slurred speech. Radiation oncology was consulted. An MRI of the brain was obtained which did show 2 metastatic lesions. Radiation oncology recommended that he pursue outpatient radiation at [facility] for this and for him to continue ongoing oral Decadron therapy at discharge. The patient was discharged home in stable condition. Follow-up with oncology as directed, follow-up with PCP in 1 to 2 weeks. This patient was seen by Amari Louie PA-C under the supervision of Doctor Blake. [] Patient Problems: Active and Suspected Problems (Last Reviewed 10/24/19 @ 11:26 by Randi Aguayo) Metastatic cancer to brain (Acute) Atrial fibrillation by electrocardiogram (Acute) - Physical Exam Vitals/I&O's: Vital Signs Temp Pulse Resp BP Pulse Ox 97.8 F 68 16 105/61 98 10/25/19 10:25 10/25/19 10:25 10/25/19 10:25 10/25/19 10:25 10/25/19 10:25 Oxygen Flow Rate (L/min) 3 Oxygen Delivery Method Nasal Cannula Weight: 162 lb 7.691 oz Body Mass Index (BMI) 23.3 Intake and Output for Last 24 Hours 10/23/19 10/24/19 10/25/19 23:59 23:59 23:59 Intake Total 0 / 0 400 / 400 Output Total 0 / 0 200 / 200 Balance 0 / 0 200 / 200 General: Alert, Oriented x3, Cooperative HEENT: Atraumatic, PERRLA, EOMI, Normocephalic Neck: Supple, No JVD, Negative Carotid Bruits Lungs: Clear to auscultation, Normal air movement Cardiovascular: Regular rate, No murmurs Abdomen: Bowel Sounds Present, Soft, Non Tender Extremities: No edema, Capillary Refill Less than 3 Seconds Skin: No rashes, No breakdown Musculoskeletal: No Tenderness to Palpation of Joints or Extremities Neurological: Cranial nerves II-XII grossly intact Psych/Mental Status: Normal Affect, Appropriate Laboratory Results 10/24/19 20:09: WBC 16.1 H, RBC 3.95 L, Hgb 10.9 L, Hct 35.9 L, MCV 90.9, MCH 27.6, MCHC 30.4 L, RDW Std Deviation 67.3 H, RDW Coeff of Zamzam 20.2 H, Plt Count 143 L, MPV 10.7, Immature Gran % (Auto) 0.900, Neut % (Auto) 89.1 H, Lymph % (Auto) 3.1 L, [place] % (Auto) 6.8, Eos % (Auto) 0.0, Baso % (Auto) 0.1, Absolute Neuts (auto) 14.3 H, Absolute Lymphs (auto) 0.50 L, Nucleated RBC % 0, Differential Comment SCANNED, Platelet Estimate SLT DEC, Anisocytosis 3+, Macrocytosis RARE, Ovalocytes RARE, [place] Cells RARE, Acanthocytes (Spur) RARE 10/24/19 20:09: PT 29.5 H, INR 2.8, APTT 54.1 H, D-Dimer Quant (PE/DVT) 0.54 H* 10/24/19 20:09: Sodium 135 L, Potassium 3.8, Chloride 91 L, Carbon Dioxide 36.0 H, Anion Gap 8, BUN 45 H, Creatinine 1.27, Estim Creat Clear Calc 44.71, Est GFR (MDRD) Af Amer 70, Est GFR (MDRD) Non-Af 57 L, BUN/Creatinine Ratio 35.4 H, Glucose 160 H, Calcium 9.7, Troponin I 0.041 10/24/19 20:09: B-Natriuretic Peptide 117.6 H 10/25/19 05:20: WBC 12.3 H, RBC 3.47 L, Hgb 9.6 L, Hct 31.1 L, MCV 89.6, MCH 27.7, MCHC 30.9 L, RDW Std Deviation 66.8 H, RDW Coeff of Zamzam 20.2 H, Plt Count 118 L, MPV 10.9, Immature Gran % (Auto) 0.600, Neut % (Auto) 91.0 H, Lymph % (Auto) 3.6 L, [place] % (Auto) 4.7, Eos % (Auto) 0.0, Baso % (Auto) 0.1, Absolute Neuts (auto) 11.2 H, Absolute Lymphs (auto) 0.45 L, Nucleated RBC % 0, Dif ferential Comment SCANNED, Anisocytosis 1+ 10/25/19 05:20: Sodium 133 L, Potassium 3.8, Chloride 93 L, Carbon Dioxide 36.0 H, Anion Gap 4 L, BUN 41 H, Creatinine 1.01, Estim Creat Clear Calc 56.22, Est GFR (MDRD) Af Amer 91, Est GFR (MDRD) Non-Af 75, BUN/Creatinine Ratio 40.6 H, Glucose 162 H, Calcium 8.8 Current Medications Albuterol Sulfate (Ventolin Aerosols) 2.5 mg INHALATION Q2H PRN PRN PRN Reason: Dyspnea, wheezing Albuterol/Ipratropium (Duoneb) 3 ml INHALATION BID@0600,1800 [facility] Last Admin: 10/25/19 06:53 Dose: 3 ml Documented by: Amiodarone HCl (Cordarone) 200 mg PO DAILY [facility] Last Admin: 10/25/19 10:27 Dose: 200 mg Documented by: Atorvastatin Calcium (Lipitor) 10 mg PO DAILY@2200 [facility] Dexamethasone Sodium Phosphate (Decadron) 4 mg IV Q8 [facility] Last Admin: 10/25/19 05:49 Dose: 4 mg Documented by: Finasteride (Proscar) 5 mg PO DAILY [facility] Last Admin: 10/25/19 10:27 Dose: 5 mg Documented by: Furosemide (Lasix) 20 mg PO DAILY [facility] Last Admin: 10/25/19 10:27 Dose: 20 mg Documented by: Sodium Chloride () 250 mls @ 15 mls/hr IV .[id number] PRN PRN Reason: Saline Flush Levofloxacin (Levaquin Tablet) 750 mg PO Q48 [facility] Rivaroxaban (Xarelto) 20 mg PO DAILY@1700 [facility] Sodium Chloride () 10 - 40 ml IV UD PRN PRN Reason: SALINE FLUSH Discharge Diet: Low fat/ Low Cholesterol, 2000 mg Sodium Diet Discharge Activity: Return to Normal Activity Home Medications: Medications to take at Discharge finasteride 5 mg tablet 1 tab PO DAILY 90 Days #90 02/10/18 budesonide-formoterol HFA 160 mcg-4.5 mcg/actuation aerosol inhaler 2 puff INHALATION BID #1 ea 12/06/18 Albuterol Inhaler [Ventolin Hfa] 2 puff INHALATION Q6H PRN PRN #2 inhaler 08/24/19 furosemide 20 mg tablet 20 mg PO DAILY tab 10/04/19 Albuterol Aerosols [Ventolin Aerosols] 2.5 mg INHALATION Q2H PRN PRN #1 box 10/10/19 Ipratropium/Albuterol Respimat [Combivent Respimat Inhal [place]] 1 puff INHALATION BID #1 inhaler 10/10/19 Oxygen, Home [Home Oxygen] 3 l NASAL CONT #1 unit 10/10/19 amiodarone 200 mg tablet 200 mg PO DAILY #30 tab 10/19/19 rivaroxaban 20 mg tablet 20 mg PO DAILY@1700 #30 tab 10/19/19 levofloxacin 750 mg tablet 750 mg PO Q24H 7 Days #7 tab 10/24/19 Dexamethasone [Decadron] 4 mg PO BIDCM #60 tab 10/25/19 Following Prescrptions Were Given to Patient: Dexamethasone [Decadron] 4 mg PO BIDCM #60 tab Transmission Status: Received by [id number] Other Amb Orders: ONC Referral: Radiation Oncology Location: None Selected ONC: Call for PET Scan Location: None Selected Primary Care Physician: Ha Davis DO [Primary Care Provider] - Please follow up with your Primary Care Physician in: 1-2 weeks Please Follow Up With: Josselyn Irving MD When: as directed Disposition: Home Minutes spent on discharge:: 35 Patient Condition:: Stable Medical Necessity - Tobacco Use Smoking Status: Former smoker Meaningful Use Info Meaningful Use Diagnoses (Choose all that apply): None applicable <Rohit Blake - Last Filed: 10/25/19 14:34> Discharge Date and Diagnosis - Primary Discharge Diagnosis Active and Suspected Problems (Last Reviewed 10/24/19 @ 11:26 by Randi Aguayo) Metastatic cancer to brain (Acute) Atrial fibrillation by electrocardiogram (Acute) - Secondary Discharge Diagnosis Chronic Problems (Last Reviewed 10/24/19 @ 11:26 by Randi Aguayo) Asthma exacerbation in COPD (Chronic) Coronary artery disease (Chronic) Acute on chronic respiratory failure with hypoxia (Chronic) Atrial flutter (Chronic) DCCV on 09/14/2019; S/P PTCA (percutaneous transluminal coronary angioplasty) (Chronic) Cardiomyopathy (Chronic) Anemia (Chronic) Immunotherapy (Chronic) HTN (hypertension) (Chronic) Stroke (Chronic) Primary cancer of left lower lobe of lung (Chronic) Regional lymph node metastasis present (Chronic) Chronic respiratory failure with hypoxia (Chronic) Stage 4 very severe COPD by GOLD classification (Chronic) FEV1 41% of predicted Hospital Course and Treatment Imaging Results: 10/25/19 08:26 Brain W/WO Contrast [MRI] Stat Summary of Care Provided: This patient was seen in conjunction with Amari Louie PA-C . I have independently interviewed and examined the patient and reviewed pertinent historical, laboratory, and other data. Please refer to Amari Louie PA-C note for details of this patient's presentation, findings, and recommendations. I have reviewed Amari Louie PA-C note and concur with documented findings. In brief, patient is an 84-year-old gentleman with past medical history significant for stage III non-small cell lung CA who presented to the emergency department with new onset right lower extremity weakness. Patient underwent CT of the brain in the ED which was questionable for edema subsequently admitted to regular nursing floor for further management. MRI obtained demonstrated Small enhancing brain metastatic mass lesions with surrounding vasogenic edema in the left paracentral lobule and right hippocampus near the amygdala. They measure 1.1 x 0.9 cm and 0.6 cm respectively patient was seen in consultation by radiation oncology discharge on Decadron with plans for patient to follow-up at [facility] for brain irradiation Hospital course: As documented above - Physical Exam Vitals/I&O's: Vital Signs Temp Pulse Resp BP Pulse Ox 97.8 F 68 16 105/61 98 10/25/19 10:25 10/25/19 10:25 10/25/19 10:25 10/25/19 10:25 10/25/19 10:25 Oxygen Flow Rate (L/min) 3 Oxygen Delivery Method Nasal Cannula Weight: 73.7 kg Body Mass Index (BMI) 23.3 Intake and Output for Last 24 Hours 10/23/19 10/24/19 10/25/19 23:59 23:59 23:59 Intake Total 0 / 0 400 / 400 Output Total 0 / 0 200 / 200 Balance 0 / 0 200 / 200 Laboratory Results 10/24/19 20:09: WBC 16.1 H, RBC 3.95 L, Hgb 10.9 L, Hct 35.9 L, MCV 90.9, MCH 27.6, MCHC 30.4 L, RDW Std Deviation 67.3 H, RDW Coeff of Zamzam 20.2 H, Plt Count 143 L, MPV 10.7, Immature Gran % (Auto) 0.900, Neut % (Auto) 89.1 H, Lymph % (Auto) 3.1 L, [place] % (Auto) 6.8, Eos % (Auto) 0.0, Baso % (Auto) 0.1, Absolute Neuts (auto) 14.3 H, Absolute Lymphs (auto) 0.50 L, Nucleated RBC % 0, Differential Comment SCANNED, Platelet Estimate SLT DEC, Anisocytosis 3+, Macrocytosis RARE, Ovalocytes RARE, [place] Cells RARE, Acanthocytes (Spur) RARE 10/24/19 20:09: PT 29.5 H, INR 2.8, APTT 54.1 H, D-Dimer Quant (PE/DVT) 0.54 H* 10/24/19 20:09: Sodium 135 L, Potassium 3.8, Chloride 91 L, Carbon Dioxide 36.0 H, Anion Gap 8, BUN 45 H, Creatinine 1.27, Estim Creat Clear Calc 44.71, Est GFR (MDRD) Af Amer 70, Est GFR (MDRD) Non-Af 57 L, BUN/Creatinine Ratio 35.4 H, Glucose 160 H, Calcium 9.7, Troponin I 0.041 10/24/19 20:09: B-Natriuretic Peptide 117.6 H 10/25/19 05:20: WBC 12.3 H, RBC 3.47 L, Hgb 9.6 L, Hct 31.1 L, MCV 89.6, MCH 27.7, MCHC 30.9 L, RDW Std Deviation 66.8 H, RDW Coeff of Zamzam 20.2 H, Plt Count 118 L, MPV 10.9, Immature Gran % (Auto) 0.600, Neut % (Auto) 91.0 H, Lymph % (Auto) 3.6 L, [place] % (Auto) 4.7, Eos % (Auto) 0.0, Baso % (Auto) 0.1, Absolute Neuts (auto) 11.2 H, Absolute Lymphs (auto) 0.45 L, Nucleated RBC % 0, Differential Comment SCANNED, Anisocytosis 1+ 10/25/19 05:20: Sodium 133 L, Potassium 3.8, Chloride 93 L, Carbon Dioxide 36.0 H, Anion Gap 4 L, BUN 41 H, Creatinine 1.01, Estim Creat Clear Calc 56.22, Est GFR (MDRD) Af Amer 91, Est GFR (MDRD) Non-Af 75, BUN/Creatinine Ratio 40.6 H, Glucose 162 H, Calcium 8.8 Current Medications Albuterol Sulfate (Ventolin Aerosols) 2.5 mg INHALATION Q2H PRN PRN PRN Reason: Dyspnea, wheezing Albuterol/Ipratropium (Duoneb) 3 ml INHALATION BID@0600,1800 [facility] Last Admin: 10/25/19 06:53 Dose: 3 ml Documented by: Amiodarone HCl (Cordarone) 200 mg PO DAILY [facility] Last Admin: 10/25/19 10:27 Dose: 200 mg Documented by: Atorvastatin Calcium (Lipitor) 10 mg PO DAILY@2200 [facility] Dexamethasone Sodium Phosphate (Decadron) 4 mg IV Q8 [facility] Last Admin: 10/25/19 05:49 Dose: 4 mg Documented by: Finasteride (Proscar) 5 mg PO DAILY [facility] Last Admin: 10/25/19 10:27 Dose: 5 mg Documented by: Furosemide (Lasix) 20 mg PO DAILY [facility] Last Admin: 10/25/19 10:27 Dose: 20 mg Documented by: Sodium Chloride () 250 mls @ 15 mls/hr IV .[id number] PRN PRN Reason: Saline Flush Levofloxacin (Levaquin Tablet) 750 mg PO Q48 [facility] Rivaroxaban (Xarelto) 20 mg PO DAILY@1700 [facility] Sodium Chloride () 10 - 40 ml IV UD PRN PRN Reason: SALINE FLUSH Code Visit Inpatient E&M: 47845 Disch Hosp
--- NOTE | 2019-10-25 14:57 | CASEMGMT ---
Therapy is recommending further skilled therapy at this time and pt is already set up with OP therapy at [facility]. Pt/ state they would like to continue with the OP therapy at [facility] and states that pt's 2nd appt is tomorrow, which they plan to keep. Pt/ voice no further questions/concerns/needs at this time. Toshia DE LA CRUZ CM
--- NOTE | 2019-10-26 14:05 | CASEMGMT ---
RN FLORINA DC PHONE CALL DC DATE: 08.25.19 DC Disposition: Home, Outpt PT/OT Diagnosis on Discharge: metastatic brain cancer LACE/STRATA: 10/12 Intro role of CM to patient's . Per , no questions re: instructions, prescriptions or f/u. No care improvement suggestions given. Fransisco MESSINAN RN ACM
== END 2019-10-25 15:55 | disposition home or self-care (01) | DRG 55 ==
LOC: ED 21:35 → PCU 10-25 01:18
PROVIDERS: Admitting Provider Family Medicine; Emergency Provider Emergency Medicine; Family Provider Family Medicine; PCP Family Medicine; Visit Provider Internal Medicine
DX: C79.31 Secondary malignant neoplasm of brain (principal); J96.11 Chronic respiratory failure with hypoxia; J96.12 Chronic respiratory failure with hypercapnia; C34.32 Malignant neoplasm of lower lobe, left bronchus or lung; C77.9 Secondary and unspecified malignant neoplasm of lymph node, unspecified; I25.5 Ischemic cardiomyopathy; I25.10 Atherosclerotic heart disease of native coronary artery without angina pectoris; Z95.5 Presence of coronary angioplasty implant and graft; D69.6 Thrombocytopenia, unspecified; D64.9 Anemia, unspecified; J44.9 Chronic obstructive pulmonary disease, unspecified; Z99.81 Dependence on supplemental oxygen; I48.91 Unspecified atrial fibrillation; Z87.891 Personal history of nicotine dependence
CPT/HCPCS: 36415; 70450; 70553; 71045; 80048; 80053; 82533; 83735; 83880; 84100; 84439; 84443; 84484; 85025; 85379; 85610; 85730; 93005; 94002; 94003; 94640; 94762; 97163; 97166; 99285; A9575; A4216

== ENCOUNTER 2019-10-26 12:00 | Outpatient (RCR) | payer MEDICARE, SELFPAY ==
[2019-05-17 10:20] VITALS: BMI 24.0
[2019-10-11 14:29] VITALS: BMI 24.7
[2019-10-18 07:42] VITALS: BMI 24.7
--- NOTE | 2019-10-19 10:48 | HP.PTEVAL_ITS ---
Patient's Visit Information HAILEY MONDRAGON is a 83 year old M referred to Physical Therapy by Katharina Solano MD with a diagnosis of respiratory failure, debility. Date of Evaluation: 10/19/19 Physical Therapist: Flynn Cai, DARNELL, OCS, CSCS - Visit Plan Frequency: 2x /Week Duration: 4-6 Weeks Plan: 2x/week for 4-6 weeks for ... LE strength and progression of gait for distance, balance and CV, gradually decrease AD as able. Stretch HS and gastroc. Progress to gym ex when tolerated. - Subjective Findings: Was working out at and doing well until a month ago. Is on cancer treatment for lung CA. Went downhill quickly a month ago with frequent hospital visits. Been laying in bed for three weeks. now legs weak and gets tired. Slowly improving. Using wh walker now but not a month ago. Still on immuno treatment for CA but hasn't been able to do it recently. No pain. Sleeps well. 2 steps at home to get in adn can do it. Spends day watching tV adn reading. Normally would be out and about in the community. Not employed. Wants to do stuff around house. Basic ADLS are going well. Goals to get legs back to working and workout at again. Was doing recumbent alot previously. Legs feel numb and full from mid thigh down. - Objective Stand balance romberg eo30 easy adn ec 3 sec then 12 seconds with lots of wobble. 70% so2 after eval and 60bpm, turned up oxygen and it went up to 90s quickly. Steps with railing required adn challenging CV. Needed break half way through 400 foot walk due to SOB slightly. Gait pattern is neuropathic with very little push off. CGA without AD and mod I with wh walker today. reflexes0/3 patella and achilles B. Sensation LE WNL to my gross light touch today. Strength L LE 4- adn R LE 3+ B. Tightness obvious in gastroc adn soleus and HS adn L leg slightly swollen vs R. UE AROM WFL and symmetrical strength WFL at 4- . - Balance Scores Functional Gait Assessment Score: 14 % Disability: 53.3400 - Goals Goal 1:: Tolerate FGA with 22/30 score without SOB Goal Time Frame: 4-6 Weeks Goal 2:: Patient feel like he is 75% back to normal mobility Goal Time Frame: 4-6 Weeks Goal 3:: Back to appropriate H&W ex I in gym Goal Time Frame: 4-6 Weeks Goal 4:: steps reciprocally with one rail without SOB or imbalance. Goal Time Frame: 4-6 Weeks Goal 5:: <33% disability on LEFS. Goal Time Frame: 4-6 Weeks - Rehabilitation Potential Physical Therapy Diagnosis: debility form recent med issues. Rehabilitation Potential: Fair - Anticipated Interventions Patient/Client Instruction: Educate patient on: Condition, Plan of Care For the Purpose of:: To improve ability of physical actions for home/community/work/leisure, To improve gait and locomotor functions Therapeutic Exercise to Include: Strength training, Balance training, Flexibilty training, Gait and locomotor training For the Purpose of:: To improve ability of physical actions for home/community/work/leisure, To improve gait and locomotor functions Thank you for the opportunity to evaluate your patient. For Medicare and Medicare HMO plans, please review the plan of care and approve it. It will need to be FAXED BACK to us at [phone] for Medicare purposes. For Medicare only, by signing this I certify the plan of care. Please let me know if there are questions or concerns regarding this plan of care. Physician Signature: Date:
--- NOTE | 2019-10-19 11:33 | HP.OTEVAL ---
Patient's Visit Information HAILEY MONDRAGON is a 83 year old M, referred to Occupational Therapy by Katharina Solano MD, with a diagnosis of respiratory failure. Date of Evaluation: 10/19/19 Occupational Therapist: Ramonita Monroe - Subjective Subjective: Pt seen for initial occupational therapy evaluation for respiratory failure, COPD, cardiomyopathy, hx CVA. He has been in hospital 3x in past month and demonstrates decreased activity tolerance and requires extra time for BADLs and increased assist needed for getting socks/shoes on. Spouse assist w/ IADLs. Pt states he use to help spouse with vaccuuming and cleaning around the house, but to weak to complete now. Pt drives short distances around town. Pt on 4L 02 when traveling and 2L when sitting around. Pt usually goes to [place] in winter and walks beach. Enjoys walking as hobbie and reading but hasn't been able to complete the walking. R hand dominent. - Objective Objective/Observation: Pt demo decreased activity tolerance, SOB easily, decreased BUE strength. - ROM ROM Comments: BUE WFL, no ROM concerns - Strength Ophthalmic Technologist: R 70#, L 70# Lateral Pinch: R 13#, L 14# Tripod Pinch: R 8#, L 7# Strength Comments: R UE 4-/5, L UE 3+/5 - Edema Other: No edema - Sensation Sensation Comments: No numbness or tingling in hands - Nine Hole Peg Right: 29. 2 seconds Left: 25.7 seconds - Quick DASH-Disab of Arm,Shoulder& Hand Quick DASH Score: 38.6350 - Goals Goal:: Pt will progress w/ generalized BUE strength 4/5 to assist w/ BADL tasks and light housekeeping tasks independently w/o assist needed by d/c from OT services. Goal:: Pt will be able to татьяна/doff socks and shoes OH using adaptive techniques or AE by d/c from OT services. Goal:: Pt will progress w/ functional activity tolerance to assist w/ BADL and IADL tasks independently without increased SOB and good pacing techniqes 10 to 15 min by d/c from OT services. Goal:: Pt will be educated on BUE HEP with good understanding and demo 100%x - Rehabilitation General Assessment: Pt seen for initial occupational therapy evaluation for decreased BUE strength, activity tolerance and indep w/ LB dressing tasks indicating a need for skilled OT interventions to increase generalized BUE strength, activity tolerance to assist w/ BADL and IADL tasks as well as increase indep w/ LB dressing to татьяна/doff socks/shoes independently using AE or adaptive techniques as needed, eduacte on BUE HEP 1-2x/wk x 4wks Rehabilitation Potential: Excellent - Anticipated Interventions Anticipated Interventions: Strengthening, Joint Protection/Energy Conservation, Ergonomic Education, ADL Training, Education re assistive Equipment, Education re Diagnosis, Home Program - Visit Plan Frequency: 1-2x /Week Duration: 4 Weeks General Plan: OT interventions to increase generalized BUE strength, activity tolerance to assist w/ BADL and IADL tasks as well as increase indep w/ LB dressing to татьяна/doff socks/shoes independently using AE or adaptive techniques as needed, edurobine on BUE HEP 1-2x/wk x 4wks TEXT: Thank you for the opportunity to evaluate your patient. For Medicare and Medicare HMO plans, please review the plan of care and approve it. It will need to be FAXED BACK to us at [phone] for Medicare purposes. Please let me know if there are questions or concerns regarding this plan of care. Physician Signature: Date:
--- NOTE | 2019-11-17 10:29 | HP.OT.NRP ---
HP - Discharge Summary - Patient Information HAILEY MONDRAGON was seen in my office for initial evaluation on 10/19/19. The following Plan of Care was established for this patient: Initial Frequency: 1-2x /Week Initial Duration: 4 Weeks Plan: cont POC - Anticipated Interventions Anticipated Interventions: Strengthening, Joint Protection/Energy Conservation, Ergonomic Education, ADL Training, Education re assistive Equipment, Education re Diagnosis, Home Program This patient was last seen in our office 10/26/19. Pertinent comments regarding their Occupational therapy will appear below: Pt last seen 10/26/19. Pt d/c from OT services secondary to going to receive home health OT. At this point I will be discontinuing this patient from occupational therapy. I would be happy to see this patient again in the future if found appropriate by the physician. Thank you! Ramonita Monroe
--- NOTE | 2019-11-17 15:37 | HP.PT.NRP ---
HP - Discharge Summary (1) - Patient Information HAILEY MONDRAGON was seen in my office for initial evaluation on 10/19/19. The following Plan of Care was established for this patient: Initial Frequency: 2x /Week Initial Duration: 4-6 Weeks - Anticipated Interventions Patient/Client Instruction: Educate patient on: Condition, Plan of Care For the Purpose of:: To improve ability of physical actions for home/community/work/leisure, To improve gait and locomotor functions Therapeutic Exercise to Include: Strength training, Balance training, Flexibilty training, Gait and locomotor training For the Purpose of:: To improve ability of physical actions for home/community/work/leisure, To improve gait and locomotor functions This patient was last seen in our office 10/26/19. Pertinent comments regarding their Physical therapy will appear below: Pt seen for two visits of POC kaseyn then cancelled next four visits. He has called and requested discharge as he will be seeing home health. At this point I will be discontinuing this patient from physical therapy. I would be happy to see this patient again in the future if found appropriate by the physician. Thank you! Flynn Cai, DPT, OCS, CSCS
== END 2019-10-26 19:00 | disposition home or self-care (01) ==
LOC: PT 12:00
PROVIDERS: Family Provider Family Medicine; PCP Family Medicine; Visit Provider Family Medicine
DX: J96.90 Respiratory failure, unspecified, unspecified whether with hypoxia or hypercapnia (principal); J44.9 Chronic obstructive pulmonary disease, unspecified; I42.9 Cardiomyopathy, unspecified; Z86.73 Personal history of transient ischemic attack (TIA), and cerebral infarction without residual deficits
CPT/HCPCS: 97110; 97162; 97165; 97166

== ENCOUNTER → 2019-11-21 11:39 | Outpatient (CLI) | payer MEDICARE, SELFPAY ==
[2019-05-17 10:20] VITALS: BMI 24.0
[2019-11-21 10:23] VITALS: BMI 24.2
[2019-11-21 13:04] LABS: Anion Gap 7 (5-15); BUN 68 mg/dL (7-18); BUN/Creat Ratio 59.6 RATIO (10-20); Chloride 81 mmol/L (98-107); Creatinine, Serum 1.14 mg/dL (0.70-1.30); EST Glomerular Filtration Rate 65 mL/min (>60); Est Glom Filt Rate - Afr Amer 79 mL/min (>60); Glucose 288 mg/dL (74-106); Potassium 3.2 mmol/L (3.5-5.1); Sodium Level 130 mmol/L (136-145)
[2019-11-21 13:14] LABS: BNP,B-Type NATRIURETIC PEPTIDE 110.3 pg/mL (0-100)
== END ==
PROVIDERS: Family Provider Family Medicine; PCP Family Medicine; Referring Provider Nurse Practitioner Family; Visit Provider Nurse Practitioner Family
DX: I10 Essential (primary) hypertension (principal); I42.9 Cardiomyopathy, unspecified; R06.09 Other forms of dyspnea; Z95.5 Presence of coronary angioplasty implant and graft
CPT/HCPCS: 36415; 80048; 83880